=== PATIENT | female | born 1995 | race Caucasian/White ===

== ENCOUNTER 2023-08-11 00:33 | Emergency (ER) | payer BC, SELFPAY ==
[2023-08-11 00:58] VITALS: BP 119/74; PULSE 62; RESP 18; TEMP 36.7; O2SAT 98; BMI 23.0
--- NOTE | 2023-08-11 01:12 | XR_ITS ---
The [address] [address] Patient Name: IVORY NARVAEZ MRN: [id number] date: 1995 Sex: F Assigned Patient Location: ER Current Patient Location: ER Accession/Order Number: [id number] Exam Date: 08/11/2023 01:15 Report Date: 08/11/2023 01:38 At the request of: YOSI WHITNEY Procedure: XR hand RT min 3V COMPARISON: None. CLINICAL HISTORY: Injury. TECHNIQUE: 3 views of right hand obtained. FINDINGS: There is no evidence of fracture or soft tissue swelling. Joint spaces are maintained. No pathologic calcifications. No evidence of radiopaque foreign body. XR/XR hand RT min 3V IMPRESSION: Unremarkable right hand. Electronically authenticated by: MARY LOU VILA Date: 08/11/2023 01:38
--- NOTE | 2023-08-11 01:13 | ED_ITS ---
HPI - Extremity Injury (Upper) General Chief Complaint: Extremity Injury, Upper Stated Complaint: RT HAND INJURY Time Seen by Provider: 08/11/23 01:07 Source: patient Mode of arrival: ambulance Limitations: no limitations History of Present Illness HPI narrative: closed hand in car door 3 days ago. injured right thumb, index and adjoining hand. states swelling has decreased some but still has pain. No weakness or numbness Related Data Home Medications Medication Instructions Recorded Confirmed No Known Home Medications 08/11/23 08/11/23 Allergies Allergy/AdvReac Type Severity Reaction Status Date / Time No Known Drug Allergies Allergy Verified 08/11/23 01:02 Review of Systems ROS Status of ROS 10 or more systems reviewed and unremarkable except as noted in history and below [facility] Social History Smoking status: Former smoker Exam Constitutional Vital Signs, click to edit/add: Last Vital Signs Temp 98.0 F 08/11/23 00:58 Pulse 62 08/11/23 00:58 Resp 18 08/11/23 00:58 BP 119/74 08/11/23 00:58 Pulse Ox 98 08/11/23 00:58 O2 Del Method Room Air 08/11/23 00:58 Common normals: no apparent distress, average body habitus, oriented x3, no limitations, healthy appearing, alert and well nourished Eye Common normals: EOMs intact bilaterally and conjunctivae normal Respiratory Common normals: normal respiratory effort, no retractions and no use of accessory muscles Cardio Common normals: regular rate, S1 normal heart sound and S2 normal heart sound Extremity Other: mild swelling right thumb, web space between thumb and index and proximal index finger Neuro Common normals: oriented x3, CN's II-XII intact bilaterally, moves all extr emities, no focal motor deficits and no sensory deficits noted Psych Appearance: grossly normal Course Vital Signs Vital signs: Vital Signs Temperature 98.0 F 08/11/23 00:58 Pulse Rate 62 08/11/23 00:58 Respiratory Rate 18 08/11/23 00:58 Blood Pressure 119/74 08/11/23 00:58 Pulse Oximetry 98 08/11/23 00:58 Oxygen Delivery Method Room Air 08/11/23 00:58 Temperature 98.0 F 08/11/23 00:58 Pulse Rate 62 08/11/23 00:58 Respiratory Rate 18 08/11/23 00:58 Blood Pressure 119/74 08/11/23 00:58 Pulse Oximetry 98 08/11/23 00:58 Oxygen Delivery Method Room Air 08/11/23 00:58 MDM - Extremity Injury (Upper) MDM Narrative Medical decision making narrative: presents after mistakenly closing her right hand in the car door. has mild swelling of the thumb and index. xray neg for fracture. Patient informed of the xray results and discharged home Imaging Data Chest x-ray: Radiologist's impression: Remberto wang [id number] Patient Name: IVORY NARVAEZ MRN: [id number] date: 1995 Sex: F Assigned Patient Location: ER Current Patient Location: ER Accession/Order Number: [id number] Exam Date: 08/11/2023 01:15 Report Date: 08/11/2023 01:38 At the request of: YOSI WHITNEY Procedure: XR hand RT min 3V COMPARISON: None. CLINICAL HISTORY: Injury. TECHNIQUE: 3 views of right hand obtained. FINDINGS: There is no evidence of fracture or soft tissue swelling. Joint spaces are maintained. No pathologic calcifications. No evidence of radiopaque foreign body. XR/XR hand RT min 3V IMPRESSION: Unremarkable right hand. Electronically authenticated by: MARY LOU VILA Date: 08/11/2023 01:38 Discharge Plan Discharge Chief Complaint: Extremity Injury, Upper Clinical Impression: Contusion of hand, right Patient Disposition: Home, Self-Care Prescriptions / Home Meds: No Action No Known Home Medications Instructions: Contusion in Adults (ED) Stand Alone Forms: Portal Instructions Referrals: Physician,Non-Staff, MD [Primary Care Provider] - 1 week
== END 2023-08-11 02:14 | disposition home or self-care (01) ==
PROVIDERS: Emergency Provider Internal Medicine
DX: S60.221A Contusion of right hand, initial encounter (principal); W23.0XXA Caught, crushed, jammed, or pinched between moving objects, initial encounter; Z87.891 Personal history of nicotine dependence
CPT/HCPCS: 73130; 99283

== ENCOUNTER 2023-12-13 08:25 | Emergency (ER) | payer BC, SELFPAY ==
[2023-12-13 08:31] VITALS: BP 121/78; PULSE 64; RESP 18; TEMP 36.4; O2SAT 99; BMI 22.9
--- OUTSIDE RECORDS SUMMARY | 2023-12-13 08:41 | XMS_ITS | CCD ---
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 Name Role Phone HELENA-MARIA, KAMINI Unavailable Unavailable UNKNOWN, PCP Unavailable Unavailable Dbouk, Tarek Ali Unavailable Unavailable HELENA-MARIA, KAMINI Unavailable Unavailable SERENA, JIM A Unavailable Unavailable Dbouk, Tarek Ali Unavailable Unavailable HELENA-MARIA, KAMINI Unavailable Unavailable *SELF, REFERRED Unavailable Unavailable Dbouk, Tarek Ali Unavailable Unavailable Joel Mcneal Unavailable Unavaila ble Joel Mcneal Unavailable Unavaila ble Dbouk, Tarek Ali Unavailable Unavailable HELENA-MARIA, KAMINI Unavailable Unavailable *SELF, REFERRED Unavailable Unavailable Dbouk, Tarek Ali Unavailable Unavailable HELENA-MARIA, KAMINI Unavailable Unavailable *SELF, REFERRED Unavailable Unavailable Dbouk, Tarek Ali Unavailable Unavailable MAL HARMON Unavailable Unavailable MADISYN HUFF Unavailable Unavailabl e NO FAMILY, PHYSICIAN Primary Care Provider DO Abe Rich Emergency Provider Vivivai RONAK Lackey Admitting Unavailable RONAK CAPUTO Attending Unavailable BRIAN, DR HAWKINS Admitting Unavailable BRIAN, DR HAWKINS Attending Unavailable BRIAN, DR HAWKINS Consulting Unavailable BRIAN, DR HAWKINS Admitting Unavailable BRIAN, DR HAWKINS Attending Unavailable BRIAN, DR HAWKINS Consulting Unavailable SIMONE, DR CASAS Admitting Unavailable SIMONE, DR CASAS Attending Unavailable REQUEST, DR POON LISTED Primary Care Unavailaustyn NICHOLS, DR CASAS Consulting Unavailable Medications Current Medications Medication Drug Class(es) Dates Sig (Normalized) Sig (Original) cyclobenzaprine hydrochloride 10 mg oral tablet (1 source) Muscle Relaxant Start: 01-05-2021 take 10 mg by mouth at bedtime Cyclobenzaprine Active 10 MG PO Bedtime 7 January 05, 2021 9:48am ondansetron 4 mg oral tablet (1 source) Serotonin-3 Receptor Antagonist Start: 03-31-2022 take 4 mg by mouth every eight hours Ondansetron Hcl Active 4 MG PO Q8H 12 4 March 31, 2022 12:26am Completed/Discontinued Medications Medication Drug Class(es) Dates Sig (Normalized) Sig (Original) ibuprofen 600 mg oral tablet (1 source) Nonsteroidal Anti-inflammatory Drug Start: 11-27-2018 End: 03-29-2020 Ibuprofen Discontinued 600 MG PO every 6 to 8 hours November 27, 2018 10:41pm March 29, 2020 7:46pm Problems Active Problems Problem Classification Problem Date Documented Da te Episodic/Chronic Abdominal pain (1 source) Abdominal pain; Translations: [Unspecified abdominal pain] 03-31-2022 Episodic Fever of unknown origin (2 sources) Feeling feverish; Translations: [Fever, unspecified] Onset: 09-20-2022 03-31-2022 Episodic Influenza (1 source) Influenza due to other identified influenza virus with other respiratory manifestations; Translations: [FLU D/T OTH ID FLU VIR OTH RSP MANF] Onset: 09-20-2022 Episodic Nausea and vomiting (1 source) Nausea and vomiting; Translations: [Nausea with vomiting, unspecified] 03-31-2022 Episodic Other injuries and conditions due to external causes (1 source) Contusion; Translations: [Other injury of unspecified body region, initial encounter] 01-05-2021 Episodic Other lower respiratory disease (1 source) Cough; Translations: [Cough] 03-31-2022 Episodic Other nutritional; endocrine; and metabolic disorders (1 source) Loss of appetite; Translations: [Anorexia] 03-31-2022 Episodic Sprains and strains (1 source) Strain of neck muscle; Translations: [Strain of muscle, fascia and tendon at neck level, initial encounter] 01-05-2021 Episodic Superficial injury; contusion (1 source) Contusion of rib; Translations: [Contusion of left front wall of thorax, initial encounter] 03-29-2020 Episodic Unclassified (1 source) Congenital malformation, unspecified / Q89.9(ICD-10) Onset: 05-04-2017 Unclassified (1 source) Herpesviral infection of urogenital system, 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(ICD-10) Onset: 05-04-2017 Unclassified (1 source) 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) Onset: 05-04-2017 Unclassified (2 sources) COUGH, UNSPECIFIED; Translations: [COUGH, UNSPECIFIED] Onset: 09-20-2022 Viral infection (1 source) Disease caused by 2019-nCoV; Translations: [COVID-19] 03-31-2022 Episodic Past or Other Problems Problem Classification Problem Date Documented Date Episodic/Chronic Immunizations and screening for infectious disease (4 sources) Encounter for screening for infections with a predominantly sexual mode of transmission; Translations: [ENC SCREEN INFECTIONS SEXL TRANSMS] Onset: 05-12-2022 Episodic Other screening for suspected conditions (not mental disorders or infectious disease) (4 sources) Encounter for screening for malignant neoplasm of cervix; Translations: [ENC SCREENING MALIG NEOPLASM CERV] Onset: 03-25-2022 Episodic Other upper respiratory infections (1 source) Acute pharyngitis, unspecified; Translations: [Acute pharyngitis, unspecified] Onset: 05-30-2017 Episodic Residual codes; unclassified (4 sources) Procedure and treatment not carried out due to patient leaving prior to being seen by health care provider; Translations: [PROC AND TX NOT CARRIED OUT PT LEAVE] Onset: 10-20-2021 Episodic Unclassified (1 source) COUGH, UNSPECIFIED; Translations: [COUGH, UNSPECIFIED] Onset: 09-18-2022 Results Test Name Value Interpretation Reference Range Facility INFLUENZA A AND B AGon 09-18 INFLUBNEGH SEE BELOW Normal [facility] Comment on above: Result Comment: Nega tive for Flu B protein antigen. Infection due to Flu B cannot be ruled out. Flu B antigen in the sample may be below the detection limit of the test. Performed By: #### I NFLUAB #### [facility] [address] [place] [address] Dr. Darshan Porter INFLUENZA A AG Positive Abnormal NEGATIVE SEE COMMENT [facility] Comment on above: Performed By: #### I NFLUAB #### [facility] [address] [address] [address] Darshan Porter INFLUENZA B AG Negative Normal NEGATIVE SEE COMMENT [facility] Comment on above: Performed By: #### I NFLUAB #### [facility] [address] [place] [address] Dr. Darshan Porter INFLUPOSH SEE BELOW Normal [facility] Comment on above: Result Comment: NOTE : Live attenuated influenzae vaccine viruses can cause a positive result for a rapid influenza diagnostic test if administered up to 7 days prior to rapid testing. Performed By: #### I NFLUAB #### [facility] [address] [place] [address] Dr. Darshan Porter INTERNAL CONTROLS Within Normal Limits Normal Wi thin Normal Limits [facility] Comment on above: Performed By: #### I NFLUAB #### [facility] [address] [place] [address] Dr. Darshan Porter CHLAMYDIA/GONOCOCCUS NESSA (SW AB/URINE/PAPon 05-14-2022 Chlamydia trachomatis, NESSA Negative Normal Negative [facility] Comment on above: Performed By: #### C T/NGNA #### [facility] [address] [place] [address] Dr. Darshan Porter Neisseria gonorrhoeae, NESSA Negative Normal Negative [facility] Comment on above: Performed By: #### C T/NGNA #### [facility] [address] [place] [address] Dr. Darshan Porter VAGINITIS/VAGINOSIS DNA PROB Donell 05-14-2022 Latha species Negative Normal Negative [facility] Comment on above: Performed By: #### V AGINT #### [facility] [address] [place] [address] Dr. Darshan Porter Gardnerella vaginalis Positive Abnormal Negative [facility] Comment on above: Performed By: #### V AGINT #### [facility] [address] [place] [address] Dr. Darshan Porter Trichomonas vaginalis Negative Normal Negative [facility] Comment on above: Performed By: #### V AGINT #### [facility] [address] [place] [address] Dr. Darshan Porter Basic Metabolic Panelon - Calcium [Mass/Vol] 9.4 mg/dL Normal 8.2-10.2 [facility] Comment on above: Performed By: #### C BC, BMP #### [facility] [address] Chloride [Moles/Vol] 102 mmol/L Normal 95-114 [facility] Comment on above: Performed By: #### C BC, BMP #### [facility] [address] CO2 [Moles/Vol] 22.1 mmol/L Normal 22.0-30.0 [facility] Comment on above: Performed By: #### C BC, BMP #### [address] Creatinine [Mass/Vol] 0.80 mg/dL Normal 0.44-1.03 [facility] Comment on above: Performed By: #### C BC, BMP #### [address] Creatinine Clr Calc Pharmacy 85.83 [facility] Comment on above: Result Comment: PERF ORMED BY: [place] [id number] PATHOLOGIST BEEF SPLITTER LAKEISHA GRAY M.D. Performed By: #### C BC, BMP #### [address] Estimated GFR ( Sis > 60 [facility] Comment on above: Result Comment: GFR estimated reference range: According to KDOQI guidelines, <60 ml/min/1.73m2 is sufficient to diagnose a patient with chronic kidney disease. Performed By: #### C BC, BMP #### [facility] [address] [place] [address] Estimated GFR (Non- Am > 60 [facility] Comment on above: Performed By: #### C BC, BMP #### [address] Glucose [Mass/Vol] 88 mg/dL Normal 70-100 [facility] Comment on above: Result Comment: [place] Glucose Reference Range is dependent on time and content of last meal. Glucose of more than 200 mg/dL in a nonstressed, ambulatory subject supports the diagnosis of Diabetes Mellitus. ADA recommended reference range Performed By: #### C BC, BMP #### [facility] [address] Potassium [Moles/Vol] 3.7 mmol/L Normal 3.5-5.1 [facility] Comment on above: Performed By: #### C BC, BMP #### [facility] [address] Sodium [Moles/Vol] 136 mmol/L Normal 136-146 [facility] Comment on above: Performed By: #### C BC, BMP #### [facility] [address] Urea nitrogen [Mass/Vol] 8 mg/dL Low 9-23 [facility] Comment on above: Performed By: #### C PETR, BMP #### [facility] [address] COVID-19 / Flu A/B / RSV PCR on 03-31-2022 SARS-CoV-2 (COVID-19) RNA NESSA+probe Ql (Unsp spec) Critical value result called at 0032 on 03/31/22 Healthcare Worker?: N COVID-19 Cepheid Result Positive for SARS-CoV-2 RNA by RT-PCR Flu A Cepheid Result Negative for Flu A RNA by RT-PCR Flu B Cepheid Result Negative for Flu B RNA by RT-PCR RSV Cepheid Result Negative for RSV RNA by RT-PCR COVID19 Blank Space Reference: Negative COVID19 Blank Space Cepheid Disclaimer The Cepheid Xpert Xpress CoV-2/Flu/RSV Plus has Cepheid Disclaimer not been FDA cleared or approved; this test has Cepheid Disclaimer been authorized by FDA under an EUA for use by Cepheid Disclaimer authorized laboratories; this test has been Cepheid Disclaimer authorized only for the simultaneous qualitative Cepheid Disclaimer detection and differentiation of nucleic acids from Cepheid Disclaimer SARS-CoV-2, influenza A, influenza B, and Cepheid Disclaimer respiratory syncytial virus (RSV), and not for any Cepheid Disclaimer other viruses or pathogens; and this test is only Cepheid Disclaimer authorized for the duration of the declaration that Cepheid Disclaimer circumstances exist justifying the authorization of Cepheid Disclaimer emergency use of in vitro diagnostic tests for Cepheid Disclaimer detection and/or diagnosis of COVID-19 under Cepheid Disclaimer Section 564(b)(1) of the Act, 21 U.S.C. 360bbb- Cepheid Disclaimer 3(b)(1), unless the authorization is terminated or Cepheid Disclaimer revoked sooner. PERFORMED BY: [place] [id number] PATHOLOGIST BEEF SPLITTER LAKEISHA GRAY M.D. Normal [facility] Comment on above: Performed By: #### C OVID19 FLU RSV, CEPHEID POS #### [address] Cepheid COVID PCR Positiveon 03-31-2022 SARS-CoV-2 (COVID-19) RNA NESSA+probe Ql (Unsp spec) Positive Critically abnormal Negative [facility] Comment on above: Result Comment: This is a duplicate Cepheid Xpert Xpress CoV-2/Flu/RSV Plus RNA by RT-PCR result to be used for statistical tracking purpose only. PERFORMED BY: [place] [id number] PATHOLOGIST BEEF SPLITTER LAKEISHA GRAY M.D. Performed By: #### C OVID19 FLU RSV, CEPHEID POS #### [address] Complete Blood Count Auto Di ffon 03-31-2022 Basophils (Bld) [#/Vol] 0.0 10*3/uL Normal 0.0-0.2 [facility] Comment on above: Result Comment: PERF ORMED BY: [place] [id number] PATHOLOGIST BEEF SPLITTER LAKEISHA GRAY M.D. Performed By: #### C BC, BMP #### [address] Basophils/100 WBC (Bld) 0.8 % Normal . [facility] Comment on above: Performed By: #### C BC, BMP #### [address] Eosinophils (Bld) [#/Vol] 0.0 10*3/uL Normal 0.0-0.45 [facility] Comment on above: Performed By: #### C BC, BMP #### [address] Eosinophils/100 WBC (Bld) 0.5 % Normal . [facility] Comment on above: Performed By: #### C BC, BMP #### [address] Erythrocyte distribution width (RBC) [Ratio] 13.9 % Normal 11.9-15.3 [facility] Comment on above: Performed By: #### C BC, BMP #### [address] Hematocrit (Bld) [Volume fraction] 40.8 % Normal 34.0-46.4 [facility] Comment on above: Performed By: #### C BC, BMP #### [address] Hemoglobin (Bld) [Mass/Vol] 13.9 g/dL Normal 11.8-15.4 [facility] Comment on above: Performed By: #### C BC, BMP #### [place] [address] [place] Lymphocytes (Bld) [#/Vol] 0.7 10*3/uL Low 1.00-4.8 [facility] Comment on above: Performed By: #### C BC, BMP #### [facility] [address] Lymphocytes/100 WBC (Bld) 13.9 % Normal . [facility] Comment on above: Performed By: #### C BC, BMP #### [facility] [address] MCH (RBC) [Entitic mass] 31.2 pg Normal 24.7-34.3 [facility] Comment on above: Performed By: #### C BC, BMP #### [facility] [address] MCV (RBC) [Entitic vol] 91.3 fL Normal 80-100 [facility] Comment on above: Performed By: #### C BC, BMP #### [facility] [address] Mean Corpuscular HGB Conc 34.1 g/dL Normal 32.0-35.0 [facility] Comment on above: Performed By: #### C BC, BMP #### [facility] [address] [place] [address] [place] Monocytes (Bld) [#/Vol] 1.0 10*3/uL High 0.0-0.8 [facility] Comment on above: Performed By: #### C BC, BMP #### [facility] [address] [place] [address] [place] Monocytes/100 WBC (Bld) 19.6 % Normal . [facility] Comment on above: Performed By: #### C BC, BMP #### [facility] [address] [place] [address] [place] Neutrophils (Bld) [#/Vol] 3.5 10*3/uL Normal 1.8-7.7 [facility] Comment on above: Performed By: #### C BC, BMP #### [facility] [address] Neutrophils/100 WBC (Bld) 65.2 % Normal . [facility] Comment on above: Performed By: #### C PETR, BMP #### [facility] [address] [place] [address] [place] Nucleated RBC/100 WBC (Bld) [Ratio] 0.2 % Normal 0-0.5 [facility] Comment on above: Performed By: #### C PETR, BMP #### [facility] [address] Platelet mean volume (Bld) [Entitic vol] 8.4 fL Normal 6.3-10.7 [facility] Comment on above: Performed By: #### C PETR, BMP #### [facility] [address] Platelets (Bld) [#/Vol] 229 10*3/uL Normal 150-450 [facility] Comment on above: Performed By: #### C PETR, BMP #### [facility] [address] RBC (Bld) [#/Vol] 4.47 10*6/uL Normal 3.60-5.00 [facility] Comment on above: Performed By: #### C PETR, BMP #### [facility] [address] [place] [address] [place] WBC (Bld) [#/Vol] 5.3 10*3/uL Normal 4.5-11.0 [facility] Comment on above: Performed By: #### C PETR, BMP #### [facility] [address] [place] [address] [place] Basophils Auto (Bld) [#/Vol] Ordered By: Abe Obrien on 03-30-2022 Basophils (Bld) [#/Vol] 0.0 10*3/uL 0.0-0.2 [facility] Basophils/100 WBC Auto (Bld) Ordered By: Abe Obrien on 03-30-2022 Basophils/100 WBC (Bld) 0.8 % [facility] Blood hemoglobin measurement (mass/volume)Ordered By: Abe Obrien on 03-30-2022 Hemoglobin (Bld) [Mass/Vol] 13.9 g/dL 11.8-15.4 [facility] Blood leukocytes automated c ount (number/volume)Ordered By: Abe Obrien on 03-30-2022 WBC (Bld) [#/Vol] 5.3 10*3/uL 4.5-11.0 [facility] COVID CepheidOrdered By: Avinash rivera Camille on 03-30-2022 SARS-CoV-2 (COVID-19) Ab IA Ql Positive Negative [facility] Comment on above: This is a duplicate CepWyoosid Xpert Xpress CoV-2/Flu/RSV Plus RNA by RT-PCR result to be used for statistical tracking purpose only. SARS-CoV-2 (COVID-19) RNA NESSA+probe Ql (Unsp spec) [facility] Creatinine and Glomerular fi ltration rate.predicted panel (S/P/Bld)Ordered By: Abe Obrien on 03-30-2022 Creatinine [Mass/Vol] 0.80 mg/dL 0.44-1.03 [facility] Eosinophils Auto (Bld) [#/Vo l]Ordered By: Abe Obrien on 03-30-2022 Eosinophils (Bld) [#/Vol] 0.0 10*3/uL 0.0-0.45 [facility] Eosinophils/100 WBC Auto (Bl d)Ordered By: Abe Obrien on 03-30-2022 Eosinophils/100 WBC (Bld) 0.5 % [facility] Erythrocyte distribution wid th Auto (RBC) [Ratio]Ordered By: Abe Obrien on 03-30-2022 Erythrocyte distribution width (RBC) [Ratio] 13.9 % 11.9-15.3 [facility] Estimated glomerular filtrat ion rate (GFR) non- AmericanOrdered By: Abe Obrien on 03-30-2022 GFR/1.73 sq M.predicted among non-blacks MDRD (S/P/Bld) [Vol rate/Area] > 60 mL/Min [facility] Hematocrit Auto (Bld) [Volum e fraction]Ordered By: Abe Obrien on 03-30-2022 Hematocrit (Bld) [Volume fraction] 40.8 % 34.0-46.4 [facility] - Hematology and Cell countsOrdered By: Abe Obrien on 03-30-2022 Nucleated RBC/100 WBC (Bld) [Ratio] 0.2 % 0-0.5 [facility] Lymphocytes Auto (Bld) [#/Vo l]Ordered By: Abe Obrien on 03-30-2022 Lymphocytes (Bld) [#/Vol] 0.7 10*3/uL 1.00-4.8 [facility] Lymphocytes/100 WBC Auto (Bl d)Ordered By: Abe Obrien on 03-30-2022 Lymphocytes/100 WBC (Bld) 13.9 % [facility] MCH Auto (RBC) [Entitic mass ]Ordered By: Abe Obrien on 03-30-2022 MCH (RBC) [Entitic mass] 31.2 pg 24.7-34.3 [facility] MCHC Auto (RBC) [Mass/Vol]Or dered By: Abe Obrien on 03-30-2022 MCHC (RBC) [Mass/Vol] 34.1 g/dL 32.0-35.0 [facility] MCV Auto (RBC) [Entitic vol] Ordered By: Abe Obrien on 03-30-2022 MCV (RBC) [Entitic vol] 91.3 fL 80-100 [facility] Monocytes Auto (Bld) [#/Vol] Ordered By: Abe Obrien on 03-30-2022 Monocytes (Bld) [#/Vol] 1.0 10*3/uL 0.0-0.8 [facility] Monocytes/100 WBC Auto (Bld) Ordered By: Abe Obrien on 03-30-2022 Monocytes/100 WBC (Bld) 19.6 % [facility] Neutrophils Auto (Bld) [#/Vo l]Ordered By: Abe Obrien on 03-30-2022 Neutrophils (Bld) [#/Vol] 3.5 10*3/uL 1.8-7.7 [facility] Neutrophils/100 WBC Auto (Bl d)Ordered By: Abe Obrien on 03-30-2022 Neutrophils/100 WBC (Bld) 65.2 % [facility] No Panel InformationOrdered By: Abe Obrien on 03-30-2022 Estimated GFR () > 60 mL/Min [facility] Comment on above: GFR estimated refere nce range: According to KDOQI guidelines, <60 ml/min/1.73m2 is sufficient to diagnose a patient with chronic kidney disease. Pharmacy Creatinine Clearance (Chem 85.83 [facility] PAP ACOG PANEL 2: 21 to 27on 03-30-2022 . . Normal [facility] Comment on above: Performed By: #### [id number] #### [facility] [address] [place] [address] Dr. Darshan Porter Age Gdln ACOG Testing 19- [facility] Comment on above: Performed By: #### [id number] #### [facility] [address] [place] [address] Dr. Darshan Porter DIAGNOSIS: Comment [facility] Comment on above: Result Comment: NEGA TIVE FOR INTRAEPITHELIAL LESION OR MALIGNANCY. Performed By: #### [id number] #### [facility] [address] [place] [address] Dr. Darshan Porter Methodology: Comment [facility] Comment on above: Result Comment: This liquid based ThinPrep(R) pap test was screened with the use of an image guided system. Performed By: #### [id number] #### [facility] [address] [place] [address] Dr. Darshan Porter Note: Comment [facility] Comment on above: Result Comment: The Pap smear is a screening test designed to aid in the detection of premalignant and malignant conditions of the uterine cervix. It is not a diagnostic procedure and should not be used as the sole means of detecting cervical cancer. Both false-positive and false-negative reports do occur. . Performed By: #### [id number] #### [facility] [address] [place] [address] Dr. 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 Darshan Porter Reflex Criteria: Comment Normal [facility] Comment on above: Result Comment: The HPV DNA reflex criteria were not met with this specimen result therefore, no HPV testing was performed. . Performed By: #### [id number] #### [facility] [address] [place], [place] [address] Dr. Darshan Porter Specimen adequacy: Comment Normal [facility] Comment on above: Result Comment: Sati sfactory for evaluation. Endocervical and/or squamous metaplastic cells (endocervical component) are present. Performed By: #### [id number] #### [facility] [address] [address] [address] Darshan Porter Platelet mean volume Auto (B ld) [Entitic vol]Ordered By: Abe Obrien on 03-30-2022 Platelet mean volume (Bld) [Entitic vol] 8.4 fL 6.3-10.7 [facility] Platelets Auto (Bld) [#/Vol] Ordered By: Abe Obrien on 03-30-2022 Platelets (Bld) [#/Vol] 229 10*3/uL 150-450 [facility] RBC Auto (Bld) [#/Vol]Ordere d By: Abe Obrien on 03-30-2022 RBC (Bld) [#/Vol] 4.47 10*6/uL 3.60-5.00 [facility] Serum or plasma calcium spencer urement (mass/volume)Ordered By: Abe Obrien on 03-30-2022 Calcium [Mass/Vol] 9.4 mg/dL 8.2-10.2 [facility] Serum or plasma chloride aurora surement (moles/volume)Ordered By: Abe Obrien on 03-30-2022 Chloride [Moles/Vol] 102 mmol/L 95-114 [facility] Serum or plasma glucose spencer urement (mass/volume)Ordered By: Abe Obrien on 03-30-2022 Glucose [Mass/Vol] 88 mg/dL 70-100 [facility] Comment on above: ADA recommended refe rence range Random Glucose Reference Range is dependent on time and content of last meal. Glucose of more than 200 mg/dL in a nonstressed, ambulatory subject supports the diagnosis of Diabetes Mellitus. Serum or plasma potassium me asurement (moles/volume)Ordered By: Abe Obrien on 03-30-2022 Potassium [Moles/Vol] 3.7 mmol/L 3.5-5.1 [facility] Serum or plasma sodium measu rement (moles/volume)Ordered By: Abe Obrien on 03-30-2022 Sodium [Moles/Vol] 136 mmol/L 136-146 [facility] Serum or plasma total carbon dioxide measurement (moles/volume)Ordered By: Abe Obrien on 03-30-2022 CO2 [Moles/Vol] 22.1 mmol/L 22.0-30.0 [facility] Serum or plasma urea nitroge n measurement (mass/volume)Ordered By: Abe Obrien on 03-30-2022 Urea nitrogen [Mass/Vol] 8 mg/dL 9- [facility] COVID-19 Lab Corpon 10-20-19 22 SARS-CoV-2 (COVID-19) RNA NESSA+probe Ql (Unsp spec) Detected Critically abnormal Not Detected [facility] Comment on above: Order Comment: Healt hcare Worker?: N Result Comment: Sara ents who have a positive COVID-19 test result may now have treatment options. Treatment options are available for patients with mild to moderate symptoms and for hospitalized patients. Visit our website at [email or web address] for resources and information. This nucleic acid amplification test was developed and its performance characteristics determined by [employer]. Nucleic acid amplification tests include RT- PCR and TMA. This test has not been FDA cleared or approved. This test has been authorized by FDA under an Emergency Use Authorization (EUA). This test is only authorized for the duration of time the declaration that circumstances exist justifying the authorization of the emergency use of in vitro diagnostic tests for detection of SARS-CoV-2 virus and/or diagnosis of COVID-19 infection under section 564(b)(1) of the Act, 21 U.S.C. 360bbb-3(b) (1), unless the authorization is terminated or revoked sooner. When diagnostic testing is negative, the possibility of a false negative result should be considered in the context of a patient's recent exposures and the presence of clinical signs and symptoms consistent with COVID-19. An individual without symptoms of COVID-19 and who is not shedding SARS-CoV-2 virus would expect to have a negative (not detected) result in this assay. PERFORMED BY: [facility] [address] [place] [address] PATHOLOGIST BEEF SPLITTER LAKEISHA GRAY M.D. Performed By: #### C ORONAVIRUS #### [facility] , HIV-1,-2 w/Reflex to HIV-1 W estern [place] 02-07-2018 HIV-1 and HIV-2 Abs Negative Normal Negative [facility] Comment on above: Result Comment: Base d on the non-reactive anti-HIV (DEIRDRE) screen, the HIV Western blotis notindicated and therefore not performed.INTERPRETIVE INFORMATION: HIV-1,-2 w/Reflex to HIV-1 Western BlotThis assay should not be used for blood donor screening, associatedre-entryprotocols, or for screening Human Cells, Tissues and Cellular andTissue-Based Products (HCT/P).Performed by [employer],[address] [place] [id number] xyo.Armetheon, Krishan Sánchez MD - Lab. Director RPRon 02-06-2018 Reagin antibody presence Non-reactive Normal Non-reacti [facility] Hepatitis B Surface Agon Hepatitis B Surface Ag Interp Non-reactive Normal [facility] Hepatitis C Antibodyon 02-04 Hepatitis C Antibody Interp Non-reactive Normal [facility] Culture, Strep A Screenon Culture, Strep A Screen ORDERED BY: TAMMY HUFF: Throat COLLECTED: 05/30/17 11:38ANTIBIOTICS AT JESSICA.: RECEIVED : 05/30/17 15:25Culture, Strep A Screen FINAL 06/02/17 08:54 Usual fátima isolated including Beta Strep, not group A. [facility] Rapid A Strep Antigenon 05-18 Rapid strep test Negative Normal Negative [facility] Comment on above: Result Comment: A cu lture confirmation plate has been set up and a separatereport will follow. See micro report. Vital Signs Date Time Vital Sign Value Performing Clinician Jhon malin 03-30-2022 21:11-0400 Body height 160.02 cm PHYSICIAN NO [facility] 03-30-2022 21:11-0400 Body mass index (BMI) [Ratio] 22.8 kg/m2 PHYSICIAN NO [facility] 03-30-2022 21:11-0400 Body temperature 99.8 [degF] PHYSICIAN NO [facility] 03-30-2022 21:11-0400 Body weight 58.5 kg PHYSICIAN NO [facility] 03-30-2022 21:11-0400 Diastolic blood pressure 56 mm[Hg] PHYSICIAN NO [facility] 03-30-2022 21:11-0400 Heart rate 69 /min PHYSICIAN NO [facility] 03-30-2022 21:11-0400 SaO2% (BldA) [Mass fraction] 97 % PHYSICIAN NO [facility] 03-30-2022 21:11-0400 Systolic blood pressure 112 mm[Hg] PHYSICIAN NO [facility] Encounters Encounter Date Encounter Type Care Provider Facility Start: 09-18-2022 End: 09-18-[address] AUGUSTO NICHOLS Facility:[facility] Start: 05-12-2022 End: 05-12-[address] ROSS TORRES Facility:[facility] Start: 03-30-2022 End: 03-31-2022 Emergency department patient visit PHYSICIAN NO [facility] Start: 03-25-2022 End: 03-25-[address] ROSS TORRES Facility:[facility] Start: 10-20-2021 End: 10-20-2021 ambulatory RONAK CAPUTO Facility:[facility] Start: 08-31-2017 Ambulatory KAMINI Rivas ty:[facility] Start: 08-03-2017 Ambulatory KAMINI Rivas ty:[facility] Start: 06-29-2017 Ambulatory KAMINI Rivas ty:[facility] Start: 05-30-2017 End: 05-30-2017 Emergency department patient visit MAL HARMON [facility] Start: 05-25-2017 Ambulatory KAMINI Rivas ty:[facility] Start: 05-04-2017 Ambulatory Joel Mcneal Facility:[facility] Shimon Colon Start: 04-27-2017 Ambulatory KAMINI Rivas ty:[facility] Procedures Date Procedure Procedure Detail Performing Clinician Start: 03-30-2022 SARS-CoV-2, Influenz a & RSV (PCR) PHYSICIAN NO FAMILY Start: 05-30-2017 CULTURE BETA STREP C ONFIRM PLATE MAL EDEN Start: 05-30-2017 RAPID STREP SCREEN MAL HARMON Plan of Treatment Date Care Activity Detail Author Patient Education Nausea and Vom iting, Adult (DC) Abdominal Pain, Adult ED [facility]/OP COVID-19 Discharge Instructions [facility] Work Phone: Patient referral [facility] Work Phone: Payers Date Payer Category Payer Medicaid [id number] 1995 Unknown [id number] [id number] [id number] 1995 Unknown [id number] [id number] [id number] 1993 Unknown [id number] [id number] [id number] 1993 Unknown [id number] [id number] [id number] 1961 Self-pay [id number] 1961 Unknown [id number] Medicaid [employer] [id number] 801 [id number] Unknown [facility] [id number] Unknown [facility] [id number] Unknown [facility] [id number] Social History Date Type Detail Facility Start: 03-30-2022 Tobacco smoking stat us NHIS Current some day smoker [facility] Start: 1995 Sex Assigned At Female F [facility] Evaluation note Note Date & Type Note Facility Evaluation note No assessment information availa ble [facility] Work Phone: Hospital Discharge instructions Note Date & Type Note Facility Hospital Discharge instructions Additional Instructions Take Zofran as prescribed for nausea and vomiting. Increase your intake of fluids and take Motrin Tylenol as needed for pain. Return to the emergency department if develop worsening right lower quadrant abdominal pain intractable nausea vomiting. Follow-up with your primary care physician for reevaluation in 3 to 5 days. [facility] Work Phone: Summary Purpose Family History No Family History Records Found Relationship Condition Age at Onset Recorded Date/T emeli Not Specified No pertinent family history Unknown Advance Directives No Advanced Directives Records Found Advance Directive Response Recorded Date/ Time Advance Directives No April 16 1:05pm Chief Complaint and Reason for Visit Chief Complaint Fever Additional Source Comments INFORMATION SOURCE (unrecogn ized section and content) DATE CREATED AUTHOR 04/07/2018 [facility] DATE CREATED AUTHOR AUTHOR'S ORGANIZ ATION 04/12/2018 [facility] DATE CREATED AUTHOR AUTHOR'S ORGANIZ ATION 04/13/2018 [facility] DATE CREATED AUTHOR AUTHOR'S ORGANIZ ATION 04/14/2022 [facility] DATE CREATED AUTHOR AUTHOR'S ORGANIZ ATION [facility]20[facility] Teams (unrecognized sec tion and content) Team Status: Inactive Member Role Status Dates PHYSICIAN NO FAMILY Primary Care Provider Active Abe Obrien DO Emergency Provider Active Team Status: Active Member Role Status Dates PHYSICIAN NO FAMILY Primary Care Provider Active Goals (unrecognized section and content) Goals may be documented in a n alternate section FOR RECORDS PERTAINING TO PATIENTS WHO ARE OR HAVE BEEN ENROLLED IN A CHEMICAL DEPENDENCY/SUBSTANCEABUSE PROGRAM, SOME INFORMATION MAY BE OMITTED. This clinical summary was aggregated from multiple sources. Caution should be exercised in using it in the provision of clinical care. This summary normalizes information from multiple sources, and as a consequence, information in this document may materially change the coding, format and clinical context of patient data. In addition, data may be omitted in some cases. CLINICAL DECISIONS SHOULD BE BASED ON THE PRIMARY CLINICAL RECORDS. [facility] [employer] [facility]. provides no warranty or guarantee of the accuracy or completeness of information in this document.
[2023-12-13 09:16] LABS: Influenza Virus A Antigen Negative; Influenza Virus B Antigen Negative; Internal Control Within Normal Limits; SARS-CoV-2 Ag NEGATIVE (NEGATIVE); Strep A Antigen Screen Negative
--- NOTE | 2023-12-13 09:30 | ED_ITS ---
HPI - URI/Sore Throat General Chief Complaint: Upper Respiratory Infection Stated Complaint: Sore Throat Time Seen by Provider: 12/13/23 08:51 Source: patient Limitations: no limitations History of Present Illness HPI Narrative: The patient have a sore throat in addition to generalized body ache for the last 24 hours. She had multiple people at work have the similar symptoms and she denies any other complaints Related Data Home Medications Medication Instructions Recorded Confirmed No Known Home Medications 08/11/23 08/11/23 Allergies Allergy/AdvReac Type Severity Reaction Status Date / Time No Known Drug Allergies Allergy Verified 08/11/23 01:02 Review of Systems ROS Status of ROS 10 or more systems reviewed and unremark able except as noted in history and below PFSH PFS Social History Smoking status: Former smoker Exam Narrative Exam Narrative: Nurses notes and vital signs reviewed and patient is not hypoxic. General: Well-appearing and in no apparent distress. Skin: Warm, dry, no pallor noted. No rash. Head: Normocephalic, atraumatic. Neck: Supple, non-tender. Eye: Pupils are equal, round and EOMI. No scleral icterus. Ears, Nose, Mouth, and Throat: TM are clear, no nasal mucosal hypertrophy. Oral mucosa is moist, no posterior oropharynx erythema, uvula is mid-line Cardiovascular: Regular Rate and Rhythm without murmur, gallop or rub. Respiratory: No accessory muscle use or respiratory distress. Lungs are clear to auscultation, no wheezing, rales or rhonchi Chest Wall: no tenderness Back: No midline thoracic or lumbar vertebral tenderness. No CVA tenderness Musculoskeletal: normal ROM, no calf or popliteal tenderness, no lower extremity edema/swelling GI: Abdomen is soft, non-distended. Normal bowel sounds. No masses appreciated. No tenderness to palpation. No rebound, guarding, or rigidity noted. Neurological: A&O x4. No cranial nerve dysfunction observed. No truncal ataxia. Moves all extremities. Sensation intact. Psychiatric: Cooperative and interactive. Normal mood and affect. Constitutional Vital Signs, click to edit/add: Last Vital Signs Temp 97.5 F L 12/13/23 08:31 Pulse 64 12/13/23 08:31 Resp 18 12/13/23 08:31 BP 121/78 12/13/23 08:31 Pulse Ox 99 02/26/24 08:31 O2 Del Method Room Air 12/13/23 08:31 Course Vital Signs Vital signs: Vital Signs Temperature 97.5 F L 12/13/23 08:31 Pulse Rate 64 12/13/23 08:31 Respiratory Rate 18 12/13/23 08:31 Blood Pressure 121/78 12/13/23 08:31 Pulse Oximetry 99 12/13/23 08:31 Oxygen Delivery Method Room Air 12/13/23 08:31 Temperature 97.5 F L 12/13/23 08:31 Pulse Rate 64 12/13/23 08:31 Respiratory Rate 18 12/13/23 08:31 Blood Pressure 121/78 12/13/23 08:31 Pulse Oximetry 99 12/13/23 08:31 Oxygen Delivery Method Room Air 12/13/23 08:31 MDM - URI/Sore Throat MDM Narrative Medical decision making narrative: Strep test is negative the patient right now mostly presented with viral symptoms Supportive cares instructed The patient is to follow up with primary care physician in next 2-3 days or to return to the emergency department should any of the signs or symptoms worsen or new symptoms develop. The patient agrees with the following Diagnosis and Treatment plan and the patient will be discharged home. Lab Data Labs: Lab Results 12/13/23 Range/Units 08:35 Influenza Type A Ag Negative Influenza Type B Ag Negative SARS-CoV-2 Ag (CV2AG) Negative (NEGATIVE) Streptococcus Screen Negative Discharge Plan Discharge Chief Complaint: Upper Respiratory Infection Clinical Impression: Viral infection Patient Disposition: Home, Self-Care Time of Disposition Decision: 09:29 Prescriptions / Home Meds: No Action No Known Home Medications Instructions: Viral Syndrome (ED) Stand Alone Forms: Portal Instructions Referrals: Physician,Non-Staff, MD [Primary Care Provider] - 1 week Discharge Date/Time: 12/13/23 09:36
== END 2023-12-13 09:36 | disposition home or self-care (01) ==
PROVIDERS: Emergency Provider Emergency Medicine
DX: B34.9 Viral infection, unspecified (principal); Z87.891 Personal history of nicotine dependence
CPT/HCPCS: 87070; 87804; 87811; 87880; 99283

== ENCOUNTER 2024-02-07 17:34 | Emergency (ER) | payer BC, SELFPAY ==
[2024-02-07 17:39] VITALS: BP 133/66; PULSE 75; TEMP 37.2; O2SAT 98; BMI 23.8
--- OUTSIDE RECORDS SUMMARY | 2024-02-07 17:40 | XMS_ITS | CCD ---
Author Organization [facility] Care Team Providers Care Development Technologist Name Role Phone HELENA-MARIA, KAMINI Unavailable Unavailable UNKNOWN, PCP Unavailable Unavailable Dbouk, Tarek Ali Unavailable Unavailable HELENA-MARIA, KAMINI Unavailable Unavailable SERENA JIM A Unavailable Unavailable Dbouk, Tarek Ali [...] e NO FAMILY, PHYSICIAN Primary Care Provider Unava ilDO Abe Hussein Emergency Provider Unavai RONAK Lackey Admitting Unavailable RONAK CAPUTO Attending Unavailable BRIAN, DR HAWKINS Admitting Unavailable MICHAELASISarah, DR HAWKINS Attending Unavailable KARKATE, DR HAWKINS Consulting Unavailable KARASISarah, DR HAWKINS Admitting Unavailable KARASISarah, DR HAWKINS Attending Unavailable BRIAN, DR HAWKINS [...] bedtime Cyclobenzaprine Active 10 MG PO Bedtime January 05, 2021 9:48am ondansetron 4 mg oral tablet (1 source) Serotonin-3 Receptor Antagonist Start: 03-31-2022 take 4 mg by mouth every eight hours Ondansetron Hcl Active 4 MG PO Q8H 12 March 31, 2022 12:26am Completed/Discontinued Medications Medication [...] Facility INFLUENZA A AND B AGon 09-18 INFLUBNEG SEE BELOW Normal [facility] Comment on above: Result Comment: Nega tive for Flu B protein antigen. Infection due to Flu B cannot be ruled out. Flu B antigen in the sample may be below the detection limit of the test. Performed By: #### I NFLUAB #### [facility] [address] [address] [address] Darshan Porter INFLUENZA A AG Positive Abnormal NEGATIVE SEE COMMENT [facility] Comment on above: Performed By: #### I NFLUAB #### [facility] [address] [address] [address] Darshan Porter INFLUENZA B AG Negative Normal NEGATIVE SEE COMMENT [facility] Comment on above: Performed By: #### I NFLUAB #### [facility] [address] [address] [address] Darshan Porter INFLUPOSH SEE BELOW Normal [facility] Comment on above: Result Comment: NOTE : Live attenuated influenzae vaccine viruses can cause a positive result for a rapid influenza diagnostic test if administered up to 7 days prior to rapid testing. Performed By: #### I NFLUAB #### [facility] [address] [address] [address] Darshan Porter INTERNAL CONTROLS Within Normal Limits Normal Wi thin Normal Limits [facility] Comment on above: Performed By: #### I NFLUAB #### [facility] [address] [place] [address] Dr. Darshan Porter CHLAMYDIA/GONOCOCCUS NESSA (SW AB/URINE/PAPon 05-14-2022 Chlamydia trachomatis, NESSA Negative Normal Negative [facility] Comment on above: Performed By: #### C T/NGNA #### [facility] [address] [place] [address] Dr. Darshan Porter Neisseria gonorrhoeae, NESSA Negative Normal Negative [facility] Comment on above: Performed By: #### C T/NGNA #### [facility] [address] [place] [address] Dr. Darshan Porter VAGINITIS/VAGINOSIS DNA PROB Donell 05-14-2022 Latha species Negative Normal Negative [facility] Comment on above: Performed By: #### V AGINT #### [facility] [address] [place] [address] Dr. Darshan Porter Gardnerella vaginalis Positive Abnormal Negative [facility] Comment on above: Performed By: #### V AGINT #### [facility] [address] [place] [address] Dr. Darshan Porter Trichomonas vaginalis Negative Normal Negative [facility] Comment on above: Performed By: #### V AGINT #### [facility] [address] [place] [address] Dr. Darshan Porter Basic Metabolic Panelon 03-18 Calcium [Mass/Vol] 9.4 mg/dL Normal 8.2-10.2 [facility] Comment on above: Performed By: #### C BC, BMP #### [facility] [address] Chloride [Moles/Vol] 102 mmol/L Normal 95-114 [facility] Comment on above: Performed By: #### C BC, BMP #### [facility] [address] CO2 [Moles/Vol] 22.1 mmol/L Normal 22.0-30.0 [facility] Comment on above: Performed By: #### C BC, BMP #### [facility] [address] Creatinine [Mass/Vol] 0.80 mg/dL Normal 0.44-1.03 [facility] Comment on above: Performed By: #### C BC, BMP #### [address] Creatinine Clr Calc Pharmacy 85.83 [facility] Comment on above: Result Comment: PERF ORMED BY: [place] [address] PATHOLOGIST MAINTENANCE [employer]WR[employer] LAKEISHA GRAY M.D. Performed By: #### C BC, BMP #### [address] Estimated GFR ( Sis > 60 [facility] Comment on above: Result Comment: GFR estimated reference range: According to KDOQI guidelines, <60 ml/min/1.73m2 is sufficient to diagnose a patient with chronic kidney disease. Performed By: #### C BC, BMP #### [address] Estimated GFR (Non- Am > 60 [facility] Comment on above: Performed By: #### C BC, BMP #### [address] Glucose [Mass/Vol] 88 mg/dL Normal 70-100 [facility] Comment on above: Result Comment: [place] Glucose Reference Range is dependent on time and content of last meal. Glucose of more than 200 mg/dL in a nonstressed, ambulatory subject supports the diagnosis of Diabetes Mellitus. ADA recommended reference range Performed By: #### C BC, BMP #### [facility] [address] Potassium [Moles/Vol] 3.7 mmol/L Normal 3.5-5.1 [facility] Comment on above: Performed By: #### C BC, BMP #### [facility] [address] Sodium [Moles/Vol] 136 mmol/L Normal 136-146 [facility] Comment on above: Performed By: #### C BC, BMP #### [facility] [address] Urea nitrogen [Mass/Vol] 8 mg/dL Low 9-23 [facility] Comment on above: Performed By: #### C BC, BMP #### [facility] [address] COVID-19 / Flu A/B / RSV [...] or Cepheid Disclaimer revoked sooner. PERFORMED BY: [place] [address] PATHOLOGIST MAINTENANCE [employer] LAKEISHA GRAY M.D. Normal [facility] Comment on above: Performed By: #### C OVID19 FLU RSV, CEPHEID POS #### [facility] [address] [place] [address] Cepheid COVID PCR Positiveon 03-31-2022 SARS-CoV-2 (COVID-19) RNA NESSA+probe Ql (Unsp spec) Positive Critically abnormal Negative [facility] Comment on above: Result Comment: This is a duplicate Cepheid Xpert Xpress CoV-2/Flu/RSV Plus RNA by RT-PCR result to be used for statistical tracking purpose only. PERFORMED BY: [place] [address] PATHOLOGIST MAINTENANCE [employer] LAKEISHA GRAY M.D. Performed By: #### C OVID19 FLU RSV, CEPHEID POS #### [facility] [address] [place] [address] Complete Blood Count Auto Di ffon 03-31-2022 Basophils (Bld) [#/Vol] 0.0 10*3/uL Normal 0.0-0.2 [facility] Comment on above: Result Comment: PERF ORMED BY: [place] [address] PATHOLOGIST MAINTENANCE [employer] LAKEISHA GRAY M.D. Performed By: #### C BC, BMP #### [address] Basophils/100 WBC (Bld) 0.8 % Normal . [facility] Comment on above: Performed By: #### C BC, BMP #### [place] [address] [place] Eosinophils (Bld) [#/Vol] 0.0 10*3/uL Normal 0.0-0.45 [facility] Comment on above: Performed By: #### C BC, BMP #### [address] Eosinophils/100 WBC (Bld) 0.5 % Normal . [facility] Comment on above: Performed By: #### C BC, BMP #### [address] Erythrocyte distribution width (RBC) [Ratio] 13.9 % Normal 11.9-15.3 [facility] Comment on above: Performed By: #### C BC, BMP #### [address] Hematocrit (Bld) [Volume fraction] 40.8 % Normal 34.0-46.4 [facility] Comment on above: Performed By: #### C BC, BMP #### [place] [address] [place] Hemoglobin (Bld) [Mass/Vol] 13.9 g/dL Normal 11.8-15.4 [facility] Comment on above: Performed By: #### C BC, BMP #### [place] [address] [place] Lymphocytes (Bld) [#/Vol] 0.7 10*3/uL Low 1.00-4.8 [facility] Comment on above: Performed By: #### C BC, BMP #### [address] Lymphocytes/100 WBC (Bld) 13.9 % Normal . [facility] Comment on above: Performed By: #### C BC, BMP #### [facility] [address] MCH (RBC) [Entitic mass] 31.2 pg Normal 24.7-34.3 [facility] Comment on above: Performed By: #### C BC, BMP #### [address] MCV (RBC) [Entitic vol] 91.3 fL Normal 80-100 [facility] Comment on above: Performed By: #### C BC, BMP #### [address] Mean Corpuscular HGB Conc 34.1 g/dL Normal 32.0-35.0 [facility] Comment on above: Performed By: #### C BC, BMP #### [address] Monocytes (Bld) [#/Vol] 1.0 10*3/uL High 0.0-0.8 [facility] Comment on above: Performed By: #### C BC, BMP #### [address] Monocytes/100 WBC (Bld) 19.6 % Normal . [facility] Comment on above: Performed By: #### C BC, BMP #### [address] Neutrophils (Bld) [#/Vol] 3.5 10*3/uL Normal 1.8-7.7 [facility] Comment on above: Performed By: #### C BC, BMP #### [address] Neutrophils/100 WBC (Bld) 65.2 % Normal . [facility] Comment on above: Performed By: #### C BC, BMP #### [address] [place] [address] [place] Nucleated RBC/100 WBC (Bld) [Ratio] 0.2 % Normal 0-0.5 [facility] Comment on above: Performed By: #### C PETR, BMP #### [facility] [address] Platelet mean volume (Bld) [Entitic vol] 8.4 fL Normal 6.3-10.7 [facility] Comment on above: Performed By: #### C PETR, BMP #### [facility] [address] Platelets (Bld) [#/Vol] 229 10*3/uL Normal 150-450 [facility] Comment on above: Performed By: #### C PETR, BMP #### [address] RBC (Bld) [#/Vol] 4.47 10*6/uL Normal 3.60-5.00 [facility] Comment on above: Performed By: #### C PETR, BMP #### [place] [address] [place] WBC (Bld) [#/Vol] 5.3 10*3/uL Normal 4.5-11.0 [facility] Comment on above: Performed By: #### C PETR, BMP #### [address] Basophils Auto (Bld) [#/Vol] Ordered By: Abe Obrien on 03-30-2022 Basophils (Bld) [#/Vol] 0.0 10*3/uL 0.0-0.2 [facility] Basophils/100 WBC Auto (Bld) Ordered By: Abe Obrien on 03-30-2022 Basophils/100 WBC (Bld) 0.8 % [facility] Blood hemoglobin measurement (mass/volume)Ordered By: Abe Obrien on 03-30-2022 Hemoglobin (Bld) [Mass/Vol] 13.9 g/dL 11.8-15.4 [facility] Blood leukocytes automated c ount (number/volume)Ordered By: Abe Obrien on 03-30-2022 WBC (Bld) [#/Vol] 5.3 10*3/uL 4.5-11.0 [facility] COVID CepheidOrdered By: Avinash rivera Camille on 03-30-2022 SARS-CoV-2 (COVID-19) Ab IA Ql Positive Negative [facility] Comment on above: This is a duplicate Cepheid Xpert Xpress CoV-2/Flu/RSV Plus RNA by RT-PCR result to be used for statistical tracking purpose only. SARS-CoV-2 (COVID-19) RNA NESSA+probe Ql (Unsp spec) [facility] Creatinine and Glomerular fi ltration rate.predicted panel (S/P/Bld)Ordered By: Abe Obrien on 03-30-2022 Creatinine [Mass/Vol] 0.80 mg/dL 0.44-1.03 [facility] Eosinophils Auto (Bld) [#/Vo l]Ordered By: Abe Obrien on 03-30-2022 Eosinophils (Bld) [#/Vol] 0.0 10*3/uL 0.0-0.45 [facility] Eosinophils/100 WBC Auto (Bl d)Ordered By: Abe Obrein on 03-30-2022 Eosinophils/100 WBC (Bld) 0.5 % [facility] Erythrocyte distribution wid th Auto (RBC) [Ratio]Ordered By: Abe Obrien on 03-30-2022 Erythrocyte distribution width (RBC) [Ratio] 13.9 % 11.9-15.3 [facility] Estimated glomerular filtrat ion rate (GFR) non- AmericanOrdered By: Abe Obrien on 03-30-2022 GFR/1.73 sq M.predicted among non-blacks MDRD (S/P/Bld) [Vol rate/Area] > 60 mL/Min [facility] Hematocrit Auto (Bld) [Volum e fraction]Ordered By: Abe Obrien on 03-30-2022 Hematocrit (Bld) [Volume fraction] 40.8 % 34.0-46.4 [facility] - Hematology and Cell countsOrdered By: Abe Obrien on 03-30-2022 Nucleated RBC/100 WBC (Bld) [Ratio] 0.2 % 0-0.5 [facility] Lymphocytes Auto (Bld) [#/Vo l]Ordered By: Abe Obrien on 03-30-2022 Lymphocytes (Bld) [#/Vol] 0.7 10*3/uL 1.00-4.8 [facility] Lymphocytes/100 WBC Auto (Bl d)Ordered By: Abe Obrien on 03-30-2022 Lymphocytes/100 WBC (Bld) 13.9 % [facility] MCH Auto (RBC) [Entitic mass ]Ordered By: Abe Obrien on 03-30-2022 MCH (RBC) [Entitic mass] 31.2 pg 24.7-34.3 [facility] MCHC Auto (RBC) [Mass/Vol]Or dered By: Abe Obrien on 03-30-2022 MCHC (RBC) [Mass/Vol] 34.1 g/dL 32.0-35.0 [facility] MCV Auto (RBC) [Entitic vol] Ordered By: Abe Obrien on 03-30-2022 MCV (RBC) [Entitic vol] 91.3 fL 80-100 [facility] Monocytes Auto (Bld) [#/Vol] Ordered By: Abe Obrien on 03-30-2022 Monocytes (Bld) [#/Vol] 1.0 10*3/uL 0.0-0.8 [facility] Monocytes/100 WBC Auto (Bld) Ordered By: Abe Obrien on 03-30-2022 Monocytes/100 WBC (Bld) 19.6 % [facility] Neutrophils Auto (Bld) [#/Vo l]Ordered By: Abe Obrien on 03-30-2022 Neutrophils (Bld) [#/Vol] 3.5 10*3/uL 1.8-7.7 [facility] Neutrophils/100 WBC Auto (Bl d)Ordered By: Abe Obrien on 03-30-2022 Neutrophils/100 WBC (Bld) 65.2 % [facility] No Panel InformationOrdered By: Abe Obrien on 03-30-2022 Estimated GFR () > 60 mL/Min [facility] Comment on above: GFR estimated refere nce range: According to KDOQI guidelines, <60 ml/min/1.73m2 is sufficient to diagnose a patient with chronic kidney disease. Pharmacy Creatinine Clearance (Chem 85.83 [facility] PAP ACOG PANEL 2: 21 to 29on 03-30-2022 . . Normal [facility] Comment on above: Performed By: #### [id number] #### [facility] [address] [place] [address] Dr. Darshan Porter Age Gdln ACOG Testing - [facility] Comment on above: Performed By: #### [id number] #### [facility] [address] [place] [address] Dr. Darshan Porter DIAGNOSIS: Comment [facility] Comment on above: Result Comment: NEGA TIVE FOR INTRAEPITHELIAL LESION OR MALIGNANCY. Performed By: #### [id number] #### [facility] [address] [place] [address] Dr. Darshan Porter Methodology: Comment [facility] Comment on above: Result Comment: This liquid based ThinPrep(R) pap test was screened with the use of an image guided system. Performed By: #### 4 [id number] #### [facility] [address] [place] [address] Dr. Darshan Porter Note: Comment [facility] Comment on above: Result Comment: The Pap smear is a screening test designed to aid in the detection of premalignant and malignant conditions of the uterine cervix. It is not a diagnostic procedure and should not be used as the sole means of detecting cervical cancer. Both false-positive and false-negative reports do occur. . Performed By: #### [id number] #### [facility] [address] [place] [address] Dr. Darshan Porter Performed by: Comment Normal [facility] Comment on above: Result Comment: Dewayne Middleton, Tax Staff Accountant (ASCP) Performed By: #### [id number] #### [facility] [address] [place] [address] Dr. Darshan Porter Reflex Criteria: Comment [facility] Comment on above: Result Comment: The HPV DNA reflex criteria were not met with this specimen result therefore, no HPV testing was performed. . Performed By: #### [id number] #### [facility] [address] [place], [place] [address] Dr. Darshan Porter Specimen adequacy: Comment Normal [facility] Comment on above: Result Comment: Sati sfactory for evaluation. Endocervical and/or squamous metaplastic cells (endocervical component) are present. Performed By: #### 4 [id number] #### [facility] [address] [place], [place] [address] Dr. Darshan Porter Platelet mean volume Auto (B ld) [Entitic vol]Ordered By: Abe Obrien on 03-30-2022 Platelet mean volume (Bld) [Entitic vol] 8.4 fL 6.3-10.7 [facility] Platelets Auto (Bld) [#/Vol] Ordered By: Abe Obrien on 03-30-2022 Platelets (Bld) [#/Vol] 229 10*3/uL 150-450 [facility] RBC Auto (Bld) [#/Vol]Ordere d By: Abe Obrien on 03-30-2022 RBC (Bld) [#/Vol] 4.47 10*6/uL 3.60-5.00 [facility] Serum or plasma calcium spencer urement (mass/volume)Ordered By: Abe Obrien on 03-30-2022 Calcium [Mass/Vol] 9.4 mg/dL 8.2-10.2 [facility] Serum or plasma chloride aurora surement (moles/volume)Ordered By: Abe Obrien on 03-30-2022 Chloride [Moles/Vol] 102 mmol/L 95-114 [facility] Serum or plasma glucose spencer urement (mass/volume)Ordered By: Abe Obrien on 03-30-2022 Glucose [Mass/Vol] 88 mg/dL 70-100 [facility] Comment on above: ADA recommended refe rence range Random Glucose Reference Range is dependent on time and content of last meal. Glucose of more than 200 mg/dL in a nonstressed, ambulatory subject supports the diagnosis of Diabetes Mellitus. Serum or plasma potassium me asurement (moles/volume)Ordered By: Abe Camille on 03-30-2022 Potassium [Moles/Vol] 3.7 mmol/L 3.5-5.1 [facility] Serum or plasma sodium measu rement (moles/volume)Ordered By: Abe Obrien on 03-30-2022 Sodium [Moles/Vol] 136 mmol/L 136-146 [facility] Serum or plasma total carbon dioxide measurement (moles/volume)Ordered By: Abe Obrien on 03-30-2022 CO2 [Moles/Vol] 22.1 mmol/L 22.0-30.0 [facility] Serum or plasma urea nitroge n measurement (mass/volume)Ordered By: Abe Obrien on 03-30-2022 Urea nitrogen [Mass/Vol] 8 mg/dL 9- [facility] COVID-19 Lab Corpon 10-20-19 22 SARS-CoV-2 (COVID-19) RNA NESSA+probe Ql (Unsp spec) Detected Critically abnormal Not Detected [facility] Comment on above: Order Comment: Healt hcare Worker?: N Result Comment: Sara ents who have a positive COVID-19 test result may now have treatment options. Treatment options are available for patients with mild to moderate symptoms and for hospitalized patients. Visit our website at [email or web address] for resources and information. This nucleic acid amplification test was developed and its performance characteristics determined by [employer]. Nucleic acid amplification tests include RT- PCR [...] detected) result in this assay. PERFORMED BY: [facility] [place] [address] PATHOLOGIST MAINTENANCE [employer] LAKEISHA GRAY M.D. Performed By: #### C ORONAVIRUS #### [facility] , HIV-1,-2 w/Reflex to HIV-1 W estern [place] 02-07-2018 HIV-1 and HIV-2 Abs Negative Normal Negative [facility] Comment on above: Result Comment: Base d on the non-reactive anti-HIV (DEIRDRE) screen, the HIV Western blotis notindicated and therefore not performed.INTERPRETIVE INFORMATION: HIV-1,-2 w/Reflex to HIV-1 Western BlotThis assay should not be used for blood donor screening, associatedre-entryprotocols, or for screening Human Cells, Tissues and Cellular andTissue-Based Products (HCT/P).Performed by [employer],[address] [place] [id number] oyn[employer]Spot formerly [employer], Krishan Sánchez MD - Lab. Director RPRon 02-06-2018 Reagin antibody presence Non-reactive Normal Non-reacti [facility] Hepatitis B Surface Agon Hepatitis B Surface Ag Interp Non-reactive Normal [facility] Hepatitis C Antibodyon 02-04 Hepatitis C Antibody Interp Non-reactive Normal [facility] Culture, Strep A Screenon Culture, Strep A Screen ORDERED BY: TAMMY HUFF: Throat COLLECTED: 05/30/17 11:38ANTIBIOTICS AT JESSICA.: RECEIVED : 05/30/17 15:25Culture, Strep A Screen FINAL 06/02/17 08:54 Usual fátima isolated including Beta Strep, not group A. Normal [facility] Rapid A Strep Antigenon 05-18 Rapid strep test Negative Normal Negative [facility] Comment on above: Result Comment: A cu lture confirmation plate has been set up and a separatereport will follow. See micro report. Vital Signs Date Time Vital Sign Value Performing Clinician Jhon malin 03-30-2022 21:11-0400 Body height 160.02 cm PHYSICIAN NO [facility] 03-30-2022 21:11-0400 Body mass index (BMI) [Ratio] 22.8 kg/m2 PHYSICIAN NO [facility] 03-30-2022 21:11-0400 Body temperature 99.8 [degF] PHYSICIAN NO [facility] 03-30-2022 21:11-0400 Body weight 58.5 kg PHYSICIAN NO [facility] 03-30-2022 21:11-0400 Diastolic blood pressure 56 mm[Hg] PHYSICIAN NO [facility] 03-30-2022 21:11-0400 Heart rate 69 /min PHYSICIAN NO [facility] 03-30-2022 21:11-0400 SaO2% (BldA) [Mass fraction] 97 % PHYSICIAN NO [facility] 03-30-2022 21:11-0400 Systolic blood pressure 112 mm[Hg] PHYSICIAN NO [facility] Encounters Encounter Date Encounter Type Care Provider Facility Start: 09-18-2022 End: 09-18-[address] AUGUSTO NICHOLS Facility:[facility] Start: 05-12-2022 End: 05-12-[address] ROSS TORRES Facility:[facility] Start: 03-30-2022 End: 03-31-2022 Emergency department patient visit PHYSICIAN NO [facility] Start: 03-25-2022 End: 03-25-[address] ROSS TORRES Facility:[facility] Start: 10-20-2021 End: 10-20-2021 ambulatory RONAK CAPUTO Facility:[facility] Start: 08-31-2017 Ambulatory KAMINI PAULINA Rivas ty:[facility] Start: 08-03-2017 Ambulatory KAMINI SPARKSFRITZ Rivas ty:[facility] Start: 06-29-2017 Ambulatory KAMINI GALLARDO Evelyn ty:RBC Start: 05-30-2017 End: 05-30-2017 Emergency department patient visit MAL HARMON [facility] Start: 05-25-2017 Ambulatory KAMINI Rivas ty:RBC Start: 05-04-2017 Ambulatory Joel Mcneal Facility:[facility] Shimon Colon Start: 04-27-2017 Ambulatory KAMINI Abreui ty:RBC Procedures Date Procedure Procedure Detail Performing Clinician Start: 03-30-2022 SARS-CoV-2, Influenz a & RSV (PCR) PHYSICIAN NO FAMILY Start: 05-30-2017 CULTURE BETA STREP C ONFIRM PLATE MAL HARMON Start: 05-30-2017 RAPID STREP SCREEN MAL HARMON Plan of Treatment Date Care Activity Detail Author Patient Education Nausea and Vom iting, Adult (DC) Abdominal Pain, Adult ED [facility] [place] COVID-19 Discharge Instructions [facility] Work Phone: Patient referral [facility] Work Phone: Payers Date Payer Category Payer Medicaid [id number] 1995 Unknown [id number] 2.16.84 [id number] 1995 Unknown [id number] 2.16.84 [id number] 1993 Unknown [id number] 2.16.84 [id number] 1993 Unknown [id number] 2.16.84 [id number] 1961 Self-pay [id number] 1961 Unknown [id number] Medicaid [place] [employer] [id number] 801 [id number] Unknown MMO [id number] Unknown [facility] [id number] Unknown [employer] [id number] Social History Date Type Detail Facility Start: 03-30-2022 Tobacco smoking stat us NHIS Current some day smoker [facility] Start: 1995 Sex Assigned At Female F [facility] Evaluation note Note Date & Type Note Facility Evaluation note No assessment information availa ble [facility] Work Phone: Hospital Discharge instructions Note [...] for reevaluation in 3 to 5 days. [facility] Work Phone: Summary Purpose Family History [...] section and content) DATE CREATED AUTHOR 04/07/2018 [facility] DATE CREATED AUTHOR AUTHOR'S ORGANIZ ATION 04/12/2018 [facility] DATE CREATED AUTHOR AUTHOR'S ORGANIZ ATION 04/13/2018 [facility] DATE CREATED AUTHOR AUTHOR'S ORGANIZ ATION 04/14/2022 [facility] DATE CREATED AUTHOR AUTHOR'S ORGANIZ ATION 09/20/2022 [facility] Care Teams (unrecognized sec tion and content) [...] BE BASED ON THE PRIMARY CLINICAL RECORDS. [facility] [employer] [facility]. provides no warranty or guarantee of the accuracy or completeness of information in this document.
--- NOTE | 2024-02-07 17:50 | ED.GENADUL1 ---
HPI HPI - General Adult General Chief complaint: Extremity Problem, Nontraumatic Stated complaint: Rib Pain Time Seen by Provider: 02/07/24 17:38 Source: patient Mode of arrival: walk-in Limitations: no limitations History of Present Illness HPI narrative: Patient is a 28-year-old female who presents to the emergency department for a month-long history of pain in the left chest wall. She states pain does not hurt to touch but she does have increased pain with breathing and movement of the chest wall. She has not had any recent upper respiratory illness. She denies any cough, congestion or hemoptysis. She has no extremity swelling. She is not concerned for . She vapes daily. She has not had any abdominal pain, flank pain or vomiting. No urinary symptoms.She denies any injury or trauma to the chest wall. Related Data Previous Rx's ?Medication ?Instructions ?Recorded ketorolac 10 mg tablet 10 mg PO TID PRN pain #10 tabs 02/07/24 methocarbamol 750 mg tablet 750 mg PO TID PRN pain #20 tabs 02/07/24 methylprednisolone 4 mg tablets in See Rx Instructions .Route 02/07/24 a dose pack (Medrol (Gee)) .COMPLEX #21 ea Allergies Allergy/AdvReac Type Severity Reaction Status Date / Time No Known Drug Allergies Allergy Verified 08/11/23 01:02 Opioid HPI Opioid Management Most Recent Opioid Data: No Data to Display Review of Systems ROS Constitutional Denies: fever or chills Ears, nose, mouth, and throat Denies: throat pain or nasal congestion Respiratory Denies: shortness of breath or cough Gastrointestinal Denies: nausea or vomiting Musculoskeletal Denies: back pain or neck pain Integumentary/Breast Denies: rash Neurological Denies: headache Hematologic/Lymphatic Denies: easy bruising or easy bleeding PFSH PFS Social History Smoking status: Former smoker Exam Narrative Exam Narrative: Gen.: Awake, alert, in no distress Head: Normocephalic, atraumatic ENT: Moist mucous membranes Respiratory: No respiratory distress, lungs clear bilaterally; No rashes, ecchymosis or color change of the chest wall Cardio: Regular rate and rhythm Extremities: Moves extremities equally Psych: Normal mood and affect Neuro: No focal neuro deficit Skin: Warm, dry, intact Constitutional Vital Signs, click to edit/add: Last Vital Signs Temp 99.0 F 02/07/24 17:39 Pulse 75 02/07/24 17:39 Resp 18 02/07/24 17:39 BP 133/66 02/07/24 17:39 Pulse Ox 98 02/07/24 17:39 O2 Del Method Room Air 02/07/24 17:39 Course Vital Signs Vital signs: Vital Signs Temperature 99.0 F 02/07/24 17:39 Pulse Rate 75 02/07/24 17:39 Respiratory Rate 18 02/07/24 17:39 Blood Pressure 133/66 02/07/24 17:39 Pulse Oximetry 98 02/07/24 17:39 Oxygen Delivery Method Room Air 02/07/24 17:39 Temperature 99.0 F 02/07/24 17:39 Pulse Rate 75 02/07/24 17:39 Respiratory Rate 18 02/07/24 17:39 Blood Pressure 133/66 02/07/24 17:39 Pulse Oximetry 98 02/07/24 17:39 Oxygen Delivery Method Room Air 02/07/24 17:39 Medical Decision Making MDM Narrative Medical decision making narrative: Days with no evidence of acute abnormality. Patient's history and physical are consistent with chest wall pain, probable pleurisy given her history of vaping. She is started on Medrol Dosepak, NSAIDs and muscle relaxants for home. Follow-up with PCP and return to the ER if symptoms change or worsen Medical Records Medical records reviewed: Yes I reviewed the patient's medical records Imaging Data Chest x-ray: Attestation: I have reviewed the pertinent imaging results. Radiologist's impression: ITS Impressions Ribs X-Ray 02/07/24 17:51 IMPRESSION: 1. No acute cardiopulmonary abnormality. 2. No displaced rib fracture on the left or other osseous etiology for left rib pain demonstrated. Electronically authenticated by: LAUREANO MARTINEZ Date: 02/07/2024 18:58 Discharge Plan Discharge Stand Alone Forms: Portal Instructions Chief Complaint: Extremity Problem, Nontraumatic Clinical Impression: Acute chest wall pain, Pleurisy Patient Disposition: Home, Self-Care Time of Disposition Decision: 19:03 Condition: Good Prescriptions / Home Meds: New ketorolac 10 mg tablet 10 mg PO TID PRN (Reason: pain) Qty: 10 0RF methocarbamol 750 mg tablet 750 mg PO TID PRN (Reason: pain) Qty: 20 0RF methylprednisolone [Medrol (Gee)] 4 mg tablets,dose pack See Rx Instructions .ROUTE .COMPLEX Qty: 21 0RF Rx Instructions: Taper as directed Print Language: Micronesian Instructions: Pleurisy (ED), Chest Wall Pain (ED) Referrals: Physician,Non-Staff, MD [Primary Care Provider] - 1 week
--- NOTE | 2024-02-07 17:51 | XR_ITS ---
The [address] [address] Patient Name: IVORY NARVAEZ MRN: [id number] date: 1995 Sex: F Assigned Patient Location: ED.MAIN Current Patient Location: ER Accession/Order Number: [id number] Exam Date: 02/07/2024 18:00 Report Date: 02/07/2024 18:58 At the request of: KEERTHI SOTO Procedure: XR ribs LT min 3V w CXR1V EXAMINATION: XR ribs LT min 3V w CXR1V 02/07/2024 3:55 PM PDT HISTORY: left chest wall pain COMPARISONS: None. FINDINGS: Lines and tubes: None. Heart and mediastinum: The heart and the mediastinum are normal for technique. Lungs and pleura: The lungs are clear. There is no evidence of pneumonia or pulmonary edema. There is no pleural effusion or pneumothorax. Bones: No acute osseous abnormality. LEFT RIBS: No displaced rib fracture. XR/XR ribs LT min 3V w CXR1V IMPRESSION: 1. No acute cardiopulmonary abnormality. 2. No displaced rib fracture on the left or other osseous etiology for left rib pain demonstrated. Electronically authenticated by: LAUREANO MARTINEZ Date: 02/07/2024 18:58
--- NOTE | 2024-02-07 17:57 | PC.NURSE ---
L rib pain x1 month. no injury
[2024-02-07] MEDS: PREDNISONE 20 MG TABLET 60 MG PO (18:07)
[2024-02-07] MEDS: KETOROLAC TROMETHAMINE 10 MG TABLET PO (18:07)
[2024-02-07 19:24] VITALS: BP 109/64; PULSE 54; O2SAT 100
== END 2024-02-07 19:27 | disposition home or self-care (01) ==
PROVIDERS: Emergency Provider Student in an Organized Health Care Education/Training Program
DX: R07.89 Other chest pain (principal); R09.1 Pleurisy; F17.290 Nicotine dependence, other tobacco product, uncomplicated
CPT/HCPCS: 71101; 99283

== ENCOUNTER 2024-06-20 10:32 | Outpatient (RCR) | payer BC, SELFPAY | END 2024-07-19 11:08 | disposition home or self-care (01) | LOC: PT 10:32 | PROVIDERS: Visit Provider Personal Emergency Response Attendant | DX: M25.561 Pain in right knee (principal) | CPT/HCPCS: 97110; 97112; 97161 ==

== ENCOUNTER 2024-06-29 15:58 | Outpatient (OUT) | payer BC, SELFPAY ==
--- OUTSIDE RECORDS SUMMARY | 2024-06-29 16:03 | XMS_ITS | CCD ---
Author Organization [facility] [place] [facility] Care Team Providers Care Employment Program Representative Name Role Phone HELENA-MARIA, KAMINI Unavailable Unavailable [...] FAMILY, PHYSICIAN Primary Care Provider Unava ilDO Romi Hussein Emergency Provider Unavai RONAK Lackey Admitting Unavailable RONAK CAPUTO Attending Unavailable BRIAN, DR HAWKINS Admitting Unavailable KARASIK, DR HAWKINS Attending Unavailable KARASIK, DR HAWKINS Consulting Unavailable KARASIK, DR HAWKINS Admitting Unavailable KARASIK, DR HAWKINS Attending Unavailable KARKATE, DR HAWKINS Consulting Unavailable SIMONE, DR CASAS Admitting Unavailable SIMONE, DR CASAS Attending Unavailable REQUEST, DR POON LISTED Primary Care Unavailaustyn NICHOLS, DR CASAS Consulting Unavailable LAKIA WEATHERS Attending Unavailable LAKIA WEATHERS Referring Unavailable LAKIA WEATHERS Referring Unavailable ROMI DUDLEY Attending Unavailable Medications Current Medications Medication Drug Class(es) [...] Test Name Value Interpretation Reference Range Facility [facility] US LOWER EXTREMITY VENO US DUPLEX RIGHTon 05-24-2024 [facility] US LOWER EXTREMITY VENOUS DUPLEX RIGHT Exam: US - US RT LOWER EXTREMITY VENOUS LIMITED Clinical History: Right thigh pain Reference Exam: No comparison FINDINGS: Imaging findings: Real-time ultrasonographic evaluation with color-flow Doppler sequencing and Doppler waveform analysis is provided for the deep venous system. The visualized right common femoral vein, superficial femoral vein, popliteal vein and veins of the trifurcation demonstrate appropriate compressibility and augmentation of flow. The greater saphenous vein is patent. No abnormality of the popliteal fossa is identified. Impression: 1. No ultrasonographic evidence of deep venous thrombosis in the right lower extremity. Dictated on: 05/24/2024 11:03 AM This report has been electronically signed and approved by the interpreting Radiologist. Electronically Signed Anish Garza M.D. 2024-05-24 11:03:50 Normal Not Available XR KNEE 3 VIEWS RIGHTon XR KNEE 3 VIEWS RIGHT Exam: XR - RT KNEE COMPLETE MIN 3 VIEWS Clinical History: Acute right knee pain Reference Exam: No comparison FINDINGS: The right knee joint spaces are preserved. Normal location of the knee. Negative for fracture or acute articular pathology. No knee joint effusion. No acute soft tissue pathology; a foreign body is not identified. IMPRESSION: No acute abnormality of the right knee is identified. Dictated on: 05/24/2024 10:33 AM This report has been electronically signed and approved by the interpreting Radiologist. Electronically Signed Anish Garza M.D. 2024-05-24 10:33:25 Normal Not Available INFLUENZA A AND B AGon 09-18 INFLUBNEGH SEE BELOW Normal [facility] Comment on above: Result Comment: Nega tive for Flu B protein antigen. Infection due to Flu B cannot be ruled out. Flu B antigen in the sample may be below the detection limit of the test. Performed By: #### I NFLUAB #### [facility] [address] [place] [address] Dr. Darshan Porter INFLUENZA A AG Positive Abnormal NEGATIVE SEE COMMENT [facility] Comment on above: Performed By: #### I NFLUAB #### [facility] [address] [address] [address] Darshan Porter INFLUENZA B AG Negative Normal NEGATIVE SEE COMMENT [facility] Comment on above: Performed By: #### I NFLUAB #### [facility] [address] [address] [address] Darshan Porter INFLUPOSH SEE BELOW Normal [facility] Comment on above: Result Comment: NOTE : Live attenuated influenzae vaccine viruses can cause a positive result for a rapid influenza diagnostic test if administered up to 7 days prior to rapid testing. Performed By: #### I NFLUAB #### [facility] [address] [place] [address] Dr. Darshan Porter INTERNAL CONTROLS Within Normal Limits Normal Wi thin Normal Limits [facility] Comment on above: Performed By: #### I NFLUAB #### [facility] [address] [address] [address] Darshan Porter CHLAMYDIA/GONOCOCCUS NESSA (SW AB/URINE/PAPon 05-14-2022 Chlamydia trachomatis, NESSA Negative Normal Negative [facility] Comment on above: Performed By: #### C T/NGNA #### [facility] [address] [address] [address] Darshan Porter Neisseria gonorrhoeae, NESSA Negative Normal Negative [facility] Comment on above: Performed By: #### C T/NGNA #### [facility] [address] [address] [address] Darshan Porter VAGINITIS/VAGINOSIS DNA PROB Donell 05-14-2022 Latha species Negative Normal Negative [facility] Comment on above: Performed By: #### V AGINT #### [facility] [address] [address] [address] Darshan Porter Gardnerella vaginalis Positive Abnormal Negative [facility] Comment on above: Performed By: #### V AGINT #### [facility] [address] [address] [address] Darshan Porter Trichomonas vaginalis Negative Normal Negative [facility] Comment on above: Performed By: #### V AGINT #### [facility] [address] [address] [address] Darshan Porter Basic Metabolic Panelon 03-18 Calcium [Mass/Vol] 9.4 mg/dL Normal 8.2-10.2 [facility] Comment on above: Performed By: #### C BC, BMP #### [facility] [address] [place] [address] [place] Chloride [Moles/Vol] 102 mmol/L Normal 95-114 [facility] Comment on above: Performed By: #### C BC, BMP #### [facility] [address] [place] [address] [place] CO2 [Moles/Vol] 22.1 mmol/L Normal 22.0-30.0 [facility] Comment on above: Performed By: #### C BC, BMP #### [facility] [address] Creatinine [Mass/Vol] 0.80 mg/dL Normal 0.44-1.03 [facility] Comment on above: Performed By: #### C BC, BMP #### [facility] [address] [place] [address] [place] Creatinine Clr Calc Pharmacy 85.83 [facility] Comment on above: Result Comment: PERF ORMED BY: [place] [address] PATHOLOGIST LICENSED INSURANCE SALES AGENT LAKEISHA GRAY M.D. Performed By: #### C BC, BMP #### [address] Estimated GFR ( Sis > 60 [facility] Comment on above: Result Comment: GFR estimated reference range: According to KDOQI guidelines, <60 ml/min/1.73m2 is sufficient to diagnose a patient with chronic kidney disease. Performed By: #### C BC, BMP #### [address] Estimated GFR (Non- Am > 60 [facility] Comment on above: Performed By: #### C BC, BMP #### [address] Glucose [Mass/Vol] 88 mg/dL Normal 70-100 [facility] Comment on above: Result Comment: Rule Glucose Reference Range is dependent on time and content of last meal. Glucose of more than 200 mg/dL in a nonstressed, ambulatory subject supports the diagnosis of Diabetes Mellitus. ADA recommended reference range Performed By: #### C BC, BMP #### [address] Potassium [Moles/Vol] 3.7 mmol/L Normal 3.5-5.1 [facility] Comment on above: Performed By: #### C BC, BMP #### [place] [address] [place] Sodium [Moles/Vol] 136 mmol/L Normal 136-146 [facility] Comment on above: Performed By: #### C BC, BMP #### [facility] [address] Urea nitrogen [Mass/Vol] 8 mg/dL Low 9-23 [facility] Comment on above: Performed By: #### C BC, BMP #### [facility] [address] [id number] [facility] COVID-19 / Flu A/B / RSV PCR [...] or Cepheid Disclaimer revoked sooner. PERFORMED BY: [place] [address] PATHOLOGIST LICENSED INSURANCE SALES AGENT LAKEISHA GRAY M.D. Normal [facility] Comment on above: Performed By: #### C OVID19 FLU RSV, CEPHEID POS #### [address] Cepheid COVID PCR Positiveon 03-31-2022 SARS-CoV-2 (COVID-19) RNA NESSA+probe Ql (Unsp spec) Positive Critically abnormal Negative [facility] Comment on above: Result Comment: This is a duplicate Cepheid Xpert Xpress CoV-2/Flu/RSV Plus RNA by RT-PCR result to be used for statistical tracking purpose only. PERFORMED BY: [place] [phone] PATHOLOGIST LICENSED INSURANCE SALES AGENT LAKEISHA GRAY M.D. Performed By: #### C OVID19 FLU RSV, CEPHEID POS #### [address] Complete Blood Count Auto Di ffon 03-31-2022 Basophils (Bld) [#/Vol] 0.0 10*3/uL Normal 0.0-0.2 [facility] Comment on above: Result Comment: PERF ORMED BY: [place] [address] PATHOLOGIST LICENSED INSURANCE SALES AGENT LAKEISHA GRAY M.D. Performed By: #### C BC, BMP #### [address] Basophils/100 WBC (Bld) 0.8 % Normal . [facility] Comment on above: Performed By: #### C BC, BMP #### [facility] [address] [place] [address] [place] Eosinophils (Bld) [#/Vol] 0.0 10*3/uL Normal 0.0-0.45 [facility] Comment on above: Performed By: #### C BC, BMP #### [facility] [address] Eosinophils/100 WBC (Bld) 0.5 % Normal . [facility] Comment on above: Performed By: #### C BC, BMP #### [address] Erythrocyte distribution width (RBC) [Ratio] 13.9 % Normal 11.9-15.3 [facility] Comment on above: Performed By: #### C BC, BMP #### [address] Hematocrit (Bld) [Volume fraction] 40.8 % Normal 34.0-46.4 [facility] Comment on above: Performed By: #### C BC, BMP #### [address] Hemoglobin (Bld) [Mass/Vol] 13.9 g/dL Normal 11.8-15.4 [facility] Comment on above: Performed By: #### C BC, BMP #### [place] [address] [place] Lymphocytes (Bld) [#/Vol] 0.7 10*3/uL Low 1.00-4.8 [facility] Comment on above: Performed By: #### C BC, BMP #### [place] [address] [place] Lymphocytes/100 WBC (Bld) 13.9 % Normal . [facility] Comment on above: Performed By: #### C BC, BMP #### [address] MCH (RBC) [Entitic mass] 31.2 pg Normal 24.7-34.3 [facility] Comment on above: Performed By: #### C BC, BMP #### [facility] [address] MCV (RBC) [Entitic vol] 91.3 fL Normal 80-100 [facility] Comment on above: Performed By: #### C BC, BMP #### [facility] [address] Mean Corpuscular HGB Conc 34.1 g/dL Normal 32.0-35.0 [facility] Comment on above: Performed By: #### C BC, BMP #### [facility] [address] Monocytes (Bld) [#/Vol] 1.0 10*3/uL High 0.0-0.8 [facility] Comment on above: Performed By: #### C PETR, BMP #### [address] Monocytes/100 WBC (Bld) 19.6 % Normal . [facility] Comment on above: Performed By: #### C BC, BMP #### [place] [address] [place] Neutrophils (Bld) [#/Vol] 3.5 10*3/uL Normal 1.8-7.7 [facility] Comment on above: Performed By: #### C BC, BMP #### [address] Neutrophils/100 WBC (Bld) 65.2 % Normal . [facility] Comment on above: Performed By: #### C BC, BMP #### [facility] [address] [place] [address] [place] Nucleated RBC/100 WBC (Bld) [Ratio] 0.2 % Normal 0-0.5 [facility] Comment on above: Performed By: #### C BC, BMP #### [address] Platelet mean volume (Bld) [Entitic vol] 8.4 fL Normal 6.3-10.7 [facility] Comment on above: Performed By: #### C BC, BMP #### [address] Platelets (Bld) [#/Vol] 229 10*3/uL Normal 150-450 [facility] Comment on above: Performed By: #### C PETR, BMP #### [address] RBC (Bld) [#/Vol] 4.47 10*6/uL Normal 3.60-5.00 [facility] Comment on above: Performed By: #### C PETR, BMP #### [address] WBC (Bld) [#/Vol] 5.3 10*3/uL Normal 4.5-11.0 [facility] Comment on above: Performed By: #### C PETR, BMP #### [address] Basophils Auto (Bld) [#/Vol] Ordered By: Romi Obrien on 03-30-2022 Basophils (Bld) [#/Vol] 0.0 10*3/uL 0.0-0.2 [facility] Basophils/100 WBC Auto (Bld) Ordered By: Romi Obrien on 03-30-2022 Basophils/100 WBC (Bld) 0.8 % [facility] Blood hemoglobin measurement (mass/volume)Ordered By: Romi Obrien on 03-30-2022 Hemoglobin (Bld) [Mass/Vol] 13.9 g/dL 11.8-15.4 [facility] Blood leukocytes automated c ount (number/volume)Ordered By: Romi Obrien on 03-30-2022 WBC (Bld) [#/Vol] 5.3 10*3/uL 4.5-11.0 [facility] COVID CepheidOrdered By: Avinash Obrien on 03-30-2022 SARS-CoV-2 (COVID-19) Ab IA Ql Positive Negative [facility] Comment on above: This is a duplicate CepheNeed Xpert Xpress CoV-2/Flu/RSV Plus RNA by RT-PCR result to be used for statistical tracking purpose only. SARS-CoV-2 (COVID-19) RNA NESSA+probe Ql (Unsp spec) [facility] Creatinine and Glomerular fi ltration rate.predicted panel (S/P/Bld)Ordered By: Romi Obrien on 03-30-2022 Creatinine [Mass/Vol] 0.80 mg/dL 0.44-1.03 [facility] Eosinophils Auto (Bld) [#/Vo l]Ordered By: Romi Obrien on 03-30-2022 Eosinophils (Bld) [#/Vol] 0.0 10*3/uL 0.0-0.45 [facility] Eosinophils/100 WBC Auto (Bl d)Ordered By: Romi Obrien on 03-30-2022 Eosinophils/100 WBC (Bld) 0.5 % [facility] Erythrocyte distribution wid th Auto (RBC) [Ratio]Ordered By: Romi Obrien on 03-30-2022 Erythrocyte distribution width (RBC) [Ratio] 13.9 % 11.9-15.3 [facility] Estimated glomerular filtrat ion rate (GFR) non- AmericanOrdered By: Romi Obrien on 03-30-2022 GFR/1.73 sq M.predicted among non-blacks MDRD (S/P/Bld) [Vol rate/Area] > 60 mL/Min [facility] Hematocrit Auto (Bld) [Volum e fraction]Ordered By: Romi Obrien on 03-30-2022 Hematocrit (Bld) [Volume fraction] 40.8 % 34.0-46.4 [facility] Laboratory - Hematology and Cell countsOrdered By: Romi Obrien on 03-30-2022 Nucleated RBC/100 WBC (Bld) [Ratio] 0.2 % 0-0.5 [facility] Lymphocytes Auto (Bld) [#/Vo l]Ordered By: Romi Obrien on 03-30-2022 Lymphocytes (Bld) [#/Vol] 0.7 10*3/uL 1.00-4.8 [facility] Lymphocytes/100 WBC Auto (Bl d)Ordered By: Romi Obrien on 03-30-2022 Lymphocytes/100 WBC (Bld) 13.9 % [facility] MCH Auto (RBC) [Entitic mass ]Ordered By: Romi Obrien on 03-30-2022 MCH (RBC) [Entitic mass] 31.2 pg 24.7-34.3 [facility] MCHC Auto (RBC) [Mass/Vol]Or dered By: Romi Obrien on 03-30-2022 MCHC (RBC) [Mass/Vol] 34.1 g/dL 32.0-35.0 [facility] MCV Auto (RBC) [Entitic vol] Ordered By: Romi Obrien on 03-30-2022 MCV (RBC) [Entitic vol] 91.3 fL 80-100 [facility] Monocytes Auto (Bld) [#/Vol] Ordered By: Romi Obrien on 03-30-2022 Monocytes (Bld) [#/Vol] 1.0 10*3/uL 0.0-0.8 [facility] Monocytes/100 WBC Auto (Bld) Ordered By: Romi Obrien on 03-30-2022 Monocytes/100 WBC (Bld) 19.6 % [facility] Neutrophils Auto (Bld) [#/Vo l]Ordered By: Romi Obrien on 03-30-2022 Neutrophils (Bld) [#/Vol] 3.5 10*3/uL 1.8-7.7 [facility] Neutrophils/100 WBC Auto (Bl d)Ordered By: Romi Obrien on 03-30-2022 Neutrophils/100 WBC (Bld) 65.2 % [facility] No Panel InformationOrdered By: Romi Obrien on 03-30-2022 Estimated GFR () > 60 mL/Min [facility] Comment on above: GFR estimated refere nce range: According to KDOQI guidelines, <60 ml/min/1.73m2 is sufficient to diagnose a patient with chronic kidney disease. Pharmacy Creatinine Clearance (Chem 85.83 [facility] PAP ACOG PANEL 2: 21 to 29on 03-30-2022 . . Normal [facility] Comment on above: Performed By: #### [id number] #### [facility] [address] [address] [address] Darshan Porter Age Gdln ACOG Testing 21-29 Normal [facility] Comment on above: Performed By: #### 4 [id number] #### [facility] [address] [place] [address] Dr. Darshan Porter DIAGNOSIS: Comment [facility] Comment on above: Result Comment: NEGA TIVE FOR INTRAEPITHELIAL LESION OR MALIGNANCY. Performed By: #### 4 [id number] #### [facility] [address] [place] [address] Dr. Darshan Porter Methodology: Comment Normal [facility] Comment on above: Result Comment: This liquid based ThinPrep(R) pap test was screened with the use of an image guided system. Performed By: #### 4 [id number] #### [facility] [address] [place] [address] Dr. Darshan Porter Note: Comment Normal [facility] Comment on above: Result Comment: The Pap smear is a screening test designed to aid in the detection of premalignant and malignant conditions of the uterine cervix. It is not a diagnostic procedure and should not be used as the sole means of detecting cervical cancer. Both false-positive and false-negative reports do occur. . Performed By: #### 4 [id number] #### [facility] [address] [place] [address] Dr. Darshan Porter Performed by: Comment Normal [facility] Comment on above: Result Comment: Dewayne Middleton, Optical Assistant (ASCP) Performed By: #### [id number] #### [facility] [address] [place] [address] Dr. Darshan Porter Reflex Criteria: Comment Normal [facility] Comment on above: Result Comment: The HPV DNA reflex criteria were not met with this specimen result therefore, no HPV testing was performed. . Performed By: #### 4 [id number] #### [facility] [address] [place] [address] Dr. Darshan Porter Specimen adequacy: Comment Normal [facility] Comment on above: Result Comment: Sati sfactory for evaluation. Endocervical and/or squamous metaplastic cells (endocervical component) are present. Performed By: #### 4 [id number] #### [facility] [address] [place], [place] [address] Dr. Darshan Porter Platelet mean volume Auto (B ld) [Entitic vol]Ordered By: Romi Obrien on 03-30-2022 Platelet mean volume (Bld) [Entitic vol] 8.4 fL 6.3-10.7 [facility] Platelets Auto (Bld) [#/Vol] Ordered By: Romi Obrien on 03-30-2022 Platelets (Bld) [#/Vol] 229 10*3/uL 150-450 [facility] RBC Auto (Bld) [#/Vol]Ordere d By: Romi Obrien on 03-30-2022 RBC (Bld) [#/Vol] 4.47 10*6/uL 3.60-5.00 [facility] Serum or plasma calcium spencer urement (mass/volume)Ordered By: Romi Obrien on 03-30-2022 Calcium [Mass/Vol] 9.4 mg/dL 8.2-10.2 [facility] Serum or plasma chloride aurora surement (moles/volume)Ordered By: Romi Obrien on 03-30-2022 Chloride [Moles/Vol] 102 mmol/L 95-114 [facility] Serum or plasma glucose spencer urement (mass/volume)Ordered By: Romi Obrien on 03-30-2022 Glucose [Mass/Vol] 88 mg/dL 70-100 [facility] Comment on above: ADA recommended refe rence range Random Glucose Reference Range is dependent on time and content of last meal. Glucose of more than 200 mg/dL in a nonstressed, ambulatory subject supports the diagnosis of Diabetes Mellitus. Serum or plasma potassium me asurement (moles/volume)Ordered By: Romi Obrien on 03-30-2022 Potassium [Moles/Vol] 3.7 mmol/L 3.5-5.1 [facility] Serum or plasma sodium measu rement (moles/volume)Ordered By: Romi Obrien on 03-30-2022 Sodium [Moles/Vol] 136 mmol/L 136-146 [facility] Serum or plasma total carbon dioxide measurement (moles/volume)Ordered By: Romi Obrein on 03-30-2022 CO2 [Moles/Vol] 22.1 mmol/L 22.0-30.0 [facility] Serum or plasma urea nitroge n measurement (mass/volume)Ordered By: Romi Obrien on 03-30-2022 Urea nitrogen [Mass/Vol] 8 mg/dL 07-10 [facility] COVID-19 Lab Corpon 10-20-19 22 SARS-CoV-2 (COVID-19) RNA NESSA+probe Ql (Unsp spec) Detected Critically abnormal Not Detected [facility] Comment on above: Order Comment: Healt hcare Worker?: N Result Comment: Sara ents who have a positive COVID-19 test result may now have treatment options. Treatment options are available for patients with mild to moderate symptoms and for hospitalized patients. Visit our website at [email or web address] for resources and information. This nucleic acid amplification test was developed and its performance characteristics determined by [employer]. Nucleic acid amplification tests include RT- PCR [...] detected) result in this assay. PERFORMED BY: [facility] [address] [place] [address] PATHOLOGIST LICENSED INSURANCE SALES AGENT LAKEISHA GRAY M.D. Performed By: #### C ORONAVIRUS #### [facility] , HIV-1,-2 w/Reflex to HIV-1 W estern [place] 02-07-2018 HIV-1 and HIV-2 Abs Negative Normal Negative [facility] Comment on above: Result Comment: Base d on the non-reactive anti-HIV (DEIRDRE) screen, the HIV Western blotis notindicated and therefore not performed.INTERPRETIVE INFORMATION: HIV-1,-2 w/Reflex to HIV-1 Western BlotThis assay should not be used for blood donor screening, associatedre-entryprotocols, or for screening Human Cells, Tissues and Cellular andTissue-Based Products (HCT/P).Performed by [employer],[address] [place] [address],[place] [address] qvs.[employer], Krishan Sánchez MD - Lab. Director RPRon 02-06-2018 Reagin antibody presence Non-reactive Normal Non-reacti [facility] Hepatitis B Surface Agon Hepatitis B Surface Ag Interp Non-reactive Normal [facility] Hepatitis C Antibodyon 02-04 Hepatitis C Antibody Interp Non-reactive Normal [facility] Culture, Strep A Screenon Culture, Strep A Screen ORDERED BY: TAMMY HUFF: Throat COLLECTED: 05/30/17 11:38ANTIBIOTICS AT JESSICA.: RECEIVED : 05/30/17 15:25Culture, Strep A Screen FINAL 06/02/17 08:54 Usual fátima isolated including Beta Strep, not group A. Normal [facility] Rapid A Strep Antigenon 05-18 Rapid strep test Negative Normal Negative [facility] Comment on above: Result Comment: A cu lture confirmation plate has been set up and a separatereport will follow. See micro report. Vital Signs Date Time Vital Sign Value Performing Clinician Friedai dea 03-30-2022 21:11-0400 Body height 160.02 cm PHYSICIAN NO [facility] 03-30-2022 21:11-0400 Body mass index (BMI) [Ratio] 22.8 kg/m2 PHYSICIAN NO [facility] 03-30-2022 21:11-0400 Body temperature 99.8 [degF] PHYSICIAN NO [facility] 03-30-2022 21:110400 Body weight 58.5 kg PHYSICIAN NO [facility] 03-30-2022 21:11-0400 Diastolic blood pressure 56 mm[Hg] PHYSICIAN NO [facility] 03-30-2022 21:11-0400 Heart rate 69 /min PHYSICIAN NO [facility] 03-30-2022 21:11-0400 SaO2% (BldA) [Mass fraction] 97 % PHYSICIAN NO [facility] 03-30-2022 21:11-0400 Systolic blood pressure 112 mm[Hg] PHYSICIAN NO [facility] Encounters Encounter Date Encounter Type Care Provider Facility Start: 05-30-2024 End: 05-30-2024 ambulatory ROMI DUDLEY Not Available Start: 05-24-2024 End: 05-24-2024 ambulatory LAKIA WEATHERS Not Available Start: 09-18-2022 End: 09-18-[address] AUGUSTO NICHOLS Facility:[facility] Start: 05-12-2022 End: 05-12-[address] ROSS TORRES Facility:[facility] Start: 03-30-2022 End: 03-31-2022 Emergency department patient visit PHYSICIAN NO [facility] Start: 03-25-2022 End: 03-25-[address] ROSS TORRES Facility:[facility] Start: 10-20-2021 End: 10-20-2021 ambulatory RONAK CAPUTO Facility:[facility] Start: 08-31-2017 Ambulatory KAMINI SPARKSDELROYMARIA Evelyn ty:RBC Start: 08-03-2017 Ambulatory KAMINI MALIKCELESTINA Rivas ty:RBC Start: 06-29-2017 Ambulatory KAMINI GALLARDO Loisi ty:RBC Start: 05-30-2017 End: 05-30-2017 Emergency department patient visit MAL HARMON [facility] Start: 05-25-2017 Ambulatory KAMINI MALIKCELESTINA Rivas ty:RBC Start: 05-04-2017 Ambulatory Joel Mcneal Facility:[facility] Shimon Simmonser Start: 04-27-2017 Ambulatory KAMINI GALLARDO Loisi ty:RBC Procedures Date Procedure Procedure Detail Performing Clinician Start: 03-30-2022 SARS-CoV-2, Influenz a & RSV (PCR) PHYSICIAN NO FAMILY Start: 05-30-2017 CULTURE BETA STREP C ONFIRM PLATE MAL EDEN Start: 05-30-2017 RAPID STREP SCREEN MAL HARMON Plan of Treatment Date Care Activity Detail Author Patient Education Nausea and Vom iting, Adult (DC) Abdominal Pain, Adult ED [facility] COVID-19 Discharge Instructions [facility] Work Phone: Patient referral [facility] Work Phone: Payers Date Payer Category Payer Unknown [id number] 2015 Medicaid [id number] 1993 Unknown [id number] 2.16.84 [id number] 1993 Unknown [id number] 2.16.84 [id number] 1993 Unknown [id number] 2.16.84 [id number] 1993 Unknown [id number] 2.16.84 [id number] 1993 Unknown [id number] 2.16.84 [id number] 1993 Unknown [id number] 2.16.84 [id number] 1993 Unknown [id number] 2.16.84 [id number] 1993 Unknown [id number] 2.16.84 [id number] 1959 Self-pay [id number] 1959 Unknown [id number] Medicaid [place] Advantage [id number] 801 [id number] Unknown O [id number] Unknown [facility] [id number] Unknown [facility] [id number] Social History Date Type Detail Facility Start: 03-30-2022 Tobacco smoking stat us NHIS Current some day smoker [facility] Start: 1995 Sex Assigned At Female F [facility] Evaluation note Note Date & Type Note Facility Evaluation note No assessment information availa ble [facility] Work Phone: Hospital Discharge instructions [...] for reevaluation in 3 to [address] [facility] Work Phone: Summary Purpose Family [...] section and content) DATE CREATED AUTHOR 04/07/2018 [facility] DATE CREATED AUTHOR AUTHOR'S ORGANIZ ATION 04/12/2018 [facility] DATE CREATED AUTHOR AUTHOR'S ORGANIZ ATION 04/13/2018 [facility] DATE CREATED AUTHOR AUTHOR'S ORGANIZ ATION 04/14/2022 [facility] DATE CREATED AUTHOR AUTHOR'S ORGANIZ ATION 09/20/2022 [facility] DATE CREATED AUTHOR AUTHOR'S ORGANIZ ATION 05/31/2024 [facility] EPIC Care Teams (unrecognized sec tion and content) Team Status: Inactive Member Role Status Dates PHYSICIAN NO FAMILY Primary Care Provider Active Romi Obrien DO Emergency Provider Active Team Status: [...] BE BASED ON THE PRIMARY CLINICAL RECORDS. [facility] Designer Material [facility]. provides no warranty or guarantee of the accuracy or completeness of information in this document.
[2024-07-01 05:09] LABS: HIV Ab/p24 Ag Screen Non Reactive (Non Reactive)
[2024-07-01 06:13] LABS: HBsAg Screen Negative (Negative)
[2024-07-01 12:13] LABS: Rapid Plasma Reagin, Quant Non Reactive titer (NonRea<1:1)
== END 2024-06-29 15:59 | disposition home or self-care (01) ==
LOC: LAB 15:59
DX: Z11.3 Encounter for screening for infections with a predominantly sexual mode of transmission (principal)
CPT/HCPCS: 36415; 86592; 87340; 87389

== ENCOUNTER 2024-08-23 17:41 | Emergency (ER) | payer BC, SELFPAY ==
[2024-08-23 17:45] VITALS: BP 110/70; PULSE 51; TEMP 37.1; O2SAT 97; BMI 23.2
--- NOTE | 2024-08-23 17:49 | ECG_ITS ---
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
--- NOTE | 2024-08-23 17:55 | ED.DIZZY1 ---
HPI - Dizziness General Chief Complaint: Dizziness Stated Complaint: Covid+ 08/22/24 Time Seen by Provider: 08/23/24 17:41 Source: patient Mode of arrival: walk-in Limitations: no limitations History of Present Illness HPI Narrative: CC: I know I need fluids Patient is a 29-year-old female who presents to the emergency department for not feeling well. She states she was told she had COVID yesterday at her primary care office where she was tested after reporting sinus congestion for 4 days. She has not had any fevers, cough, vomiting. She states today she comes to this emergency department because she feels dizzy and has not urinated since yesterday, she is weak and nauseous. She is drinking a blue bottle of Gatorade during initial interview. She is not concerned for . Related Data Previous Rx's ?Medication ?Instructions ?Recorded ketorolac 10 mg tablet 10 mg PO TID PRN pain #10 tabs 02/07/24 methocarbamol 750 mg tablet 750 mg PO TID PRN pain #20 tabs 02/07/24 methylprednisolone 4 mg tablets in See Rx Instructions .Route 02/07/24 a dose pack (Medrol (Gee)) .COMPLEX #21 ea ondansetron 4 mg disintegrating 4 mg PO Q6H PRN nausea and 08/23/24 tablet vomiting #12 tabs Allergies Allergy/AdvReac Type Severity Reaction Status Date / Time No Known Drug Allergies Allergy Verified 08/11/23 01:02 Review of Systems ROS Constitutional Denies: fever or chills Ears, nose, mouth, and throat Reports: nasal congestion; Denies: throat pain Cardiovascular Denies: chest pain Respiratory Denies: shortness of breath or cough Gastrointestinal Reports: nausea; Denies: abdominal pain, vomiting or diarrhea Integumentary/Breast Denies: rash Neurological Denies: numbness in extremities or weakness in extremities Hematologic/Lymphatic Denies: easy bruising or easy bleeding PFSH PFSH Social History Smoking status: Former smoker Little interest or pleasure in doing things: not at all Feeling down, depressed, or hopeless: not at all Exam Narrative Exam Narrative: Gen.: Awake, alert, in no distress Head: Normocephalic, atraumatic ENT: Moist mucous membranes Respiratory: No respiratory distress, lungs clear bilaterally Cardio: Regular rate and rhythm Extremities: Moves extremities equally Psych: Normal mood and affect Neuro: No focal neuro deficit Skin: Warm, dry, intact Constitutional Vital Signs, click to edit/add: Last Vital Signs Temp 98.7 F 08/23/24 17:45 Pulse 51 L 08/23/24 17:45 Resp 18 08/23/24 17:45 BP 110/70 08/23/24 17:45 Pulse Ox 97 08/23/24 17:45 O2 Del Method Room Air 08/23/24 17:45 Course Vital Signs Vital signs: Vital Signs Temperature 98.7 F 08/23/24 17:45 Pulse Rate 51 L 08/23/24 17:45 Respiratory Rate 18 08/23/24 17:45 Blood Pressure 110/70 08/23/24 17:45 Pulse Oximetry 97 08/23/24 17:45 Oxygen Delivery Method Room Air 08/23/24 17:45 Temperature 98.7 F 08/23/24 17:45 Pulse Rate 51 L 08/23/24 17:45 Respiratory Rate 18 08/23/24 17:45 Blood Pressure 110/70 08/23/24 17:45 Pulse Oximetry 97 08/23/24 17:45 Oxygen Delivery Method Room Air 08/23/24 17:45 MDM - Dizziness MDM Narrative Medical decision making narrative: Patient given IV fluids, Zofran. Lab studies are unremarkable, her vital signs are unremarkable and she has a normal EKG. Patient was given education and reassurance. Zofran given for home. Follow-up with PCP. Push fluids and return to the ER if symptoms change or worsen. SUPERVISED APC VISIT, PHYSICIAN ATTESTATION: Based on the medical record the care appears appropriate. ? Medical Records Attestation: I reviewed the patient's medical records. Lab Data Attestation: I reviewed the patient's lab results. Labs: Lab Results 08/23/24 Range/Units 17:56 WBC 6.8 (4.0-11.0) 10^3/uL RBC 4.31 (4.20-5.40) 10^6/uL Hgb 13.3 (12.0-16.0) g/dL Hct 39.4 (36.0-48.0) % MCV 91.4 (81.0-99.0) fL MCH 30.9 (26.7-34.0) pg MCHC 33.8 (29.9-35.2) g/dL RDW 13.1 (11.0-15.0) % Plt Count 245 (150-450) 10^3/uL MPV 9.8 (9.5-13.5) fL Sodium 141 (136-145) mmol/L Potassium 3.9 (3.5-5.1) mmol/L Chloride 104 (98-107) mmol/L Carbon Dioxide 28.1 (21.0-32.0) mmol/L Anion Gap 12.8 BUN 10.0 (7.0-18.0) mg/dL Creatinine 0.76 (0.55-1.02) mg/dL Est GFR ( Amer) >60 (>=60 mL/min/1.73m^2) Est GFR (Non-Af Amer) >60 (>=60 mL/min/1.73m^2) BUN/Creatinine Ratio 13.2 Glucose 99 (74-106) mg/dL Calcium 9.0 (8.5-10.1) mg/dL ECG Data Attestation: I personally reviewed and interpreted this ECG as follows: (Normal sinus rhythm at a rate of 54, no acute ST elevation or ectopy. EKG reviewed by attending physician) Discharge Plan Discharge Chief Complaint: Dizziness Clinical Impression: COVID-19, Nausea Patient Disposition: Home, Self-Care Time of Disposition Decision: 18:25 Condition: Good Prescriptions / Home Meds: New ondansetron 4 mg tablet,disintegrating 4 mg PO Q6H PRN (Reason: nausea and vomiting) Qty: 12 0RF No Action ketorolac 10 mg tablet 10 mg PO TID PRN (Reason: pain) Qty: 10 0RF methocarbamol 750 mg tablet 750 mg PO TID PRN (Reason: pain) Qty: 20 0RF methylprednisolone [Medrol (Gee)] 4 mg tablets,dose pack See Rx Instructions .ROUTE .COMPLEX Qty: 21 0RF Rx Instructions: Taper as directed Print Language: Cypriot Instructions: How to Recover from COVID-19 at Home (ED) Referrals: Physician,Non-Staff, MD [Primary Care Provider] - 1 week
--- OUTSIDE RECORDS SUMMARY | 2024-08-23 17:56 | XMS_ITS | CCD ---
Author Organization [facility] Care Team Providers Care Garnisher Name Role Phone HELENA-MARIA, KAMINI Unavailable Unavailable [...] Attending Unavailable KARASIK, DR HAWKINS Consulting Unavailable SIMONE, DR CASAS Admitting Unavailable SIMONE, DR CASAS Attending Unavailable REQUEST, DR POON LISTED Primary Care Unavailaustyn NICHOLS, DR CASAS Consulting Unavailable Rodrigue BRANNON, Karl Peter Primary Care Provider Naty Benavidez MD Unavailable LAKIA WEATHERS Attending Unavailable LAKAI WEATHERS Referring Unavailable LAKIA WEATHERS Referring Unavailable ROMI HOPPER Attending Unavailable ROMI HOPPER Attending Unavailable GINA DUPREE Attending Unavailable ROMI HOPPER Attending Unavailable ROMI HOPPER Attending Unavailable ROMI HOPPER Attending Unavailable ROMI HOPPER Referring Unavailable JR. SMITH GEORGE C Attending Unavaila ble Medications Current Medications Medication Drug Class(es) Dates Sig (Normalized) Sig (Original) ALPRAZolam 0.25 mg oral tablet (4 sources) Benzodiazepine Start: 02-11-2024 take 1 tablet by mouth once daily as needed ALPRAZolam (Xanax) 0.25 MG tablet 1 tablet Orally daily prn for 7 days 02/11/2024 Active cyclobenzaprine hydrochloride 10 mg oral tablet (1 source) Muscle Relaxant Start: 01-05-2021 take 10 mg by mouth at bedtime Cyclobenzaprine Active 10 MG PO Bedtime January 05, 2021 9:48am hydrOXYzine pamoate 25 mg oral capsule (4 sources) Antihistamine Start: 05-16-2024 Vistaril 25 MG capsule 1 capsule 05/16/2024 Active levonorgestrel 0.055241 mg/hr intrauterine system (4 sources) Progestin, Progestin-containin g Intrauterine Device Levonorgestrel (Liletta, 52 MG,) 20.1 MCG/DAY intrauterine device as directed Intrauterine Active ondansetron 4 mg oral tablet (1 source) Serotonin-3 Receptor Antagonist Start: 03-31-2022 take 4 mg by mouth every eight hours Ondansetron Hcl Active 4 MG PO Q8H 12 4 March 31, 2022 12:26am sertraline 50 mg oral tablet (4 sources) Serotonin Reuptake Inhibitor Start: 05-16-2024 Zoloft 50 MG tablet 1 (one) time each day at the same time 05/16/2024 Active Completed/Discontinued Medications Medication Drug Class(es) Dates Sig [...] VIR OTH RSP MANF] Onset: 09-20-2022 Episodic Joint disorders and dislocations; trauma-related (4 sources) Derangement of right knee; Translations: [Unspecified internal derangement of right knee] 07-26-2024 Chronic Nausea and vomiting (1 source) Nausea and vomiting; Translations: [Nausea with vomiting, unspecified] 03-31-2022 Episodic Other injuries and conditions due to external causes (1 source) Contusion; Translations: [Other injury of unspecified body region, initial encounter] 01-05-2021 Episodic Other lower respiratory disease (1 source) Cough; Translations: [Cough] 03-31-2022 Episodic Other non-traumatic joint disorders (2 sources) Pain in right knee; Translations: [Pain in joint, lower leg] 07-25-2024 Episodic Other nutritional; endocrine; and metabolic disorders [...] Test Name Value Interpretation Reference Range Facility MR KNEE RIGHT WO IV CONTRAST on 08-07-2024 MR KNEE RIGHT WO IV CONTRAST Exam: MR KNEE RIGHT WO IV CONTRAST History: Medial knee pain Technique: Multiplanar multisequence MRI of the knee was performed without contrast. Comparison: Radiographs May 24, 2024 Findings: Quadriceps and patellar tendons are intact. No joint effusion. Patella alto. The trochlear groove is not shallow. Tibial tuberosity to trochlear groove distance of approximately 15 mm. Edema within superolateral Hoffa's fat pad Anterior and posterior cruciate ligaments are intact. The medial collateral ligament, lateral collateral ligament, and popliteus are intact. The medial and lateral meniscus are intact. No well-defined or measurable cartilage defect. Popliteal fossa structures are intact. No Calabrese cyst. IMPRESSION: Ligaments and menisci are intact. 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 ELECTRONICALLY SIGNED BY: Júnior Santoro, DO Normal Not Available [facility] US LOWER EXTREMITY VENO US DUPLEX RIGHTon 05-24-2024 [facility] US LOWER EXTREMITY VENOUS DUPLEX RIGHT Exam: [...] Not Available XR KNEE 3 VIEWS RIGHTon 08-0 XR KNEE 3 VIEWS RIGHT Exam: XR [...] AGon 09-18 INFLUBNEGH SEE BELOW Normal [facility] Comment on above: Result Comment: Nega tive for Flu B protein antigen. Infection due to Flu B cannot be ruled out. Flu B antigen in the sample may be below the detection limit of the test. Performed By: #### I NFLUAB #### [facility] [address] [place] [address] Dr. Darshan Porter INFLUENZA A AG Positive Abnormal NEGATIVE SEE COMMENT [facility] Comment on above: Performed By: #### I NFLUAB #### [facility] [address] [address] [address] Darshan Porter INFLUENZA B AG Negative Normal NEGATIVE SEE COMMENT [facility] Comment on above: Performed By: #### I NFLUAB #### [facility] [address] [place] [address] Dr. Darshan Porter INFLUPOSH SEE BELOW Normal [facility] Comment on above: Result Comment: NOTE : Live attenuated influenzae vaccine viruses can cause a positive result for a rapid influenza diagnostic test if administered up to 7 days prior to rapid testing. Performed By: #### I NFLUAB #### [facility] [address] [address] [address] Darshan Porter INTERNAL CONTROLS Within Normal Limits Normal Wi thin Normal Limits [facility] Comment on above: Performed By: #### I NFLUAB #### [facility] [address] [address] [address] Darshan Porter CHLAMYDIA/GONOCOCCUS NESSA (SW AB/URINE/PAPon 05-14-2022 Chlamydia trachomatis, NESSA Negative Normal Negative [facility] Comment on above: Performed By: #### C T/NGNA #### [facility] [address] [place] [address] Dr. Darshan Porter Neisseria gonorrhoeae, NESSA Negative Normal Negative [facility] Comment on above: Performed By: #### C T/NGNA #### [facility] [address] [place] [address] Dr. Darshan Porter VAGINITIS/VAGINOSIS DNA PROB Donell 05-14-2022 Latha species Negative Normal Negative [facility] Comment on above: Performed By: #### V AGINT #### [facility] [address] [address] [address] Darshan Porter Gardnerella vaginalis Positive Abnormal Negative [facility] Comment on above: Performed By: #### V AGINT #### [facility] [address] [place] [address] Dr. Darshan Porter Trichomonas vaginalis Negative Normal Negative [facility] Comment on above: Performed By: #### V AGINT #### [facility] [address] [place] [address] Dr. Darshan Porter Basic Metabolic Panelon 03-18 Calcium [Mass/Vol] 9.4 mg/dL Normal 8.2-10.2 [facility] Comment on above: Performed By: #### C BC, BMP #### [facility] [address] Chloride [Moles/Vol] 102 mmol/L Normal 95-114 [facility] Comment on above: Performed By: #### C BC, BMP #### [facility] [address] CO2 [Moles/Vol] 22.1 mmol/L Normal 22.0-30.0 [facility] Comment on above: Performed By: #### C BC, BMP #### [facility] [address] Creatinine [Mass/Vol] 0.80 mg/dL Normal 0.44-1.03 [facility] Comment on above: Performed By: #### C BC, BMP #### [place] [address] [place] Creatinine Clr Calc Pharmacy 85.83 [facility] Comment on above: Result Comment: PERF ORMED BY: [place] [id number] PATHOLOGIST ENGINE CLEANER LAKEISHA GRAY M.D. Performed By: #### C BC, BMP #### [address] Estimated GFR ( Sis > 60 [facility] Comment on above: Result Comment: GFR estimated reference range: According to KDOQI guidelines, <60 ml/min/1.73m2 is sufficient to diagnose a patient with chronic kidney disease. Performed By: #### C BC, BMP #### [address] Estimated GFR (Non- Am > 60 [facility] Comment on above: Performed By: #### C BC, BMP #### [address] Glucose [Mass/Vol] 88 mg/dL Normal 70-100 [facility] Comment on above: Result Comment: [place] om Glucose Reference Range is dependent on time and content of last meal. Glucose of more than 200 mg/dL in a nonstressed, ambulatory subject supports the diagnosis of Diabetes Mellitus. ADA recommended reference range Performed By: #### C BC, BMP #### [address] Potassium [Moles/Vol] 3.7 mmol/L Normal 3.5-5.1 [facility] Comment on above: Performed By: #### C BC, BMP #### [facility] [address] Sodium [Moles/Vol] 136 mmol/L Normal 136-146 [facility] Comment on above: Performed By: #### C BC, BMP #### [facility] [address] [place] [id number] [facility] Urea nitrogen [Mass/Vol] 8 mg/dL Low 9-23 [facility] Comment on above: Performed By: #### C BC, BMP #### [facility] [address] COVID-19 / Flu A/B / RSV [...] or Cepheid Disclaimer revoked sooner. PERFORMED BY: [place] [phone] PATHOLOGIST ENGINE CLEANER LAKEISHA GRAY M.D. Normal [facility] Comment on above: Performed By: #### C OVID19 FLU RSV, CEPHEID POS #### [address] Cepheid COVID PCR Positiveon 03-31-2022 SARS-CoV-2 (COVID-19) RNA NESSA+probe Ql (Unsp spec) Positive Critically abnormal Negative [facility] Comment on above: Result Comment: This is a duplicate Cepheid Xpert Xpress CoV-2/Flu/RSV Plus RNA by RT-PCR result to be used for statistical tracking purpose only. PERFORMED BY: [place] [phone] PATHOLOGIST ENGINE CLEANER LAKEISHA GRAY M.D. Performed By: #### C OVID19 FLU RSV, CEPHEID POS #### [place] [id number] [facility] Complete Blood Count Auto Di ffon 03-31-2022 Basophils (Bld) [#/Vol] 0.0 10*3/uL Normal 0.0-0.2 [facility] Comment on above: Result Comment: PERF ORMED BY: [place] [phone] PATHOLOGIST ENGINE CLEANER LAKEISHA GRAY M.D. Performed By: #### C BC, BMP #### [facility] [address] [place] [address] [place] Basophils/100 WBC (Bld) 0.8 % Normal . [facility] Comment on above: Performed By: #### C BC, BMP #### [address] Eosinophils (Bld) [#/Vol] 0.0 10*3/uL Normal 0.0-0.45 [facility] Comment on above: Performed By: #### C BC, BMP #### [address] Eosinophils/100 WBC (Bld) 0.5 % Normal . [facility] Comment on above: Performed By: #### C PETR, BMP #### [address] Erythrocyte distribution width (RBC) [Ratio] 13.9 % Normal 11.9-15.3 [facility] Comment on above: Performed By: #### C PETR, BMP #### [address] Hematocrit (Bld) [Volume fraction] 40.8 % Normal 34.0-46.4 [facility] Comment on above: Performed By: #### C BC, BMP #### [address] Hemoglobin (Bld) [Mass/Vol] 13.9 g/dL Normal 11.8-15.4 [facility] Comment on above: Performed By: #### C BC, BMP #### [address] Lymphocytes (Bld) [#/Vol] 0.7 10*3/uL Low 1.00-4.8 [facility] Comment on above: Performed By: #### C BC, BMP #### [address] Lymphocytes/100 WBC (Bld) 13.9 % Normal . [facility] Comment on above: Performed By: #### C BC, BMP #### [address] MCH (RBC) [Entitic mass] 31.2 pg Normal 24.7-34.3 [facility] Comment on above: Performed By: #### C BC, BMP #### [address] MCV (RBC) [Entitic vol] 91.3 fL Normal 80-100 [facility] Comment on above: Performed By: #### C BC, BMP #### [address] Mean Corpuscular HGB Conc 34.1 g/dL Normal 32.0-35.0 [facility] Comment on above: Performed By: #### C PETR, BMP #### [address] Monocytes (Bld) [#/Vol] 1.0 10*3/uL High 0.0-0.8 [facility] Comment on above: Performed By: #### C BC, BMP #### [address] Monocytes/100 WBC (Bld) 19.6 % Normal . [facility] Comment on above: Performed By: #### C PETR, BMP #### [address] Neutrophils (Bld) [#/Vol] 3.5 10*3/uL Normal 1.8-7.7 [facility] Comment on above: Performed By: #### C BC, BMP #### [address] Neutrophils/100 WBC (Bld) 65.2 % Normal . [facility] Comment on above: Performed By: #### C BC, BMP #### [address] Nucleated RBC/100 WBC (Bld) [Ratio] 0.2 % Normal 0-0.5 [facility] Comment on above: Performed By: #### C BC, BMP #### [address] Platelet mean volume (Bld) [Entitic vol] 8.4 fL Normal 6.3-10.7 [facility] Comment on above: Performed By: #### C PETR, BMP #### [address] Platelets (Bld) [#/Vol] 229 10*3/uL Normal 150-450 [facility] Comment on above: Performed By: #### C PETR, BMP #### [facility] [address] [place] [address] RBC (Bld) [#/Vol] 4.47 10*6/uL Normal 3.60-5.00 [facility] Comment on above: Performed By: #### C PETR, BMP #### [address] WBC (Bld) [#/Vol] 5.3 10*3/uL Normal 4.5-11.0 [facility] Comment on above: Performed By: #### C PETR, BMP #### [address] Basophils Auto (Bld) [#/Vol] Ordered By: Romi Obrien on 03-30-2022 Basophils (Bld) [#/Vol] 0.0 10*3/uL 0.0-0.2 [facility] Basophils/100 WBC Auto (Bld) Ordered By: Romi Obrien on 03-30-2022 Basophils/100 WBC (Bld) 0.8 % [facility] Blood hemoglobin measurement (mass/volume)Ordered By: Romi Obrien on 03-30-2022 Hemoglobin (Bld) [Mass/Vol] 13.9 g/dL 11.8-15.4 [facility] Blood leukocytes automated c ount (number/volume)Ordered By: Romi Obrien on 03-30-2022 WBC (Bld) [#/Vol] 5.3 10*3/uL 4.5-11.0 [facility] COVID CepheidOrdered By: Avinash Obrien on 03-30-2022 SARS-CoV-2 (COVID-19) Ab IA Ql Positive Negative [facility] Comment on above: This is a duplicate CepThryve Xpert Xpress CoV-2/Flu/RSV Plus RNA by RT-PCR result to be used for statistical tracking purpose only. SARS-CoV-2 (COVID-19) RNA NESSA+probe Ql (Unsp spec) [facility] Creatinine and Glomerular fi ltration rate.predicted panel (S/P/Bld)Ordered By: Romi Obrien on 03-30-2022 Creatinine [Mass/Vol] 0.80 mg/dL 0.44-1.03 [facility] Eosinophils Auto (Bld) [#/Vo l]Ordered By: Romi Obrien on 03-30-2022 Eosinophils (Bld) [#/Vol] 0.0 10*3/uL 0.0-0.45 [facility] Eosinophils/100 WBC Auto (Bl d)Ordered By: Romi Obrien on 03-30-2022 Eosinophils/100 WBC (Bld) 0.5 % [facility] Erythrocyte distribution wid th Auto (RBC) [Ratio]Ordered By: Romi Obrien on 03-30-2022 Erythrocyte distribution width (RBC) [Ratio] 13.9 % 11.9-15.3 [facility] Estimated glomerular filtrat ion rate (GFR) non- AmericanOrdered By: Romi Obrien on 03-30-2022 GFR/1.73 sq M.predicted among non-blacks MDRD (S/P/Bld) [Vol rate/Area] > 60 mL/Min [facility] Hematocrit Auto (Bld) [Volum e fraction]Ordered By: Romi Obrien on 03-30-2022 Hematocrit (Bld) [Volume fraction] 40.8 % 34.0-46.4 [facility] Laboratory - Hematology and Cell countsOrdered By: Romi Obrien on 03-30-2022 Nucleated RBC/100 WBC (Bld) [Ratio] 0.2 % 0-0.5 [facility] Lymphocytes Auto (Bld) [#/Vo l]Ordered By: Romi Obrien on 03-30-2022 Lymphocytes (Bld) [#/Vol] 0.7 10*3/uL 1.00-4.8 [facility] Lymphocytes/100 WBC Auto (Bl d)Ordered By: Romi Obrien on 03-30-2022 Lymphocytes/100 WBC (Bld) 13.9 % [facility] MCH Auto (RBC) [Entitic mass ]Ordered By: Romi Obrien on 03-30-2022 MCH (RBC) [Entitic mass] 31.2 pg 24.7-34.3 [facility] MCHC Auto (RBC) [Mass/Vol]Or dered By: Romi Obrien on 03-30-2022 MCHC (RBC) [Mass/Vol] 34.1 g/dL 32.0-35.0 [facility] MCV Auto (RBC) [Entitic vol] Ordered By: Romi Obrien on 03-30-2022 MCV (RBC) [Entitic vol] 91.3 fL 80-100 [facility] Monocytes Auto (Bld) [#/Vol] Ordered By: Romi Obrien on 03-30-2022 Monocytes (Bld) [#/Vol] 1.0 10*3/uL 0.0-0.8 [facility] Monocytes/100 WBC Auto (Bld) Ordered By: Romi Obrien on 03-30-2022 Monocytes/100 WBC (Bld) 19.6 % [facility] Neutrophils Auto (Bld) [#/Vo l]Ordered By: Romi Obrien on 03-30-2022 Neutrophils (Bld) [#/Vol] 3.5 10*3/uL 1.8-7.7 [facility] Neutrophils/100 WBC Auto (Bl d)Ordered By: Romi Obrien on 03-30-2022 Neutrophils/100 WBC (Bld) 65.2 % [facility] No Panel InformationOrdered By: Romi Obrien on 03-30-2022 Estimated GFR () > 60 mL/Min [facility] Comment on above: GFR estimated refere nce range: According to KDOQI guidelines, <60 ml/min/1.73m2 is sufficient to diagnose a patient with chronic kidney disease. Pharmacy Creatinine Clearance (Chem 85.83 [facility] PAP ACOG PANEL 2: 21 to 29on 03-30-2022 . . Normal [facility] Comment on above: Performed By: #### [id number] #### [facility] [address] [place] [address] Dr. Darshan Porter Age Gdln ACOG Testing 21-29 [facility] Comment on above: Performed By: #### [id number] #### [facility] [address] [place] [address] Dr. Darshan Porter DIAGNOSIS: Comment [facility] Comment on above: Result Comment: NEGA TIVE FOR INTRAEPITHELIAL LESION OR MALIGNANCY. Performed By: #### [id number] #### [facility] [address] [place] [address] Dr. Darshan Porter Methodology: Comment [facility] Comment on above: Result Comment: This liquid based ThinPrep(R) pap test was screened with the use of an image guided system. Performed By: #### 4 [id number] #### [facility] [address] [place] [address] Dr. Darshan Porter Note: Comment [facility] Comment on above: Result Comment: The Pap smear is a screening test designed to aid in the detection of premalignant and malignant conditions of the uterine cervix. It is not a diagnostic procedure and should not be used as the sole means of detecting cervical cancer. Both false-positive and false-negative reports do occur. . Performed By: #### [id number] #### [facility] [address] [place] [address] Dr. Darshan Porter Performed by: Comment Normal [facility] Comment on above: Result Comment: Dewayne Middleton, Computer Software Engineer (ASCP) Performed By: #### [id number] #### [facility] [address] [place] [address] Dr. Darshan Porter Reflex Criteria: Comment [facility] Comment on above: Result Comment: The HPV DNA reflex criteria were not met with this specimen result therefore, no HPV testing was performed. . Performed By: #### [id number] #### [facility] [address] [place] [address] Dr. Darshan Porter Specimen adequacy: Comment [facility] Comment on above: Result Comment: Sati sfactory for evaluation. Endocervical and/or squamous metaplastic cells (endocervical component) are present. Performed By: #### 4 [id number] #### [facility] [address] [address] [address] Darshan Porter Platelet mean volume Auto (B ld) [Entitic vol]Ordered By: Romi Obrien on 03-30-2022 Platelet mean volume (Bld) [Entitic vol] 8.4 fL 6.3-10.7 [facility] Platelets Auto (Bld) [#/Vol] Ordered By: Romi Obrien on 03-30-2022 Platelets (Bld) [#/Vol] 229 10*3/uL 150-450 [facility] RBC Auto (Bld) [#/Vol]Ordere d By: Romi Obrien on 03-30-2022 RBC (Bld) [#/Vol] 4.47 10*6/uL 3.60-5.00 [facility] Serum or plasma calcium spencer urement (mass/volume)Ordered By: Romi Obrien on 03-30-2022 Calcium [Mass/Vol] 9.4 mg/dL 8.2-10.2 [facility] Serum or plasma chloride aurora surement (moles/volume)Ordered By: Romi Obrien on 03-30-2022 Chloride [Moles/Vol] 102 mmol/L 95-114 [facility] Serum or plasma glucose spencer urement (mass/volume)Ordered By: Rmoi Obrien on 03-30-2022 Glucose [Mass/Vol] 88 mg/dL 70-100 [facility] Comment on above: ADA recommended refe rence range Random Glucose Reference Range is dependent on time and content of last meal. Glucose of more than 200 mg/dL in a nonstressed, ambulatory subject supports the diagnosis of Diabetes Mellitus. Serum or plasma potassium me asurement (moles/volume)Ordered By: Romi Obrien on 03-30-2022 Potassium [Moles/Vol] 3.7 mmol/L 3.5-5.1 [facility] Serum or plasma sodium measu rement (moles/volume)Ordered By: Romi Obrien on 03-30-2022 Sodium [Moles/Vol] 136 mmol/L 136-146 [facility] Serum or plasma total carbon dioxide measurement (moles/volume)Ordered By: Romi Obrien on 03-30-2022 CO2 [Moles/Vol] 22.1 mmol/L 22.0-30.0 [facility] Serum or plasma urea nitroge n measurement (mass/volume)Ordered By: Romi Obrien on 03-30-2022 Urea nitrogen [Mass/Vol] 8 mg/dL 07-10 [facility] COVID-19 Lab Corpon 10-20-19 SARS-CoV-2 (COVID-19) RNA NESSA+probe Ql (Unsp spec) Detected Critically abnormal Not Detected [facility] Comment on above: Order Comment: Healt hcare Worker?: N Result Comment: Sara ents who have a positive COVID-19 test result may now have treatment options. Treatment options are available for patients with mild to moderate symptoms and for hospitalized patients. Visit our website at [email or web address] for resources and information. This nucleic acid amplification test was developed and its performance characteristics determined by [employer]. Nucleic acid amplification tests include RT- PCR [...] detected) result in this assay. PERFORMED BY: [facility] [place] [address] PATHOLOGIST ENGINE CLEANER LAKEISHA GRAY M.D. Performed By: #### C ORONAVIRUS #### [facility] , HIV-1,-2 w/Reflex to HIV-1 W estern [place] 02-07-2018 HIV-1 and HIV-2 Abs Negative Normal Negative [facility] Comment on above: Result Comment: Base d on the non-reactive anti-HIV (DEIRDRE) screen, the HIV Western blotis notindicated and therefore not performed.INTERPRETIVE INFORMATION: HIV-1,-2 w/Reflex to HIV-1 Western BlotThis assay should not be used for blood donor screening, associatedre-entryprotocols, or for screening Human Cells, Tissues and Cellular andTissue-Based Products (HCT/P).Performed by [email or web address],[address] [place] [id number] [email or web address], Krishan Sánchez MD - Lab. Director RPRon 02-06-2018 Reagin antibody presence Non-reactive Normal Non-reacti [facility] Hepatitis B Surface Agon Hepatitis B Surface Ag Interp Non-reactive Normal [facility] Hepatitis C Antibodyon 02-04 Hepatitis C Antibody Interp Non-reactive Normal [facility] Culture, Strep A Screenon Culture, Strep A Screen ORDERED BY: TAMMY HUFF: Throat COLLECTED: 05/30/17 11:38ANTIBIOTICS AT JESSICA.: RECEIVED : 05/30/17 15:25Culture, Strep A Screen FINAL 06/02/17 08:54 Usual fátima isolated including Beta Strep, not group A. Normal [facility] Rapid A Strep Antigenon 05-18 Rapid strep test Negative Normal Negative [facility] Comment on above: Result Comment: A cu lture confirmation plate has been set up and a separatereport will follow. See micro report. Vital Signs Date Time Vital Sign Value Performing Clinician Jhon litrebeca 03-30-2022 21:11-0400 Body height 160.02 cm PHYSICIAN HOA [facility] 03-30-2022 21:11-0400 Body mass index (BMI) [Ratio] 22.8 kg/m2 PHYSICIAN NO [facility] 03-30-2022 21:11-0400 Body temperature 99.8 [degF] PHYSICIAN NO [facility] 03-30-2022 21:11-0400 Body weight 58.5 kg PHYSICIAN NO [facility] 03-30-2022 21:11-0400 Diastolic blood pressure 56 mm[Hg] PHYSICIAN NO [facility] 03-30-2022 21:11-0400 Heart rate 69 /min PHYSICIAN NO [facility] 03-30-2022 21:11-0400 SaO2% (BldA) [Mass fraction] 97 % PHYSICIAN NO [facility] 03-30-2022 21:11-0400 Systolic blood pressure 112 mm[Hg] PHYSICIAN NO [facility] Encounters Encounter Date Encounter Type Care Provider Facility Start: 08-14-2024 End: 08-14-2024 Office outpatient visit 25 minutes Jr. Martínez Smith DO Work Phone: [facility] Comment on above: Internal derangement of right knee (Primary Dx) Start: 08-14-2024 End: 08-14-2024 ambulatory MARTÍNEZ CERVANTES Not Available Start: 08-07-2024 End: 08-07-2024 ambulatory ROMI HOPPER Not Available Start: 07-26-2024 End: 07-26-2024 Office outpatient visit 15 minutes Rmoi Hopper PA Work Phone: [facility] Comment on above: Acute pain of right knee (Primary Dx); Internal derangement of right knee Start: 07-26-2024 End: 07-26-2024 ambulatory ROMI HOPPER Not Available Start: 07-12-2024 End: 07-12-2024 ambulatory ROMI HOPPER Not Available Start: 07-05-2024 End: 07-05-2024 ambulatory ROMI HOPPER Not Available Start: 06-29-2024 End: 06-29-2024 ambulatory GINA DUPREE Not Available Start: 06-14-2024 End: 06-14-2024 ambulatory ROMI HOPPER Not Available Start: 05-30-2024 End: 05-30-2024 ambulatory ROMI HOPPER Not Available Start: 05-24-2024 End: 05-24-2024 ambulatory LAKIA WEATHERS Not Available Start: 09-18-2022 End: 09-18-[address] AUGUSTO NICHOLS Facility:[facility] Start: 05-12-2022 End: 05-12-[address] ROSS TORRES Facility:[facility] Start: 03-30-2022 End: 03-31-2022 Emergency department patient visit PHYSICIAN NO FAMILY [facility] Start: 03-25-2022 End: 03-25-[address] ROSS TORRES Facility:[facility] Start: 10-20-2021 End: 10-20-2021 ambulatory RONAK CAPUTO Facility:[facility] Start: 08-31-2017 Ambulatory KAMINI Rivas ty:[facility]BC Start: 08-03-2017 Ambulatory KAMINI Rivas ty:RBC Start: 06-29-2017 Ambulatory KAMINI Rivas ty:RBC Start: 05-30-2017 End: 05-30-2017 Emergency department patient visit MAL HARMON [facility] Start: 05-25-2017 Ambulatory KAMINI Abreui ty:RBC Start: 05-04-2017 Ambulatory Joel Mcneal Facility:[facility] Start: 04-27-2017 Ambulatory KAMINI Abreui ty:RBC Procedures Date Procedure Procedure Detail Performing Clinician Start: 03-30-2022 SARS-CoV-2, Influenz a & RSV (PCR) PHYSICIAN NO FAMILY Start: 05-30-2017 CULTURE BETA STREP C ONFIRM PLATE MAL HARMON Start: 05-30-2017 RAPID STREP SCREEN MAL HARMON Plan of Treatment Date Care Activity Detail Author Start: 07-03-2025 End: 07-03-2025 Patient encounter procedure 07/03/2025 10:20 AM EDT Office Visit [facility] [address] [phone] Gina Dupree NP [address] [place] [address] [facility] Start: 08-14-2024 End: 08-14-2024 Patient encounter procedure 08/14/2024 2:45 PM EDT Office Visit [facility] [address] [facility] [place] [address] Jr. Martínez Smith, DO [address] [facility] [address] [place] [address] [facility] Start: 07-26-2024 End: 07-26-2025 MR Knee - right WO contrast MR knee right wo IV contrast Imaging Routine Internal derangement of right knee Expected: 07/26/2024 (Approximate), Expires: 07/26/2025 [facility] Work Phone: Comment on above: Expected: 07/26/2024 (Approximate), Expires: 07/26/2025 Patient Education Nausea and Vom iting, Adult (DC) Abdominal Pain, Adult ED [facility] COVID-19 Discharge Instructions [facility] Work Phone: Patient referral [facility] Work Phone: Payers Date Payer Category Payer [facility] [id number] 2023 Unknown [id number] 2023 Unknown [id number] 2015 Medicaid [id number] 1993 Unknown [id number] 2.16.840.1.829425.3.579. 2.593 1993 Unknown [id number] 2.16.840.1.625311.3.579. 2.59 1993 Unknown [id number] 2.16.840.1.852325.3.579. 2.59 1993 Unknown [id number] 2.16.840.1.702955.3.579. 2.59 1993 Unknown [id number] 2.16.840.1.442838.3.579. 2.1258 1993 Unknown [id number] 2.16.840.1.583682.3.579. 2.1258 1993 Unknown [id number] 2.16.840.1.310285.3.579. 2.1258 1993 Unknown [id number] 2.16.840.1.980358.3.579. 2.1258 1993 Unknown [id number] 2.16.840.1.587341.3.579. 2.1258 1993 Unknown [id number] 2.16.840.1.195237.3.579. 2.1258 1993 Unknown [id number] 2.16.840.1.974613.3.579. 2.1258 1993 Unknown [id number] 2.16.840.1.239007.3.579. 2.1258 1993 Unknown [id number] 2.16.840.1.219807.3.579. 2.1258 1993 Unknown [id number] 2.16.840.1.863739.3.579. 2.1258 1993 Unknown [id number] 2.16.840.1.727156.3.579. 2.1259 1959 Self-pay [id number] 1959 Unknown [id number] Medicaid [place] [employer] [id number] 801 [id number] Unknown O [id number] Unknown [facility] [id number] Social History Date Type Detail Facility Start: 03-30-2022 Tobacco smoking status WIIS Current some day smoker [facility] Start: 1995 Sex Assigned At Female [facility] Start: 06-29-2024 Tobacco smoking status [facility] Ex-smoker [facility] History of tobacco use Current smoker [facility] History of tobacco use Cigarette Smoker [facility] Start: 06-29-2024 End: 08-14-2024 Cigarettes smoked current (pack per day) - Reported 1.5 [facility] Start: 06-29-2024 Tobacco use and exposure Smokeless tobacco non-user [facility] Start: 07-26-2024 End: 08-14-2024 Alcoholic beverage intake Current drinker of alcohol (finding) [facility] Start: 06-29-2024 End: 08-14-2024 Alcohol Use Disorder Identification Test - Consumption [AUDIT-C] [facility] How often to you hav e a drink containing alcohol? 4 or more times a week [facility] How many standard dr inks containing alcohol do you have on a typical day? 1 or 2 [facility] How often do you hav e 6 or more drinks on 1 occasion? Never [facility] Start: 06-29-2024 Tobacco Comment Quit cigarettes about 2 years ago, currently vape [facility] Start: 1995 Sex assigned at Not on file [facility] History of Present illness Narrative 08-14-2024 Jr. Martínez Smith, - 08/14/2024 2:45 PM EDT Note Date & Type Note Facility 08-14-2024 History of Presen t illness Narrative Images from the original note were not included. HISTORY OF PRESENT ILLNESS: EST PT Kristinaluis angel Alvarado is an 29 y.o. @ female. 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 Inspection Leg length disparity: no discrepancy Right Erythema: none Effusion: mild Edema: none Ecchymosis: none Deformity: none Alignment: normal Palpation Right Increased warmth: none Masses: none Tenderness: present Medial joint line: moderate Medial retinaculum: mild Range of Motion Right Right knee range of motion is normal and full. Range of motion additional comments: + PAIN ON TERMINAL FLEXION AND EXTENSION. Strength Right Right knee strength is normal. Extension: 5/5. Extension is affected by pain. Flexion: 5/5. Flexion is affected by pain. Instability Right Instability signs: none - stable Varus stress grade: normal Valgus stress grade: normal Anterior drawer: normal Medial Danuta test: positive Neurovascular Right Right knee neurovascular exam is normal. Pulses - PT: normal Posterior tibial: 2+ Capillary refill: warm and well-perfused Special Signs Right Right knee special signs are normal. Patellar apprehension: none Vitals: There is no height or weight on file to calculate BMI. Tobacco Use: Medium Risk (08/14/2024) Patient History Smoking Tobacco Use: Former Smokeless Tobacco Use: Never Passive Exposure: Not on file Alcohol Use: Not At Risk (06/29/2024) AUDIT-C Frequency of Alcohol Consumption: 4 or more times a week Average Number of Drinks: 1 or 2 Frequency of Binge Drinking: Never IMAGING: Procedures No orders of the defined types were placed in this encounter. ASSESSMENT: ICD-10-CM 1. Internal derangement of right knee M23.91 PLAN: We have answered all the patients questions and explained the patients condition, decision making and plan including the risks and benefits associated with said plan in layman''s terms in a language the patient could understand easily. If patient''s symptoms significantly worsen and they cannot get a hold of us or their family physician, we have recommended that the patient proceed to the nearest emergency department (room). Dr. Smith obtained history and examined the patient, I am acting as scribe for Dr. Smith/sidney, PLAN: We have reviewed prior (R) knee xrays and discussed (R) knee MRI results with patient at bedside : Maltracking patella with medial meniscus tear. After examination of her right knee today we have discussed both surgical and nonsurgical intervention, with the risks / benefits of both. Patient is requesting a (R) knee scope as the pain is affecting her ADL's - increased pain with ambulation. We will continue her off of work until further notice ; will extend for 4 weeks at this time and will adjust once sx is scheduled. We have discussed her HEP and restrictions and will see her back on the day of sx. Surgery - Diagnostic and operative (R) knee scope w/medial meniscetomy We have discussed both surgical and nonsurgical treatment options with the patient at length and the risks and benefits associated with both. The patient is requesting surgical intervention because they have not responded to outpatient treatment options including but not limited to rest ice, and home exercise program. Pain and decreased range of motion are affecting the patient''s ability to sleep and activities of daily living and we have recommended surgical intervention. Martínez Smith D.O. documented in this encounter [facility] History of Present illness Narrative 07-26-2024 INSHI Cobb - 07/26/2024 10:30 AM EDT Note Date & Type Note Facility 07-26-2024 History of Presen t illness Narrative Images from the original note were not included. HISTORY OF PRESENT ILLNESS: EST PT Kristina Alvarado is an 29 y.o. @ female. 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 AND RAN OUTSIDE TO [place] A DOG AND FELL IN YARD XRAY RT KNEE 05/24/24 EPIC NO MRI VENOUS DOPPLER 05/24/24 EPIC CORTISONE INJ 07/05/24 PREDNISONE 05/30/24 PT IN [place] PT HAS BEEN TRYING TO GO ON A MILE WALK EVERY OTHER DAY- STATES SHE HAS TO TAKE A REST EVERY 1/4MILE- NOTES SOME TIGHTNESS-SOME INSTABILITY AFTER PROLONG AMBULATING- WEARS KNEE SLEEVE WITH INCREASE ACTIVITY- DISCOMFORT ANTERIOR/MEDIAL KNEE- PT STATES SHE FEELS EVERY MOTION SHE TAKES WITH HER KNEE- PT ICES/ELEVATES FREQUENTLY- HX TYLENOL/IBUPROFEN ALLERGIES: No Known Allergies HOME MEDICATIONS: Current Outpatient Medications Medication Instructions ALPRAZolam (Xanax) 0.25 MG tablet 1 tablet Orally daily prn for 7 days Levonorgestrel (Liletta, 52 MG,) 20.1 MCG/DAY intrauterine device as directed Intrauterine Vistaril 25 MG capsule 1 capsule Zoloft 50 MG tablet Every 24 hours PHYSICAL EXAM: Knee Musculoskeletal Exam Gait Gait is normal. Inspection Leg length disparity: no discrepancy Right Erythema: none Effusion: mild Edema: none Ecchymosis: none Deformity: none Alignment: normal Palpation Right Increased warmth: none Masses: none Tenderness: present Medial joint line: moderate Medial retinaculum: mild Range of Motion Right Right knee range of motion is normal and full. Range of motion additional comments: + PAIN ON TERMINAL FLEXION AND EXTENSION. Strength Right Right knee strength is normal. Extension: 5/5. Extension is affected by pain. Flexion: 5/5. Flexion is affected by pain. Instability Right Instability signs: none - stable Varus stress grade: normal Valgus stress grade: normal Anterior drawer: normal Medial Danuta test: positive Neurovascular Right Right knee neurovascular exam is normal. Pulses - PT: normal Posterior tibial: 2+ Capillary refill: warm and well-perfused Special Signs Right Right knee special signs are normal. Patellar apprehension: none General Constitutional: appears stated age Labored breathing: no Psychiatric: normal mood and affect Neurological: alert Skin: intact Lymphadenopathy: none Vitals: There is no height or weight on file to calculate BMI. Tobacco Use: Medium Risk (07/26/2024) Patient History Smoking Tobacco Use: Former Smokeless Tobacco Use: Never Passive Exposure: Not on file Alcohol Use: Not At Risk (06/29/2024) AUDIT-C Frequency of Alcohol Consumption: 4 or more times a week Average Number of Drinks: 1 or 2 Frequency of Binge Drinking: Never IMAGING: Procedures No orders of the defined types were placed in this encounter. ASSESSMENT: ICD-10-CM 1. Acute pain of right knee M25.561 2. Internal derangement of right knee M23.91 PLAN: F/U Dr. Smith s/p MRI to discuss need for possible: R/o Medial meniscus tear. Pt initially presented with prepatellar pain and then patella femoral. Despite therapy/ injection she has had 2 falls with increasing pain and recommend MRI to r/o medial meniscus tear as she is still unable to work.. Pt should cont therapy as tolerated and remain off work if they will not let her work with restrictions pending mri.. r/o medial meniscus tear, chondral contusion possible with falls. Surgical and non surgical tx options discussed with conservative measures reviewed. Recommend ICE/ ELEVATION, continued activity modification in interim. Pt would consider surgical intervention to possibly improve symptoms. Questions answered in laymen terms at the bedside. The diagnosis, home exercise plan and any ongoing restrictions/ recommendations reviewed. If unable to be reached in office, I recommend evaluation at nearest Emergency Room if any symptoms worsened or new symptoms develop for requiring urgent evaluation. documented in this encounter [facility] Evaluation note Note Date & Type Note Facility Evaluation note No assessment information [facility] Work Phone: Evaluation note Note Date & Type Note Facility Evaluation note Diagnosis Acute pain of right knee- Primary Internal derangement of right knee documented in this encounter [facility] Evaluation note Note Date & Type Note Facility Evaluation note Diagnosis Internal derangement of right knee- Primary documented in this encounter [facility] Discharge instructions Note Date & Type [...] for reevaluation in 3 to 5 days. [facility] Work Phone: Summary Purpose Family History Relationship Condition Age at Onset Recorded Date/T emeli Not Specified No pertinent family history Unknown Advance Directives Advance Directive Response Recorded Date/ Time Advance Directives No April 16 1:05pm Chief Complaint and Reason for Visit Chief Complaint Fever Reason for Referral Specialty Diagnoses / Procedures Referred By Contac t Referred To Contact Radiology Diagnoses Internal derangement of right knee Procedures MR knee right wo IV contrast Romi Hopper, NISHI [address] [place] [address] [facility] [address] [place] [address] Referral ID Status Reason Start Date Expiration Date V isits Requested Visits Authorized [id number] Pending Review 07/26/2024 01/22/2025 1 1 Additional Source Comments INFORMATION SOURCE (unrecogn ized section and content) DATE CREATED AUTHOR 04/07/2018 [facility] DATE CREATED AUTHOR AUTHOR'S ORGANIZ ATION 04/12/2018 [facility] DATE CREATED AUTHOR AUTHOR'S ORGANIZ ATION 04/13/2018 [facility] DATE CREATED AUTHOR AUTHOR'S ORGANIZ ATION 04/14/2022 [facility] DATE CREATED AUTHOR AUTHOR'S ORGANIZ ATION 09/20/2022 [facility] DATE CREATED AUTHOR AUTHOR'S ORGANIZ ATION 08/15/2024 [facility] EPIC Care Teams (unrecognized sec tion and content) Team Status: Inactive Member Role Status Dates PHYSICIAN NO FAMILY Primary Care Provider Active Romi Obrien DO Emergency Provider Active Team Status: Active Member Role Status Dates PHYSICIAN NO FAMILY Primary Care Provider Active Garnisher Relationship Specialty Start Date End Date Karl Husain MD [address] [facility] [place] [address] PCP - General Family Medicine 05/30/24 Naty Benavidez MD [address] [place] [address] [phone] Referring Physician Family Medicine 05/30/24 Garnisher Relationship Specialty Start Date End Date Karl Husain MD [address] [place] [address] PCP - General Family Medicine 05/30/24 Naty Benavidez MD [address] [place] [address] [phone] Referring Physician Family Medicine 05/30/24 Goals (unrecognized section and content) Goals may be documented in a n alternate section Reason for Visit (unrecogniz ed section and content) Reason Comments Pain Reason Comments Pain FOR RECORDS PERTAINING TO PATIENTS WHO ARE [...] BE BASED ON THE PRIMARY CLINICAL RECORDS. [facility]. provides no warranty or guarantee of the accuracy or completeness of information in this document.
[2024-08-23] MEDS: ONDANSETRON PF 4 MG/2 ML VIAL IV (18:03)
[2024-08-23] MEDS: 0.9 % SODIUM CHLORIDE 1,000 ML 1000 ML IV (18:03)
[2024-08-23 18:06] LABS: Hematocrit 39.4 % (36.0-48.0); Hemoglobin 13.3 g/dL (12.0-16.0); Mean Corpuscular HGB Conc 33.8 g/dL (29.9-35.2); Mean Corpuscular Hemoglobin 30.9 pg (26.7-34.0); Mean Corpuscular Volume 91.4 fL (81.0-99.0); Mean Platelet Volume 9.8 fL (9.5-13.5); Platelet Count 245 10^3/uL (150-450); Red Blood Count 4.31 10^6/uL (4.20-5.40); Red Cell Distribution Width 13.1 % (11.0-15.0); White Blood Count 6.8 10^3/uL (4.0-11.0)
[2024-08-23 18:20] LABS: Anion Gap 12.8; BUN Creatinine Ratio 13.2; Carbon Dioxide 28.1 mmol/L (21.0-32.0); Chloride 104 mmol/L (98-107); Estimated GFR (African America >60 (>=60 mL/min/1.73m^2); Estimated GFR (Non-African Ame >60 (>=60 mL/min/1.73m^2); Glucose 99 mg/dL (74-106); Potassium 3.9 mmol/L (3.5-5.1); Sodium 141 mmol/L (136-145)
[2024-08-23 18:37] LABS: Segmented Neut Absolute Manual 2.51 10^3/uL (1.4-6.5)
[2024-08-23 18:38] LABS: Eosinophils Absolute Manual 0.13 10^3/uL (0.00-0.70); Monocytes Absolute Manual 0.54 10^3/uL (0.30-0.80)
== END 2024-08-23 18:49 | disposition home or self-care (01) ==
PROVIDERS: Physician Assistant; Emergency Provider Emergency Medicine
DX: U07.1 COVID-19 (principal); R11.0 Nausea
CPT/HCPCS: 36415; 80048; 85007; 85027; 93005; 96361; 96374; 99285; J2405

== ENCOUNTER 2024-09-03 05:55 | Emergency (ER) | payer BC, SELFPAY ==
--- OUTSIDE RECORDS SUMMARY | 2024-09-03 06:01 | XMS_ITS | CCD ---
Author Organization [facility] Care Team Providers Care [employer] Practitioner Name Role Phone HELENA-MARIA, KAMINI Unavailable Unavailable [...] NO FAMILY, PHYSICIAN Primary Care Provider Unava ilable DO Romi Obrien Emergency Provider Unavai RONAK Lackey Admitting Unavailable RONAK CAPUTO Attending Unavailable BRIAN, DR HAWKINS Admitting Unavailable KARASIK, DR HAWKINS Attending Unavailable KARASIK, DR HAWKINS Consulting Unavailable KARASIK, DR HAWKINS Admitting Unavailable KARASIK, DR HAWKINS Attending Unavailable KARASISarah, DR HAWKINS Consulting Unavailable SIMONE, DR CASAS Admitting Unavailable SIMONE, DR CASAS Attending Unavailable REQUEST, DR POON LISTED Primary Care Unavailaustyn NICHOLS, DR CASAS Consulting Unavailable Rodrigue BRANNON, Karl Peter Primary Care Provider [phone] Reema BRANNON, Naty Unavailable LAKIA WEATHERS Attending Unavailable LAKIA WEATHERS Referring Unavailable LAKIA WEATHERS Referring Unavailable ROMI HOPPER Attending Unavailable ROMI HOPPER Attending Unavailable GINA DUPREE Attending Unavailable ROMI HOPPER Attending Unavailable ROMI HOPPER Attending Unavailable ROMI HOPPER Attending Unavailable ROMI HOPPER Referring Unavailable JR. SMITH GEORGE C Attending MACIEL Sosa Attending Unavailable NATY MCCARTY Primary Care Physician [phone] Medications Current Medications Medication Drug Class(es) Dates [...] PO Bedtime 7 January 05, 2021 9:48am hydrocortisone acetate 25 mg rectal suppository (1 source) Corticosteroid Start: 09-02-2024 End: 09-09-2024 take 25 mg rectal route twice daily Anusol-HC 25 mg rectal suppository 25 mg = 1 supp, Rectal, BID, X 7 day(s), # 14 supp, Refills(s) 0, Pharmacy: [facility]/pharmacy #[id number], 157.5, cm, 09/02/24 12:33:00 EST, Height/Length Dosing, 58, kg, 09/02/24 12:33:00 EST, Weight Dosing Start Date: 09/02/24 Stop Date: 09/09/24 Status: Ordered hydrOXYzine pamoate 25 mg oral capsule (4 sources) Antihistamine Start: 05-16-2024 Vistaril 25 MG capsule 1 capsule 05/16/2024 Active levonorgestrel 0.503620 mg/hr intrauterine system (4 sources) Progestin, Progestin-containin g Intrauterine Device Levonorgestrel (Liletta, 52 MG,) 20.1 MCG/DAY intrauterine device as directed Intrauterine Active lidocaine 50 mg/ml rectal cream (1 source) Antiarrhythmic, Amide Local Anesthetic Start: 09-02-2024 lidocaine 5% rectal cream See Instructions, 20 gm, Refill(s) 0, Apply to affected area up to 6 times daily, [facility]/pharmacy #[id number], 157.5, cm, 09/02/24 12:33:00 EST, Height/Length Dosing, 58, kg, 09/02/24 12:33:00 EST, Weight Dosing Start Date: 09/02/24 Status: Ordered ondansetron 4 mg oral tablet (1 source) Serotonin-3 Receptor Antagonist Start: 03-31-2022 take 4 mg by mouth every eight hours Ondansetron Hcl Active 4 MG PO Q8H 12 March 31, 2022 12:26am sertraline 50 mg [...] Active Problems Problem Classification Problem Date Documented Date Episodic/Chronic Abdominal pain (1 source) Abdominal pain; Translations: [Unspecified abdominal pain] 03-31-2022 Episodic Fever of unknown origin (2 sources) Feeling feverish; Translations: [Fever, unspecified] Onset: 09-20-2022 03-31-2022 Episodic Hemorrhoids (1 source) Hemorrhoids; Translations: [Unspecified hemorrhoids] Onset: 09-02-2024 Episodic Influenza (1 source) Influenza due to [...] at neck level, initial encounter] 01-05-2021 Episodic Substance-related disorders (1 source) Smoker 09-02-2024 Chronic Comment on above: Added secondary to d ocumentation in Social History. Superficial injury; contusion (1 source) Contusion of [...] BY: Júnior Santoro, DO Normal Not Available [facility] US LOWER EXTREMITY VENO US DUPLEX RIGHTon 05-24-2024 [facility] US LOWER EXTREMITY VENOUS DUPLEX RIGHT Exam: [...] Not Available XR KNEE 3 VIEWS RIGHTon 08 XR KNEE 3 VIEWS RIGHT Exam: XR [...] Available INFLUENZA A AND B AGon 09-18 INFLUBNEG SEE BELOW Normal [facility] Comment on above: Result Comment: Nega tive for Flu B protein antigen. Infection due to Flu B cannot be ruled out. Flu B antigen in the sample may be below the detection limit of the test. Performed By: #### I NFLUAB #### [facility] [address] [place] [address] Dr. Darshan Porter INFLUENZA A AG Positive Abnormal NEGATIVE SEE COMMENT [facility] Comment on above: Performed By: #### I NFLUAB #### [facility] [address] [place] [address] Dr. Darshan Porter INFLUENZA B AG Negative Normal NEGATIVE SEE COMMENT [facility] Comment on above: Performed By: #### I NFLUAB #### [facility] [address] [place] [address] Dr. Darshan Porter [facility] Normal [facility] Comment on above: Result Comment: NOTE : Live attenuated influenzae vaccine viruses can cause a positive result for a rapid influenza diagnostic test if administered up to 7 days prior to rapid testing. Performed By: #### I NFLUAB #### [facility] [address] [place] [address] Dr. Darshan Porter INTERNAL CONTROLS Within Normal Limits Normal Wi thin Normal Limits [facility] Comment on above: Performed By: #### I NFLUAB #### [facility] [address] [place] [address] Dr. Darshan Porter CHLAMYDIA/GONOCOCCUS NESSA (SW AB/URINE/PAPon 05-14-2022 Chlamydia trachomatis, NESSA Negative Normal Negative [facility] Comment on above: Performed By: #### C T/NGNA #### [facility] [address] [place], [place] [id number] Dr. Darshan Porter Neisseria gonorrhoeae, NESSA Negative Normal Negative [facility] Comment on above: Performed By: #### C T/NGNA #### [facility] [address] [address] [address] Darshan Porter VAGINITIS/VAGINOSIS DNA PROB Donell 05-14-2022 Latha species Negative Normal Negative [facility] Comment on above: Performed By: #### V AGINT #### [facility] [address] [address] [address] Darshan Porter Gardnerella vaginalis Positive Abnormal Negative [facility] Comment on above: Performed By: #### V AGINT #### [facility] [address] [address] [address] Darshan Porter Trichomonas vaginalis Negative Normal Negative [facility] Comment on above: Performed By: #### V AGINT #### [facility] [address] [address] [address] Darshan Porter Basic Metabolic Panelon 03-18 Calcium [Mass/Vol] 9.4 mg/dL Normal 8.2-10.2 [facility] Comment on above: Performed By: #### C BC, BMP #### [facility] [address] Chloride [Moles/Vol] 102 mmol/L Normal 95-114 [facility] Comment on above: Performed By: #### C BC, BMP #### [facility] [address] [place] [address] [place] CO2 [Moles/Vol] 22.1 mmol/L Normal 22.0-30.0 [facility] Comment on above: Performed By: #### C BC, BMP #### [facility] [address] [place] [address] [place] Creatinine [Mass/Vol] 0.80 mg/dL Normal 0.44-1.03 [facility] Comment on above: Performed By: #### C BC, BMP #### [facility] [address] [place] [address] [place] Creatinine Clr Calc Pharmacy 85.83 [facility] Comment on above: Result Comment: PERF ORMED BY: [place] [address] PATHOLOGIST ASSIGNMENT EDITOR LAKEISHA GRAY M.D. Performed By: #### C BC, BMP #### [address] Estimated GFR ( Sis > 60 [facility] Comment on above: Result Comment: GFR estimated reference range: According to KDOQI guidelines, <60 ml/min/1.73m2 is sufficient to diagnose a patient with chronic kidney disease. Performed By: #### C BC, BMP #### [address] Estimated GFR (Non- Am > 60 [facility] Comment on above: Performed By: #### C BC, BMP #### [address] Glucose [Mass/Vol] 88 mg/dL Normal 70-100 [facility] Comment on above: Result Comment: [place] Glucose Reference Range is dependent on time and content of last meal. Glucose of more than 200 mg/dL in a nonstressed, ambulatory subject supports the diagnosis of Diabetes Mellitus. ADA recommended reference range Performed By: #### C BC, BMP #### [address] Potassium [Moles/Vol] 3.7 mmol/L Normal 3.5-5.1 [facility] Comment on above: Performed By: #### C BC, BMP #### [place] [address] [place] Sodium [Moles/Vol] 136 mmol/L Normal 136-146 [facility] Comment on above: Performed By: #### C BC, BMP #### [address] Urea nitrogen [Mass/Vol] 8 mg/dL Low 9-23 [facility] Comment on above: Performed By: #### C BC, BMP #### [place] [address] [place] COVID-19 / Flu A/B / RSV PCR [...] or Cepheid Disclaimer revoked sooner. PERFORMED BY: [place] [address] PATHOLOGIST ASSIGNMENT EDITOR LAKEISHA GRAY M.D. Normal [facility] Comment on above: Performed By: #### C OVID19 FLU RSV, CEPHEID POS #### [address] Cepheid COVID PCR Positiveon 03-31-2022 SARS-CoV-2 (COVID-19) RNA NESSA+probe Ql (Unsp spec) Positive Critically abnormal Negative [facility] Comment on above: Result Comment: This is a duplicate Cepheid Xpert Xpress CoV-2/Flu/RSV Plus RNA by RT-PCR result to be used for statistical tracking purpose only. PERFORMED BY: [place] [address] PATHOLOGIST ASSIGNMENT EDITOR LAKEISHA GRAY M.D. Performed By: #### C OVID19 FLU RSV, CEPHEID POS #### [address] Complete Blood Count Auto Di ffon 03-31-2022 Basophils (Bld) [#/Vol] 0.0 10*3/uL Normal 0.0-0.2 [facility] Comment on above: Result Comment: PERF ORMED BY: [place] [address] PATHOLOGIST ASSIGNMENT EDITOR LAKEISHA GRAY M.D. Performed By: #### C BC, BMP #### [place] [address] [place] Basophils/100 WBC (Bld) 0.8 % Normal . [facility] Comment on above: Performed By: #### C BC, BMP #### [place] [address] [place] Eosinophils (Bld) [#/Vol] 0.0 10*3/uL Normal 0.0-0.45 [facility] Comment on above: Performed By: #### C BC, BMP #### [place] [address] [place] Eosinophils/100 WBC (Bld) 0.5 % Normal . [facility] Comment on above: Performed By: #### C BC, BMP #### [facility] [address] Erythrocyte distribution width (RBC) [Ratio] 13.9 % Normal 11.9-15.3 [facility] Comment on above: Performed By: #### C BC, BMP #### [facility] [address] Hematocrit (Bld) [Volume fraction] 40.8 % Normal 34.0-46.4 [facility] Comment on above: Performed By: #### C BC, BMP #### [facility] [address] Hemoglobin (Bld) [Mass/Vol] 13.9 g/dL Normal 11.8-15.4 [facility] Comment on above: Performed By: #### C BC, BMP #### [address] Lymphocytes (Bld) [#/Vol] 0.7 10*3/uL Low 1.00-4.8 [facility] Comment on above: Performed By: #### C BC, BMP #### [address] Lymphocytes/100 WBC (Bld) 13.9 % Normal . [facility] Comment on above: Performed By: #### C BC, BMP #### [facility] [address] MCH (RBC) [Entitic mass] 31.2 pg Normal 24.7-34.3 [facility] Comment on above: Performed By: #### C BC, BMP #### [facility] [address] MCV (RBC) [Entitic vol] 91.3 fL Normal 80-100 [facility] Comment on above: Performed By: #### C BC, BMP #### [address] Mean Corpuscular HGB Conc 34.1 g/dL Normal 32.0-35.0 [facility] Comment on above: Performed By: #### C BC, BMP #### [facility] [address] [place] [address] [place] Monocytes (Bld) [#/Vol] 1.0 10*3/uL High 0.0-0.8 [facility] Comment on above: Performed By: #### C BC, BMP #### [facility] [address] [id number] [place] Monocytes/100 WBC (Bld) 19.6 % Normal . [facility] Comment on above: Performed By: #### C BC, BMP #### [facility] [address] [place] [address] [place] Neutrophils (Bld) [#/Vol] 3.5 10*3/uL Normal 1.8-7.7 [facility] Comment on above: Performed By: #### C BC, BMP #### [facility] [address] [id number] [place] Neutrophils/100 WBC (Bld) 65.2 % Normal . [facility] Comment on above: Performed By: #### C PETR, BMP #### [facility] [address] [id number] [place] Nucleated RBC/100 WBC (Bld) [Ratio] 0.2 % Normal 0-0.5 [facility] Comment on above: Performed By: #### C BC, BMP #### [facility] [address] [place] [address] [place] Platelet mean volume (Bld) [Entitic vol] 8.4 fL Normal 6.3-10.7 [facility] Comment on above: Performed By: #### C BC, BMP #### [facility] [address] [id number] [place] Platelets (Bld) [#/Vol] 229 10*3/uL Normal 150-450 [facility] Comment on above: Performed By: #### C BC, BMP #### [facility] [address] [id number] [place] RBC (Bld) [#/Vol] 4.47 10*6/uL Normal 3.60-5.00 [facility] Comment on above: Performed By: #### C BC, BMP #### [facility] [address] WBC (Bld) [#/Vol] 5.3 10*3/uL Normal 4.5-11.0 [facility] Comment on above: Performed By: #### C BC, BMP #### [facility] [address] Basophils Auto (Bld) [#/Vol] Ordered By: Romi Obrien on 03-30-2022 Basophils (Bld) [#/Vol] 0.0 10*3/uL 0.0-0.2 [facility] Basophils/100 WBC Auto (Bld) Ordered By: Romi Obrien on 03-30-2022 Basophils/100 WBC (Bld) 0.8 % [facility] Blood hemoglobin measurement (mass/volume)Ordered By: Romi Obrien on 03-30-2022 Hemoglobin (Bld) [Mass/Vol] 13.9 g/dL 11.8-15.4 [facility] Blood leukocytes automated c ount (number/volume)Ordered By: Romi Obrien on 03-30-2022 WBC (Bld) [#/Vol] 5.3 10*3/uL 4.5-11.0 [facility] COVID CepheidOrdered By: Avinash Obrien on 03-30-2022 SARS-CoV-2 (COVID-19) Ab IA Ql Positive Negative [facility] Comment on above: This is a duplicate Cepheid Xpert Xpress CoV-2/Flu/RSV Plus RNA by RT-PCR result to be used for statistical tracking purpose only. SARS-CoV-2 (COVID-19) RNA NESSA+probe Ql (Unsp spec) [facility] Creatinine and Glomerular fi ltration rate.predicted panel (S/P/Bld)Ordered By: Romi Obrien on 03-30-2022 Creatinine [Mass/Vol] 0.80 mg/dL 0.44-1.03 [facility] Eosinophils Auto (Bld) [#/Vo l]Ordered By: Romi Obrien on 03-30-2022 Eosinophils (Bld) [#/Vol] 0.0 10*3/uL 0.0-0.45 [facility] Eosinophils/100 WBC Auto (Bl d)Ordered By: Romi Obrien on 03-30-2022 Eosinophils/100 WBC (Bld) 0.5 % [facility] Erythrocyte distribution wid th Auto (RBC) [Ratio]Ordered By: Romi Obrien on 03-30-2022 Erythrocyte distribution width (RBC) [Ratio] 13.9 % 11.9-15.3 [facility] Estimated glomerular filtrat ion rate (GFR) non- AmericanOrdered By: Romi Obrien on 03-30-2022 GFR/1.73 sq M.predicted among non-blacks MDRD (S/P/Bld) [Vol rate/Area] > 60 mL/Min [facility] Hematocrit Auto (Bld) [Volum e fraction]Ordered By: Romi Obrien on 03-30-2022 Hematocrit (Bld) [Volume fraction] 40.8 % 34.0-46.4 [facility] Laboratory - Hematology and Cell countsOrdered By: Romi Obrien on 03-30-2022 Nucleated RBC/100 WBC (Bld) [Ratio] 0.2 % 0-0.5 [facility] Lymphocytes Auto (Bld) [#/Vo l]Ordered By: Romi Obrien on 03-30-2022 Lymphocytes (Bld) [#/Vol] 0.7 10*3/uL 1.00-4.8 [facility] Lymphocytes/100 WBC Auto (Bl d)Ordered By: Romi Obrien on 03-30-2022 Lymphocytes/100 WBC (Bld) 13.9 % [facility] MCH Auto (RBC) [Entitic mass ]Ordered By: Romi Obrien on 03-30-2022 MCH (RBC) [Entitic mass] 31.2 pg 24.7-34.3 [facility] MCHC Auto (RBC) [Mass/Vol]Or dered By: Romi Obrien on 03-30-2022 MCHC (RBC) [Mass/Vol] 34.1 g/dL 32.0-35.0 [facility] MCV Auto (RBC) [Entitic vol] Ordered By: Romi Obrien on 03-30-2022 MCV (RBC) [Entitic vol] 91.3 fL 80-100 [facility] Monocytes Auto (Bld) [#/Vol] Ordered By: Romi Obrien on 03-30-2022 Monocytes (Bld) [#/Vol] 1.0 10*3/uL 0.0-0.8 [facility] Monocytes/100 WBC Auto (Bld) Ordered By: Romi Obrien on 03-30-2022 Monocytes/100 WBC (Bld) 19.6 % [facility] Neutrophils Auto (Bld) [#/Vo l]Ordered By: Romi Obrien on 03-30-2022 Neutrophils (Bld) [#/Vol] 3.5 10*3/uL 1.8-7.7 [facility] Neutrophils/100 WBC Auto (Bl d)Ordered By: Romi Obrien on 03-30-2022 Neutrophils/100 WBC (Bld) 65.2 % [facility] No Panel InformationOrdered By: Romi Obrien on 03-30-2022 Estimated GFR () > 60 mL/Min [facility] Comment on above: GFR estimated refere nce range: According to KDOQI guidelines, <60 ml/min/1.73m2 is sufficient to diagnose a patient with chronic kidney disease. Pharmacy Creatinine Clearance (Chem 85.83 [facility] PAP ACOG PANEL 2: 21 to 29on 03-30-2022 . . Normal [facility] Comment on above: Performed By: #### [id number] #### [facility] [address] [address] [address] Darshan Porter Age Gdln ACOG Testing 19- Normal [facility] Comment on above: Performed By: #### 4 [id number] #### [facility] [address] [address] [address] Darshan Porter DIAGNOSIS: Comment [facility] Comment on above: Result Comment: NEGA TIVE FOR INTRAEPITHELIAL LESION OR MALIGNANCY. Performed By: #### [id number] #### [facility] [address] [place] [address] Dr. Darshan Porter Methodology: Comment Normal [facility] Comment on above: Result Comment: This liquid based ThinPrep(R) pap test was screened with the use of an image guided system. Performed By: #### 4 [id number] #### [facility] [address] [place] [address] Dr. Darshan Porter Note: Comment Normal [facility] Comment on above: Result Comment: The Pap smear is a screening test designed to aid in the detection of premalignant and malignant conditions of the uterine cervix. It is not a diagnostic procedure and should not be used as the sole means of detecting cervical cancer. Both false-positive and false-negative reports do occur. . Performed By: #### 4 [id number] #### [facility] [address] [place] [address] Dr. Darshan Porter Performed by: Comment Normal [facility] Comment on above: Result Comment: Dewayne Middleton, Motorboat Mechanic Helper (ASCP) Performed By: #### [id number] #### [facility] [address] [place] [address] Dr. Darshan Porter Reflex Criteria: Comment Normal [facility] Comment on above: Result Comment: The HPV DNA reflex criteria were not met with this specimen result therefore, no HPV testing was performed. . Performed By: #### 4 [id number] #### [facility] [address] [place] [address] Dr. Darshan Porter Specimen adequacy: Comment Normal [facility] Comment on above: Result Comment: Sati sfactory for evaluation. Endocervical and/or squamous metaplastic cells (endocervical component) are present. Performed By: #### 4 [id number] #### [facility] [address] [place] [address] Dr. Darshan Porter Platelet mean volume Auto (B ld) [Entitic vol]Ordered By: Romi Obrien on 03-30-2022 Platelet mean volume (Bld) [Entitic vol] 8.4 fL 6.3-10.7 [facility] Platelets Auto (Bld) [#/Vol] Ordered By: Romi Obrien on 03-30-2022 Platelets (Bld) [#/Vol] 229 10*3/uL 150-450 [facility] RBC Auto (Bld) [#/Vol]Ordere d By: Romi Obrien on 03-30-2022 RBC (Bld) [#/Vol] 4.47 10*6/uL 3.60-5.00 [facility] Serum or plasma calcium spencer urement (mass/volume)Ordered By: Romi Obrien on 03-30-2022 Calcium [Mass/Vol] 9.4 mg/dL 8.2-10.2 [facility] Serum or plasma chloride aurora surement (moles/volume)Ordered By: Romi Obrien on 03-30-2022 Chloride [Moles/Vol] 102 mmol/L 95-114 [facility] Serum or plasma glucose spencer urement (mass/volume)Ordered By: Romi Obrien on 03-30-2022 Glucose [Mass/Vol] 88 mg/dL 70-100 [facility] Comment on above: ADA recommended refe rence range Random Glucose Reference Range is dependent on time and content of last meal. Glucose of more than 200 mg/dL in a nonstressed, ambulatory subject supports the diagnosis of Diabetes Mellitus. Serum or plasma potassium me asurement (moles/volume)Ordered By: Romi Obrien on 03-30-2022 Potassium [Moles/Vol] 3.7 mmol/L 3.5-5.1 [facility] Serum or plasma sodium measu rement (moles/volume)Ordered By: Romi Obrien on 03-30-2022 Sodium [Moles/Vol] 136 mmol/L 136-146 [facility] Serum or plasma total carbon dioxide measurement (moles/volume)Ordered By: Romi Obrien on 03-30-2022 CO2 [Moles/Vol] 22.1 mmol/L 22.0-30.0 [facility] Serum or plasma urea nitroge n measurement (mass/volume)Ordered By: Romi Obrien on 03-30-2022 Urea nitrogen [Mass/Vol] 8 mg/dL 9-23 [facility] COVID-19 Lab Corpon 10-20-19 SARS-CoV-2 (COVID-19) RNA NESSA+probe Ql (Unsp spec) Detected Critically abnormal Not Detected [facility] Comment on above: Order Comment: Healt hcare Worker?: N Result Comment: Sara ents who have a positive COVID-19 test result may now have treatment options. Treatment options are available for patients with mild to moderate symptoms and for hospitalized patients. Visit our website at [email or web address] for resources and information. This nucleic acid amplification test was developed and its performance characteristics determined by [employer]. Nucleic acid amplification tests include RT- PCR [...] detected) result in this assay. PERFORMED BY: [facility] [address] [address] PATHOLOGIST ASSIGNMENT EDITOR LAKEISHA GRAY M.D. Performed By: #### C ORONAVIRUS #### [facility] , HIV-1,-2 w/Reflex to HIV-1 W rameshn Polaon 02-07-2018 HIV-1 and HIV-2 Abs Negative Normal Negative [facility] Comment on above: Result Comment: Base d on the non-reactive anti-HIV (DEIRDRE) screen, the HIV Western blotis notindicated and therefore not performed.INTERPRETIVE INFORMATION: HIV-1,-2 w/Reflex to HIV-1 Western BlotThis assay should not be used for blood donor screening, associatedre-entryprotocols, or for screening Human Cells, Tissues and Cellular andTissue-Based Products (HCT/P).Performed by [employer],[facility] [place] [address] [employer], Krishan Sánchez MD - Lab. Director RPRon 02-06-2018 Reagin antibody presence Non-reactive Normal Non-reacti [facility] Hepatitis B Surface Agon Hepatitis B Surface Ag Interp Non-reactive Normal [facility] Hepatitis C Antibodyon 02-04 Hepatitis C Antibody Interp Non-reactive Normal [facility] Culture, Strep A Screenon Culture, Strep A Screen ORDERED BY: TAMMY HUFF: Throat COLLECTED: 05/30/17 11:38ANTIBIOTICS AT JESSICA.: RECEIVED : 05/30/17 15:25Culture, Strep A Screen FINAL 06/02/17 08:54 Usual fátima isolated including Beta Strep, not group A. Normal [facility] Rapid A Strep Antigenon 05-18 Rapid strep test Negative Normal Negative [facility] Comment on above: Result Comment: A cu lture confirmation plate has been set up and a separatereport will follow. See micro report. Vital Signs Date Time Vital Sign Value Performing Clinician Facility 09-02-2024 12:28-0500 Body temperature 97.88 [degF] Reji Burnhame [facility] 09-02-2024 12:28-0500 Diastolic blood pressure 79 mm[Hg] Reji Burnhame [facility] 09-02-2024 12:28-0500 Heart rate 86 /min Yoopies [facility] 09-02-2024 12:28-0500 Respiratory rate 16 /min Reji Burnhame [facility] 09-02-2024 12:28-0500 SaO2% (BldA) [Mass fraction] 98 % Reji [employer] [facility] 09-02-2024 12:28-0500 Systolic blood pressure 123 mm[Hg] Reji Thrasher [facility] 03-30-2022 21:11-0400 Body height 160.02 cm PHYSICIAN NO [facility] 03-30-2022 21:11-0400 Body mass index (BMI) [Ratio] 22.8 kg/m2 PHYSICIAN NO [facility] 03-30-2022 21:11-0400 Body temperature 99.8 [degF] PHYSICIAN NO [facility] 03-30-2022 21:11-0400 Body weight 58.5 kg PHYSICIAN NO [facility] 03-30-2022 21:11-0400 Diastolic blood pressure 56 mm[Hg] PHYSICIAN NO [facility] 03-30-2022 21:11-0400 Heart rate 69 /min PHYSICIAN NO [facility] 03-30-2022 21:11-0400 SaO2% (BldA) [Mass fraction] 97 % PHYSICIAN NO [facility] 03-30-2022 21:11-0400 Systolic blood pressure 112 mm[Hg] PHYSICIAN NO [facility] Encounters Encounter Date Encounter Type Care Provider Facility Start: 09-02-2024 End: 09-02-2024 Emergency department patient visit Reji Thrasher [facility] Start: 08-28-2024 End: 08-28-2024 ambulatory MACIEL MANZANO Not Available Start: 08-14-2024 End: 08-14-2024 Office outpatient visit 25 minutes Jr. Martínez Smith DO Work Phone: [facility] Comment on above: Internal derangement of right knee (Primary Dx) Start: 08-14-2024 End: 08-14-2024 ambulatory MARTÍNEZ CERVANTES Not Available Start: 08-07-2024 End: 08-07-2024 ambulatory ROIM HOPPER Not Available Start: 07-26-2024 End: 07-26-2024 Office outpatient visit 15 minutes Romi Hopper PA Work Phone: [facility] Comment on above: Acute pain of [...] End: 03-31-2022 Emergency department patient visit PHYSICIAN HOA [facility] Start: 03-25-2022 End: 03-25-[address] ROSS TORRES Facility:[facility]1 Start: 10-20-2021 End: 10-20-2021 ambulatory RONAK CAPUTO Facility:[facility] Start: 08-31-2017 Ambulatory KAMINI SPARKSDELROYMARIA Evelyn ty:RBC Start: 08-03-2017 Ambulatory KAMINI SPARKSFRITZ Rivas ty:RBC Start: 06-29-2017 Ambulatory KAMINI MALIKKurtisCANDACE Evelyn ty:RBC Start: 05-30-2017 End: 05-30-2017 Emergency department patient visit MAL HARMON [facility] Start: 05-25-2017 Ambulatory KAMINI MALIKCELESTINA Rivas ty:RBC Start: 05-04-2017 Ambulatory Joel Mcneal Facility:[facility] Shimon Simmonser Start: 04-27-2017 Ambulatory KAMINI Abreui ty:RBC Procedures Date Procedure Procedure Detail Performing Clinician Start: 03-30-2022 SARS-CoV-2, Influenz a & RSV (PCR) PHYSICIAN NO FAMILY Start: 05-30-2017 CULTURE BETA STREP C ONFIRM PLATE MAL HARMON Start: 05-30-2017 RAPID STREP SCREEN MAL MARTINEZER Plan of Treatment Date Care Activity Detail Author Start: 07-03-2025 End: 07-03-2025 Patient encounter procedure 07/03/2025 10:20 AM EDT Office Visit [facility] [address] [phone] Gina Dupree, SPOT [employer]OVER [address] [place] [address] [facility] Start: 08-14-2024 End: 08-14-2024 Patient encounter procedure 08/14/2024 2:45 PM EDT Office Visit [facility] [address] [place] [address] Jr. Martínez Smith C, DO [address] [address] [facility] Start: 07-26-2024 End: 07-26-2025 MR Knee - right WO contrast MR knee right wo IV contrast Imaging Routine Internal derangement of right knee Expected: 07/26/2024 (Approximate), Expires: 07/26/2025 [facility] Work Phone: Comment on above: Expected: 07/26/2024 (Approximate), Expires: 07/26/2025 Patient Education Nausea and Vom iting, Adult (DC) Abdominal Pain, Adult ED [facility] ED/OP COVID-19 Discharge Instructions [facility] Work Phone: Patient referral [facility] Work Phone: Payers Date Payer Category Payer [facility] [id number] 2023 Unknown [id number] 2023 Unknown [id number] 2015 Medicaid [id number] 1993 Unknown [id number]. 2.59 1993 Unknown [id number] 2.840.1.056559.3.579. 2.593 1993 Unknown [id number] 840.1.672216.3.579. 2.59 1993 Unknown [id number] 2840.1.737064.3.579. 2.593 1993 Unknown [id number] 2.840.1.118864.3.579. 2.1258 1993 Unknown [id number] 2840.1.505883.3.579. 2.1258 1993 Unknown [id number] 840.1.614678.3.579. 2.1258 1993 Unknown [id number] 2.16840.1.168183.3.579. 2.1258 1993 Unknown [id number] 2.16840.1.219492.3.579. 2.1258 1993 Unknown [id number] 216840.1.408765.3.579. 2.1258 1993 Unknown [id number] 216840.1.572425.3.579. 2.1258 1993 Unknown [id number] 2.16840.1.571137.3.579. 2.1259 1993 Unknown [id number] 2.16.840.1.839612.3.579. 2.9 1993 Unknown [id number] 2.16.840.1.447346.3.579. 2.9 1993 Unknown [id number] 2.16.840.1.048414.3.579. 2.9 1993 Unknown [id number] 2.16.840.1.362924.3.579. 2.1259 1959 Self-pay [id number] 1959 Unknown [id number] Medicaid [place] [employer] [id number] 801 [id number] Unknown O [id number] Unknown [facility] [id number] Social History Date Type Detail Facility Start: 03-30-2022 Tobacco smoking status [facility] Current some day smoker [facility] Start: 1995 Sex Assigned At Female [facility] Start: 06-29-2024 Tobacco smoking status [facility] Ex-smoker [facility] History of tobacco use Current smoker [facility] History of tobacco use Cigarette Smoker [facility] Start: 06-29-2024 End: 08-14-2024 Cigarettes smoked current (pack per day) - Reported 1.5 [facility] Start: 06-29-2024 Tobacco use and exposure Smokeless tobacco non-user [facility] Start: 07-26-2024 End: 08-14-2024 Alcoholic beverage intake Current drinker of alcohol (finding) [facility] Start: 06-29-2024 End: 08-14-2024 Alcohol Use [...] cigarettes about 2 years ago, currently vape [facility] Start: 1995 Sex assigned at Not on file [facility] Tobacco smoking status No Smokin g Status Entered [facility] Functional Status Date Assessment Result Facility 09-02-2024 Functional Status N/A [facility] Hospital Discharge instructions 09-02-2024 Note Date & Type Note Facility 09-02-2024 Hospital Discharg e instructions Patient Education 09/02/2024 13:13:37 Hemorrhoids Hemorrhoids Hemorrhoids are swollen veins in and around the rectum or the opening of the butt (anus). There are two types of hemorrhoids: Internal. These occur in the veins just inside the rectum. They may poke through to the outside and become irritated and painful. External. These occur in the veins outside the anus. They can be felt as a painful swelling or hard lump near the anus. Most hemorrhoids do not cause severe problems. Often, they can be treated at home with diet and lifestyle changes. If home treatments do not help, you may need a procedure to shrink or remove the hemorrhoids. What are the causes? Hemorrhoids are caused by pressure near the anus. This pressure may be caused by: Constipation or diarrhea. Straining to poop. . Obesity. Sitting or riding a bike for a long time. Heavy lifting or other things that cause you to strain. Anal sex. What are the signs or symptoms? Symptoms of this condition include: Pain. Anal itching or irritation. Bleeding from the rectum. Leakage of poop (stool). Swelling of the anus. One or more lumps around the anus. How is this diagnosed? Hemorrhoids can often be diagnosed through a visual exam. Other exams or tests may also be done, such as: A digital rectal exam. This is when your health care provider feels inside your rectum with a gloved finger. Anoscope. This is an exam of the anus using a small tube. A blood test, if you have lost a lot of blood. A sigmoidoscopy or colonoscopy. These are tests to look inside the colon using a tube with a camera on the end. How is this treated? In most cases, hemorrhoids can be treated at home with diet and lifestyle changes. If these changes do not help, you may need to have a procedure done. These procedures can make the hemorrhoids smaller or fully remove them. Common procedures include: Rubber band ligation. Rubber bands are placed at the base of the hemorrhoids to cut off their blood supply. Sclerotherapy. Medicine is put into the hemorrhoids to shrink them. Infrared coagulation. A type of light energy is used to get rid of the hemorrhoids. Hemorrhoidectomy surgery. The hemorrhoids are removed during surgery. Then, the veins that supply them are tied off. Stapled hemorrhoidopexy surgery. The base of the hemorrhoid is stapled to the wall of the rectum. Follow these instructions at home: Medicines Take nxpx-fcw-ndeqoxv and prescription medicines only as told by your provider. Use medicated creams or medicines that are put in the rectum (suppositories) as told by your provider. Eating and drinking Eat foods that are high in fiber, such as beans, whole grains, and fresh fruits and vegetables. Ask your provider about taking products that have fiber added to them (fiber supplements). Reduce the amount of fat in your diet. You can do this by eating low-fat dairy products, eating less red meat, and avoiding processed foods. Drink enough fluid to keep your pee (urine) pale yellow. Managing pain and swelling Take warm sitz baths for 20 minutes, 3 4 times a day. This can help ease pain and discomfort. You may do this in a bathtub or you can use a portable sitz bath that fits over the toilet. If told, put ice on the affected area. It may help to use ice packs between sitz baths. ?Put ice in a plastic bag. ?Place a towel between your skin and the bag. ?Leave the ice on for 20 minutes, 2 3 times a day. If your skin turns bright red, remove the ice right away to prevent skin damage. The risk of damage is higher if you cannot feel pain, heat, or cold. General instructions Exercise. Ask your provider how much and what kind of exercise is best for you. In general, you should do moderate exercise for at least 30 minutes on most days of the week (150 minutes each week). You may want to try walking, biking, or yoga. Go to the bathroom when you have the urge to poop. Do not wait. Avoid straining to poop. Keep the anus dry and clean. Use wet toilet paper or moist towelettes after you poop. Do not sit on the toilet for a long time. This can increase blood pooling and pain. Where to find more information National [place] of Diabetes and Digestive and Kidney Diseases: niddk.nih.gov Contact a health care provider if: You have more pain and swelling that do not get better with treatment. You have trouble pooping or you are not able to poop. You have pain or inflammation outside the area of the hemorrhoids. Get help right away if: You are bleeding from your rectum and you cannot get it to stop. This information is not intended to replace advice given to you by your health care provider. Make sure you discuss any questions you have with your health care provider. Document Revised: 06/16/2023 Document Reviewed: 06/16/2023 [employer] Patient Education 2023 [employer]. Follow Up Care 09/02/2024 12:26:08 With:Reji Dillon Address: [address] [place] [address] [phone] Business (1) When:09/05/2024 13:01:17 [facility] Evaluation + Plan note 09-02-2024 Note Date & Type Note Facility 09-02-2024 Evaluation + Plan note Extrac ana from: Title:ED Note Author:Peña Stevens PA-C te:09/02/24 Hemorrhoid (K64.9: Unspecifi ed hemorrhoids) Orders: hydrocortisone topical, 25 mg = 1 supp, Rectal, BID, X 7 day(s), # 14 supp, Refills(s) 0, Pharmacy: [facility]/pharmacy #[id number], 157.5, cm, 09/02/24 12:33:00 EST, Height/Length Dosing, 58, kg, 09/02/24 12:33:00 EST, Weight Dosing lidocaine topical, See Instructions, 20 gm, Refill(s) 0, Apply to affected area up to 6 times daily, [id number], 157.5, cm, 09/02/24 12:33:00 EST, Height/Length Dosing, 58, kg, 09/02/24 12:33:00 EST, Weight Dosing [facility] History of Present illness Narrative 08-14-2024 Jr. Martínez Smith, DO - 08/14/2024 2:45 PM EDT Note Date & Type Note Facility 08-14-2024 History of Presen t illness Narrative Images from the original note were not included. HISTORY OF PRESENT ILLNESS: EST PT Kristina Narvaez is an 29 y.o. @ female. EST [...] I am acting as scribe for Dr. Smith/[facility], PLAN: We have reviewed prior (R) knee [...] Healthcare History of Present illness Narrative 07-26-2024 NISHI Cobb - 07/26/2024 10:30 AM EDT Note Date & Type Note Facility 07-26-2024 History of Presen t illness Narrative Images from the original note were not included. HISTORY OF PRESENT ILLNESS: EST PT Kristina Narvaez is an 29 y.o. @ female. EST [...] CORTISONE INJ 07/05/24 PREDNISONE 05/30/24 PT IN [place] PT HAS BEEN TRYING TO GO ON [...] requiring urgent evaluation. documented in this encounter [facility] Evaluation note Note Date & Type Note Facility Evaluation note No assessment information availa ble [facility] Work Phone: Evaluation note Note Date & Type Note Facility Evaluation note Diagnosis Acute pain of right knee- Primary Internal derangement of right knee documented in this encounter [facility] Evaluation note Note Date & Type Note Facility Evaluation note Diagnosis Internal derangement of right knee- Primary documented in this encounter [facility] Hospital course Narrative Note Date & Type Note Facility Hospital course Narrative No data available for this section [facility] Hospital Discharge instructions Note Date & Type [...] for reevaluation in 3 to 5 days. [facility] Work Phone: Progress note Note Date & Type Note Facility Progress note No data available for this section [facility] Summary Purpose Family History Relationship Condition Age [...] MR knee right wo IV contrast Romi Hopper PA [address] [place] [address] [facility] [address] [place] [address] Referral ID Status Reason Start Date Expiration Date V isits Requested Visits Authorized [id number] Pending Review 07/26/2024 01/22/2025 1 1 Additional Source Comments INFORMATION SOURCE (unrecogn ized section and content) DATE CREATED AUTHOR 04/07/2018 [facility] DATE CREATED AUTHOR AUTHOR'S ORGANIZ ATION 04/12/2018 [facility] DATE CREATED AUTHOR AUTHOR'S ORGANIZ ATION [facility]/13[facility] DATE CREATED AUTHOR AUTHOR'S ORGANIZ ATION 04/14/2022 [facility] DATE CREATED AUTHOR AUTHOR'S ORGANIZ ATION 09/20/2022 [facility] DATE CREATED AUTHOR AUTHOR'S ORGANIZ ATION 08/30/2024 [facility] EPIC Care Teams (unrecognized sec tion and content) Personnel Name: NATY MCCARTY CNP Address: Address: [address] [place] [address] Team Status: Inactive Member Role Status Dates PHYSICIAN NO FAMILY Primary Care Provider Active Romi Obrien DO Emergency Provider Active Team Status: Active Member Role Status Dates PHYSICIAN NO FAMILY Primary Care Provider Active [employer] Practitioner Relationship Specialty Start Date End Date Karl Husain MD [address] [place] [phone] PCP - General Family Medicine 05/30/24 Naty Mccarty MD [address] [place], [place] [phone] Referring Physician Family Medicine 05/30/24 [employer] Practitioner Relationship Specialty Start Date End Date Karl Husain MD [address] [place] [phone] PCP - General Family Medicine 05/30/24 Naty Mccarty MD [address] [place], [place] [phone] Referring Physician Family Medicine 05/30/24 Goals (unrecognized section and content) Goals may be documented in a n alternate section No data available for this section Reason for Visit (unrecogniz ed section [...] BE BASED ON THE PRIMARY CLINICAL RECORDS. [facility]. provides no warranty or guarantee of the accuracy or completeness of information in this document.
[2024-09-03 06:06] VITALS: BP 118/77; PULSE 93; TEMP 37.3; O2SAT 98; BMI 22.9
--- NOTE | 2024-09-03 06:28 | ED.GENADUL1 ---
HPI HPI - General Adult General Chief complaint: Skin/Abscess/Foreign Body Stated complaint: RECTAL PAIN Time Seen by Provider: 09/03/24 06:00 Source: patient Mode of arrival: walk-in Limitations: no limitations History of Present Illness HPI narrative: 29-year-old female presents for what she believes is a hemorrhoid. She has had it for about 2 weeks and intermittently will have a minimal amount of bleeding. She feels something bulging there. No abdominal pain or vomiting. Related Data Home Medications ?Medication ?Instructions ?Recorded ?Confirmed alprazolam 0.25 mg tablet mg 09/03/24 escitalopram oxalate 10 mg tablet mg 09/03/24 sertraline 50 mg tablet mg 09/03/24 valacyclovir 1 gram tablet mg 09/03/24 Previous Rx's ?Medication ?Instructions ?Recorded hydrocortisone-pramoxine 1 %-1 % 1 applic MN BID #30 grams 09/03/24 rectal cream Allergies Allergy/AdvReac Type Severity Reaction Status Date / Time No Known Drug Allergies Allergy Verified 09/03/24 06:11 Opioid HPI Opioid Management Most Recent Opioid Data: No Data to Display Review of Systems ROS Narrative A ten point review of systems is negative except as noted above. PFSH PFSH Social History Smoking status: Former smoker Little interest or pleasure in doing things: not at all Feeling down, depressed, or hopeless: not at all Exam Narrative Exam Narrative: Nurses note and vital signs reviewed and patient is not hypoxic. General: The patient appears well and in no apparent distress. Patient is resting comfortably on cart. Skin: Warm, dry, no pallor noted. There is no rash noted. Head: Normocephalic, atraumatic Eye: Normal conjunctiva, no drainage Ears, Nose, Mouth, and Throat: oral mucosa is moist. Nares patent. Cardiovascular: Regular Rate and Rhythm Respiratory: Patient is in no distress, no accessory muscle use Back: non-tender GI: Abdomen is soft and nontender. Perianal examination shows skin tag plus what appears to be an external hemorrhoid. There is no purulent drainage or fluctuance. Musculoskeletal: The patient has no evidence of calf tenderness, no pitting edema, symmetrical pulses noted bilaterally Neurological: A&O, normal speech Psychiatric: Cooperative Constitutional Vital Signs, click to edit/add: Last Vital Signs Temp 99.1 F 09/03/24 06:06 Pulse 93 H 09/03/24 06:06 Resp 18 09/03/24 06:06 BP 118/77 09/03/24 06:06 Pulse Ox 98 09/03/24 06:06 O2 Del Method Room Air 09/03/24 06:06 Course Vital Signs Vital signs: Vital Signs Temperature 99.1 F 09/03/24 06:06 Pulse Rate 93 H 09/03/24 06:06 Respiratory Rate 18 09/03/24 06:06 Blood Pressure 118/77 09/03/24 06:06 Pulse Oximetry 98 09/03/24 06:06 Oxygen Delivery Method Room Air 09/03/24 06:06 Temperature 99.1 F 09/03/24 06:06 Pulse Rate 93 H 09/03/24 06:06 Respiratory Rate 18 09/03/24 06:06 Blood Pressure 118/77 09/03/24 06:06 Pulse Oximetry 98 09/03/24 06:06 Oxygen Delivery Method Room Air 09/03/24 06:06 Medical Decision Making MDM Narrative Medical decision making narrative: My clinical impression is that she has an external hemorrhoid. She is prescribed ProctoCream and referred to general surgery for follow-up if there is no resolution. Treatment diagnosis and follow-up were discussed with the patient. I have no clinical suspicion of abscess. Differential Diagnosis Differential Diagnosis: External hemorrhoid Discharge Plan Discharge Chief Complaint: Skin/Abscess/Foreign Body Clinical Impression: External hemorrhoid Patient Disposition: Home, Self-Care Time of Disposition Decision: 06:27 Condition: Good Mode of Transportation: Private Vehicle Prescriptions / Home Meds: New hydrocortisone-pramoxine 1-1 % cream 1 applic MN BID Qty: 30 0RF No Action valacyclovir 1 gram tablet alprazolam 0.25 mg tablet sertraline 50 mg tablet escitalopram oxalate 10 mg tablet Print Language: Montserratian Instructions: Hemorrhoids (ED) Referrals: Carrillo Irwin MD [Physician] - 1 week Physician,Non-Staff, [Primary Care Provider] - 1 week
== END 2024-09-03 06:37 | disposition home or self-care (01) ==
PROVIDERS: Emergency Provider Emergency Medicine
DX: K64.4 Residual hemorrhoidal skin tags (principal); Z87.891 Personal history of nicotine dependence
CPT/HCPCS: 99283

== ENCOUNTER 2024-11-07 13:50 | Outpatient (OUT) | payer BC, SELFPAY ==
[2024-11-07 14:28] LABS: Basophils Absolute Auto 0.1 10^3/uL (0.0-0.1); Basophils Percent Auto 0.8 % (0.2-2.0); Eosinophils Absolute Auto 0.2 10^3/uL (0.0-0.7); Eosinophils Percent Auto 2.4 % (0.9-7.0); Hematocrit 38.7 % (36.0-48.0); Hemoglobin 12.9 g/dL (12.0-16.0); Immature Granulocytes Abs Auto 0.02 10^3/uL (0.00-0.03); Immature Granulocytes Pct Auto 0.3 % (0.0-0.5); Lymphocytes Absolute Auto 2.4 10^3/uL (1.2-3.8); Lymphocytes Percent Auto 36.6 % (20.5-60.0); Mean Corpuscular HGB Conc 33.3 g/dL (29.9-35.2); Mean Corpuscular Hemoglobin 30.8 pg (26.7-34.0); Mean Corpuscular Volume 92.4 fL (81.0-99.0); Mean Platelet Volume 9.5 fL (9.5-13.5); Monocytes Absolute Auto 0.6 10^3/uL (0.3-0.8); Monocytes Percent Auto 8.7 % (1.7-12.0); Neutrophils Absolute Auto 3.4 10^3/uL (1.4-6.5); Neutrophils Percent Auto 51.2 % (43.0-75.0); Platelet Count 262 10^3/uL (150-450); Red Blood Count 4.19 10^6/uL (4.20-5.40); Red Cell Distribution Width 13.7 % (11.0-15.0); White Blood Count 6.7 10^3/uL (4.0-11.0)
== END 2024-11-07 13:51 | disposition home or self-care (01) ==
LOC: LAB 13:52
PROVIDERS: PCP Nurse Practitioner Family
DX: K60.2 Anal fissure, unspecified (principal)
CPT/HCPCS: 36415; 85025

== ENCOUNTER 2024-11-09 12:55 | Outpatient (RCR) | payer BC, SELFPAY | END 2024-12-21 06:51 | disposition home or self-care (01) | LOC: PT 12:55 | PROVIDERS: PCP Nurse Practitioner Family; Visit Provider Personal Emergency Response Attendant | DX: Z98.890 Other specified postprocedural states (principal); M25.661 Stiffness of right knee, not elsewhere classified | CPT/HCPCS: 97014; 97110; 97112; 97162; 97530 ==

== ENCOUNTER 2025-05-02 08:32 | Emergency (ER) | payer BC, SELFPAY ==
--- OUTSIDE RECORDS SUMMARY | 2011-03-02 05:30 | XMS_ITS | Continuity of Care Document ---
Author Organization [facility] Address [address] [place] [address] Phone Care Team Providers Care Sole Leveler Machine Name Role Phone Car Katz Unavailable Unavailable Procedures Procedure Date OFFICE/OUTPATIENT VISIT, EST URINE TEST Advance Directives Directive Yes / No Effective Date File Name No Information Encounters Encounter Description Practice Location Reason(s) For Visit Diagnoses Date Provider Providers Copied on Encounter OFFICE/OUTPATI ENT VISIT, EST [facility], [address], [place], [id number], [place] tel:[phone] [facility] No Information Alfie MCLEAN Car. [address], [place], [id number], [place]. tel:[phone] Family History Family Member Type Diagnosis Age At Onset No Information Payers Payer name Insurance type Covered republican ID Authoriza tion(s) [employer] [place] [id number] Social History Type Description Quantity Date Captured Comments Sex Female Smoking Status No Information Chief Complaint And Reason For Visit No Information Reason For Referral Reason For Referral No Information History Of Present Illness Encounter Date Complaint History Of Prese nt Illness No Information Functional Status Date Functional Assessmen t No Information Instructions Date Instruction Additional Infor mation No Information Assessments Type Assessment Date No Information Patient Care Teams Name Effective Dates (start - stop) Status Members No Information
--- OUTSIDE RECORDS SUMMARY | 2024-09-01 05:53 | XMS_ITS ---
Author Organization [facility] [place] Address [address] [place] [address] Care Team Providers Care Executive Coach Name Role Phone Naty Benavidez Primary Care Provider REASON FOR VISIT hemorrhoid Medications Medication SIG (Take, Route, Frequency, Duration) Notes Start Date End Date Status Hydrocortisone Acetate 30 MG 1 supposito ry Rectal Once a day for 7 days 09/01/2024 Active Encounters Encounter Location Date Provider Diagnosis [facility] [address] [place] [address] 09/01/2024 Naty Benavidez Plan Of Treatment Medication Medication Name Sig Start Date Stop Date Notes Hydrocortisone Acetate 30 MG 1 supposito ry Rectal Once a day for 7 days 09/01/2024 Next Appt Details Provider Name:Naty olivas, 06/14/2025 10:00:00 AM, [address] [place], [address], Progress Notes * SOLANGE KristinaDOB:1995 ( 29 yo F)Acc No.[id number]:09/01/2024 Patient: Kristina DURBIN :1995 A ge:29 Y S ex:Female Address:[address] [place] [address], [address] * Refills Start Hydrocortisone Acetate Suppository, 30 MG, Rectal, 7, 1 suppository, Once a day, 7 days, Refills=0 Subjective: * Chief Complaints: * H emorrhoid * Medical History: * Surgical History: * Hospitalization/Major Diagno stic Procedure: * Medications: Objective: * Vitals: * Physical Examination: Assessment: Plan: * Treatment: * Procedure Codes: * true * Date: Generated for Jag perez/Elpidio/Zeferino on: 0 05/02/2025 08:37 AM EDT
--- OUTSIDE RECORDS SUMMARY | 2024-09-06 07:00 | XMS_ITS ---
Author Organization [facility] in [place] Address [address] [place] [address] Care Team Providers Care Shuttler Name Role Phone Naty Benavidez Primary Care Provider REASON FOR VISIT 6MON CHECK Encounters Encounter Location Date Provider Diagnosis [address] [address] 09/06/2024 Naty Benavidez Plan Of Treatment Next Appt Details Provider Name:Naty olivas, 06/14/2025 10:00:00 AM, [address] [place], [address], Progress Notes * Kristina ALVARADODOB:1995 ( 30 yo F)Acc No.[id number]:09/06/2024 UNLOCKED PROGRESS NOTE Progress Note Patient: Kristina DURBIN Provider: Caridad Benavidez CNP (TTC) :1995 A ge:29 Y S ex:Female Date:09/06/2024 Address:[address] [place], [place] [phone] Subjective: * Chief Complaints: * 1 . 6MON CHECK. * Medical History: Objective: * Vitals: Assessment: Plan: * Treatment: * * Electronic signature of Akanksha Hoyt NP, LIFT TEAM TECHNICIAN.URBAN PLANNING [id number] on 05/02/2025 at 08:38 AM EDT Sign off status: Pending Visit Status: C ANC (Cancelled) * Provider: Caridad GIBBS), URBAN PLANNING PROFESSOR Date: 11/06/2023 Generated for Jag perez/Elpidio/eTransmitting on: 0 05/02/2025 08:38 AM EDT
--- OUTSIDE RECORDS SUMMARY | 2024-12-15 07:00 | XMS_ITS ---
Author Organization [facility] in [place] Address [address] [place] [address] Care Team Providers Care Engine Monitor Name Role Phone Naty Benavidez Primary Care Provider Allergies No Known Allergies REASON FOR VISIT 6 month follow up, stopped taking medication due to not being able to afford the medications Medications Medication SIG (Take, Route, Frequency, Duration) Notes Start Date End Date Status hydrOXYzine Pamoate 25 MG TAKE 1 CAPSULE BY MOUTH TWICE A DAY NEEDED for 90 days Not-Taking Zoloft 50 MG 1 tablet Orally Once a day for 90 days take 1/2 tablet po daily for first week than increase dose to 1 tablet po daily 05/16/2024 Active Social History Tobacco Use: Social History Observation Description Date Details (start date - stop date) Current Smoker 01/16/2006 - NA Tobacco Control (Standard) Question Answer Notes Tobacco use: Current smoker When did you start smoking? 01/16/2006 How often do you smoke cigarettes? Every day How many cigarettes a day do you smoke? 21-30 AUDIT-C (Standard) Question Answer Notes Did you have a drink containing alcohol in the p ast year? No Points 0 Interpretation Negative Vital Signs Weight 126 lbs 12/15/2024 Height 62 in 12/15/2024 Blood pressure systolic 100 mm Hg 12/15/19 25 Blood pressure diastolic 68 mm Hg 025 BMI 23.04 kg/m2 12/15/2024 Encounters Encounter Location Date Provider Diagnosis [facility] [address] [facility] [place] [address] 12/15/2024 Naty Benavidez Anxiety and depression F41.9 Assessments Encounter Date Diagnosis (ICD Code) Assessment Notes Treatment Notes Treatment Clinical Notes Section Notes 12/15/2024 Anxiety and depression (ICD-10 - F41.9) Meijers Mounika consider counseling zoloft helped in past Plan Of Treatment Medication Medication Name Sig Start Date Stop Date Notes Zoloft 50 MG 1 tablet Orally Once a day for 90 days 05/16/2024 take 1/2 tablet po d aily for first week than increase dose to 1 tablet po daily Treatment Notes Assessment Notes Anxiety and depression Alley Ribera consider counseling zoloft helped in past Next Appt Details Follow Up: 4 Weeks,prn, Reas on: Provider Name:Naty olivas, 06/14/2025 10:00:00 AM, [address] [facility], [facility], [place], [address], Progress Notes * Kristina ALVARADODOB:1995 ( 29 yo F)Acc No.[id number]:12/15/2024 Progress Note Patient: Kristina DURBIN Provider: Caridad Benavidez ([facility]), GRADUATE ENGINEER :1995 A ge:29 Y S ex:Female Date:12/15/2024 Address:[address] [place] [address] [address], [facility] Check In:11:03 AM ESTCheck O ut:11:25 AM EST Subjective: * Chief Complaints: * 1 . 6 month follow up, stopped taking medication due to not being able to afford the medications. * HPI: D epression Screening: PHQ-9 L ittle interest or pleasure in doing things?More than half the days F eeling down, depressed, or hopeless S everal days T rouble falling or staying asleep, or sleeping too much S everal days F eeling tired or having little energy S everal days P oor appetite or overeating M ore than half the days F eeling bad about yourself or that you are a failure, or have let yourself or your family down M ore than half the days T rouble concentrating on things, such as reading the newspaper or watching television M ore than half the days M oving or speaking so slowly that other people could have noticed; or the opposite, being so fidgety or restless that you have been moving around a lot more than usual S everal days T houghts that you would be better off or of hurting yourself in some way N ot at all T otal Score 1 2 I nterpretation M oderate Depression G eneral: a lot going on last 6 months off work long time due to torn miniscus knee surgery September, ortho just wrote for 8 hr restrictions has 13 yo daughter since September 4.5 years old she went to live with aunt and uncle sx in Oct for anal fissure child 2022 [employer]. * ROS: G eneral/Constitutional: Anxiety a dmits. D epression a dmits. F ever d enies. H eadache d enies. W eight loss d enies. O phthalmologic: Discharge d enies. E ye Pain d enies. I tching and redness d enies. E NT: Nasal discharge d enies. N sol congestion d enies.?Sore throat d enies. C ardiovascular: Chest tightness/ heavy pressure d enies. R apid heart rate d enies. S welling of extremities d enies. C hest pain d enies. ? R espiratory: Productive cough d enies. C hest pain d enies. C ough d enies. S hortness of breath d enies. W heezing d enies. ? G astrointestinal: Abdominal pain d enies. C onstipation d enies. D ecreased appetite d enies. D iarrhea d enies. N ausea d enies. V omiting?denies. G enitourinary: Urinary incontinence d enies. P ainful urination d enies. M usculoskeletal: Back pain d enies. N marcio pain d enies. M uscle aches d enies. S kin: Rash d enies. S kin lesion(s) d enies. ? 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 * Surgical History: t onsillectomy , right knee scope oct 05 2024, anal fissure repair oct 2024. * Family History: F ather: unknown. M other: unknown. B rother(s): unknown. S ister(s): unknown.?Daughter(s): . 2 daughter(s) . . * Social History: T obacco Use: T obacco Control (Standard) T obacco use: C urrent smoker W hen did you start smoking? 0 01/16/2006 H ow often do you smoke cigarettes? E very day H ow many cigarettes a day do you smoke? 2 1-30 D rug/Alcohol: A ADRIAN-C (Standard) D id you have a drink containing alcohol in the past year? N o P oints 0 I nterpretation N egative * Medications: N ot-Taking/PRN hydrOXYzine Pamoate 25 MG Capsule TAKE 1 CAPSULE BY MOUTH TWICE A DAY NEEDED , Not-Taking/PRN Zoloft(Sertraline HCl) 50 MG Tablet 1 tablet Orally Once a day , Notes to Pharmacist: take 1/2 tablet po daily for first week than increase dose to 1 tablet po daily, Medication List reviewed and reconciled with the patient * Allergies: N .K.D.A. Objective: * Vitals: W t:126lbs, Ht: 62 in, BP:100/68mm Hg, BMI:23.04Index, Ht-cm: 157.48 cm, Wt-k.15 kg. * Examination: G eneral Examinations: GENERAL APPEARANCE: a lert and oriented, i n no acute distress. EYES: c onjunctiva normal, sclera non-icteric. NOSE: n ormal external appearance. LUNGS: c lear to auscultation bilaterally. CARDIO: r egular rate and rhythm, S1, S2 normal. MUSCULOSKELETAL: G ait and station normal. SKIN: w arm and dry. Assessment: * Assessment: 1. A nxiety and depression - F41.9 (Primary) Plan: * Treatment: * Preventive Medicine: Screenings/Counseling: T OBACCO ACTION PLAN Patient counselled on the dangers of tobacco use and urged to quit. . * Follow Up: 4 Weeks,prn * * Electronically signed by Ginna Benavidez NP, CONCRETE SMOOTHER.[email or web address] [id number] on 12/18/2024 at 04:59 PM EST Sign off status: Completed Visit Status: C HK (Check Out) true * Provider: Caridad Benavidez ([facility]), GRADUATE ENGINEER Date: 0 12/15/2024 Generated for Jag perez/Elpidio/eTransmitting on: 0 05/02/2025 08:38 AM EDT History and Physical Notes * HPI (History of Present Illness) Category Sub-Category Detail Notes Category Not es Depression Screening PHQ-9 Little inte rest or pleasure in doing things: More than half the days Feeling down, depressed, or hopeless: Se veral days Trouble falling or staying asleep, or sl eeping too much: Several days Feeling tired or having little energy: S everal days Poor appetite or overeating: More than h ramon the days Feeling bad about yourself o r that you are a failure, or have let yourself or your family down: More than half the days Trouble concentrating on thi ngs, such as reading the newspaper or watching television: More than half the days Moving or speaking so slowly that other people could have noticed; or the opposite, being so fidgety or restless that you have been moving around a lot more than usual: Several days Thoughts that you would be b ratna off or of hurting yourself in some way: Not at all Total Score: 12 Interpretation: Moderate Depression General a lot going on last 6 months off work long time due to torn miniscus knee surgery September, ortho just wrote for 8 hr restrictions has 13 yo daughter since September 4.5 years old she went to live with aunt and uncle sx in Oct for anal fissure child 2022 [employer] Examination Category Sub-Category Detail Notes Category Not es General Examinations GENERAL APPEARANCE: alert a nd oriented, in no acute distress EYES: conjunctiva normal, sclera non-icteric EARS: NOSE: normal external appe arance THROAT: CARDIO: regular rate and rhy thm, S1, S2 normal LUNGS: clear to auscultatio n bilaterally ABDOMEN: SKIN: warm and dry BACK: MUSCULOSKELETAL: Gait and station nor mal LYMPH NODES:
--- OUTSIDE RECORDS SUMMARY | 2025-05-02 08:37 | XMS_ITS | Clinical Summary ---
Author Organization [facility] Address [id number] [address] [place] [address] Care Team Providers Care Data Engineer Name Role Phone Naty Benavidez ALBERENE STONE SETTER-LONGWALL MACHINE OPERATOR HELPER Primary Care Provider Allergies No known active allergies Medications ALPRAZolam (XANAX) 0.25 mg tablet Take by mouth nightly as needed. 4 Active hydrOXYzine (VISTARIL) 25 mg capsule Take 1 capsule (25 mg total) by mouth 2 (two) times a day as needed. Active levonorgestreL (LILETTA) 20.4 mcg/24 hr (8 yrs) 52 mg intrauterine device IUD 1 each by intrauterine route once. Active sertraline (ZOLOFT) 50 mg tablet Take 1 tablet (50 mg total) by mouth in the morning. 4 Active valACYclovir (VALTREX) 1000 mg tablet Take 1 tablet (1,000 mg total) by mouth in the morning. 4 Active docusate (COLACE) 50 mg/5 mL liquid Take 5 mL (50 mg total) by mouth in the morning. Active Active Problems No known active problems Family History Relation Name Status Comments Father Alive Mother Alive Social History Tobacco Use Types Packs/Day Years Used Date Smoking Tobacco: Former Cigarettes Smokeless Tobacco: Never Tobacco Cessation:Counseling Given: Not Answered Alcohol Use Standard Drinks/Week Comments Not Asked 0 (1 standard drink = 0.6 oz pur e alcohol) socially Comments Unknown Sex and Gender Information Value Date Recorded Sex Assigned at Not on file Legal Sex Female 8:43 AM EST Gender Identity Not on file Sexual Orientation Not on file Last Filed Vital Signs Vital Sign Reading Time Taken Comments Blood Pressure - - Pulse - - Temperature - - Respiratory Rate - - Oxygen Saturation - - Inhaled Oxygen Concentration - - Weight 57.3 kg (126 lb 6.4 oz) 09/11/2024 9:58 A M EST Height 157.5 cm (5' 2 ) 09/11/2024 9:58 AM EST Body Mass Index 23.12 09/11/2024 9:58 AM EST Plan of Treatment Health Maintenance Due Date Last Done Comments Depression Screening 2005 DTaP,Tdap and Td Vaccines (1 - Tdap) 2012 Pap Smear 2014 Influenza Vaccine 06/18/2025 10/09/2016 Adult BMI Screening 09/11/2025 09/11/2024 Tobacco Screening 09/11/2025 09/11/2024 Medical Devices Not on file Insurance [facility] Care Teams Data Engineer Relationship Specialty Start Date End Date Naty Benavidez, ALBERENE STONE SETTER-LONGWALL MACHINE OPERATOR HELPER [address] [facility], [place] [address] PCP - General Family Medicine 09/04/24
--- OUTSIDE RECORDS SUMMARY | 2025-05-02 08:37 | XMS_ITS | Encounter Summary ---
Author Organization [facility] Address [address] [place] [address] Care Team Providers Care Lockstitch Sleeve Setter Name Role Phone Karl Husain MD Primary Care Provider Naty Benavidez MD Unavailable [phone] Encounter Details Date Type Department Care Team (Late Contact Info) Description 07/31/2024 Orders Only [facility] [address] [address] Gina Hale, PERFORMANCE TEST ENGINEER [address] [place] [address] Social History Tobacco Use Types Packs/Day Years Used Date Smoking Tobacco: Former Cigarettes 1.5 10 Smokeless Tobacco: Never Comments:Quit cigarettes abo ut 2 years ago, currently vape Alcohol Use Standard Drinks/Week Comments Yes 3 (1 standard drink = 0.6 oz pur e alcohol) AUDIT-C Answer Date Recorded Q1: How often do you have a drink containing alcohol? 4 or more times a week 06/29/2024 Q2: How many drinks containi ng alcohol do you have on a typical day when you are drinking? 1 or 2 Q3: How often do you have si x or more drinks on one occasion? Never 06/29/2024 PHQ-2 Answer Date Recorded Patient Health Questionnaire-2 Score 0 06/29/2024 Comments No Sex and Gender Information Value Date Recorded Sex Assigned at Not on file Legal Sex Female 6:54 PM EDT Gender Identity Not on file Sexual Orientation Not on file documented as of this encounter Plan of Treatment Upcoming Encounters Date Type Department Care Team (Late Contact Info) Description 07/03/2025 10:20 AM EDT Office Visit [facility] [address] [phone] Gina Hale NP [address] [place] [address] documented as of this encounter Procedures Procedure Name Priority Date/Time Associated Diagnosis Comments SCANNED LABS Routine 06/29/2024 8:28 AM EDT documented in this encounter Results * SCANNED LABS (06/29/2024 8:28 AM EDT) us Gina Hale PERFORMANCE TEST ENGINEER LAB CHG PERFORMABLES Jelly l Result documented in this encounter Visit Diagnoses Not on filedocumented in this encounter Care Teams Lockstitch Sleeve Setter Relationship Specialty Start Date End Date Karl Husain MD PCP - General Family Medicine 05/30/24 Naty Bneavidez MD [address] [place] [address] Referring Physician Family Medicine 05/30/24 documented as of this encounter
[2025-05-02 08:38] VITALS: BP 120/81; PULSE 84; TEMP 37; O2SAT 97; BMI 22.9
--- OUTSIDE RECORDS SUMMARY | 2025-05-02 08:38 | XMS_ITS | Patient Health Record ---
Author Organization [facility] Address [address] [place] [address] Care Team Providers Care Nocturnist Physician Name Role Phone Karma Stafford Primary Care Provider Reason For Referral No Information Medications Medication SIG (Take, Route, Frequency, Duration) Notes Start Date End Date Status Cyclobenzaprine HCl 10 MG 1 tablet at be dtime as needed Orally Once a day; Duration: 30 days Active Plan Of Treatment No Information Insurance Providers Payer Name Payer Address Payer Phone Subscriber Number Group Number Insured Name Patient Relationship to Insured Coverage Start Date Coverage End Date [employer]-t ermed [address] [place] [address] [phone] [id number] IVORY NARVAEZ Self - patient is the insured 1 zMEDICAID [facility] after [employer]-t ermed 22 [address] [place] [address] [id number] IVORY NARVAEZ Self - patient is the insured 1 Medical (General) History Medical History History ICD Code UTI Surgical History Surgery Date(Month/Year) TONSILLECTOMY- AGE 7 CHILDBIRTH 09[birth year]2011 CHILDBIRTH 03/2019 Hospitalization History Reason Date(Month/Year) SEE ABOVE
--- OUTSIDE RECORDS SUMMARY | 2025-05-02 08:38 | XMS_ITS | Patient Health Record ---
Author Organization [facility] [place] Address [address] [place] [address] Care Team Providers Care Pile Header Name Role Phone Ginna Benavidezela Primary Care Provider Allergies No Known Allergies Results Component Value Reference Range Notes CBC AUTO DIFF Reviewed date:11/08/2024 12:10:28 PM Interpretation: Performing Lab: Notes/Report: [facility] , White Blood Count 6.7 4.0-11.0 10 3/uL Red Blood Count 4.19 4.20-5.40 10 6/uL Hemoglobin 12.9 12.0-16.0 g/dL Hematocrit 38.7 36.0-48.0 % Mean Corpuscular Volume 92.4 81.0-99.0 fL Mean Corpuscular Hemoglobin 30.8 26.7-34.0 pg Mean Corpuscular HGB Conc 33.3 29.9-35.2 g/dL Red Cell Distribution Width 13.7 11.0-15.0 % Platelet Count 262 150-450 10 3/uL Mean Platelet Volume 9.5 9.5-13.5 fL Neutrophils Percent Auto 51.2 43.0-75.0 % Lymphocytes Percent Auto 36.6 20.5-60.0 % Monocytes Percent Auto 8.7 1.7-12.0 % Eosinophils Percent Auto 2.4 0.9-7.0 % Basophils Percent Auto 0.8 0.2-2.0 % Immature Granulocytes Pct Auto 0.3 0.0-0.5 % Neutrophils Absolute Auto 3.4 1.4-6.5 10 3/uL Lymphocytes Absolute Auto 2.4 1.2-3.8 10 3/uL Monocytes Absolute Auto 0.6 0.3-0.8 10 3/uL Eosinophils Absolute Auto 0.2 0.0-0.7 10 3/uL Basophils Absolute Auto 0.1 0.0-0.1 10 3/uL Immature Granulocytes Abs Auto 0.02 0.00-0.03 10 3/uL Performing Lab: see note ML - [facility] COVID-19, Flu A+B IH (Not ye t reviewed by provider) Interpretation: Performing Lab: Notes/Report: COVID + FLU A - FLU B - Control + Reason For Referral No Information Medications Medication [...] ast year? 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) Active confirmed Problem Hemorrhoid (27895930) Hemorrhoid (K64.9) Active confirmed Problem Mixed anxiety and depressive disorder (371628336) Anxiety and depression (F41.9) Active confirmed Problem Otitis externa of left ear (6201733085595845 ) Left otitis externa (H60.92) Active confirmed Problem Tobacco user (104964042) Vaping nicotine dependence, tobacco product (F17.290) Active confirmed Vital Signs Temperature 96.2 degrees Fahrenheit 08/22/2024 Blood pressure diastolic 68 mm Hg 12/15/2024 Height 62 in 12/15/2024 Blood pressure systolic 100 mm Hg 12/15/2024 Weight 126 lbs 12/15/2024 BMI 23.04 kg/m2 12/15/2024 Encounters Encounter Location Date Provider Diagnosis [facility] [address] [place] [address] 05/16/2024 Naty Benavidez Anxiety and depression F41.9 [facility] [address] [place] [address] 06/14/2024 Naty Benavidez Anxiety and depression F41.9 [facility] [address] [place] [address] 12/15/2024 Naty Benavidez Anxiety and depression F41.9 [facility] [address] [place] [address] 08/22/2024 Naty Benavidez Cough R05.9 ; COVID-19 U07.1 and Left otitis externa H60.92 [facility] [address] [place] [address] 09/01/2024 Naty Benavidez Assessments Encounter Date Diagnosis (ICD Code) Assessment Notes Treatment Notes Treatment Clinical Notes Section Notes 05/16/2024 Anxiety and depression (ICD-10 - F41.9) encouraged counseling, referral sheet given walk 45 min daily fu one month 06/14/2024 Anxiety and depression (ICD-10 - F41.9) improved continue medication consider counseling fu 3-6 months consider job change 12/15/2024 Anxiety and depression (ICD-10 - F41.9) Alley Ribera consider counseling zoloft helped in past 08/22/2024 Cough (ICD-10 - R05.9) 08/22/2024 COVID-19 (ICD-10 - U07.1) rest push fluids defers anti viral 08/22/2024 Left otitis externa (ICD-10 - H60.92) 06/14/2024 Other Plan Of Treatment Pending Test Test Name Order Date COVID-19, Flu A+B IH 08/22/2024 Next Appt Details Provider Name:Naty olivas, 06/14/2025 10:00:00 AM, [address] [place], [address], Insurance Providers Payer Name Payer Address Payer Phone Subscriber Number Group Number Insured Name Patient Relationship to Insured Coverage Start Date Coverage End Date [employer] [address] [place] [address] [id number] Kristina Alvarado Self - patient is the insured Medical (General) History Medical History History ICD Code herpes Vaping nicotine dependence, tobacco prod uct F17.290 Surgical History Surgery Date(Month/Year) anal fissure repair oct 2024 right knee scope oct 05 2024 tonsillectomy
--- OUTSIDE RECORDS SUMMARY | 2025-05-02 08:39 | XMS_ITS | Clinical Summary ---
Author Organization [facility] Address [address] [place] [address] Care Team Providers Care Vinyl Installer Name Role Phone Karl Husain MD Primary Care Provider [phone] Naty Benavidez MD Unavailable [phone] Allergies No known active allergies Medications Vistaril 25 MG capsule 1 capsule 4 Active Zoloft 50 MG tablet 1 (one) time each day at the same time 4 Active Levonorgestrel (Liletta, 52 MG,) 20.1 MCG/DAY intrauterine device as directed Intrauterine Active docusate sodium (Stool Softener) 100 MG tablet Take 100 mg by mouth in the morning and 100 mg before bedtime. Active methylPREDNISolo ne (Medrol Dospak) 4 MG tabletsIndicatio ns:Acute pain of right knee,Knee strain, right, subsequent encounter Follow schedule on package instructions 21 tablet 5 Active celecoxib (CeleBREX) 200 MG capsuleIndicatio ns:Acute pain of right knee TAKE 1 CAPSULE BY MOUTH DAILY WITH FOOD 30 capsule 5 Active Active Problems No known active problems Encounters Date Type Department Care Team Description 02/13/2025 Refill [facility] [address] [address] [place] [address] Jr. Ishaan Smith DO Acute pain of right knee from Last 3 Months Family History Relation Name Status Comments Daughter 1 Alive Daughter 2 Alive Father Alive Mother Alive Social History Tobacco Use Types Packs/Day Years Used Date Smoking Tobacco: Former Cigarettes 1.5 10 Smokeless Tobacco: Never Tobacco Cessation:Counseling Given: Not Answered Comments:Quit cigarettes about 2 years ago, currently vape Alcohol Use [...] Sign Reading Time Taken Comments Blood Pressure 118/66 01/11/2025 12:35 PM EDT Pulse 89 01/11/2025 12:35 PM EDT Temperature 37.1 C (98.7 F) 01/11/2025 12:35 PM EDT Respiratory Rate - - Oxygen Saturation 98% 01/11/2025 12:35 PM EDT Inhaled Oxygen Concentration - - Weight 56.7 kg (125 lb) 01/11/2025 12:35 PM EDT Height 157.5 cm (5' 2 ) 09/19/2024 1:04 PM EST Body Mass Index 22.86 09/19/2024 1:04 PM EST Plan of Treatment Upcoming Encounters Date Type Department Care Team (Late st Contact Info) Description 07/03/2025 10:20 AM EDT Office Visit [facility] [address] [address] Gina Hale NP [address] [place] [address] Insurance BCBS Care Teams Vinyl Installer Relationship Specialty Start Date End Date Karl Husain MD PCP - General Family Medicine 05/30/24 Naty Benavidez MD [address] [place] [address] Referring Physician Family Medicine 05/30/24
--- NOTE | 2025-05-02 08:52 | ED_ITS ---
HPI HPI - General Adult General Chief complaint: Nausea/Vomiting/Diarrhea Stated complaint: VOMITING DEHYDRATION Time Seen by Provider: 05/02/25 08:46 Source: patient Mode of arrival: walk-in Limitations: no limitations History of Present Illness HPI narrative: 30 female presented to the emergency department for nausea and vomiting which started at 5:00 this morning. She has not been around anybody has been ill. No fever or hematemesis. She had minimal diarrhea. Related Data Home Medications ?Medication ?Instructions ?Recorded ?Confirmed alprazolam 0.25 mg tablet mg 09/03/24 escitalopram oxalate 10 mg tablet mg 09/03/24 sertraline 50 mg tablet mg 09/03/24 valacyclovir 1 gram tablet mg 09/03/24 Previous Rx's ?Medication ?Instructions ?Recorded hydrocortisone-pramoxine 1 %-1 % 1 applic [facility] BID #30 g darlyn 09/03/24 rectal cream ondansetron 4 mg disintegrating 4 mg PO Q6H PRN nausea and 05/02/25 tablet vomiting #20 tabs Allergies Allergy/AdvReac Type Severity Reaction Status Date / Time No Known Drug Allergies Allergy Verified 05/02/25 08:38 Opioid HPI Opioid Management Most Recent Opioid Data: Last Pain Scale 5 Today, 08:38 Review of Systems ROS Narrative A ten point review of systems is negative except as noted above. PFSH PFSH Social History Smoking status: Former smoker Little interest or pleasure in doing things: not at all Feeling down, depressed, or hopeless: not at all Exam Narrative Exam Narrative: Nurses note and vital signs reviewed and patient is not hypoxic. General: The patient is retching into the garbage can when I walk into the room. Skin: Warm, dry, no pallor noted. There is no rash noted. Head: Normocephalic, atraumatic Eye: Normal conjunctiva, no drainage Ears, Nose, Mouth, and Throat: oral mucosa is moist. Nares patent. Cardiovascular: Regular Rate and Rhythm Respiratory: Patient is in no distress, no accessory muscle use, lungs are clear to auscultation, no wheezing, rales or rhonchi Back: non-tender GI: Nontender and nondistended Musculoskeletal: The patient has no evidence of calf tenderness, no pitting edema, symmetrical pulses noted bilaterally Neurological: A&O, normal speech Psychiatric: Cooperative Constitutional Vital Signs, click to edit/add: Last Vital Signs Temp 98.6 F 05/02/25 08:38 Pulse 84 05/02/25 08:38 Resp 16 05/02/25 08:38 BP 120/81 05/02/25 08:38 Pulse Ox 97 05/02/25 08:38 O2 Del Method Room Air 05/02/25 08:38 Course Vital Signs Vital signs: Vital Signs Temperature 98.6 F 05/02/25 08:38 Pulse Rate 84 05/02/25 08:38 Respiratory Rate 16 05/02/25 08:38 Blood Pressure 120/81 05/02/25 08:38 Pulse Oximetry 97 05/02/25 08:38 Oxygen Delivery Method Room Air 05/02/25 08:38 Temperature 98.6 F 05/02/25 08:38 Pulse Rate 84 05/02/25 08:38 Respiratory Rate 16 05/02/25 08:38 Blood Pressure 120/81 05/02/25 08:38 Pulse Oximetry 97 05/02/25 08:38 Oxygen Delivery Method Room Air 05/02/25 08:38 Medical Decision Making MDM Narrative Medical decision making narrative: Blood work is essentially normal. She was given IV fluids and Zofran and feels improved and is discharged home on Zofran. Treatment diagnosis and follow-up were discussed with the patient. Differential Diagnosis Differential Diagnosis: Gastroenteritis, viral illness, dehydration Lab Data Lab results reviewed: Yes I reviewed the patient's lab results Labs: Lab Results 05/02/25 Range/Units 08:55 WBC 7.4 (4.0-11.0) 10^3/uL RBC 4.06 L (4.20-5.40) 10^6/uL Hgb 12.8 (12.0-16.0) g/dL Hct 37.0 (36.0-48.0) % MCV 91.1 (81.0-99.0) fL MCH 31.5 (26.7-34.0) pg MCHC 34.6 (29.9-35.2) g/dL RDW 14.1 (11.0-15.0) % Plt Count 251 (150-450) 10^3/uL MPV 9.6 (9.5-13.5) fL Neut % (Auto) 68.0 (43.0-75.0) % Lymph % (Auto) 17.4 L (20.5-60.0) % [place] % (Auto) 10.0 (1.7-12.0) % Eos % (Auto) 3.0 (0.9-7.0) % Baso % (Auto) 0.9 (0.2-2.0) % Neut # (Auto) 5.0 (1.4-6.5) 10^3/uL Lymph # (Auto) 1.3 (1.2-3.8) 10^3/uL [place] # (Auto) 0.7 (0.3-0.8) 10^3/uL Eos # (Auto) 0.2 (0.0-0.7) 10^3/uL Baso # (Auto) 0.1 (0.0-0.1) 10^3/uL Abs Immat Gran (auto) 0.05 H (0.00-0.03) 10^3/uL Imm/Tot Granulo (auto) 0.7 H (0.0-0.5) % Sodium 146 H (136-145) mmol/L Potassium 3.8 (3.5-5.1) mmol/L Chloride 108 H (98-107) mmol/L Carbon Dioxide 29.7 (21.0-32.0) mmol/L Anion Gap 12.1 BUN 11.0 (7.0-18.0) mg/dL Creatinine 0.78 (0.55-1.02) mg/dL Est GFR ( Amer) >60 (>=60 mL/min/1.73m^2) Est GFR (Non-Af Amer) >60 (>=60 mL/min/1.73m^2) BUN/Creatinine Ratio 14.1 Glucose 114 H (74-106) mg/dL Calcium 8.5 (8.5-10.1) mg/dL Serum HCG, Qual Negative (NEGATIVE) Discharge Plan Discharge Chief Complaint: Nausea/Vomiting/Diarrhea Clinical Impression: Nausea & vomiting Patient Disposition: Home, Self-Care Time of Disposition Decision: 10:04 Condition: Good Mode of Transportation: Private Vehicle Prescriptions / Home Meds: New ondansetron 4 mg tablet,disintegrating 4 mg PO Q6H PRN (Reason: nausea and vomiting) Qty: 20 0RF No Action valacyclovir 1 gram tablet alprazolam 0.25 mg tablet sertraline 50 mg tablet escitalopram oxalate 10 mg tablet hydrocortisone-pramoxine 1-1 % cream 1 applic VA BID Qty: 30 0RF Print Language: [place] Instructions: Acute Nausea and Vomiting (ED) Referrals: EDITH MCCARTY [Primary Care Provider, Family Practice] - 1 week
--- OUTSIDE RECORDS SUMMARY | 2025-05-02 08:54 | XMS_ITS | CCD ---
Author Organization [facility] Care Team Providers Care Supervisor Byproducts Name Role Phone HELENA-MARIA, KAMINI Unavailable Unavailable [...] Unavailable REQUEST, DR POON LISTED Primary Care Unavaila timur NICHOLS, DR CASAS Consulting Unavailable Rodrigue BRANNON, Karl Peter Primary Care Provider Naty Mccarty MD Unavailable NATY MCCARTY Primary Care Physician [phone] LALITHA CALDERON Attending Unavailable NATY MCCARTY Referring Unavailable NATY MCCARTY Primary Care Unavailable Reji Thrasher Attending Unavailable Reji Dillon Attending Unavailable Reji Dillon Attending Unavailable Reji Dillon Attending Unavailable Reji Dillon Admitting Unavailable Reji Dillon Attending Unavailable Reji Dillon Referring Unavailable Reema OVALLESOFINaty Primary Care Provider Reji Dillon Attending Unavailable Reji Dillon Admitting Unavailable Reji Dillon Attending Unavailable Reji Dillon Referring Unavailable BOUCHRA OLIVIER Attending Unavailable BOUCHRA OLIVIER Referring Unavailable BOUCHRA OLIVIER Referring Unavailable ROMI HOPPER Attending Unavailable WARD, ROMI Ryan Attending Unavailable GINA DUPREE Attending Unavailable WARD, ROMI Ryan Attending Unavailable HOPPER, ROMI Ryan Attending Unavailable HOPPER, ROMI Ryan Attending Unavailable WARD, ROMI Ryan Referring Unavailable JR. CORA, MARTÍNEZ Jimenez Attending Unavaila MACIEL Ames Attending Unavailable TYRA TRUJILLO Attending Unavailable ROMI HOPPER Attending Unavailable WARD, ROMI Ryan Attending Unavailable HOPPER, ROMI Ryan Attending Unavailable HOPPER, ROMI Ryan Attending Unavailable HOPPER, ROMI Ryan Attending Unavailable BOUCHRA OLIVIER Attending Unavailable JR. CORA, MARTÍNEZ Jimenez Attending Unavaila timur SMITH JR., MARTÍNEZ Jimenez Referring Unavaila timur Medications Current Medications Medication Drug Class(es) Dates Sig (Normalized) Sig (Original) acetaminophen 325 mg / HYDROcodone bitartrate 5 mg oral tablet (2 sources) Opioid Agonist Start: 11-14-2024 End: 11-16-2024 [place] 325 mg-5 mg oral tablet 1 tab(s), Oral, q6hr as needed for pain, 10 tab(s), Refill(s) 0, [facility]/pharmacy #[id number], 162, cm, 11/14/24 9:20:00 EST, Height/Length Dosing, 58.2, kg, 11/14/24 9:20:00 EST, Weight Dosing Start Date: 11/14/24 Stop Date: 11/16/24 Status: Ordered Start: 10-04-2024 End: 10-07-2024 take 1 tablet by mouth every six hours for pain HYDROcodone-acetaminophen ([place]) 5-325 MG tablet Indications: Internal derangement of right knee Take 1 tablet by mouth every 6 (six) hours if needed for severe pain for up to 3 days 12 tablet 10/04/2024 10/07/2024 Active ALPRAZolam 0.25 mg oral tablet (20 sources) Benzodiazepine Start: 02-10-2024 End: 09-19-2024 ALPRAZolam (XANAX) 0.25 mg tablet Take by mouth nightly as needed. 02/11/2024 Active celecoxib 200 mg oral capsule (4 sources) Nonsteroidal Anti-inflammatory Drug Start: 02-13-2025 take 1 capsule by mouth once daily at mealtime celecoxib (CeleBREX) 200 MG capsule Indications: Acute pain of right knee TAKE 1 CAPSULE BY MOUTH DAILY WITH FOOD 30 capsule 02/13/2025 Active Start: 01-17-2025 End: 02-16-2025 take 1 capsule by mouth once daily at mealtime celecoxib (CeleBREX) 200 MG capsule Indications: Acute pain of right knee Take 1 capsule (200 mg) by mouth Daily Take with food 30 capsule 01/17/2025 02/13/2025 Discontinued cyclobenzaprine hydrochloride 10 mg oral tablet (1 source) Muscle Relaxant Start: 01-05-2021 take 10 mg by mouth at bedtime Cyclobenzaprine Active 10 MG PO Bedtime January 05, 2021 9:48am docusate sodium 100 mg oral tablet (19 sources) take 1 tablet by mouth in the morning docusate sodium (Stool Softener) 100 MG tablet Take 100 mg by mouth in the morning and 100 mg before bedtime. Active take 5 mL by mouth in the mornin g docusate (COLACE) 50 mg/5 mL liquid Take 5 mL (50 mg total) by mouth in the morning. Active hydrocortisone acetate 25 mg rectal suppository (10 sources) Corticosteroid Start: 09-02-2024 End: 09-09-2024 take 25 mg rectal route twice daily Anusol-HC 25 mg rectal suppository 25 mg = 1 supp, Rectal, BID, X 7 day(s), # 14 supp, Refills(s) 0, Pharmacy: [facility]/pharmacy #[id number], 157.5, cm, 09/02/24 12:33:00 EST, Height/Length Dosing, 58, kg, 09/02/24 12:33:00 EST, Weight Dosing Start Date: 09/02/24 Stop Date: 09/09/24 Status: Ordered Start: 08-31-2024 Start: 08-28-2024 End: 09-19-2024 hydrocortisone (Anusol-HC) 2 .5 % rectal cream Indications: Grade I hemorrhoids Insert into the rectum 2 (two) times a day Apply rectally 2 times daily 28 g 08/28/2024 09/19/2024 Discontinued hydrOXYzine pamoate 25 mg oral capsule (20 sources) Antihistamine Start: 05-16-2024 Vistaril 25 MG capsule 1 capsule 05/16/2024 Active lidocaine 50 mg/ml rectal cream (3 sources) Antiarrhythmic, Amide Local Anesthetic Start: 09-02-2024 lidocaine 5% rectal cream See Instructions, 20 gm, Refill(s) 0, Apply to affected area up to 6 times daily, [facility]/pharmacy #[id number], 157.5, cm, 09/02/24 12:33:00 EST, Height/Length Dosing, 58, kg, 09/02/24 12:33:00 EST, Weight Dosing Start Date: 09/02/24 Status: Ordered methylPREDNISolone (10 sources) Corticosteroid Start: 01-11-2025 methylPREDNISolone (Medrol Dospak) 4 MG tablets Indications: Acute pain of right knee , Knee strain, right, subsequent encounter Follow schedule on package instructions 21 tablet 01/11/2025 Active Start: 07-05-2024 End: 07-05-2024 methylPREDNISolone acetate ( DEPO-Medrol) injection 40 mg Start: 07-05-2024 End: 07-05-2024 40 mg, Intra-articular, Once PRN Procedure, Starting on Wed07/05/24 at 1429, For 1 dose ondansetron 4 mg oral tablet (1 source) Serotonin-3 Receptor Antagonist Start: 03-31-2022 take 4 mg by mouth every eight hours Ondansetron Hcl Active 4 MG PO Q8H 12 March 31, 2022 12:26am sertraline 50 mg oral tablet (20 sources) Serotonin Reuptake Inhibitor Start: 05-15-2024 Zoloft 50 MG tablet 1 (one) time each day at the same time 05/16/2024 Active valACYclovir 1000 mg oral tablet (9 sources) Herpesvirus Nucleoside Analog DNA Polymerase Inhibitor, Herpes Simplex Virus Nucleoside Analog DNA Polymerase Inhibitor, Herpes Zoster Virus Nucleoside Analog DNA Polymerase Inhibitor Start: 09-22-2024 take 0.5 tablet by mouth in the morning valacyclovir 1 g Tab 10 EA, 0 Refill(s), TAKE 1/2 TABLET BY MOUTH IN THE MORNING AND 1/2 TABLET BEFORE BEDTIME FOR 5 DAYS, Refills(s) 0 Start Date: 09/22/24 Status: Ordered Start: 06-29-2024 take 1 tablet by robinson th in the morning valACYclovir (VALTREX) 1000 mg tablet Take 1 tablet (1,000 mg total) by mouth in the morning. 06/29/2024 Active Start: 06-29-2024 End: 07-04-2024 take 0.5 tablet by mouth in the morning valACYclovir (Valtrex) 1 g tablet Indications: Herpes simplex Take 0.5 tablets (500 mg) by mouth in the morning and 0.5 tablets (500 mg) before bedtime. Do all this for 5 days. 10 tablet 5 06/29/2024 07/04/2024 Active End: 06-29-2024 valACYclovir (Valtrex) 1 g t ablet 1 (one) time each day at the same time 06/29/2024 Discontinued (Reorder) Completed/Discontinued Medications Medication Drug Class(es) Dates Sig (Normalized) Sig (Original) fluconazole 150 mg oral tablet (2 sources) Azole Antifungal Start: 09-06-2024 End: 09-06-2024 fluconazole (Diflucan) 150 MG tablet Indications: Vaginal discharge , Vaginal irritation , Acute vaginitis Take 1 tablet (150 mg) by mouth 1 (one) time for 1 dose Repeat in 3 days if symptoms persist. 2 tablet 09/06/2024 09/06/2024 ibuprofen 600 mg oral tablet (1 source) Nonsteroidal Anti-inflammatory Drug Start: 11-27-2018 End: 03-29-2020 Ibuprofen Discontinued 600 MG PO every 6 to 8 hours November 27, 2018 10:41pm March 29, 2020 7:46pm levonorgestrel 0.856849 mg/hr intrauterine system (20 sources) Progestin, Progestin-containi ng Intrauterine Device Start: 10-26-2024 Levonorgestrel ( Liletta, 52 MG,) 20.1 MCG/DAY intrauterine device as directed Intrauterine Active levonorgestreL ( LILETTA) 20.4 mcg/24 hr (8 yrs) 52 mg intrauterine device IUD 1 each by intrauterine route once. Active predniSONE 20 mg oral tablet (2 sources) Start: 05-30-2024 End: 06-14-2024 take 2 tablets by mouth once daily, then take 1 tablet by mouth once daily at mealtime predniSONE (Deltasone) 20 MG tablet Indications: Infrapatellar bursitis of right knee Take 2 tablets (40 mg) by mouth Daily for 5 days, THEN 1 tablet (20 mg) Daily for 5 days. Take with food. 15 tablet 05/30/2024 06/14/2024 Discontinued (Therapy completed) Problems Active Problems Problem Classification Problem Date Documented Date Episodic/Chronic Abdominal pain (3 sources) Abdominal pain; Translations: [Unspecified abdominal pain] 03-31-2022 Episodic Anal and rectal conditions (8 sources) Anal fissure; Translations: [Anal fissure, unspecified] Onset: 09-25-2024 Episodic Anxiety disorders (4 sources) Mixed anxiety and depressive disorder 09-22-2024 Chronic Contraceptive and procreative management (4 sources) Intrauterine contraceptive device in situ; Translations: [Encounter for routine checking of intrauterine contraceptive device] 09-06-2024 Episodic Fever of unknown origin (2 sources) Feeling feverish; Translations: [Fever, unspecified] Onset: 09-20-2022 03-31-2022 Episodic Genitourinary symptoms and ill-defined conditions (2 sources) Dysuria; Translations: [Dysuria] 09-06-2024 Episodic Hemorrhoids (4 sources) Hemorrhoids; Translations: [Unspecified hemorrhoids] Onset: 09-02-2024 Episodic Immunizations and screening for infectious disease (6 sources) Encounter for screening for infections with a predominantly sexual mode of transmission; Translations: [Patient encounter status] Onset: 05-12-2022 Episodic Inflammatory diseases of female pelvic organs (2 sources) Acute vaginitis; Translations: [Acute vaginitis] 09-06-2024 Episodic Influenza (1 source) Influenza due to other identified influenza virus with other respiratory manifestations; Translations: [FLU D/T OTH ID FLU VIR OTH RSP MANF] Onset: 09-20-2022 Episodic Joint disorders and dislocations; trauma-related (9 sources) Derangement of right knee; Translations: [Unspecified internal derangement of right knee] 07-26-2024 Chronic Nausea and vomiting (1 source) Nausea and vomiting; Translations: [Nausea with vomiting, unspecified] 03-31-2022 Episodic Other female genital disorders (2 sources) Vaginal discharge; Translations: [Other specified noninflammatory disorders of vagina] 09-06-2024 Episodic Other female genital disorders (2 sources) Vaginal irritation; Translations: [Other specified noninflammatory disorders of vagina] 09-06-2024 Episodic Other injuries and conditions due to external causes (1 source) Contusion; Translations: [Other injury of unspecified body region, initial encounter] 01-05-2021 Episodic Other lower respiratory disease (1 source) Cough; Translations: [Cough] 03-31-2022 Episodic Other nervous system disorders (2 sources) 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; Translations: [Unspecified mononeuropathy of left lower limb] 01-18-2025 Chronic Other non-traumatic joint disorders (13 sources) Pain in right knee; Translations: [Pain in joint, lower leg] 07-25-2024 Episodic Other non-traumatic joint disorders (4 sources) Stiffness of right knee; Translations: [Stiffness of right knee, not elsewhere classified] 11-07-2024 Episodic Other nutritional; endocrine; and metabolic disorders (1 source) Loss of appetite; Translations: [Anorexia] 03-31-2022 Episodic Residual codes; unclassified (8 sources) History of arthroscopy of knee joint; Translations: [Other specified postprocedural states] 10-22-2024 Episodic Sprains and strains (3 sources) Strain of neck muscle; Translations: [Strain of muscle, fascia and tendon at neck level, initial encounter] 01-05-2021 Episodic Substance-related disorders (7 sources) Smoker; Translations: [Nicotine dependence] Onset: 09-25-2024 09-02-2024 Chronic Comment on above: Added secondary [...] Translations: [COUGH, UNSPECIFIED] Onset: 09-20-2022 Viral infection (3 sources) Disease caused by 2019-nCoV; Translations: [COVID-19] 03-31-2022 Episodic Past or Other Problems Problem Classification Problem Date Documented Da te Episodic/Chronic Other screening for suspected conditions (not mental [...] Test Name Value Interpretation Reference Range Facility XR Knee - right 1 or 2 Views on 01-17-2025 Imaging Result: AP and lateral of right knee showed excellent preservation of joint space heights there was no flattening of the articular surfaces tricompartmentally. There was no evidence of marginal osteophytic formation. Overall alignment appeared to be normal. There was no evidence of fracture or dislocation. Bony structures in view showed excellent ossification. Impression: No acute bony process, right knee [facility] Radiology Study observation (narrative) [facility] General Surgery Office/Clini c Noteon 12-22-2024 General Surgery Office/Clinic Note General Surgery Office/Clinic Note HPI Staff Kristina is a 29 y.o. female here for 1 month follow up s/p Anal Fissure repair done 11/14/24 Today patient denies pain, fever, chills, vomiting or disharge History of Present Illness [id number] female status post left lateral internal sphincterotomy performed on November 14, 2024 here for postop visit. No issues at this time. Physical Exam Rectal: Sphincterotomy incision clean dry intact has healed well Assessment/Plan 1. Anal fissure (K60.2: Anal fissure, unspecified) Patient may return to regular activity with no restrictions. Instructed to have vigorous bowel regimen to avoid hard stools including high-fiber diet stool softeners and adequate hydration patientmay follow-up with us as needed Ordered: Postoperative follow-up visit, related to the original procedure [id number] Portions of this record may have been created with voice recognition artificial intelligence software, specifically [employer], [employer] and or Slice. Substitutions may have occurred due to the inherent limitations of voice recognition and artificial intelligence software. Follow-up No qualifying data available Problem List/Past Medical History Ongoing Mixed anxiety and depressive disorder Smoker Historical No qualifying data Procedure/Surgical History Anal sphincterectomy (11/14/2024), Arthroscopy of knee with meniscus repair (10/04/2024), History of tonsillectomy (2004), Tonsillectomy. Medications hydrOXYzine pamoate 25 mg Cap Liletta 52 mg intrauteral device valacyclovir 1 g Tab Zoloft 50 mg Tab Allergies No Known Allergies Social History Alcohol - Denies Alcohol Use, 09/02/2024 Never., 09/25/2024 Substance Abuse - Denies Substance Abuse, 09/02/2024 Never., 09/25/2024 Tobacco - High Risk, 09/02/2024 vape Tobacco Use:. Vaping, Yes, 12/22/2024 Immunizations Vaccine Date Status diphtheria/pertussis, acel/tetanus adult 03/09/2017 Recorded Normal [facility] Comment on above: Result Comment: Elec tronically Signed By: Wilma BRANNON, Reji Zamora.br\Date and Time Signed: 12/22/24 11:31 EST General Surgery Office/Clini c Noteon 11-24-2024 General Surgery Office/Clinic Note General Surgery Office/Clinic Note HPI Staff Kristina is a 29 y.o. female here for s/p fissure removal done 11/14/2024 History of Present Illness 29-year-old female status post left lateral internal sphincterotomy performed for chronic nonhealing anal fissure on November 14, 2023 here today for postop visit. Reports some itching to the area denies pain. Denies any other issues such as fecal incontinence nausea vomiting fevers chills or drainage. Physical Exam Rectal exam: Incision clean dry intact healing well with granulation tissue at base of wound Assessment/Plan 1. Anal fissure (K60.2: Anal fissure, unspecified) Follow-up 1 month continue sitz bath twice daily and after each bowel movement continue stool softeners Ordered: Postoperative follow-up visit, related to the original procedure [id number] Portions of this record may have been created with voice recognition artificial intelligence software, specifically [employer], [employer] and or Slice. Substitutions may have occurred due to the inherent limitations of voice recognition and artificial intelligence software. Follow-up No qualifying data available Problem List/Past Medical History Ongoing Anal fissure Mixed anxiety and depressive disorder Smoker Historical No qualifying data Procedure/Surgical History Anal sphincterectomy (11/14/2024), Arthroscopy of knee with meniscus repair (10/04/2024), History of tonsillectomy (2004), Tonsillectomy. Medications hydrOXYzine pamoate 25 mg Cap Liletta 52 mg intrauteral device valacyclovir 1 g Tab Zoloft 50 mg Tab Allergies No Known Allergies Social History Alcohol - Denies Alcohol Use, 09/02/2024 Never., 09/25/2024 Substance Abuse - Denies Substance Abuse, 09/02/2024 Never., 09/25/2024 Tobacco - High Risk, 09/02/2024 vape Tobacco Use:. Vaping, Yes, 11/24/2024 Immunizations Vaccine Date Status diphtheria/pertussis, acel/tetanus adult 03/09/2017 Recorded Normal [facility] Comment on above: Result Comment: Elec tronically Signed By: Reji Dillon MD\.br\Date and Time Signed: 11/24/24 11:31 EST Main OR Intraoperative Recor don 11-15-2024 Main OR Intraoperative Record Main OR Intraoperative Record IntraOp Document Type FT Summary Primary Physician: Reji Dillon MD Finalized Date/Time: 11/15/24 13:41:34 Pt. Name: KRISTINA NARVAEZ/Sex: 1995 Female Med Rec #: [id number] Physician: Reji Dillon MD Financial #: [id number] Pt. Type: A Room/Bed: [facility] Admit/Disch: 11/14/24 08:47:08 - 11/14/24 12:10:00 Institution: Case Times FT Entry 1 Patient Times In Room 11/14/24 10:07:00 Out Room 11/14/24 10:37:00 Procedure Times Start 11/14/24 10:25:00 Stop 11/14/24 10:35:00 Anesthesia Times Start 11/14/24 10:07:00 Stop 11/14/24 10:37:00 Last Modified By: Faiza Matos RN 11/14/24 10:37:35 General Comments: 11/15/24 Chart opened to review and send charges LRoth CSFA Case Attendance FT Entry 1 Entry 2 Entry 3 Case Attendee Ambrosio GREEN, úJnior Dillon MD, She Ponce Role Performed Anesthesiologist Surgeon - Primary ASSOCIATE PROFESSOR OF COMMUNICATION Fitness Studies Teacher Time In 11/14/24 10:07:00 11/14/24 10:22:00 11/14/24 10:07:00 Time Out 11/14/24 10:37:00 11/14/24 10:37:00 11/14/24 10:37:00 Procedure SPHINCTEROTOMY LATERAL SPHINCTEROTOMY LATERAL SPHINCTEROTOMY LATERAL INTERNAL(Left) INTERNAL(Left) INTERNAL(Left) Comments DR. SAGASTUME SUPERVISING Last Modified By: Shawna RN, Faiza Matos RN, Faiza aMtos RN, Faiza Peraza 11/14/24 10:48:07 11/14/24 10:48:07 11/14/24 10:48:07 Entry 4 Entry 5 Case Attendee Shawna STRICKLAND, Faiza Brian CST, Lor Peraza Role Performed Shelter Director - Primary Scrub - Primary Time In 11/14/24 10:07:00 11/14/24 10:07:00 Time Out 11/14/24 10:37:00 11/14/24 10:37:00 Procedure SPHINCTEROTOMY LATERAL SPHINCTEROTOMY LATERAL INTERNAL(Left) INTERNAL(Left) Comments Last Modified By: Faiza Matos RN, RN, Leann E 11/14/24 10:48:07 11/14/24 10:48:07 General Comments: SEBASTIÁN Smith ALSO SCRUBBED IN FOR THIS CASE. L.SHAWNA,interstate bus dispatcher Protocols FT Pre-Care Text: Implements protective measures prior to operative or invasive procedure, confirms identity before the operative or invasive procedure, verifies operative procedure, surgical site, and laterality Entry 1 Procedure(s) SPHINCTEROTOMY LATERAL Patient Identity Birthday, ID Band INTERNAL(Left) Verified (select at Check, Patient least 2): Participation Consents / H and P Anesthesia Consent, Operative Site N/A Verified H&P, Surgery/Procedure Marking Verified Consent, Transfusion Consent Surgical Site Yes Laterality Verified n/a Verified Procedure Verified Yes Correct Patient Yes Position Verified Availability Equipment, Medication Prep Dry n/a Verified (If Applicable) PreOp Antibiotic Yes Time Out Ambrosio GREEN, Júnior Given Participants Wilma Maldonado MD, Reji Pickett, She Juan, Faiza Matos RN, Roth CST, Liane E Time Out Complete 11/14/24 10:24:00 Outcomes Met? Yes Last Modified By: Faiza Matos RN 11/14/24 10:30:57 Post-Care Text: The patient is free from signs and symptoms of injury caused by extraneous objects Allergy Information FT Pre-Care Text: Verifies allergies Entry 1 Allergies Reviewed? Yes Allergies Reviewed Self/Patient With Outcomes Met? Yes Last Modified By: Faiza Matos RN 11/14/24 10:31:07 Post-Care Text: The patient received appropriate medication(s) safely administered during the perioperative period Surgical Procedures FT Entry 1 Procedure Description Procedure SPHINCTEROTOMY LATERAL Modifiers Left INTERNAL Surgeon Description LEFT LATERAL INTERNAL SPHINCTEROTOMY Primary Procedure Yes Primary Surgeon Wilma BRANNON, Reji Pickett Start 11/14/24 10:25:00 Stop 11/14/24 10:35:00 Anesthesia Type General Surgical Service General Wound Class 2 - Clean-Contaminated Last Modified By: Faiza Matos RN 11/14/24 10:42:57 General Case Data FT Pre-Care Text: Classifies surgical wound, implements aseptic technique, initiates traffic control Entry 1 Case Information OR OR 4 FT Case Level Level 2 Wound Class 2 - Clean-Contaminated Specialty General ASA Class 2 Preop Diagnosis ANAL FISSURE Postop Same As Preop Yes Postop Diagnosis ANAL FISSURE Outcomes Met? Yes Last Modified By: Faiza Matos RN 11/14/24 10:43:01 Post-Care Text: The patient is free from signs and symptoms of infection Skin Assessment (Pre Procedure) FT Pre-Care Text: Implements protective measures to prevent skin/ tissue injury due to thermal or mechanical sources Evaluates for signs and symptoms of physical injury to skin and tissue Entry 1 Skin Integrity Intact, Bedias, Warm, & Skin Abnormality No Dry Outcomes Met? Yes Last Modified By: Faiza Matos RN 11/14/24 10:43:09 Post-Care Text: The patient is free from signs and symptoms of injury caused by extraneous objects Patient Positioning FT Pre-Care Text: Identifies physical alterations that require additional precautions for procedure-specific positioning, verifies presence of prosthetics or corrective devices, positions the patient, evaluates the sara (more content not included)... Normal [facility] B hCG Qualon 11-14-2024 Beta HCG ( test) Ql Negative Normal [facility] Comment on above: Performed By: #### 2 [id number] ####[facility] [id number] [place] [address] Discharge Instructionson Discharge Instructions Discharge Instructions KRISTINA NARVAEZ :1995 Visit Date:11/14/2024 Inpatient Discharge Instructions Your Care Team Admitting Physician - Reji Dillon MD. Referring Physician - Reji Dillon MD Reason for Your Visit ANAL FISSURE Your Diagnosis Anal fissure This Is Your Medications List acetaminophen-hydroco done ([place] 325 mg-5 mg oral tablet) hydrOXYzine (hydrOXYzine pamoate 25 mg Cap) levonorgestrel (Liletta 52 mg intrauteral device) sertraline (Zoloft 50 mg Tab) valacyclovir (valacyclovir 1 g Tab) Procedure History Arthroscopy of knee with meniscus repair (10/04/2024), History of tonsillectomy (2004), Tonsillectomy. What to do next Instructions From Your Doctor Event Name Event Result Discharge Instructions Freetext Okay to remove packing and shower tomorrow. Please perform sitz bath's twice a day and after each bowel movement. If taking narcotic pain medication please take with stool softener or laxative. Discharge Activity Resume normal activities in 24 hours, Expect minimal amount of drainage and/or bleeding, Activity as tolerated Discharge Restrictions No driving for 24 hrs, Do not make important decisions for 24 hours, Do not drink alcoholic beverages for 24 hours Discharge Diet(s) Regular Call Your Doctor For Persistent or heavy bleeding, Temperature above 101.5 degrees, Redness, swelling, or pus at operative site, Severe pain at the operative site, Persistent vomiting Discharge Instructions Discharge Instructions Previously Scheduled Follow-Up Appointments Wednesday 11:20 AM EST With: Wilma BRANNON, Reji Pickett Where: [facility] [address], [address] [place] [address]- New Follow Up Appointments after Discharge Follow Up with Reji Dillon When: Comments: Appointment has already been scheduled Where: [address], [address] [place] [phone] Business (1) Medications What How Much When Why Instructions Next Dose New acetaminophen-hydroco done ([place] 325 mg-5 mg oral tablet) 1 Tablets By Mouth Every 6 hours as needed for as needed for pain Anal fissure Pickup at [facility]/pharmacy #[id number] Unchanged hydrOXYzine (hydrOXYzine pamoate 25 mg Cap) 180 EA, 0 Refill(s), TAKE 1 CAPSULE BY MOUTH TWICE A DAY NEEDED Unchanged levonorgestrel (Liletta 52 mg intrauteral device) 1 Unknown, intrauterine, 0 Refill(s), 1 each by intrauterine route once. Unchanged sertraline (Zoloft 50 mg Tab) 1 Unknown, 0 Refill(s) Unchanged valacyclovir (valacyclovir 1 g Tab) 10 EA, 0 Refill(s), TAKE 1/ 2 TABLET BY MOUTH IN THE MORNING AND 1/ 2 TABLET BEFORE BEDTIME FOR 5 DAYS Pharmacy Information [facility]/pharmacy #[id number]: [address], [place] [phone] Allergies No Known Allergies Problems Ongoing - Any problem that you are currently receiving treatment for. Anal fissure Mixed anxiety and depressive disorder Smoker Education Materials How to Take a Sitz Bath A sitz bath is a warm water bath that may be used to care for your rectum, genital area, or the area between your rectum and genitals (perineum). In a sitz bath, the water only comes up to your hips and covers your buttocks. A sitz bath may be done in a bathtub or with a portable sitz bath that fits over the toilet. Your health care provider may recommend a sitz bath to help: ??? Relieve pain and discomfort after delivering a baby. ??? Relieve pain and itching from hemorrhoids or anal fissures. ??? Relieve pain after certain surgeries. ??? Relax muscles that are sore or tight. How to take a sitz bath Take 2???4 sitz baths a day, or as many as told by your health care provider. Bathtub sitz bath To take a sitz bath in a bathtub: 1. Partially fill a bathtub with warm water. The water should be deep enough to cover your hips and buttocks when you are sitting in the bathtub. 2. Follow your health care provider's instructions if you are told to put medicine in the water. 3. Sit in the water. Open the bathtub drain a little, and leave it open during your bath. 4. Turn on the warm water again, enough to replace the water that is draining out. Keep the water running throughout your bath. This helps keep the water at the right level and temperature. 5. Soak in the water for 15???20 minutes, or as long as told by your health care provider. 6. When you are done, be careful when you stand up. You may feel dizzy. 7. After the sitz bath, pat yourself dry. Do not rub your skin to dry it. Phqn-lix-wrktxj sitz bath To take a sitz bath with an chsr-hoi-dqcetq basin: 1. Follow the woodworking shop hand's instructions. 2. Fill the basin with warm water. 3. Follow your health care provider's instructions if you were told to put medicine in the water. 4. Sit on the seat. Make sure the water covers your buttocks and karla (more content not included)... Normal [facility] Comment on above: Result Comment: Elec tronically Signed By: Rm STRICKLAND, Karma Peter\.blossom\Date and Time Signed: 11/14/24 11:02 EST Discharge Instructions Discharge Instructions KRISTINA NARVAEZ :1995 Visit Date:11/14/2024 Inpatient Discharge Instructions Your Care Team Admitting Physician - Reji Dillon MD Referring Physician - Reji Dillon MD Reason for Your Visit ANAL FISSURE Your Diagnosis Anal fissure This Is Your Medications List acetaminophen-hydroco done ([place]bbeville 325 mg-5 mg oral tablet) hydrOXYzine (hydrOXYzine pamoate 25 mg Cap) levonorgestrel (Liletta 52 mg intrauteral device) sertraline (Zoloft 50 mg Tab) valacyclovir (valacyclovir 1 g Tab) Procedure History Arthroscopy of knee with meniscus repair (10/04/2024), History of tonsillectomy (2004), Tonsillectomy. What to do next Instructions From Your Doctor Event Name Event Result Discharge Instructions Freetext Okay to remove packing and shower tomorrow. Please perform sitz bath's twice a day and after each bowel movement. If taking narcotic pain medication please take with stool softener or laxative. Discharge Activity Resume normal activities in 24 hours, Expect minimal amount of drainage and/or bleeding, Activity as tolerated Discharge Restrictions No driving for 24 hrs, Do not make important decisions for 24 hours, Do not drink alcoholic beverages for 24 hours Discharge Diet(s) Regular Call Your Doctor For Persistent or heavy bleeding, Temperature above 101.5 degrees, Redness, swelling, or pus at operative site, Severe pain at the operative site, Persistent vomiting Discharge Instructions Discharge Instructions Previously Scheduled Follow-Up Appointments Wednesday 11:20 AM EST With: Reji Dillon MD Where: [facility] [address], [address] [place] [address]- New Follow Up Appointments after Discharge Follow Up with Reji Dillon When: Comments: Appointment has already been scheduled Where: [address], [address] [facility] [address] [place] [phone] Business (1) Medications What How Much When Why Instructions Next Dose New acetaminophen-hydroco done (Abbeville 325 mg-5 mg oral tablet) 1 Tablets By Mouth Every 6 hours as needed for as needed for pain Anal fissure Pickup at [facility]/pharmacy #[id number] Unchanged hydrOXYzine (hydrOXYzine pamoate 25 mg Cap) 180 EA, 0 Refill(s), TAKE 1 CAPSULE BY MOUTH TWICE A DAY NEEDED Unchanged levonorgestrel (Liletta 52 mg intrauteral device) 1 Unknown, intrauterine, 0 Refill(s), 1 each by intrauterine route once. Unchanged sertraline (Zoloft 50 mg Tab) 1 Unknown, 0 Refill(s) Unchanged valacyclovir (valacyclovir 1 g Tab) 10 EA, 0 Refill(s), TAKE 1/ 2 TABLET BY MOUTH IN THE MORNING AND 1/ 2 TABLET BEFORE BEDTIME FOR 5 DAYS Pharmacy Information [facility]/pharmacy #[id number]: [address], [place] [phone] Allergies No Known Allergies Problems Ongoing - Any problem that you are currently receiving treatment for. Anal fissure Mixed anxiety and depressive disorder Smoker Education Materials Anal Fissure, Adult An anal fissure is a small tear or crack in the tissue near the opening of the butt (anus). In most cases, bleeding from the tear or crack stops on its own within a few minutes. You may have bleeding each time you poop until the tear or crack heals. What are the causes? Passing a large or hard poop (stool). ??? Having trouble pooping (constipation). ??? Having watery poops (diarrhea). ??? An inflammatory bowel disease, like Crohn's disease or ulcerative colitis. ??? Childbirth. ??? Infections. ??? Anal sex. What are the signs or symptoms? Bleeding from the butt. ??? Small amounts of blood on your poop. The blood coats the outside of the poop. It is not mixed with the poop. ??? Small amounts of blood on the toilet paper or in the toilet after you poop. ??? Pain when you poop. ??? Itching or irritation around your butt. How is this treated? Treatment may include: ??? Making changes to what you eat and drink. This can help if you have trouble pooping. ??? Taking fiber supplements. These can help make your poop soft. ??? Taking warm water baths (sitz baths). These can help heal the tear. ??? Using creams and ointments. If other treatments do not work, you may need: ??? A shot near the tear or crack (botulinum injection). ??? Surgery to fix the tear or crack. Follow these instructions at home: Medicines ??? Take jzmm-djw-auttayh and prescription medicines only as told by your doctor. This includes creams and ointments that have medicine in them. ??? Use medicines to make your poop soft as told by your doctor. Treating constipation You may need to take these actions to prevent or treat trouble pooping: ??? Drink enough fluid to keep your pee (urine) pale yellow. ??? Eat foods that are high in fiber. These include beans, whole grains, and fresh fruits and veget (more content not included)... Normal [facility] Comment on above: Result Comment: Elec tronically Signed By: Rm STRICKLAND, Karma Peter\.br\Date and Time Signed: 11/14/24 10:50 EST Inpatient Patient Summaryon 11-14-2024 Inpatient Patient Summary Inpatient Patient Summary [address] [address] [facility] Clinical Discharge Instructions PERSON INFORMATION Name: KRISTINA NARVAEZ PHYSICIANS Admitting Physician: Reji Dillon MD Attending Physician: Reji Dillon MD PCP: NATY MCCARTY CNP Discharge Diagnosis: Comment: PATIENT EDUCATION INFORMATION Instructions: Anal Fissure, Adult, Utug-cr-Vlwj Medication Leaflets: Follow up: With: Address: When: Reji Dillon [address] [place], [place] [phone] Business (1) Comments: Appointment has already been scheduled Type Location Start [facility] [address] [facility] 11/24/2024 11:20 AM 11/24/2024 11:40 AM Confirmed MEDICATION LIST New Medications [facility]/pharmacy #[id number], [address], [place] [phone], [phone] acetaminophen-hydroco done (Abbeville 325 mg-5 mg oral tablet) 1 Tablets By Mouth every 6 hours as needed as needed for pain. Refills: 0. Medications to Continue with No Changes Other Medications hydrOXYzine (hydrOXYzine pamoate 25 mg Cap) 180 EA, 0 Refill(s), TAKE 1 CAPSULE BY MOUTH TWICE A DAY NEEDED., Responsible Provider: NATY MCCARTY levonorgestrel (Liletta 52 mg intrauteral device) 1 Unknown, intrauterine, 0 Refill(s), 1 each by intrauterine route once.. sertraline (Zoloft 50 mg Tab) 1 Unknown, 0 Refill(s). valacyclovir (valacyclovir 1 g Tab) 10 EA, 0 Refill(s), TAKE 1/2 TABLET BY MOUTH IN THE MORNING AND 1/2 TABLET BEFORE BEDTIME FOR 5 DAYS., Responsible Provider: GINA DUPREE Comment: [facility] Main OR PACU I Recordon 10-19 Main OR PACU I Record Main OR PACU I Rec ord PACU Phase I Document Type FT Summary Primary Physician: Reji Dillon MD Finalized Date/Time: 11/14/24 11:17:09 Pt. Name: KRISTINA NARVAEZ/Sex: 1995 Female Med Rec #: [id number] Physician: Reji Dillon MD Financial #: [id number] Pt. Type: A Room/Bed: [facility]10/18 Admit/Disch: 11/14/24 08:47:08 - Institution: Case Times PACU I FT Pre-Care Text: Identifies barriers to communication and implements measures to provide psychological support Develops individualized plan of care, and ensures continuity of care Maintains patient's dignity and privacy, and maintains patient confidentiality Identifies and reports philosophical, cultural, and spiritual beliefs and values Identifies individual values and wishes concerning care Implements aseptic technique, and administers prescribed antibiotic therapy and immunizing agents as ordered Evaluates postoperative tissue perfusion Implements thermoregulation measures, and monitors body temperature Evaluates postoperative respiratory status Evaluates postoperative cardiac status Evaluates postoperative neurological status Assesses pain control, collaborated in initiating patient-controlled analgesia and implements alternative methods of pain control Verifies allergies, administers prescribed medications and solutions, evaluates response to medications Entry 1 In PACU I 11/14/24 10:38:00 Discharge from PACU 11/14/24 11:08:00 I Outcomes Met? Yes Last Modified By: Jennifer Burgess I 11/14/24 11:16:51 Post-Care Text: The patient demonstrates knowledge of the expected response to the operative or invasive procedure The patient's care is consistent with the individualized perioperative plan of care The patient's right to privacy is maintained The patient's value system, lifestyle, ethnicity, and culture are considered, respected, and incorporated into the perioperative plan of care The patient participates in decisions affecting his or her perioperative plan of care The patient is free from signs and symptoms of infection The patient has wound/tissue perfusion consistent with or improved from baseline levels established preoperatively The patient is at or returning to normothermia at the conclusion of the immediate postoperative period The patient's respiratory function is consistent with or improved from baseline levels established preoperatively The patient's cardiovascular status is consistent with or improved from baseline levels established preoperatively The patient's cardiovascular status is consistent with or improved from baseline levels established preoperatively The patient demonstrates and/or reports adequate pain control throughout the perioperative period The patient received appropriate medication(s), safely administered during the perioperative period Acuity Level PACU I FT Entry 1 Start Time 11/14/24 10:38:00 Stop Time 11/14/24 11:08:00 Acuity Level Acuity Level I Last Modified By: Jennifer Burgess I 11/14/24 11:17:05 Finalized By: Jennifer Burgess I Document Signatures Signed By: Jennifer Burgess I 11/14/24 11:17 Normal [facility] Main OR Preoperative Recordo n 11-14-2024 Main OR Preoperative Record Main OR Preoperative Record PreOp Document Type FT Summary Primary Physician: Reji Dillon MD Finalized Date/Time: 11/14/24 10:48:24 Pt. Name: KRISTINA NARVAEZ/Sex: 1995 Female Med Rec #: [id number] Physician: Reji Dillon MD Financial #: [id number] Pt. Type: A Room/Bed: [facility]10/18 Admit/Disch: 11/14/24 08:47:08 - Institution: Case Times PreOp FT Pre-Care Text: Verifies consent for planned procedure, identifies individual values and wishes concerning care, includes family members in perioperative teaching Entry 1 Patient Times. In Pre Surgery 11/14/24 08:50:00 Out Pre Surgery 11/14/24 10:05:00 Outcomes Met? Yes Last Modified By: Faiza Matos RN 11/14/24 10:48:23 Post-Care Text: The patient participates in decisions affecting his or her perioperative plan of care Finalized By: Faiza Matos RN Document Signatures Signed By: Faiza Matos RN 11/14/24 10:48 Normal [facility] Operative Reporton 5 Operative Report Operative Report Indication for Surgery 29-year-old female with history of posterior midline anal fissure who has failed conservative therapy with nonhealing of the chronic anal fissure here today for left lateral internal sphincterotomy. Risk benefits alternatives monica with the patient consent obtained in office. Preoperative Diagnosis Chronic anal fissure posterior midline Postoperative Diagnosis As above Operation LEFT LATERAL INTERNAL SPHINCTEROTOMY Surgeon(s) Wilma BRANNON, Reji Pickett (Surgeon - Primary) Fitness Studies Teacher She Anesthesia Panfilo Bryson Jr., DO (Script Coordinator) Júnior Ramsey (Anesthesiologist Fitness Studies Teacher) Estimated Blood Loss 10 cc Urine Output Void prior to OR Findings Nonhealing posterior midline anal fissure Specimen(s) No Complications None Technique After obtaining informed consent the patient was taken to the operating room and general anesthesia was achieved on the patient cart. The patient was then transferred over to the operating room table and positioned in lithotomy position. The patient received perioperative antibiotic prophylaxis. A timeout was performed. The patient was prepped and draped in a sterile fashion. Using quarter percent Marcaine with epinephrine the skin and soft tissue surrounding the endoderm was anesthetized.. A speculum was inserted into the anal cavity and the intersphincteric groove was identified. This was then infiltrated with local anesthetic. A radial incision was made in the left anoderm overlying the intersphincteric groove a submucosal plane was created and then a plane between the internal and external anal sphincter was created. A few muscle fibers from the internal anal sphincter were hooked and then divided. Hemostasis was then achieved by holding pressure and then electrocautery. Quarter inch Nu Gauze packing strip was placed in the wound. The patient was transferred back to the patient cart supine and awoken. The patient was then extubated and returned to the recovery room. All of our counts are correct x2. The patient tolerated the procedure without difficulty. Normal [facility] Comment on above: Result Comment: Elec tronically Signed By: Wilma BRANNON, Reji Pickett\.br\Date and Time Signed: 11/14/24 10:43 EST Outpatient Surgery Discharge Instructionon 11-14-2024 Outpatient Surgery Discharge Instruction Outpatient Surgery Discharge Instruction [place] [id number] Patient Discharge Instructions PERSON INFORMATION Name: KRISTINA NARVAEZ Date of : 1995 Current Date: 11/14/2024 10:40:34 PHYSICIANS Admitting Physician: Reji Dillon MD Discharge Diagnosis: KRISTINA NARVAEZ has been given the following list of follow-up instructions, prescriptions, and patient education materials: PATIENT FOLLOW-UP INFORMATION Diet: Regular Discharge Activity: Resume normal activities in 24 hours, Expect minimal amount of drainage and/or bleeding, Activity as tolerated Discharge Restrictions: No driving for 24 hrs, Do not make important decisions for 24 hours, Do not drink alcoholic beverages for 24 hours Call Your Doctor For: Persistent or heavy bleeding, Temperature above 101.5 degrees, Redness, swelling, or pus at operative site, Severe pain at the operative site, Persistent vomiting Additional Instructions: Okay to remove packing and shower tomorrow. Please perform sitz bath's twice a day and after each bowel movement. If taking narcotic pain medication please take with stool softener or laxative. IF UNABLE TO CONTACT YOUR PHYSICIAN AND YOU FEEL IT IS AN EMERGENCY, GO TO THE NEAREST EMERGENCY ROOM OR CALL 911 I, SOLANGE KRISTINA, have received the attached patient education materials/instruction s and have verbalized understanding: May we do a follow up call? Yes No I was present when discharge instructions were given Patient Signature Date Clinican/Nurse Signature Date Follow up: With: Address: When: Reji Dillon [address], [facility] [address], [facility] [address] [place] [phone] Business (1) Comments: Appointment has already been scheduled Type Location Start Finish [facility] [address] [facility] [place] 11/24/2024 11:20 AM 11/24/2024 11:40 AM Confirmed Pharmacy Information: You may receive a survey from [employer] asking you to rate your care experience. Your feedback is important and will help us understand what we do well and how we can improve the quality of care we provide to you, your loved ones and our community. It???s an honor to serve you. Thank you for choosing [facility] HERE ARE THE MEDICATION CHANGES THAT OCCURRED DURING YOUR HOSPITAL STAY New Medications [id number], [address], [place] [phone], [phone] acetaminophen-hydroco done (A[place]eville 325 mg-5 mg oral tablet) 1 Tablets By Mouth every 6 hours as needed as needed for pain. Refills: 0. Medications to Continue with No Changes Other Medications hydrOXYzine (hydrOXYzine pamoate 25 mg Cap) 180 EA, 0 Refill(s), TAKE 1 CAPSULE BY MOUTH TWICE A DAY NEEDED., Responsible Provider: NATY MCCARTY levonorgestrel (Liletta 52 mg intrauteral device) 1 Unknown, intrauterine, 0 Refill(s), 1 each by intrauterine route once.. sertraline (Zoloft 50 mg Tab) 1 Unknown, 0 Refill(s). valacyclovir (valacyclovir 1 g Tab) 10 EA, 0 Refill(s), TAKE 1/2 TABLET BY MOUTH IN THE MORNING AND 1/2 TABLET BEFORE BEDTIME FOR 5 DAYS., Responsible Provider: GINA DUPREE PATIENT EDUCATION INFORMATION Instructions: Anal Fissure, Adult An anal fissure is a small tear or crack in the tissue near the opening of the butt (anus). In most cases, bleeding from the tear or crack stops on its own within a few minutes. You may have bleeding each time you poop until the tear or crack heals. What are the causes? Passing a large or hard poop (stool). ??? Having trouble pooping (constipation). ??? Having watery poops (diarrhea). ??? An inflammatory bowel disease, like Crohn's disease or ulcerative colitis. ??? Childbirth. ??? Infections. ??? Anal sex. What are the signs or symptoms? Bleeding from the butt. ??? Small amounts of blood on your poop. The blood coats the outside of the poop. It is not mixed with the poop. ??? Small amounts of blood on the toilet paper or in the toilet after you poop. ??? Pain when you poop. ??? Itching or irritation around your butt. How is this treated? Treatment may include: ??? Making changes to what you eat and drink. This can help if you have trouble pooping. ??? Taking fiber supplements. These can help make your poop soft. ??? Taking warm water baths (sitz baths). These can help heal the tear. ??? Using creams and ointments. If other treatments do not work, you may need: ??? A shot near the tear or crack (botulinum injection). ??? Surgery to fix the tear or crack. Follow these instructions at home: Medicines ??? Take over-the-c (more content not included)... Normal [facility] SEROLOGYOrdered By: Irena gold on 11-14-2024 Beta HCG ( test) Ql Negative (11/14/24 9:30 AM) Normal [facility] General Surgery Office/Clini c Noteon 10-30-2024 General Surgery Office/Clinic Note General Surgery Office/Clinic Note Chief Complaint Anal fissure 1 month follow-up HPI Staff Kristina is a 29 y.o. female here for 1 month follow up Hx of anal fissure- rx'd nifedipine/lidocaine gel History of Present Illness 29-year-old female with posterior midline anal fissure last seen by the general surgery service 1 month ago here for 1 month follow-up. We had encouraged smoking cessation for the patient as well as trialed her with a 0.2% nifedipine 5% lidocaine ointment. The patient reported some brief relief initially however about a week ago she began noticing blood per rectum as well as the associated pain with defecation which he describes as passing glass in the anal canal Physical Exam Vitals & Measurements HR: 72(Peripheral) BP: 106/66 HT: 62 in HT: 157 cm WT: 56 kg WT: 123.459 lb BMI: 22.72 Posterior midline anal fissure Assessment/Plan 1. Anal fissure (K60.2: Anal fissure, unspecified) Chronic anal fissure on healed we will plan for left lateral internal sphincterotomy Ordered: E&M of Est. Patient Moderate 30-39 Min 97292 Hospital-based Procedure 2. Smoker (F17.200: Nicotine dependence, unspecified, uncomplicated) Patient was counseled to quit smoking Ordered: E&M of Est. Patient Moderate 30-39 Min 37329 Hospital-based Procedure Portions of this record may have been created with voice recognition artificial intelligence software, specifically [employer], [employer] and or [employer]. Substitutions may have occurred due to the inherent limitations of voice recognition and artificial intelligence software. Follow-up No qualifying data available Problem List/Past Medical History Ongoing Anal fissure Mixed anxiety and depressive disorder Smoker Historical No qualifying data Procedure/Surgical History Arthroscopy of knee with meniscus repair (10/04/2024), History of tonsillectomy (2004), Tonsillectomy. Medications alprazolam 0.25 mg Tab hydrocortisone 30 mg rectal suppository hydrOXYzine pamoate 25 mg Cap lidocaine 5% rectal cream, See Instructions Liletta 52 mg intrauteral device valacyclovir 1 g Tab Zoloft 50 mg Tab Allergies No Known Allergies Social History Alcohol - Denies Alcohol Use, 09/02/2024 Never., 09/25/2024 Substance Abuse - Denies Substance Abuse, 09/02/2024 Never., 09/25/2024 Tobacco - High Risk, 09/02/2024 vape Tobacco Use:. 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 female here for ER follow up Patient presented to [facility] ER on 09/02/2024 with hemorrhoids Treated at different medical facilities with topical hydrocortisone and Tucks pads Today patient states she has had pain for over a month, especially with bowel movement She denies constipation History of Present Illness 29-year-old female who was first seen by the emergency department on September 02, 2024 for evaluation of hemorrhoids and referred to general surgery for subsequent evaluation. On review of the emergency department note the patient had been experiencing symptoms of progressively worsening burning and discomfort which was in fact worsened with the use of topical hydrocortisone. She has trialed sitz bath's she has also tried Tucks pads but this also cause discomfort for her. Rectal exam was deferred in the emergency department. Reports straining with bowel movements, hematochezia, and extreme pain with defecation which the patient characterizes as passing stool through the anal canal. Review of Systems PHQ Score Initial Depression Screen Score: 4 SCORE Detailed Depression Screen Score: 12 Total Depression Screen Score: 16 Physical Exam Vitals & Measurements HR: 71(Peripheral) BP: 103/64 HT: 62 in HT: 157 cm WT: 57 kg WT: 125.663 lb BMI: 23.12 posterior midline anal fissure Assessment/Plan 1. Anal fissure (K60.2: Anal fissure, unspecified) Will prescribe 0.2% nifedipine, 5% lidocaine gel applied twice daily as needed will follow-up in 1 month to monitor for healing of anal fissure Ordered: E&M of New Patient Low 30-44 Min [id number] 2. Smoker (F17.200: Nicotine dependence, unspecified, uncomplicated) Strongly recommend patient to quit tobacco use. Cigarette smoking harms nearly every organ of the body, causes many diseases, and reduces the health of smokers in general. Quitting smoking lowers risk for smoking-related diseases and increases life expectancy. Encouraged patient to visit helpful online resources and/or free telephone support such as 7-899-BTPDIOO. Prescription medication to help smoking cessation available on request from PCP. Ordered: E&M of New Patient Low 30-44 Min [id number] Follow-up No qualifying data available Patient Education Anal Fissure, Adult, Vatf-sr-Kloh Health Risks of Smoking Problem List/Past Medical History Ongoing Anal fissure Mixed anxiety and depressive disorder Smoker Historical No qualifying data Procedure/Surgical History History of tonsillectomy (2004), Tonsillectomy. Medications hydrocortisone 30 mg rectal suppository hydrOXYzine pamoate 25 mg Cap lidocaine 5% rectal cream, See Instructions valacyclovir 1 g Tab Zoloft 50 mg Tab Allergies No Known Allergies Social History Alcohol - Denies Alcohol Use, 09/02/2024 Never., 09/25/2024 Substance Abuse - Denies Substance Abuse, 09/02/2024 Never., 09/25/2024 Tobacco - High Risk, 09/02/2024 vape Tobacco Use:., 09/25/2024 Immunizations Vaccine Date Status diphtheria/pertussis, acel/tetanus adult 03/09/2017 Recorded Normal [facility] Comment on above: Result Comment: Elec tronically Signed By: Wilma BRANNON, Reji Juarez\Date and Time Signed: 09/25/24 14:50 EST No Panel Informationon 09-08 STAPHYLOCOCCUS EPIDERMIDIS, HAEMOLYTICUS, LUGDUNENSIS, SAPROPHYTICUS (URINA 0 [facility] STAPHYLOCOCCUS EPIDERMIDIS, HAEMOLYTICUS, LUGDUNENSIS, SAPROPHYTICUS (URINA Not detected [facility] URINARY TRACT INFECTION (HTR X)on 09-08-2024 ACINETOBACTER BAUMANII 0 [facility] ACINETOBACTER BAUMANII Not detected [facility] PATRICK ALBICANS, PARAPSILOSIS, TROPICALIS 0 [facility] PATRICK ALBICANS, PARAPSILOSIS, TROPICALIS Not detected [facility] PATRICK GLABRATA 0 [facility] PATRICK GLABRATA Not detected [facility] PATRICK KRUSEI 0 [facility] PATRICK KRUSEI Not detected [facility] CITROBACTER FREUNDII 0 [facility] CITROBACTER FREUNDII Not detected NO [facility] ENTEROBACTER AEROGENES, CLOACAE 0 [facility] ENTEROBACTER AEROGENES, CLOACAE Not detected [facility] ENTEROCOCCUS FAECALIS, FAECIUM 0 [facility] ENTEROCOCCUS FAECALIS, FAECIUM Not detected [facility] ESCHERICHIA COLI 0 [facility] ESCHERICHIA COLI Not detected [facility] KLEBSIELLA PNEUMONIAE, OXYTOCA 0 [facility] KLEBSIELLA PNEUMONIAE, OXYTOCA Not detected [facility] MORGANELLA MORGANII 0 [facility] MORGANELLA MORGANII Not detected [facility] PROTEUS MIRABILIS, VULGARIS 0 [facility] PROTEUS MIRABILIS, VULGARIS Not detected [facility] PSEUDOMONAS AERUGINOSA 0 [facility] PSEUDOMONAS AERUGINOSA Not detected [facility] SERRATIA MARCESCENS 0 [facility] SERRATIA MARCESCENS Not detected [facility] STAPHYLOCOCCUS AUREUS 0 [facility] STAPHYLOCOCCUS AUREUS Not detected [facility] STREPTOCOCCUS AGALACTIAE (GROUP B STREP) 0 [facility] STREPTOCOCCUS AGALACTIAE (GROUP B STREP) Not detected [facility] STREPTOCOCCUS PYOGENES (GROUP A STREP) 0 [facility] STREPTOCOCCUS PYOGENES (GROUP A STREP) Not detected [facility] ED Clinical Summaryon 2023 ED Clinical Summary ED Clinical Summary [place] [address] ED Clinical Summary Person Information Name: KRISTINA NARVAEZ/[facility] Age: 29 Years : 1995 Sex: Female Language: Eritrean PCP: NATY MCCARTY CNP Marital Status: Single Phone: Visit Id: Visit Reason: Medical problem - minor; Rectal pain; hemorrhoid for 2 weeks Speciality: Acuity: 4 Enc Type: Emergency Med Service: Emergency Arrival: 09/02/2024 12:23:58 Discharge: 09/02/2024 13:13:32 LOS: 000 00:50 Checkin: 09/02/2024 12:23:58 Checkout: 09/02/2024 13:13:32 Dispo Type: Home (Routine DC) EVENTS: Event Name Event Status Request Date/Time Start Date/Time Complete Date/Time Arrive Complete 09/02/2024 12:23:58 09/02/2024 12:23:58 09/02/2024 12:23:58 Document Home Meds Request 09/02/2024 12:23:58 Triage Complete 09/02/2024 12:23:58 09/02/2024 12:33:16 09/02/2024 12:33:16 Bed Assign Complete 09/02/2024 12:27:56 09/02/2024 12:27:56 09/02/2024 12:27:56 Dr Exam Complete 09/02/2024 12:27:56 09/02/2024 12:28:34 09/02/2024 12:28:34 RN Exam Complete 09/02/2024 12:27:56 09/02/2024 12:38:19 09/02/2024 12:38:19 Registration Complete 09/02/2024 12:28:34 09/02/2024 12:40:48 09/02/2024 12:40:48 Dr Exam Complete 09/02/2024 12:29:24 09/02/2024 12:29:24 09/02/2024 12:29:24 Reg Complete Request 09/02/2024 12:40:48 Reg Bed Request Complete 09/02/2024 12:40:49 09/02/2024 12:40:49 09/02/2024 12:40:49 Discharge Complete 09/02/2024 13:01:21 09/02/2024 13:13:37 09/02/2024 13:13:37 Transfer Complete 09/02/2024 13:13:37 09/02/2024 13:13:37 09/02/2024 13:13:37 ADDRESS: [address] [place] [phone] PHYS DOC NOTES: MEDICAL INFORMATION: Prescriptions Given: New Medications [id number], [address], [place] [id number], [phone] hydrocortisone topical (Anusol-HC 25 mg rectal suppository) 1 Suppositories By rectum 2 times a day for 7 Days. Refills: 0. lidocaine topical (lidocaine 5% rectal cream) Apply to affected area up to 6 times daily. Refills: 0. PATIENT EDUCATION INFORMATION: Instructions: Hemorrhoids Follow up: With: Address: When: Reji Dillon [address] [place], [place] [address]michael, [address], [facility] [address] [place] [phone] Business (1) In 3 days 09/05/2024 DIAGNOSIS: Hemorrhoid Normal [facility] ED Note-Physicianon 09-02-20 ED Note-Physician ED Note-Physician Basic Information Time Seen: Hilda DAVISPeña 09/02/2024 12:28 Chief Complaint pt states shes been dealing with a hemmorroid for 2 weeks. History of Present Illness 29-year-old female comes to the ED for evaluation of hemorrhoids. States she can deal with hemorrhoids over the last couple of weeks. She has been to urgent care was treated with topical hydrocortisone but this caused significant anal burning and discomfort. She also has tried Tucks pads but this caused discomfort as well. She tried sitz bath's. Denies any abdominal pain or constipation. No fevers nausea or vomiting. Review of Systems A 10 point review of systems is negative except as noted above. Medical and Surgical History: Reviewed and noted Social history: Lives at home Tobacco: Denies Physical Exam Vitals & Measurements T: 36.6 ???C(Oral) HR: 86(Peripheral) RR: 16 BP: 123/79 SpO2: 98% HT: 157.48 cm WT: 58 kg BMI: 23.39 Nurses notes and vital signs reviewed and patient is not hypoxic. General: The patient appears well, resting comfortably. Skin: Warm, dry. Head: Atraumatic. Neck: No JVD. Eye: Normal conjunctiva. Ears, Nose, Mouth, and Throat: Moist mucous membranes. Cardiovascular: Strong distal pulses. Chest wall: Respiratory: Respirations are nonlabored. Back: Normal range of motion. Musculoskeletal: Normal ROM with no gross deformity. Gastrointestinal: Rectal exam deferred Urological: Neurological: Awake and alert. No focal deficits. Follows commands. Psychiatric: Cooperative. Medical Decision Making Patient presents with hemorrhoids. She describes multiple prior treatments, however she has only tried these treatment sporadically. She tried topical hydrocortisone and Tucks pads but complains of pain with that. We were treated today with topical lidocaine to help get some symptomatic relief, and then Anusol suppositories to treat the underlying hemorrhoid. She is given referral to general surgery for definitive management. Patient was encouraged to return to the ED if symptoms worsen or change. Assessment/Plan Hemorrhoid (K64.9: Unspecified hemorrhoids) Orders: hydrocortisone topical, 25 mg = 1 supp, Rectal, BID, X 7 day(s), # 14 supp, Refills(s) 0, Pharmacy: [id number], 157.5, cm, 09/02/24 12:33:00 EST, Height/Length Dosing, 58, kg, 09/02/24 12:33:00 EST, Weight Dosing lidocaine topical, See Instructions, 20 gm, Refill(s) 0, Apply to affected area up to 6 times daily, [id number], 157.5, cm, 09/02/24 12:33:00 EST, Height/Length Dosing, 58, kg, 09/02/24 12:33:00 EST, Weight Dosing Disposition Plan Patient Discharge Condition Disposition: Discharged home Condition: Improved and stable Counseled: Patient and/or family were counseled to workup, results, treatment plan and follow-up recommendations Discharge Prescription List Prescriptions Anusol-HC 25 mg rectal suppository, 25 mg= 1 supp, Rectal, BID lidocaine 5% rectal cream, See Instructions Follow-up With When Contact Information Reji Dillon In 3 days 09/05/2024 EST [address], [facility] [address] [address] [phone] Business (1) Additional Instructions: Patient Education Hemorrhoids Attestation I performed a substantive part of the MDM during the patient???s E/M visit. I personally made or approved the documented management plan and acknowledge its risk of complications. (Independent Interpretation) My (EKG/X-Ray/US/CT) interpretation as above. (Discussion) Management/test interpretation discussed with APC. This report was transcribed using voice recognition software. Every effort was made to ensure accuracy, however, inadvertently computerized geospatial image analyst mistakes may be present. Appropriate healthcare PPE was used in evaluating this patient. Problem List/Past Medical History Ongoing Smoker Historical No qualifying data Medications Inpatient No active inpatient medications Home No active home medications Allergies No Known Allergies Social History Alcohol - Denies Alcohol Use, 09/02/2024 Substance Abuse - Denies Substance Abuse, 09/02/2024 Tobacco - High Risk, 09/02/2024 Lab Results No qualifying data available. Diagnostic Results No qualifying data available. [facility] Comment on above: Result Comment: Elec tronically Signed By: Peña Stevens PA-C\.br\Date and Time Signed: 09/02/24 15:06 EST\.br\Electronically Co-Signed By: Reji Thrasher DO\.br\Date and Time Co-Signed: 09/02/24 18:15 EST ED Patient Summaryon 024 ED Patient Summary ED Patient Summary [address] [address] Patient Discharge Instructions Person Information Name: KRISTINA NARVAEZ Age: 29 Years Arrival Date: 09/02/2024 12:23:58 Discharge Diagnosis: Hemorrhoid Primary Care Physician: NATY MCCARTY CNP Provider Information Primary Provider: Reji Thrasher DO [employer] Executive:Peña Stevens PA-C The exam and treatment you received in the Emergency Department were for an urgent problem and are not intended as complete care. It is important that you follow up with a doctor, nurse practitioner, or physician???s engineer second assistant for ongoing care. If your symptoms become worse or you do not improve as expected and you are unable to reach your usual health care provider, you should return to the Emergency Department. We are available 24 hours a day. KRISTINA NARVAEZ has been given the following list of patient education materials, prescriptions and follow-up instructions: Follow-up Instructions: With: Address: When: Reji Dillon [address] [place], [place] [id number] [phone] Business (1) In 3 days 09/05/2024 In the event that this physician does not participate in your insurance network, please consult with your insurance company to find a nearby participating provider. Patient Education Materials: Hemorrhoids A MESSAGE TO ALL PATIENTS REGARDING OPIOIDS PRESCRIPTION OPIOIDS: WHAT YOU NEED TO KNOW Prescription opioids can be used to help relieve pmoihxop-ou-zueqmi pain and are often prescribed following a surgery or injury, or for certain health conditions. These medications can be an important part of the treatment but also come with serious risks. It is important to work with your healthcare provider to make sure you are getting the safest, most effective care. WHAT ARE THE RISKS AND SIDE EFFECTS OF OPIOID USE? Prescription opioids carry serious risks of addiction and overdose, especially with prolonged use. An opioid overdose, often marked by slowed breathing, can cause sudden . The use of prescription opioids can have a number of side effects as well, even when taken as directed: ??? Tolerance???meaning you might need to take more of the medication for the same pain relief ??? Physical dependence???meaning you have symptoms of withdrawal when a medication is stopped ??? Increased sensitivity to pain ??? Constipation ??? Nausea, vomiting, and dry mouth ??? Sleepiness and dizziness ??? Confusion ??? Depression ??? Low levels of testosterone that can result in lower sex drive, energy, and strength ??? Itching and sweating RISKS ARE GREATER WITH: ??? History of drug misuse, substance use disorder, or overdose ??? Mental health conditions (such as depression or anxiety) ??? Sleep apnea ??? Older age (65 years and older) ??? Avoid alcohol while taking prescription opioids. Also, unless specifically advised by your health care provider, medications to avoid include: ??? Benzodiazepines (such as Xanax or Valium) ??? Muscle relaxants (such as Soma or Flexeril) ??? Hypnotics (such as Ambien or Lunesta) ??? Other prescription opioids KNOW YOUR OPTIONS Talk to your health care provider about ways to manage your pain that don???t involve prescription opioids. Some of these options may actually work better and have fewer risks and side effects. Options may include: ??? Pain relievers such as acetaminophen, ibuprofen, and naproxen ??? Some medication that are also used for depression or seizures ??? Physical therapy and exercise ??? Cognitive behavioral therapy, a psychological, goal-directed approach, in which patients learn how to modify physical, behavioral, and emotional triggers of pain and stress. IF YOU ARE PRESCRIBED OPIOIDS FOR PAIN: ??? Never take opioids in greater amounts or more often than prescribed. ??? Follow up with your primary health care provider. o Work together to create a plan on how to manage your pain. o Talk about ways to help manage your pain that don???t involve prescription opioids. o Talk about any and all concerns and side effects. ??? Help prevent misuse and abuse o Never sell or share prescription opioids. o Never use another person???s prescription opioids. ??? Store prescription opioids in a secure place and out of reach of others (this may include visitors, children, friends, and family). ??? Safely dispose of unused prescription opioids: Find your community drug take-back program or your pharmacy mail-back program, or flush them down the toilet, following guidance from the Food and Drug Administration (www.fda.gov/Drugs/Re sourcesForYou). ??? Visit www.cdc.gov/drugoverd ose to learn about the risks of opioids abuse and overdose. ??? If you believe you may be struggling with addiction, tell your health day care home provider and ask for guid (more content not included)... Normal [facility] MR KNEE RIGHT WO IV CONTRAST on [...] intact. Findings predisposing to and suggesting patellar instability/maltracki ng. ELECTRONICALLY SIGNED BY: Júnior Santoro, DO Normal Not Available No Panel Informationon 07-05 NISHI Cobb 07/05/2024 4:17 PM L Inj/Asp: R knee on 07/05/2024 2:29 PM Indications: pain Details: 22 G needle, anterolateral approach Medications: 40 mg methylPREDNISolone acetate 40 MG/ML Outcome: tolerated well, no immediate complications E UTILIZING ASEPTIC TECHNIQUE PT GIVEN INJECTION IN RIGHT KNEE, NEUROVASC INTACT S/P INJ, TOLERATED WELL Procedure, treatment alternatives, risks and benefits explained, specific risks discussed. Consent was given by the patient. Patient was prepped and draped in the usual sterile fashion. [facility] US LOWER EXTREMITY VENO US DUPLEX RIGHTon 05-24-2024 VASC US LOWER EXTREMITY VENOUS DUPLEX RIGHT Exam: [...] AGon 09-18 INFLUBNEG SEE BELOW Normal The [facility] Comment on above: Result Comment: Nega tive for Flu B protein antigen. Infection due to Flu B cannot be ruled out. Flu B antigen in the sample may be below the detection limit of the test. Performed By: #### I NFLUAB #### [facility] [address] [place] [address] [address] Darshan Porter INFLUENZA A AG Positive Abnormal NEGATIVE SEE COMMENT [facility] Comment on above: Performed By: #### I NFLUAB #### [facility] [address] [place] [address] [address] Darshan Porter INFLUENZA B AG Negative Normal NEGATIVE SEE COMMENT [facility] Comment on above: Performed By: #### I NFLUAB #### [facility] [address] [place] [address] Dr. Darshan Porter INFLUPOSH SEE BELOW Normal [facility] Comment on above: Result Comment: NOTE : Live attenuated influenzae vaccine viruses can cause a positive result for a rapid influenza diagnostic test if administered up to 7 days prior to rapid testing. Performed By: #### I NFLUAB #### [facility] [address] [place] [address] Dr. Darshan Porter INTERNAL CONTROLS Within Normal Limits Normal Wi thin Normal Limits [facility] Comment on above: Performed By: #### I NFLUAB #### [facility] [address] [place] [address] Dr. Darshan Porter CHLAMYDIA/GONOCOCCUS NESSA ( AB/URINE/PAPon 05-14-2022 Chlamydia trachomatis, NESSA Negative Normal Negative [facility] Comment on above: Performed By: #### C T/NGNA #### [facility] [address] [place] [address] Dr. Darshan Porter Neisseria gonorrhoeae, NESSA Negative Normal Negative [facility] Comment on above: Performed By: #### C T/NGNA #### [facility] [address] [place] [address] Dr. Darshan Porter VAGINITIS/VAGINOSIS DNA PROB Donell 05-14-2022 Patrick species Negative Normal Negative [facility] Comment on above: Performed By: #### V AGINT #### [facility] [address] [place] [address] Dr. Darshan Porter Gardnerella vaginalis Positive Abnormal Negative [facility] Comment on above: Performed By: #### V AGINT #### [facility] [address] [place] [address] Dr. Darshan Porter Trichomonas vaginalis Negative Normal Negative [facility] Comment on above: Performed By: #### V AGINT #### [facility] [address] [place] [address] Dr. Darshan Porter Basic Metabolic Panelon 06-1 Calcium [Mass/Vol] 9.4 mg/dL Normal 8.2-10.2 [facility] Comment on above: Performed By: #### C BC, BMP #### [facility] [address] Chloride [Moles/Vol] 102 mmol/L Normal 95-114 [facility] Comment on above: Performed By: #### C BC, BMP #### [facility] [address] CO2 [Moles/Vol] 22.1 mmol/L Normal 22.0-30.0 [facility] Comment on above: Performed By: #### C BC, BMP #### [facility] [address] Creatinine [Mass/Vol] 0.80 mg/dL Normal 0.44-1.03 [facility] Comment on above: Performed By: #### C BC, BMP #### [facility] [address] [place] [address] [place] Creatinine Clr Calc Pharmacy 85.[address] [facility] Comment on above: Result Comment: PERF ORMED BY: [place] [address] PATHOLOGIST DINING CAR SERVER LAKEISHA GRAY M.D. Performed By: #### C BC, BMP #### [facility] [address] Estimated GFR ( Sis > 60 [facility] Comment on above: Result Comment: GFR estimated reference range: According to KDOQI guidelines, <60 ml/min/1.73m2 is sufficient to diagnose a patient with chronic kidney disease. Performed By: #### C BC, BMP #### [facility] [address] [place] [address] [place] Estimated GFR (Non- Am > 60 [facility] Comment on above: Performed By: #### C BC, BMP #### [facility] [address] Glucose [Mass/Vol] 88 mg/dL Normal 70-100 [facility] Comment on above: Result Comment: [place] Glucose Reference Range is dependent on time and content of last meal. Glucose of more than 200 mg/dL in a nonstressed, ambulatory subject supports the diagnosis of Diabetes Mellitus. ADA recommended reference range Performed By: #### C BC, BMP #### [facility] [address] Potassium [Moles/Vol] 3.7 mmol/L Normal 3.5-5.1 [facility] Comment on above: Performed By: #### C BC, BMP #### [facility] [address] Sodium [Moles/Vol] 136 mmol/L Normal 136-146 [facility] Comment on above: Performed By: #### C PETR, BMP #### [facility] [address] Urea nitrogen [Mass/Vol] 8 mg/dL Low 9-23 [facility] Comment on above: Performed By: #### C PETR, BMP #### [facility] [address] COVID-19 / Flu A/B / RSV [...] or Cepheid Disclaimer revoked sooner. PERFORMED BY: [place] [address] PATHOLOGIST DINING CAR SERVER LAKEISHA GRAY M.D. Normal [facility] Comment on above: Performed By: #### C OVID19 FLU RSV, CEPHEID POS #### [facility] [address] [place] [address] Cepheid COVID PCR Positiveon 03-31-2022 SARS-CoV-2 (COVID-19) RNA NESSA+probe Ql (Unsp spec) Positive Critically abnormal Negative [facility] Comment on above: Result Comment: This is a duplicate Cepheid Xpert Xpress CoV-2/Flu/RSV Plus RNA by RT-PCR result to be used for statistical tracking purpose only. PERFORMED BY: [place] [address] PATHOLOGIST DINING CAR SERVER LAKEISHA GRAY M.D. Performed By: #### C OVID19 FLU RSV, CEPHEID POS #### [facility] [address] [place], [place] [id number] [facility] Complete Blood Count Auto Di ffon 06-14-2022 Basophils (Bld) [#/Vol] 0.0 10*3/uL Normal 0.0-0.2 [facility] Comment on above: Result Comment: PERF ORMED BY: [place] [address] PATHOLOGIST DINING CAR SERVER LAKEISHA GRAY M.D. Performed By: #### C BC, BMP #### [address] Basophils/100 WBC (Bld) 0.8 % Normal . [facility] Comment on above: Performed By: #### C BC, BMP #### [place] [address] [place] Eosinophils (Bld) [#/Vol] 0.0 10*3/uL Normal 0.0-0.45 [facility] Comment on above: Performed By: #### C BC, BMP #### [address] Eosinophils/100 WBC (Bld) 0.5 % Normal . [facility] Comment on above: Performed By: #### C BC, BMP #### [address] Erythrocyte distribution width (RBC) [Ratio] 13.9 % Normal 11.9-15.3 [facility] Comment on above: Performed By: #### C BC, BMP #### [address] Hematocrit (Bld) [Volume fraction] 40.8 % Normal 34.0-46.4 [facility] Comment on above: Performed By: #### C BC, BMP #### [place] [address] [place] Hemoglobin (Bld) [Mass/Vol] 13.9 g/dL Normal 11.8-15.4 [facility] Comment on above: Performed By: #### C BC, BMP #### [address] Lymphocytes (Bld) [#/Vol] 0.7 10*3/uL Low 1.00-4.8 [facility] Comment on above: Performed By: #### C BC, BMP #### [facility] [address] [place] [address] [place] Lymphocytes/100 WBC (Bld) 13.9 % Normal . [facility] Comment on above: Performed By: #### C BC, BMP #### [facility] [address] MCH (RBC) [Entitic mass] 31.2 pg Normal 24.7-34.3 [facility] Comment on above: Performed By: #### C BC, BMP #### [facility] [address] MCV (RBC) [Entitic vol] 91.3 fL Normal 80-100 [facility] Comment on above: Performed By: #### C BC, BMP #### [address] Mean Corpuscular HGB Conc 34.1 g/dL Normal 32.0-35.0 [facility] Comment on above: Performed By: #### C BC, BMP #### [place] [address] [place] Monocytes (Bld) [#/Vol] 1.0 10*3/uL High 0.0-0.8 [facility] Comment on above: Performed By: #### C BC, BMP #### [place] [address] [place] Monocytes/100 WBC (Bld) 19.6 % Normal . [facility] Comment on above: Performed By: #### C BC, BMP #### [facility] [address] [place] [address] [place] Neutrophils (Bld) [#/Vol] 3.5 10*3/uL Normal 1.8-7.7 [facility] Comment on above: Performed By: #### C BC, BMP #### [facility] [address] Neutrophils/100 WBC (Bld) 65.2 % Normal . [facility] Comment on above: Performed By: #### C BC, BMP #### [facility] [address] Nucleated RBC/100 WBC (Bld) [Ratio] 0.2 % Normal 0-0.5 [facility] Comment on above: Performed By: #### C PETR, BMP #### [facility] [address] Platelet mean volume (Bld) [Entitic vol] 8.4 fL Normal 6.3-10.7 [facility] Comment on above: Performed By: #### C PETR, BMP #### [facility] [address] Platelets (Bld) [#/Vol] 229 10*3/uL Normal 150-450 [facility] Comment on above: Performed By: #### C PETR, BMP #### [facility] [address] RBC (Bld) [#/Vol] 4.47 10*6/uL Normal 3.60-5.00 [facility] Comment on above: Performed By: #### C PETR, BMP #### [facility] [address] [place] [address] [place] WBC (Bld) [#/Vol] 5.3 10*3/uL Normal 4.5-11.0 [facility] Comment on above: Performed By: #### C PETR, BMP #### [facility] [address] [place] [address] [place] Basophils Auto (Bld) [#/Vol] Ordered By: Romi Obrien on 03-30-2022 Basophils (Bld) [#/Vol] 0.0 10*3/uL 0.0-0.2 [facility] Basophils/100 WBC Auto (Bld) Ordered By: Romi Obrien on 03-30-2022 Basophils/100 WBC (Bld) 0.8 % [facility] Blood hemoglobin measurement (mass/volume)Ordered By: Romi Obrien on 03-30-2022 Hemoglobin (Bld) [Mass/Vol] 13.9 g/dL 11.8-15.4 [facility] Blood leukocytes automated c ount (number/volume)Ordered By: Romi Obrien on 03-30-2022 WBC (Bld) [#/Vol] 5.3 10*3/uL 4.5-11.0 [facility] COVID CepheidOrdered By: Avinash nicole Camille on 03-30-2022 SARS-CoV-2 (COVID-19) Ab IA Ql Positive Negative [facility] Comment on above: This is a duplicate [employer] Xpert Xpress CoV-2/Flu/RSV Plus RNA by RT-PCR result to be used for statistical tracking purpose only. SARS-CoV-2 (COVID-19) RNA NESSA+probe Ql (Unsp spec) [facility] Creatinine and Glomerular fi ltration rate.predicted panel (S/P/Bld)Ordered By: Romi Obrien on 03-30-2022 Creatinine [Mass/Vol] 0.80 mg/dL 0.44-1.03 [facility] Eosinophils Auto (Bld) [#/Vo l]Ordered By: Romi Obrien on 03-30-2022 Eosinophils (Bld) [#/Vol] 0.0 10*3/uL 0.0-0.45 [facility] Eosinophils/100 WBC Auto (Bl d)Ordered By: Romi Obrien on 03-30-2022 Eosinophils/100 WBC (Bld) 0.5 % [facility] Erythrocyte distribution wid th Auto (RBC) [Ratio]Ordered By: Romi Obrien on 03-30-2022 Erythrocyte distribution width (RBC) [Ratio] 13.9 % 11.9-15.3 [facility] Estimated glomerular filtrat ion rate (GFR) non- AmericanOrdered By: Romi Obrien on 03-30-2022 GFR/1.73 sq M.predicted among non-blacks MDRD (S/P/Bld) [Vol rate/Area] > 60 mL/Min [facility] Hematocrit Auto (Bld) [Volum e fraction]Ordered By: Romi Obrien on 03-30-2022 Hematocrit (Bld) [Volume fraction] 40.8 % 34.0-46.4 [facility] Laboratory - Hematology and Cell countsOrdered By: Romi Obrien on 03-30-2022 Nucleated RBC/100 WBC (Bld) [Ratio] 0.2 % 0-0.5 [facility] Lymphocytes Auto (Bld) [#/Vo l]Ordered By: Romi Obrien on 03-30-2022 Lymphocytes (Bld) [#/Vol] 0.7 10*3/uL 1.00-4.8 [facility] Lymphocytes/100 WBC Auto (Bl d)Ordered By: Romi Obrien on 03-30-2022 Lymphocytes/100 WBC (Bld) 13.9 % [facility] MCH Auto (RBC) [Entitic mass ]Ordered By: Romi Obrien on 03-30-2022 MCH (RBC) [Entitic mass] 31.2 pg 24.7-34.3 [facility] MCHC Auto (RBC) [Mass/Vol]Or dered By: Romi Obrien on 03-30-2022 MCHC (RBC) [Mass/Vol] 34.1 g/dL 32.0-35.0 [facility] MCV Auto (RBC) [Entitic vol] Ordered By: Romi Obrien on 03-30-2022 MCV (RBC) [Entitic vol] 91.3 fL 80-100 [facility] Monocytes Auto (Bld) [#/Vol] Ordered By: Romi Obrien on 03-30-2022 Monocytes (Bld) [#/Vol] 1.0 10*3/uL 0.0-0.8 [facility] Monocytes/100 WBC Auto (Bld) Ordered By: Romi Obrien on 03-30-2022 Monocytes/100 WBC (Bld) 19.6 % [facility] Neutrophils Auto (Bld) [#/Vo l]Ordered By: Romi Obrien on 03-30-2022 Neutrophils (Bld) [#/Vol] 3.5 10*3/uL 1.8-7.7 [facility] Neutrophils/100 WBC Auto (Bl d)Ordered By: Romi Obrien on 03-30-2022 Neutrophils/100 WBC (Bld) 65.2 % [facility] No Panel InformationOrdered By: Romi Obrien on 03-30-2022 Estimated GFR () > 60 mL/Min [facility] Comment on above: GFR estimated refere nce range: According to KDOQI guidelines, <60 ml/min/1.73m2 is sufficient to diagnose a patient with chronic kidney disease. Pharmacy Creatinine Clearance (Chem 85.83 [facility] PAP ACOG PANEL 2: 21 to 29on 03-30-2022 . . Normal [facility] Comment on above: Performed By: #### [id number] #### [facility] [address] [address] [address] Darshan Porter Age Gdln ACOG Testing 19- [facility] Comment on above: Performed By: #### [id number] #### [facility] [address] [place] [address] Dr. Darshan Porter DIAGNOSIS: Comment [facility] Comment on above: Result Comment: NEGA TIVE FOR INTRAEPITHELIAL LESION OR MALIGNANCY. Performed By: #### [id number] #### [facility] [address] [place] [address] Dr. Darshan Porter Methodology: Comment [facility] Comment on above: Result Comment: This liquid based ThinPrep(R) pap test was screened with the use of an image guided system. Performed By: #### [id number] #### [facility] [address] [place] [address] Dr. Darshan Porter Note: Comment [facility] Comment on above: Result Comment: The Pap smear is a screening test designed to aid in the detection of premalignant and malignant conditions of the uterine cervix. It is not a diagnostic procedure and should not be used as the sole means of detecting cervical cancer. Both false-positive and false-negative reports do occur. . Performed By: #### [id number] #### [facility] [address] [place] [address] Dr. Darshan Porter Performed by: Comment Normal [facility] Comment on above: Result Comment: Dewayne Middleton, Visiting Teacher (ASCP) Performed By: #### [id number] #### [facility] [address] [place] [address] Dr. Darshan Porter Reflex Criteria: Comment Normal [facility] Comment on above: Result Comment: The HPV DNA reflex criteria were not met with this specimen result therefore, no HPV testing was performed. . Performed By: #### [id number] #### [facility] [address] [address] [address] Darshan Porter Specimen adequacy: Comment Normal [facility] Comment on above: Result Comment: Sati sfactory for evaluation. Endocervical and/or squamous metaplastic cells (endocervical component) are present. Performed By: #### [id number] #### [facility] [address] [address] [address] Darshan Porter Platelet mean volume Auto (B ld) [Entitic vol]Ordered By: Romi Obrien on 03-30-2022 Platelet mean volume (Bld) [Entitic vol] 8.4 fL 6.3-10.7 [facility] Platelets Auto (Bld) [#/Vol] Ordered By: Romi Obrien on 03-30-2022 Platelets (Bld) [#/Vol] 229 10*3/uL 150-450 [facility] RBC Auto (Bld) [#/Vol]Ordere d By: Romi Obrien on 03-30-2022 RBC (Bld) [#/Vol] 4.47 10*6/uL 3.60-5.00 [facility] Serum or plasma calcium spencer urement (mass/volume)Ordered By: Romi Obrien on 03-30-2022 Calcium [Mass/Vol] 9.4 mg/dL 8.2-10.2 [facility] Serum or plasma chloride aurora surement (moles/volume)Ordered By: Romi Obrien on 03-30-2022 Chloride [Moles/Vol] 102 mmol/L 95-114 [facility] Serum or plasma glucose spencer urement (mass/volume)Ordered By: Romi Obrien on 03-30-2022 Glucose [Mass/Vol] 88 mg/dL 70-100 [facility] Comment on above: ADA recommended refe rence range Random Glucose Reference Range is dependent on time and content of last meal. Glucose of more than 200 mg/dL in a nonstressed, ambulatory subject supports the diagnosis of Diabetes Mellitus. Serum or plasma potassium me asurement (moles/volume)Ordered By: Romi Obrien on 03-30-2022 Potassium [Moles/Vol] 3.7 mmol/L 3.5-5.1 [facility] Serum or plasma sodium measu rement (moles/volume)Ordered By: Romi Obrien on 03-30-2022 Sodium [Moles/Vol] 136 mmol/L 136-146 [facility] Serum or plasma total carbon dioxide measurement (moles/volume)Ordered By: Romi Obrien on 03-30-2022 CO2 [Moles/Vol] 22.1 mmol/L 22.0-30.0 [facility] Serum or plasma urea nitroge n measurement (mass/volume)Ordered By: Romi Obrien on 03-30-2022 Urea nitrogen [Mass/Vol] 8 mg/dL 9- [facility] COVID-19 Lab Corpon 10-20-19 22 SARS-CoV-2 (COVID-19) RNA NESSA+probe Ql (Unsp spec) Detected Critically abnormal Not Detected [facility] Comment on above: Order Comment: Healt hcare Worker?: N Result Comment: Sara ents who have a positive COVID-19 test result may now have treatment options. Treatment options are available for patients with mild to moderate symptoms and for hospitalized patients. Visit our website at [email or web address] for resources and information. This nucleic acid amplification test was developed and its performance characteristics determined by [employer]. Nucleic acid amplification tests include RT- PCR [...] detected) result in this assay. PERFORMED BY: [facility] [address] [place] [address] PATHOLOGIST DINING CAR [employer]ER LAKEISHA GRAY M.D. Performed By: #### C ORONAVIRUS #### [facility] , HIV-1,-2 w/Reflex to HIV-1 W estern [place] 02-07-2018 HIV-1 and HIV-[address] Negative [facility] Comment on above: Result Comment: Base d on the non-reactive anti-HIV (DEIRDRE) screen, the HIV Western blotis notindicated and therefore not performed.INTERPRETIVE INFORMATION: HIV-1,-2 w/Reflex to HIV-1 Western BlotThis assay should not be used for blood donor screening, associatedre-entryprotocols, or for screening Human Cells, Tissues and Cellular andTissue-Based Products (HCT/P).Performed by [facility],[address] [place] [id number] [employer] Krishan Sánchez MD - Lab. Director RPRon 02-06-2018 Reagin antibody presence Non-reactive Normal Non-reacti [facility] Hepatitis B Surface Agon Hepatitis B Surface Ag Interp Non-reactive Normal [facility] Hepatitis C Antibodyon 02-04 Hepatitis C Antibody Interp Non-reactive Normal [facility] Culture, Strep A Screenon Culture, Strep A Screen ORDERED BY: TAMMY HUFF: Throat COLLECTED: 05/30/17 11:38ANTIBIOTICS AT JESSICA.: RECEIVED : 05/30/17 15:25Culture, Strep A Screen FINAL 06/02/17 08:54 Usual fátima isolated including Beta Strep, not group A. Normal [facility] Rapid A Strep Antigenon 05-18 Rapid strep test Negative Normal Negative [facility] Comment on above: Result Comment: A cu lture confirmation plate has been set up and a separatereport will follow. See micro report. Vital Signs Date Time Vital Sign Value Performing Clinician Jhon malin 01-11-2025 12:35-0400 Body mass index (BMI) [Ratio] 22.86 kg/m2 Bouchraluis angel Olivier AUTO APPRENTICE MECHANIC Work Phone: [facility] 01-11-2025 12:35-0400 Body temperature 98.71 [degF] Bouchra Olivier AUTO APPRENTICE MECHANIC Work Phone: [facility] 01-11-2025 12:35-0400 Body weight 56.7 kg Bouchra Charline AUTO APPRENTICE MECHANIC Work Phone: [facility] 01-11-2025 12:35-0400 Diastolic blood pressure 66 mm[Hg] Bouchraluis angel Olivier AUTO APPRENTICE MECHANIC Work Phone: [facility] 01-11-2025 12:35-0400 Heart rate 89 /min Bouchraluis angel Olivier AUTO APPRENTICE MECHANIC Work Phone: [facility] 01-11-2025 12:35-0400 SaO2% (BldA) [Mass fraction] 98 % Bouchra Charline AUTO APPRENTICE MECHANIC Work Phone: [facility] 01-11-2025 12:35-0400 Systolic blood pressure 118 mm[Hg] Bouchra Charline AUTO APPRENTICE MECHANIC Work Phone: [facility] 11-14-2024 11:11-0500 Heart rate 58 /min Reji Dillon [facility] 11-14-2024 11:11-0500 SaO2% (BldA) [Mass fraction] 100 % Reji Dillon [facility] 11-14-2024 11:09-0500 Respiratory rate 16 /min Reji Dillon [facility] 11-14-2024 11:09-0500 Diastolic blood pressure 69 mm[Hg] Reji Dillon [facility] 11-14-2024 11:09-0500 Mean blood pressure 84 mm[Hg] Reji Mourany [facility] 11-14-2024 11:09-0500 Systolic blood pressure 112 mm[Hg] Reji Mourany [facility] 11-14-2024 11:03-0500 Body temperature 97.16 [degF] Reji Mourany [facility] 11-14-2024 11:03-0500 Diastolic blood pressure 58 mm[Hg] Reji Mourany [facility] 11-14-2024 11:03-0500 Heart rate 61 /min Reji Mourany [facility] 11-14-2024 11:03-0500 Mean blood pressure 75 mm[Hg] Reji Mourany [facility] 11-14-2024 11:03-0500 Respiratory rate 10 /min Reji Mourany [facility] 11-14-2024 11:03-0500 SaO2% (BldA) [Mass fraction] 100 % Reji Mourany [facility] 11-14-2024 11:03-0500 Systolic blood pressure 110 mm[Hg] Reji Mourany [facility] 11-14-2024 10:50-0500 Diastolic blood pressure 69 mm[Hg] Reji Mourany [facility] 11-14-2024 10:50-0500 Heart rate 78 /min Reji Mourany [facility] 11-14-2024 10:50-0500 Mean blood pressure 87 mm[Hg] Reji Mourany [facility] 11-14-2024 10:50-0500 Respiratory rate 16 /min Reji Mourany [facility] 11-14-2024 10:50-0500 SaO2% (BldA) [Mass fraction] 100 % Reji Mourany [facility] 11-14-2024 10:50-0500 Systolic blood pressure 124 mm[Hg] Reji Mourany [facility] 11-14-2024 10:45-0500 Mean blood pressure 69 mm[Hg] Reji Mourany [facility] 11-14-2024 10:45-0500 Respiratory rate 15 /min Reji Mourany [facility] 11-14-2024 10:38-0500 Body temperature 97.34 [degF] Reji Mourany [facility] 11-14-2024 10:35-0500 Respiratory rate 14 /min Reji Mourany [facility] 11-14-2024 10:30-0500 Respiratory rate 18 /min Reji Mourany [facility] 11-14-2024 09:11-0500 Blood Pressure Location Reji Mourany [facility] 11-14-2024 09:11-0500 Mean blood pressure 82 mm[Hg] Reji Mourany [facility] 11-14-2024 09:10-0500 Body temperature 98.06 [degF] Reji Mourany [facility] 10-30-2024 14:51-0500 Diastolic blood pressure 66 mm[Hg] Reji Mourany [facility] 10-30-2024 14:51-0500 Heart rate 72 /min Reji Mourany [facility] 10-30-2024 14:51-0500 Systolic blood pressure 106 mm[Hg] Reji Garrettrandirebeca [facility] 09-25-2024 14:31-0500 Diastolic blood pressure 64 mm[Hg] Reji Garrettrandiy [facility] 09-25-2024 14:31-0500 Heart rate 71 /min Reji Dillon [facility] 09-25-2024 14:31-0500 Systolic blood pressure 103 mm[Hg] Reji Madisonrebeca [facility] 09-19-2024 13:04-0500 Body height 157.5 cm Romi ALMODOVAR Work Phone: [facility] 09-19-2024 13:04-0500 Body mass index (BMI) [Ratio] 22.68 kg/m2 Romi ALMODOVAR Work Phone: [facility] 09-19-2024 13:04-0500 Body weight 56.25 kg Romi ALMODOVAR Work Phone: [facility] 09-11-2024 09:58-0500 Body height 157.5 cm Lalitha Calderon HEEL TURNER[employer]BLURB WRITER Work Phone: [facility] 09-11-2024 09:58-0500 Body mass index (BMI) [Ratio] 23.12 kg/m2 Lalitha Calderon HEEL TURNER[employer]BLURB WRITER Work Phone: [facility] 09-11-2024 09:58-0500 Body weight 57.34 kg Lalitha Calderon HEEL TURNER[employer]BLURB WRITER Work Phone: [facility] 09-06-2024 11:42-0500 Body mass index (BMI) [Ratio] 22.68 kg/m2 Tyra Trujillo DO Work Phone: [facility] 09-06-2024 11:42-0500 Body weight 56.25 kg Tyra Nataprawira DO Work Phone: [facility] 09-06-2024 11:42-0500 Diastolic blood pressure 72 mm[Hg] Tyra Nataprawira DO Work Phone: [facility] 09-06-2024 11:42-0500 Systolic blood pressure 118 mm[Hg] Tyra Nataprawira DO Work Phone: [facility] 09-02-2024 12:28-0500 Body temperature 97.88 [degF] Reji Thrasher [facility] 09-02-2024 12:28-0500 Diastolic blood pressure 79 mm[Hg] Reji Thrasher [facility] 09-02-2024 12:28-0500 Heart rate 86 /min Reji Thrasher [facility] 09-02-2024 12:28-0500 Respiratory rate 16 /min Reji Thrasher [facility] 09-02-2024 12:28-0500 SaO2% (BldA) [Mass fraction] 98 % Reji Thrasher [facility] 09-02-2024 12:28-0500 Systolic blood pressure 123 mm[Hg] Reji Thrahser [facility] 08-28-2024 17:27-0500 Body mass index (BMI) [Ratio] 23.05 kg/m2 Macielamalia Manzano AUTO APPRENTICE MECHANIC Work Phone: [facility] 08-28-2024 17:27-0500 Body temperature 98.29 [degF] Maciel Manzano AUTO APPRENTICE MECHANIC Work Phone: [facility] 08-28-2024 17:27-0500 Body weight 57.15 kg Macielamalia Manzano AUTO APPRENTICE MECHANIC Work Phone: [facility] 08-28-2024 17:27-0500 SaO2% (BldA) [Mass fraction] 98 % Maciel Manzano AUTO APPRENTICE MECHANIC Work Phone: [facility] 06-29-2024 13:39-0400 Body height 157.5 cm Gina Sterlingman AUTO APPRENTICE MECHANIC Work Phone: [facility] 06-29-2024 13:39-0400 Body mass index (BMI) [Ratio] 23.05 kg/m2 Gina Geoffrey AUTO APPRENTICE MECHANIC Work Phone: [facility] 06-29-2024 13:39-0400 Body weight 57.15 kg Gina Sterlingman AUTO APPRENTICE MECHANIC Work Phone: [facility] 06-29-2024 13:39-0400 Diastolic blood pressure 72 mm[Hg] Gina Geoffrey AUTO APPRENTICE MECHANIC Work Phone: [facility] 06-29-2024 13:39-0400 Systolic blood pressure 116 mm[Hg] Gina Geoffrey AUTO APPRENTICE MECHANIC Work Phone: [facility] 03-30-2022 21:11-0400 Body height 160.02 cm PHYSICIAN NO [facility] 03-30-2022 21:11-0400 Body mass index (BMI) [Ratio] 22.8 kg/m2 PHYSICIAN NO [facility] 03-30-2022 21:11-0400 Body temperature 99.8 [degF] PHYSICIAN NO [facility] 03-30-2022 21:11-0400 Body weight 58.5 kg PHYSICIAN NO [facility] 03-30-2022 21:11-0400 Diastolic blood pressure 56 mm[Hg] PHYSICIAN NO [facility] 03-30-2022 21:11-0400 Heart rate 69 /min PHYSICIAN NO [facility] 03-30-2022 21:11-0400 SaO2% (BldA) [Mass fraction] 97 % PHYSICIAN NO [facility] 03-30-2022 21:11-0400 Systolic blood pressure 112 mm[Hg] PHYSICIAN NO [facility] Encounters Encounter Date Encounter Type Care Provider Facility Start: 02-13-2025 End: 02-13-2025 Lala Smith DO Work Phone: [facility] Comment on above: Acute pain of right knee Start: 01-17-2025 End: 01-17-2025 Bamboo flowsheet Jr. Martínez Jimenez Stepanic DO Work Phone: [facility] Start: 01-17-2025 End: 01-17-2025 Bamboo flowsheet Jr. Martínez Jimenez Stepanic DO Work Phone: [facility] Start: 01-17-2025 End: 01-17-2025 Office outpatient visit 15 minutes Jr. 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); Acute pain of right knee Start: 01-17-2025 End: 01-17-2025 ambulatory MARTÍNEZ CERVANTES STEPCARMEN Not Available Start: 01-11-2025 End: 01-11-2025 ambulatory BOUCHRA OLIVIER Not Available Start: 01-11-2025 End: 01-11-2025 Office outpatient visit 25 minutes Bouchra Olivier AUTO APPRENTICE MECHANIC Work Phone: [facility] Comment on above: Knee strain, right, subsequent encounter (Primary Dx); Acute pain of right knee Start: 12-26-2024 End: 12-26-2024 ambulatory ROMI HOPPER Not Available Start: 12-22-2024 End: 12-22-2024 ambulatory Reji Dillon Facility:[facility] Start: 11-28-2024 End: 11-28-2024 Bamboo flowsheet Romi Hopper PA Work Phone: [facility] Start: 11-28-2024 End: 11-28-2024 Bamboo flowsheet Romi Hopper PA Work Phone: [facility] Start: 11-28-2024 End: 11-28-2024 Postop follow up visit related to original px Romi Hopper PA Work Phone: [facility] Comment on above: S/P right knee arthr oscopy (Primary Dx) Start: 11-28-2024 End: 11-28-2024 ambulatory ROMI HOPPER Not Available Start: 11-24-2024 End: 11-24-2024 ambulatory Reji Dillon Facility:[facility] Start: 11-24-2024 End: 11-24-2024 Patient encounter procedure Reji Dillon [facility] Start: 11-14-2024 End: 11-14-2024 Admission to same day surgery center Reji Dillon [facility] Start: 11-14-2024 End: 11-14-2024 ambulatory Reji Dillon Facility:[facility] Start: 11-07-2024 End: 11-07-2024 Bamboo flowsheet Romi ALMODOVAR Work Phone: [facility] Start: 11-07-2024 End: 11-07-2024 Bamboo flowsheet Romi Hopper PA Work Phone: [facility] Start: 11-07-2024 End: 11-07-2024 ambulatory ROMI HOPPER Not Available Start: 11-07-2024 End: 11-07-2024 Postop follow up visit related to original px Romi ALMODOVAR Work Phone: [facility] Comment on above: S/P right knee arthr oscopy (Primary Dx); Knee stiffness, right Start: 10-30-2024 End: 10-30-2024 ambulatory Reji Dillon Facility:[facility] Start: 10-30-2024 End: 10-30-2024 Patient encounter procedure Reji Dillon [facility] Start: 10-23-2024 End: 10-23-2024 Bamboo flowsheet Romi Hopper PA Work Phone: [facility] Start: 10-23-2024 End: 10-23-2024 Bamboo flowsheet Romi Hopper PA Work Phone: [facility] Start: 10-23-2024 End: 10-23-2024 Postop follow up visit related to original px Romi ALMODOVAR Work Phone: [facility] Comment on above: S/P right knee arthr oscopy (Primary Dx) Start: 10-23-2024 End: 10-23-2024 ambulatory ROMI HOPPER Not Available Start: 10-04-2024 End: 10-04-2024 Refill Evens Adamson [employer]ENTICE MECHANIC Work Phone: [facility] Comment on above: Internal derangement of right knee (Primary Dx) Start: 09-25-2024 End: 09-25-2024 ambulatory Reji Dillon Facility:[facility] Start: 09-25-2024 End: 09-25-2024 Patient encounter procedure Reji Dillon [facility] Start: 09-19-2024 End: 09-19-2024 Bamboo flowsheet Romi Hopper PA Work Phone: [facility] Start: 09-19-2024 End: 09-19-2024 Bamboo flowsheet Romi Hopper PA Work Phone: [facility] Start: 09-19-2024 End: 09-19-2024 ambulatory ROMI HOPPER Not Available Start: 09-19-2024 End: 09-19-2024 Patient encounter procedure Romi ALMODOVAR Work Phone: [facility] Comment on above: Pre-op examination ( Primary Dx) Start: 09-19-2024 End: 09-19-2024 Preprocedural examination done Romi ALMODOVAR Work Phone: [facility] Work Phone: Start: 09-11-2024 End: 09-11-2024 Office outpatient new 30 minutes Lalitha Calderon HEEL [employer] WRITER Work Phone: [facility] Comment on above: Hemorrhoids, unspeci fied hemorrhoid type (Primary Dx); Rectal pain Start: 09-11-2024 End: 09-11-2024 ambulatory [facility] Junito CALDERON [facility] Start: 09-06-2024 End: 09-21-2024 External Result Encounter Tyra Ayersaprirmara DO Work Phone: [facility] Unsolicited Start: 09-06-2024 End: 09-21-2024 External Result Encounter Tyra Ryan Nataprawira DO Work Phone: [facility] Unsolicited Start: 09-06-2024 End: 09-06-2024 ambulatory TYRA TRUJILLO Not Available Start: 09-06-2024 End: 09-06-2024 Office outpatient visit 15 minutes Tyra Trujillo DO Work Phone: [facility] Comment on above: Vaginal discharge (P rimary Dx); Vaginal irritation; Acute vaginitis; Dysuria; Acute suprapubic pain; Surveillance for control, intrauterine device Start: 09-04-2024 ambulatory [facility] Facility:Amy Martinez Start: 09-02-2024 End: 09-02-2024 Emergency department patient visit Reji Burnhame [facility] Start: 08-28-2024 End: 08-28-2024 ambulatory MACIEL MANZANO Not Available Start: 08-28-2024 End: 08-28-2024 Office outpatient visit 15 minutes Maciel Manzano [employer] APPRENTICE MECHANIC Work Phone: [facility] Comment on above: Grade I hemorrhoids (Primary Dx) Start: 08-14-2024 End: 08-14-2024 Office outpatient visit 25 minutes Jr. Martínez Smith DO Work Phone: [facility] Comment on above: Internal derangement of right knee (Primary Dx) Start: 08-14-2024 End: 08-14-2024 ambulatory MARTÍNEZ CERVANTESCARMEN Not Available Start: 08-07-2024 End: 08-07-2024 ambulatory ROMI HOPPER Not Available Start: 07-26-2024 End: 07-26-2024 Office outpatient visit 15 minutes Romi Hopper PA Work Phone: [facility] Comment on above: Acute pain of right knee (Primary Dx); Internal derangement of right knee Start: 07-26-2024 End: 07-26-2024 ambulatory ROMI HOPPER Not Available Start: 07-12-2024 End: 07-12-2024 Bamboo flowsheet Romi Hopper PA Work Phone: [facility] Start: 07-12-2024 End: 07-12-2024 Bamboo flowsheet Romi Hopper PA Work Phone: [facility] Start: 07-12-2024 End: 07-12-2024 ambulatory ROMI HOPPER Not Available Start: 07-12-2024 End: 07-12-2024 Office outpatient visit 15 minutes Romi Hopper PA Work Phone: [facility] Comment on above: Acute pain of right knee (Primary Dx); Chondromalacia, patella, right Start: 07-05-2024 End: 07-05-2024 ambulatory ROMI HOPPER Not Available Start: 07-05-2024 End: 07-05-2024 Bamboo flowsheet Romi Hopper PA Work Phone: [facility] Start: 07-05-2024 End: 07-05-2024 Bamboo flowsheet Romi Shelby Ward PA Work Phone: [facility] Start: 07-05-2024 End: 07-05-2024 Office outpatient visit 25 minutes Romi Hopper PA Work Phone: [facility] Comment on above: Acute pain of right knee (Primary Dx); Chondromalacia, patella, right Start: 06-29-2024 End: 06-29-2024 Bamboo flowsheet Gina Dupree NP Work Phone: [facility] Start: 06-29-2024 End: 06-29-2024 Bamboo flowsheet Gina Arvind Geoffrey AUTO APPRENTICE MECHANIC Work Phone: [facility] Start: 06-29-2024 End: 06-29-2024 Initial preventive medicine new pt age 18-39yrs Gina Dupree AUTO APPRENTICE MECHANIC Work Phone: [facility] Comment on above: Encounter for gyneco logical examination without abnormal finding (Primary Dx); IUD check up; Herpes simplex; Screen for STD (sexually transmitted disease) Start: 06-29-2024 End: 06-29-2024 Patient encounter status Gina Dupree AUTO APPRENTICE MECHANIC Work Phone: [facility] Work Phone: Start: 06-29-2024 End: 06-29-2024 ambulatory GINA DUPREE Not Available Start: 06-14-2024 End: 06-14-2024 Office outpatient visit 15 minutes Romi Hopper PA Work Phone: [facility] Comment on above: Acute pain of right knee (Primary Dx) Start: 06-14-2024 End: 06-14-2024 ambulatory ROMI HOPPER Not Available Start: 06-14-2024 End: 06-14-2024 Bamboo flowsheet Romi Hopper PA Work Phone: [facility] Start: 06-14-2024 End: 06-14-2024 Bamboo flowsheet Romi Hopper PA Work Phone: [facility] Start: 05-30-2024 End: 05-30-2024 ambulatory ROMI HOPPER Not Available Start: 05-24-2024 End: 05-24-2024 ambulatory BOUCHRA OLIVIER Not Available Start: 09-18-2022 End: 09-18-[address] AUGUSTO NICHOLS Facility:[facility] Start: 05-12-2022 End: 05-12-[address] ROSS TORRES Facility:[facility] Start: 03-30-2022 End: 03-31-2022 Emergency department patient visit PHYSICIAN NO FAMILY [facility] Start: 03-25-2022 End: 03-25-[address] ROSS TORRES Facility:[facility] Start: 10-20-2021 End: 10-20-2021 ambulatory ROANK CAPUTO Facility:[facility] Start: 08-31-2017 Ambulatory KAMINI Rivas ty:[facility] Start: 08-03-2017 Ambulatory KAMINI Rivas ty:[facility] Start: 06-29-2017 Ambulatory KAMINI Rivas ty:[facility] Start: 05-30-2017 End: 05-30-2017 Emergency department patient visit MAL HARMON [facility] Start: 05-25-2017 Ambulatory KAMINI Rivas ty:[facility]BC Start: 05-04-2017 Ambulatory Joel Piper Elizabet Facility:[facility] Shimon Colon Start: 04-27-2017 Ambulatory KAMINI Rivas ty:[facility] Procedures Date Procedure Procedure Detail Performing Clinician Start: 01-17-2025 Radiologic examinati on knee 1/2 views Jr. Martínez Smith DO Work Phone: Start: 11-14-2024 Excision of sphincte r of anus Reji Dillon Start: 10-04-2024 Arthroscopy of knee with meniscus repair Reji Dillon Start: 09-06-2024 URINARY TRACT INFECT ION (HTRX) Tyra Trujillo DO Work Phone: Start: 07-05-2024 Arthrocentesis aspir &/inj major jt/bursa w/o us Romi ALMODOVAR Work Phone: Start: 03-30-2022 SARS-CoV-2, Influenz a & RSV (PCR) PHYSICIAN NO FAMILY Start: 05-30-2017 CULTURE BETA STREP C ONFIRM PLATE MAL HARMON Start: 05-30-2017 RAPID STREP SCREEN MAL HARMON Start: 10-18-2004 History of tonsillectomy Reji Dillon Tonsillectomy Reji Dillon Plan of Treatment Date Care Activity Detail Author Start: 09-11-2025 Adult BMI Screening Adult BMI Screen ing [facility] Start: 09-11-2025 Tobacco Screening Tobacco Screening [facility] Start: 07-03-2025 End: 07-03-2025 Patient encounter procedure 07/03/2025 10:20 AM EDT Office Visit [facility] [address] [phone] Gina Dupree NP [address] [place] [address] [facility] Start: 02-14-2025 End: 02-14-2025 Patient encounter procedure 02/14/2025 9:45 AM EDT Office Visit [facility] [address] [place] [phone] Jr. Martínez Smith DO [address] [place] [address] [facility] Start: 01-17-2025 End: 01-17-2025 Patient encounter procedure [facility] Comment on above: Acute pain of right knee Start: 12-26-2024 End: 12-26-2024 Patient encounter procedure 12/26/2024 11:15 AM EDT Office Visit [facility] [address] [place] [address] Romi Hopper PA [address] [place] [address] [facility] Start: 11-28-2024 End: 11-28-2024 Patient encounter procedure [facility] Comment on above: S/P right knee arthr oscopy (Primary Dx) Start: 11-07-2024 End: 11-07-2024 Patient encounter procedure 11/07/2024 1:00 PM EST Office Visit [facility] [address] [place] [address] Hopper, Romi J, PA [address] [place] [address] [facility] Start: 10-23-2024 End: 10-23-2024 Patient encounter procedure 10/23/2024 11:30 AM EST [facility] [address] [place] [address] Romi Hopper, PA [address] [place] [address] S/P right knee arthroscopy (Primary Dx) [facility] Comment on above: S/P right knee arthr oscopy (Primary Dx) Start: 10-20-2024 End: 10-20-2024 Patient encounter procedure 10/20/2024 11:00 AM EST Office Visit [facility] [address] [place] [phone] Romi Hopper, PA [address] [facility] [address] [place] [address] [facility] Start: 09-19-2024 End: 09-19-2024 Patient encounter procedure 09/19/2024 1:00 PM EST Office Visit [facility] [address] [place] [phone] Romi Hopper, PA [address] [facility] [address] [place] [address] [facility] Start: 08-14-2024 End: 08-14-2024 Patient encounter procedure 08/14/2024 2:45 PM EDT Office Visit [facility] [address] [place] [phone] Jr. Martínez Smith DO [address] [facility] [address] [place] [address] [facility] Start: 07-26-2024 End: 07-26-2025 MR Knee - right WO contrast MR knee right wo IV contrast Imaging Routine Internal derangement of right knee Expected: 07/26/2024 (Approximate), Expires: 07/26/2025 [facility] Work Phone: Comment on above: Expected: 07/26/2024 (Approximate), Expires: 07/26/2025 Start: 07-26-2024 End: 07-26-2024 Patient encounter procedure 07/26/2024 10:30 AM EDT Office Visit [facility] [address] [place] [address] Romi Hopper, PA [address] [facility] [address] [place] [address] [facility] Start: 07-12-2024 End: 07-12-2024 Patient encounter procedure 07/12/2024 1:15 PM EDT Office Visit [facility] [address] [place] [address] Romi Hopper PA [address] [facility] [address] [place] [address] [facility] Start: 07-05-2024 End: 07-05-2024 Patient encounter procedure 07/05/2024 2:00 PM EDT Office Visit [facility] [address] [place] [address] Romi Hopper, PA [address] [facility] [address] [place] [address] [facility] Start: 06-29-2024 End: 06-29-2025 Hepatitis B virus surface Ag [Presence] in Serum or Plasma by Immunoassay Hepatitis B surface Ag Lab Routine Screen for STD (sexually transmitted disease) Expected: 06/29/2024 (Approximate), Expires: 06/29/2025 [facility] Comment on above: Expected: 06/29/2024 (Approximate), Expires: 06/29/2025 Start: 06-29-2024 End: 06-29-2025 HIV-1/HIV-2 antigen/antibody combination immunoassay HIV-1 and HIV-2 antibodies Lab Routine Screen for STD (sexually transmitted disease) Expected: 06/29/2024 (Approximate), Expires: 06/29/2025 [facility] Comment on above: Expected: 06/29/2024 (Approximate), Expires: 06/29/2025 Start: 06-29-2024 End: 06-29-2025 Reagin Ab [Presence] in Serum by RPR RPR Lab Routine Screen for STD (sexually transmitted disease) Expected: 06/29/2024 (Approximate), Expires: 06/29/2025 [facility] Work Phone: Comment on above: Expected: 06/29/2024 (Approximate), Expires: 06/29/2025 Start: 06-29-2024 End: 06-29-2024 Patient encounter procedure 06/29/2024 1:40 PM EDT Office Visit [facility] [address] [phone] Gina Dupree AUTO APPRENTICE MECHANIC [address] [place] [address] Encounter for gynecological examination without abnormal finding (Primary Dx); IUD check up [facility] Comment on above: Encounter for gyneco logical examination without abnormal finding (Primary Dx); IUD check up Start: 06-18-2024 Influenza vaccination Influenza Vacc ine [facility] Start: 06-14-2024 End: 06-14-2024 Patient encounter procedure 06/14/2024 3:00 PM EDT Office Visit [facility] [address] [place] [address] Romi Hopper PA [address] [address] Acute pain of right knee (Primary Dx) [facility] Comment on above: Acute pain of right knee (Primary Dx) Start: 2014 Screening for malign ant neoplasm of cervix Pap Smear [facility] Start: 2012 DTaP,Tdap and Td Vaccines (1 - Tdap) DTaP,Tdap and Td Vaccines (1 - Tdap) [facility] Start: 2005 [facility] Neisseria gonorrhoea [facility] DNA [Presence] in Cervical mucus by NESSA with probe detection C. trachomatis / N. gonorrhoeae, DNA probe Lab Routine Screen for STD (sexually transmitted disease) Ordered: 06/29/2024 [facility] Comment on above: Ordered: 06/29/2024 Patient Education Nausea and Vom iting, Adult (DC) Abdominal Pain, Adult ED [facility] ED/OP COVID-19 Discharge Instructions [facility] Work Phone: Patient referral [facility] Work Phone: URINARY TRACT INFECT ION (HTRX) URINARY TRACT INFECTION (HTRX) Lab Routine Dysuria Acute suprapubic pain Ordered: 09/06/2024 [facility] Work Phone: Comment on above: Ordered: 09/06/2024 Immunizations Immunization Date Immunization Notes Care Provider Clive macedo 03-09-2017 tetanus toxoid, redu lor diphtheria toxoid, and acellular pertussis vaccine, adsorbed Reji Dillon [facility] 10-09-2016 influenza virus vaccine, unspecified formulation Lalitha Calderon 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 2023 [facility] [id number] [id number] 2023 Unknown [id number] 2023 Unknown [id number] 2015 Medicaid [id number] 1993 Unknown [id number] 2.16840.1.126588.3.579. 2.593 1993 Unknown [id number] 2.16840.1.428112.3.579. 2.593 1993 Unknown [id number] 2.16.840.1.600723.3.579. 2.593 1993 Unknown [id number] 2.16840.1.599011.3.579. 2.593 1993 Unknown [id number] 2.16840.1.358959.3.579. 2.1286 1993 Unknown [id number] 2.16.840.1.870916.3.579. 2.727 1993 Unknown [id number] 2.16.840.1.147873.3.579. 2.727 1993 Unknown [id number] 2.16.840.1.530382.3.579. 2.727 1993 Unknown [id number] 2.16.840.1.033919.3.579. 2.727 1993 Unknown [id number] 2.16.840.1.528650.3.579. 2.72 1993 Unknown [id number] 2.16.840.1.617973.3.579. 2. 1993 Unknown [id number] 2.16.840.1.565154.3.579. 2. 1993 Unknown [id number] 2.16840.1.212356.3.579. 2. 1993 Unknown [id number] 2.840.1.306723.3.579. 2.1258 1993 Unknown [id number] 2.840.1.866122.3.579. 2.1258 1993 Unknown [id number] 2.840.1.575519.3.579. 2.1258 1993 Unknown [id number] 20.1.717363.3.579. 2.1258 1993 Unknown [id number] 2.840.1.268719.3.579. 2.1258 1993 Unknown [id number] 2.840.1.751155.3.579. 2.1258 1993 Unknown [id number] 2.840.1.214819.3.579. 2.1258 1993 Unknown [id number] 2840.1.093876.3.579. 2.1258 1993 Unknown [id number] 2.840.1.438128.3.579. 2.1258 1993 Unknown [id number] 2.840.1.657560.3.579. 2.1258 1993 Unknown [id number] 2.840.1.858902.3.579. 2.1258 1993 Unknown [id number] 2.840.1.125272.3.579. 2.1258 1993 Unknown [id number] 2.16.840.1.769664.3.579. 2.9 1993 Unknown [id number] 2.16.840.1.100244.3.579. 2.1258 1993 Unknown [id number] 2.16.840.1.917819.3.579. 2.1258 1993 Unknown [id number] 2.16.840.1.826146.3.579. 2.1258 1993 Unknown [id number] 2.16.840.1.978863.3.579. 2.1258 1993 Unknown [id number] 2.16.840.1.357715.3.579. 2.1258 1993 Unknown [id number] 2.16.840.1.525447.3.579. 2.1258 1993 Unknown [id number] 2.16.840.1.344259.3.579. 2.1258 1993 Unknown [id number] 2.16.840.1.091420.3.579. 2.9 1959 Self-pay [id number] 1959 Unknown [id number] Medicaid [place] Advantage [id number] 801 [id number] Unknown [facility] [id number] Unknown [facility] [id number] Social History Date Type Detail Facility Start: 03-30-2022 Tobacco smoking status TXIS Current some day smoker [facility] Start: 1995 Sex Assigned At Female [facility] Start: 06-29-2024 End: 09-11-2024 Tobacco smoking status TXIS Ex-smoker [facility] History of tobacco use Current smoker [facility] History of tobacco use Cigarette Smoker [facility] Start: 06-29-2024 End: 01-17-2025 Cigarettes smoked current (pack per day) - Reported 1.5 [facility] Start: 06-29-2024 End: 09-11-2024 Tobacco use and exposure Smokeless tobacco non-user [facility] Start: 07-26-2024 End: 01-17-2025 Alcoholic beverage intake Current drinker of alcohol (finding) [facility] Start: 06-29-2024 End: 01-17-2025 Alcohol Use Disorder Identification Test - Consumption [AUDIT-C] [facility] How often to you hav e a drink containing alcohol? 4 or more times a week [facility] How many standard dr inks containing alcohol do you have on a typical day? 1 or 2 [facility] How often do you hav e 6 or more drinks on 1 occasion? Never [facility] Start: 06-29-2024 Tobacco Comment Quit cigarettes about 2 years ago, currently vape [facility] Start: 1995 Sex assigned at Not on file [facility] Tobacco smoking status No Smokin g Status Entered [facility] Start: 05-30-2024 Tobacco smoking status NHIS Smokes tobacco daily [facility] Start: 05-30-2024 End: 06-14-2024 Alcoholic beverage intake Ex-drinker (finding) [facility] re Tobacco vape Tobacco Use:. [facility] Start: 09-11-2024 Alcoholic beverage intake Not Asked [facility] Start: 09-11-2024 Alcohol Comment socially [facility] Start: 09-04-2024 Sex Female (finding) [facility] Functional Status Date Assessment Result Facility 11-07-2024 Functional Status No [facility] 09-02-2024 Functional Status N/A [facility] Clinical Notes 06-14-2024 to 01-17-2025 Jr. Martínez Smith, - 01/17/2025 2:00 PM Qasim Olivier NP - 01/11/2025 12:35 PM EDNISHI Mackay - 11/28/2024 1:45 PM EST Note Date & Type Note Facility 01-17-2025 History of Present illness Narrative Images from the original note were not included. HISTORY OF PRESENT ILLNESS: EST PT Kristina Narvaez is an 29 y.o. @ female. (EST PT) - RECHECK (R) KNEE ; NEW ONSET PAIN SINCE 01/07/25 (1 WK, 3 DAYS) NKI TX @[facility] WITH MDP 01/11/25 XRAY TODAY, 01/17/25 IN [facility] MDP 01/11/25 ([facility] ) - NO RELIEF S/P PT @[facility] STATES HER KNEE FEELS WORSE THAN BEFORE SX. NKI. WENT TO 01/11/25 - TX WITH MDP - NO RELIEF. PAIN ON ANTERIOR PATELLA - CAN BE MEDIAL OR LATERAL. DENIES SWELLING. SOME TINGLING IN KNEE & POSTERIOR ANKLE. DENIES NUMBNESS. DENIES POPPING. DENIES GRINDING. ADMITS OCCASIONAL BUCKLING. ADMITS INSTABILITY / WEAKNESS WITH PROLONGED STANDING USE @WORK. LIMITED ROM D/T PAIN. WAKING HS WITH PAIN. S/P PT @[facility]. NO PAIN MEDS. ADMITS ICING / ELEVATING. NOTES THAT HEAT IS PAINFUL (IN SHOWER). DENIES TOPICALS. WEARING COMPRESSION SLEEVE AT ALL TIMES. REMAINS OFF WORK. S/P RTW ON 12/04/24 ALLERGIES: No Known Allergies HOME MEDICATIONS: Current Outpatient Medications Medication Instructions celecoxib (CELEBREX) 200 mg, Oral, Daily, Take with food docusate sodium (STOOL SOFTENER) 100 mg, 2 times daily Levonorgestrel (Liletta, 52 MG,) 20.1 MCG/DAY intrauterine device as directed Intrauterine methylPREDNISolone (Medrol Dospak) 4 MG tablets Follow schedule on package instructions Vistaril 25 MG capsule 1 capsule Zoloft 50 MG tablet Every 24 hours PHYSICAL EXAM: Knee Musculoskeletal Exam Gait Gait is normal. Antalgic: right Inspection Leg length disparity: no discrepancy Right Erythema: none Effusion: none Edema: none Ecchymosis: none Deformity: none Alignment: normal Previous incision: arthroscopic portals Incision: well-healed Palpation Right Right knee palpation is unremarkable. Increased warmth: none Masses: none Tenderness: present Tenderness comment: medial portal scar. Medial joint line: moderate Medial joint line comment: Moderate tenderness with deep palpation over lateral portal incision Range of Motion Right Right knee range of motion is normal and full. Active extension: 0 Passive extension: 0 Active flexion: 125 Passive flexion: 125 Strength Right Right knee strength is normal. Extension: 5/5. Flexion: 5/5. Instability Right Instability signs: none - stable Varus stress grade: normal Valgus stress grade: normal Anterior drawer: normal Medial Danuta test: negative Lateral Danuta test: negative Neurovascular Right Right knee neurovascular exam is [...] to calculate BMI. Tobacco Use: Medium Risk (01/17/2025) Patient History Smoking Tobacco Use: Former Smokeless Tobacco Use: Never Passive Exposure: Not on file Alcohol Use: Not At Risk (06/29/2024) AUDIT-C Frequency of Alcohol Consumption: 4 or more times a week Average Number of Drinks: 1 or 2 Frequency of Binge Drinking: Never IMAGING: XR knee 1 or 2 views right Imaging Result: AP and lateral of right knee showed excellent preservation of joint space heights there was no flattening of the articular surfaces tricompartmentally. There was no evidence of marginal osteophytic formation. Overall alignment appeared to be normal. There was no evidence of fracture or dislocation. Bony structures in view showed excellent ossification. Impression: No acute bony process, right knee Procedures Orders Placed This Encounter Procedures XR knee 1 or 2 views right Order Specific Question: Is the patient ? Answer: No Order Specific Question: Reason for exam: Answer: PAIN ASSESSMENT: ICD-10-CM 1. 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 Acute pain of right knee M25.561 XR knee 1 or 2 views right celecoxib (CeleBREX) 200 MG capsule PLAN: We have discussed her case with her at length that think she has an entrapped nerve in her lateral portal scar. She will do deet sensitization exercises. We recommended Celebrex 200 mg 1 by mouth daily for 30 days. We will make recommended Lidoderm patches and we'll see her back in 1 month. If her symptoms persist or worsen we may recommend physical therapy. Questions answered in laymen terms at the bedside. The diagnosis, home exercise plan and any ongoing restrictions/ recommendations reviewed. If unable to be reached in office, I recommend evaluation at nearest Emergency Room if any symptoms worsened or new symptoms develop for requiring urgent evaluation. documented in this encounter [facility] 01-11-2025 History of Present illness Narrative HPI: Historian of HPI: patient Kristina Narvaez is a 29 y.o. female who presents today to the Urgent Care with the following complaints and denials due right knee pain which has been present for 4 day(s). Pt states this is an on going issue. Pt denies any known injuries to the right knee. Pt states she has right knee surgery in September in 2023. Pt contacted the surgeon and has an appointment on January 172024, but pt needs a work note and the pain has worsened. Pt rates her pain a /10. C/O Denies Symptom Comments [] [x] swelling [] [x] ecchymosis [] [x] erythema [x] [] tingling [] [x] numbness [x] [] Pain radiation Inner knee cap (where she has surgery) [x] [] Weakness [x] [] Decreased ROM [] [x] Trauma Additional Comments: pt has not taken any OTC medications Pt admits to cold application to the affected area ROS: A complete system ROS was performed and negative aside from the pertinent positives noted in the HPI and PE. Examination General Examination: General Examination: alert, oriented, normal affect, well appearing, in no acute distress, well developed, well nourished Head: normocephalic, atraumatic Eyes: sclera non-icteric Neck/Thyroid: neck supple, full range of motion Skin: healed surgical incisions along MCL and LCL. Musculoskeletal: right: FROM with tenderness at extremes. Drawer's, Clara's and Danuta's all neg. Collaterals stable. No joint effusion. mild crepitance. Tenderness: generalized anterior, greatest along medial joint line and MCL. Extremities: no edema, no cyanosis Peripheral Pulses: 2+ posterior tibial, 2+ dorsalis pedis right Neurologic: sensor exam intact RLE Psych: alert, oriented, cognitive function intact, cooperative with exam. 1. Knee strain, right, subsequent encounter (Primary) Sx have been ongoing and worsening with working 12 hour work days per pt. Note for work provided, discussed we do not fill out disability paperwork for pt and pt verb understanding. Start medrol-see rx, discussed SE, no NSAIDS with use. Continue with knee brace,ice or heat as directed. Immediate eval if new, worsening or warning s/s otherwise keep already scheduled appt with ortho. - methylPREDNISolone (Medrol Dospak) 4 MG tablets; Follow schedule on package instructions Dispense: 21 tablet; Refill: 0 2. Acute pain of right knee See 1. - methylPREDNISolone (Medrol Dospak) 4 MG tablets; Follow schedule on package instructions Dispense: 21 tablet; Refill: 0 documented in this encounter [facility] 11-28-2024 History of Present illness Narrative Images from the original note were not included. HISTORY OF PRESENT ILLNESS: POST OP PT Kristina Narvaez is an 29 y.o. @ female. (EST PT) P/O (R) KNEE SCOPE 10/05/24 (7 WKS 5 DAYS). S/P PT PHYSICAL THERAPY @ [facility] CONTINUES PT. DOING HEP. THEY ARE TELLING HER TO FOCUS ON WALKING CORRECTLY. DENIES MUCH PAIN, STATES MORE IRRITATING- JUST BELOW PATELLA. NO PAIN MEDS. +ICE. PAIN 0/10 TODAY, HASN'T DONE MUCH TODAY. KNEE FEELS HEAVY AND SWOLLEN AFTER PROLONGED WALKING AND WITH STAIRS. MINIMAL TINGLING AFTER ACTIVITY. DENIES POPPING/GRINDING. STATES SHE DID HAVE ANOTHER SURGERY AND THE DAY AFTER SHE PASSED OUT AND FELL. HAS A BRUISE ON GUEVARA. OFF WORK. REVIEW OF SYSTEMS: General: Denies fever, fatigue or weight loss Lungs: Denies SOB Cardio: Denies chest pain GI: Denies indigestion or abdominal pain Neuro: Denies numbness or tingling, denies new onset paralysis Musculoskeletal: ( see note) PHYSICAL EXAM: Right Knee Exam Right knee exam is normal. Tenderness Right knee tenderness location: Compartments soft, mild linear bruise anterior guevara with mild soreness. Range of Motion The patient has normal right knee ROM. Right knee flexion: tightness on terminal flexion. Tests Varus: negative Valgus: negative Other Erythema: absent Scars: present (well healing portals) Sensation: normal Pulse: present Swelling: mild Effusion: no effusion present Comments: Operative lower extremity was noted to be neurovascularly intact. Patient was able to motor feet, toes and ankles in all anatomic planes bilaterally with 5 out of 5 strength. Operative knee's patellar tracking was optimal and quad/ham strength was 5 out of 5 to operative lower extremity. There was no varus valgus, anterior-posterior, or rotatory instability noted to the operative knee. Swelling was well controlled, patella was not ballotable and compartments were soft to the operative lower extremity. Dorsalis pedis and posterior tibial pulses were present and equal bilaterally. There was no evidence of infection or ascending lymphangitis to operative lower extremity. Sensation to light touch was intact to all dermatomes to bilateral lower extremities. Negative Homans and negative Elliot were noted bilaterally to lower extremities. Incision was healing without evidence of infection Procedures No orders of the defined types were placed in this encounter. ASSESSMENT: ICD-10-CM 1. S/P right knee arthroscopy Z98.890 S/p TPHMM Assessment & Plan 1. Post-operative status following right knee arthroscopy. She has demonstrated significant improvement in strength and range of motion, with no reported pain. She is scheduled to resume work on 12/04/2024, without any restrictions. She will maintain her physical therapy appointments as she transitions back to work. 2. Syncope. She experienced an episode of syncope near her shower after her Hemorrhoid surgery, Pt reports pain from surgery, pain medication and warm water did not mix, resulting in a bruise on her anterior guevara. She reports no chest pain or shortness of breath. Time will tell if this will effect her usp healing as it is her second major fall sine surgery. PROCEDURE The patient underwent right knee arthroscopy. Questions answered in laymen terms at the bedside. The diagnosis, home exercise plan and any ongoing restrictions/ recommendations reviewed. If unable to be reached in office, I recommend evaluation at nearest Emergency Room if any symptoms worsened or new symptoms develop for requiring urgent evaluation. documented in this encounter [facility] 11-14-2024 Note Progress Note-Physic rayray Patient: KRISTINA NARVAEZ Age: 29 years Sex: Female : 1995 Associated Diagnoses: None Author: Panfilo Sagastume Jr., DO Postoperative Information Postoperative disposition: Postoperative disposition: Home. Optimetrix number: Optimetrix number [id number]. Anesthetic utilized: General. Physical Examination Vital Signs 11/14/2024 11:11 EST Heart Rate Monitored 58 bpm LOW SpO2 100 % 11/14/2024 11:09 EST Respiratory Rate 16 br/min 11/14/2024 11:09 EST Systolic Blood Pressure 112 mmHg Diastolic Blood Pressure 69 mmHg Mean Arterial Pressure, Monitered 84 mmHg 11/14/2024 11:03 EST Temperature Temporal Artery 36.2 DegC LOW Heart Rate Monitored 61 bpm Respiratory Rate Monitored 10 br/min Systolic Blood Pressure 110 mmHg Diastolic Blood Pressure 58 mmHg LOW Mean Arterial Pressure, Cuff 75 mmHg SpO2 100 % 11/14/2024 10:50 EST Heart Rate Monitored 78 bpm Respiratory Rate Monitored 16 br/min Systolic Blood Pressure 124 mmHg Diastolic Blood Pressure 69 mmHg Mean Arterial Pressure, Cuff 87 mmHg SpO2 100 % 11/14/2024 10:45 EST Heart Rate Monitored 57 bpm LOW Respiratory Rate Monitored 15 br/min Systolic Blood Pressure 110 mmHg Diastolic Blood Pressure 49 mmHg LOW Mean Arterial Pressure, Cuff 69 mmHg SpO2 100 % 11/14/2024 10:40 EST Heart Rate Monitored 52 bpm LOW Respiratory Rate Monitored 11 br/min Systolic Blood Pressure 109 mmHg Diastolic Blood Pressure 49 mmHg LOW Mean Arterial Pressure, Cuff 69 mmHg SpO2 100 % 11/14/2024 10:38 EST Temperature Temporal Artery 36.3 DegC Heart Rate Monitored 51 bpm LOW Respiratory Rate Monitored 14 br/min Systolic Blood Pressure 106 mmHg Diastolic Blood Pressure 50 mmHg LOW Mean Arterial Pressure, Cuff 69 mmHg SpO2 100 % Pain Assessment: Controlled, Pain Assessment 11/14/2024 11:09 EST Preliminary Pain Scale 0 11/14/2024 11:03 EST Numeric Pain Scale 0 = No pain 11/14/2024 10:50 EST Numeric Pain Scale 0 = No pain . General: Awake, Alert, Appropriate. Respiratory: Adequate air exchange, Non-labored. Cardiovascular: Stable, Normal peripheral perfusion. Neurological: Neurologic exam at baseline. No changes.. Assessment Anesthetic outcome No anesthetic complications noted. No nausea/vomiting. Review / Management Condition: Stable. Plan Transfer/Discharge: Transfer/Discharge Discharge when meets criteria ( From PACU to Ambulatory Surgery Unit, and To home ). [facility] Comment on above: Result Comment: Elec tronically Signed By: Panfilo Sagastume Jr., DO\.br\Date and Time Signed: 11/14/24 15:20 EST 11-14-2024 Evaluation + Plan note Extrac ana from: Title:ANES Post-operative Note - General Author: Panfilo Sagastume Jr., DO Date:11/14/24 Plan Transfer/Discharge: Transfer/Discharge Discharge when meets criteria ( From PACU to Ambulatory Surgery Unit, and To home ). Extracted from: Title:ANES Pre-operative Note - Adult Author:Panfilo Kumar Jr., DO Date:11/14/24 Plan [place] [employer]hes[employer] (ASA) physical status classification: Class II. Anesthetic Preoperative Plan: Anesthesia General. Future Appointments Appointment Date:11/24/2024 11:20:00 AM Scheduled Provider:Reji Dillon MD Location:[facility] Appointment Type:GS Post Op 15 [facility] 01-28-2025 Hospital Discharge instructions Patient Education 11/14/2024 10:55:14 How to Take a Sitz Bath How to Take a Sitz Bath A sitz bath is a warm water bath that may be used to care for your rectum, genital area, or the area between your rectum and genitals (perineum). In a sitz bath, the water only comes up to your hips and covers your buttocks. A sitz bath may be done in a bathtub or with a portable sitz bath that fits over the toilet. Your health care provider may recommend a sitz bath to help: Relieve pain and discomfort after delivering a baby. Relieve pain and itching from hemorrhoids or anal fissures. Relieve pain after certain surgeries. Relax muscles that are sore or tight. How to take a sitz bath Take 2 4 sitz baths a day, or as many as told by your health care provider. Bathtub sitz bath To take a sitz bath in a bathtub: 1.Partially fill a bathtub with warm water. The water should be deep enough to cover your hips and buttocks when you are sitting in the bathtub. 2.Follow your health care provider's instructions if you are told to put medicine in the water. 3.Sit in the water. Open the bathtub drain a little, and leave it open during your bath. 4.Turn on the warm water again, enough to replace the water that is draining out. Keep the water running throughout your bath. This helps keep the water at the right level and temperature. 5.Soak in the water for 15 20 minutes, or as long as told by your health care provider. 6.When you are done, be careful when you stand up. You may feel dizzy. 7.After the sitz bath, pat yourself dry. Do not rub your skin to dry it. Fdkl-suo-ldmuic sitz bath To take a sitz bath with an xszh-rel-ymsfap basin: 1.Follow the woodworking shop hand's instructions. 2.Fill the basin with warm water. 3.Follow your health care provider's instructions if you were told to put medicine in the water. 4.Sit on the seat. Make sure the water covers your buttocks and perineum. 5.Soak in the water for 15 20 minutes, or as long as told by your health care provider. 6.After the sitz bath, pat yourself dry. Do not rub your skin to dry it. 7.Clean and dry the basin between uses. 8.Discard the basin if it cracks, or according to the woodworking shop hand's instructions. Contact a health care provider if: Your pain or itching gets worse. Stop doing sitz baths if your symptoms get worse. You have new symptoms. Stop doing sitz baths until you talk with your health care provider. Summary A sitz bath is a warm water bath in which the water only comes up to your hips and covers your buttocks. Your health care provider may recommend a sitz bath to help relieve pain and discomfort after delivering a baby, relieve pain and itching from hemorrhoids or anal fissures, relieve pain after certainsurgeries, or help to relax muscles that are sore or tight. Take 2 4 sitz baths a day, or as many as told by your health care provider. Soak in the water for 15 20 minutes. Stop doing sitz baths if your symptoms get worse. This information is not intended to replace advice given to you by your health care provider. Make sure you discuss any questions you have with your health care provider. Document Revised: 01/05/2023 Document Reviewed: 01/05/2023 [employer] Patient Education 2023 [employer]. 11/14/2024 10:55:12 Post Op Patient Instructions - FT (Custom) (CUSTOM) 11/14/2024 10:40:34 Anal Fissure, Adult, Vntc-qt-Ebyw Anal Fissure, Adult An anal fissure is a small tear or crack in the tissue near the opening of the butt (anus). In mostcases, bleeding from the tear or crack stops on its own within a few minutes. You may have bleedingeach time you poop until the tear or crack heals. What are the causes? Passing a large or hard poop (stool). Having trouble pooping (constipation). Having watery poops (diarrhea). An inflammatory bowel disease, like Crohn's disease or ulcerative colitis. Childbirth. Infections. Anal sex. What are the signs or symptoms? Bleeding from the butt. Small amounts of blood on your poop. The blood coats the outside of the poop. It is not mixed with the poop. Small amounts of blood on the toilet paper or in the toilet after you poop. Pain when you poop. Itching or irritation around your butt. How is this treated? Treatment may include: Making changes to what you eat and drink. This can help if you have trouble pooping. Taking fiber supplements. These can help make your poop soft. Taking warm water baths (sitz baths). These can help heal the tear. Using creams and ointments. If other treatments do not work, you may need: A shot near the tear or crack (botulinum injection). Surgery to fix the tear or crack. Follow these instructions at home: Medicines Take yyve-jnc-xifqdmz and prescription medicines only as told by your doctor. This includes creams and ointments that have medicine in them. Use medicines to make your poop soft as told by your doctor. Treating constipation You may need to take these actions to prevent or treat trouble pooping: Drink enough fluid to keep your pee (urine) pale yellow. Eat foods that are high in fiber. These include beans, whole grains, and fresh fruits and vegetables. Stay away from unripe bananas. Ripe bananas are a good choice. Limit foods that are high in fat and sugar. These include fried or sweet foods. Avoid dairy products. This includes milk. General instructions Keep the butt area clean and dry. Take a warm water bath as told by your doctor. Do not use soap. Contact a doctor if: You have more bleeding. You have a fever. You have watery poop that is mixed with blood. Your pain does not go away. Your problems get worse. This information is not intended to replace advice given to you by your health care provider. Make sure you discuss any questions you have with your health care provider. Document Revised: 10/21/2023 Document Reviewed: 10/21/2023 [employer] Patient Education 2023 [employer]. Follow Up Care 10/30/2024 15:22:37 With:Reji Dillon Address: [address] [place] [phone] Business (1) When: Unknown Comments:Appointment has already been scheduled [facility] 01-28-2025 NotePatient Education - Text Gastroenterology Anal Fissure, Adult An anal fissure is a small tear or crack in the tissue near the opening of the butt (anus). In mostcases, bleeding from the tear or crack stops on its own within a few minutes. You may have bleedingeach time you poop until the tear or crack heals. What are the causes? Passing a large or hard poop (stool). ??? Having trouble pooping (constipation). ??? Having watery poops (diarrhea). ??? An inflammatory bowel disease, like Crohn's disease or ulcerative colitis. ??? Childbirth. ??? Infections. ??? Anal sex. What are the signs or symptoms? Bleeding from the butt. ??? Small amounts of blood on your poop. The blood coats the outside of the poop. It is not mixed with the poop. ??? Small amounts of blood on the toilet paper or in the toilet after you poop. ??? Pain when you poop. ??? Itching or irritation around your butt. How is this treated? Treatment may include: ??? Making changes to what you eat and drink. This can help if you have trouble pooping. ??? Taking fiber supplements. These can help make your poop soft. ??? Taking warm water baths (sitz baths). These can help heal the tear. ??? Using creams and ointments. If other treatments do not work, you may need: ??? A shot near the tear or crack (botulinum injection). ??? Surgery to fix the tear or crack. Follow these instructions at home: Medicines ??? Take opmn-wwc-fjfyhak and prescription medicines only as told by your doctor. This includes creams and ointments that have medicine in them. ??? Use medicines to make your poop soft as told by your doctor. Treating constipation You may need to take these actions to prevent or treat trouble pooping: ??? Drink enough fluid to keep your pee (urine) pale yellow. ??? Eat foods that are high in fiber. These include beans, whole grains, and fresh fruits and vegetables. ??? Stay away from unripe bananas. Ripe bananas are a good choice. ??? Limit foods that are high in fat and sugar. These include fried or sweet foods. ??? Avoid dairy products. This includes milk. General instructions ??? Keep the butt area clean and dry. ??? Take a warm water bath as told by your doctor. Do not use soap. Contact a doctor if: ??? You have more bleeding. ??? You have a fever. ??? You have watery poop that is mixed with blood. ??? Your pain does not go away. ??? Your problems get worse. This information is not intended to replace advice given to you by your health care provider. Make sure you discuss any questions you have with your health care provider. Document Revised: 10/21/2023 Document Reviewed: 10/21/2023 [employer] Patient Education ? 2023 [employer] Obstetrics and Gynecology How to Take a Sitz Bath A sitz bath is a warm water bath that may be used to care for your rectum, genital area, or the area between your rectum and genitals (perineum). In a sitz bath, the water only comes up to your hips and covers your buttocks. A sitz bath may be done in a bathtub or with a portable sitz bath that fits over the toilet. Your health care provider may recommend a sitz bath to help: ??? Relieve pain and discomfort after delivering a baby. ??? Relieve pain and itching from hemorrhoids or anal fissures. ??? Relieve pain after certain surgeries. ??? Relax muscles that are sore or tight. How to take a sitz bath Take 2?4 sitz baths a day, or as many as told by your health care provider. Bathtub sitz bath To take a sitz bath in a bathtub: 1. Partially fill a bathtub with warm water. The water should be deep enough to cover your hips andbuttocks when you are sitting in the bathtub. 2. Follow your health care provider's instructions if you are told to put medicine in the water. 3. Sit in the water. Open the bathtub drain a little, and leave it open during your bath. 4. Turn on the warm water again, enough to replace the water that is draining out. Keep the water running throughout your bath. This helps keep the water at the right level and temperature. 5. Soak in the water for 15?20 minutes, or as long as told by your health care provider. 6. When you are done, be careful when you stand up. You may feel dizzy. 7. After the sitz bath, pat yourself dry. Do not rub your skin to dry it. Erbu-ndz-bfujcg sitz bath To take a sitz bath with an ockk-maw-efhxka basin: 1. Follow the woodworking shop hand's instructions. 2. Fill the basin with warm water. 3. Follow your health care provider's instructions if you were told to put medicine in the water. 4. Sit on the seat. Make sure the water covers your buttocks and perineum. 5. Soak in the water for 15?20 minutes, or as long as told by your h (more content not included)...[facility]01-28-2025 NoteH&P Update History and Physical Update H&P Reviewed. Patient seen and examined, appropriate for planned surgery, left lateral internalanal sphincterotomy Problem List/Past Medical History Ongoing Anal fissure Mixed anxiety and depressive disorder Smoker Historical No qualifying data Procedure/Surgical History Arthroscopy of knee with meniscus repair (10/04/2024), History of tonsillectomy (2004), Tonsillectomy. Medications cefazolin additive + Sodium Chloride 0.9% intravenous solution 50 mL enoxaparin 40 mg/0.4 mL SC Rubia, 40 mg= 0.4 mL, SubCutaneous, PREOP HYDROmorphone 1 mg/mL injectable solution, 0.4 mg= 0.4 mL, IV Push, q4min, PRN hydrOXYzine pamoate 25 mg Cap, Not taking Liletta 52 mg intrauteral device promethazine additive 25 mg + Sodium Chloride 0.9% IV Rubia 50 mL (INT) 50 mL Sodium Chloride 0.9% IV Rubia 1000 mL 1,000 mL, 1000 mL, IV valacyclovir 1 g Tab Zoloft 50 mg Tab Allergies No Known Allergies Social History Alcohol - Denies Alcohol Use, 09/02/2024 Never., 09/25/2024 Substance Abuse - Denies Substance Abuse, 09/02/2024 Never., 09/25/2024 Tobacco - High Risk, 09/02/2024 vape Tobacco Use:. Vaping, Yes, 10/30/2024[facility]01-28-2025 NoteH&P Update History and Physical Update H&P Reviewed. Patient seen and examined, appropriate for planned surgery, pilonidal cystectomy Problem List/Past Medical History Ongoing Anal fissure Mixed anxiety and depressive disorder Smoker Historical No qualifying data Procedure/Surgical History Arthroscopy of knee with meniscus repair (10/04/2024), History of tonsillectomy (2004), Tonsillectomy. Medications cefazolin additive + Sodium Chloride 0.9% intravenous solution 50 mL enoxaparin 40 mg/0.4 mL SC Rubia, 40 mg= 0.4 mL, SubCutaneous, PREOP HYDROmorphone 1 mg/mL injectable solution, 0.4 mg= 0.4 mL, IV Push, q4min, PRN hydrOXYzine pamoate 25 mg Cap, Not taking Liletta 52 mg intrauteral device promethazine additive 25 mg + Sodium Chloride 0.9% IV Rubia 50 mL (INT) 50 mL Sodium Chloride 0.9% IV Rubia 1000 mL 1,000 mL, 1000 mL, IV valacyclovir 1 g Tab Zoloft 50 mg Tab Allergies No Known Allergies Social History Alcohol - Denies Alcohol Use, 09/02/2024 Never., 09/25/2024 Substance Abuse - Denies Substance Abuse, 09/02/2024 Never., 09/25/2024 Tobacco - High Risk, 09/02/2024 vape Tobacco Use:. Vaping, Yes, [facility] Comment: Clerical -[phone] NoteProgress Note-Physician Patient: KRISTINA NARVAEZ Age: 29 years Sex: Female : 1995 Associated Diagnoses: None Author: Panfilo Sagastume Jr., DO Preoperative Information Anesthesia Preop Info NPO since midnight Anesthesia history: Patient history: No prior anesthetic problems. Informed consent: Signed by patient. Re-evaluation prior to induction: Initial evaluation reviewed: No significant change. Health Status Allergies: Allergic Reactions (Selected) No Known Allergies, Allergies (1) Active Severity Reaction No Known Allergies None Documented Current medications: (Selected) Inpatient Medications Ordered HYDROmorphone 1 mg/mL injectable solution: 0.4 mg = 0.4 mL, Injection, IV Push, q4min PRN Pain for 5 dose(s), Stop date Limited # of times, Routine, Start date 11/14/24 9:21:00 EST, 11/14/24 9:21:00 EST Sodium Chloride 0.9% IV Rubia 1000 mL 1,000 mL: 1,000 mL, IV, 150 mL/hr, Routine, Start date 259:00:00 EST, 6.7 hour(s), Total volume (mL): 1,000, 56 kg, 1.56, m2 cefazolin additive + Sodium Chloride 0.9% intravenous solution 50 mL: 2 gm = 1 EA, Powder-Inj, IV Piggyback, PREOP, Routine, Start date 11/14/24 9:00:00 EST, 100 mL/hr, Infuse over 30 minute(s) enoxaparin 40 mg/0.4 mL SC Rubia: 40 mg = 0.4 mL, Injection, SubCutaneous, PREOP, Routine, Start date11/14/24 9:00:00 EST, 11/14/24 9:00:00 EST promethazine additive 25 mg + Sodium Chloride 0.9% IV Rubia 50 mL (INT) 50 mL: IV Piggyback, Once PRNNausea/Vomiting, Routine, Start date 11/14/24 9:21:00 EST, 153 mL/hr, Infuse over 20 minute(s), 11/14/24 9:21:00 EST Documented Medications Documented Liletta 52 mg intrauteral device: 1 Unknown, intrauterine, 0 Refill(s), 1 each by intrauterine route once., Refills(s) 0 Zoloft 50 mg Tab: 1 Unknown, 0 Refill(s), Refills(s) 0 hydrOXYzine pamoate 25 mg Cap: 180 EA, 0 Refill(s), TAKE 1 CAPSULE BY MOUTH TWICE A DAY NEEDED, Refills(s) 0 valacyclovir 1 g Tab: 10 EA, 0 Refill(s), TAKE 1/2 TABLET BY MOUTH IN THE MORNING AND 1/2 TABLET BEFORE BEDTIME FOR 5 DAYS, Refills(s) 0, Home Medications (4) Active hydrOXYzine pamoate 25 mg Cap Liletta 52 mg intrauteral device valacyclovir 1 g Tab Zoloft 50 mg Tab , Medications (5) Active Scheduled: (2) ceFAZolin + Sodium Chloride 0.9% Minibag 50 mL 2 gm 1 EA, IV Piggyback, PREOP enoxaparin 40 mg/0.4 mL SC Rubia [F] 40 mg 0.4 mL, SubCutaneous, PREOP Continuous: (1) Sodium Chloride 0.9% 1,000 mL 1,000 mL, IV, 150 mL/hr PRN: (2) HYDROmorphone 1 mg/mL SOLN [F] 0.4 mg 0.4 mL, IV Push, q4min promethazine 25 mg + Sodium Chloride 0.9% 50 mL 25 mg 1 mL, IV Piggyback, Once Problem list: All Problems Anal fissure / SNOMED CT 91922307 / Confirmed Mixed anxiety and depressive disorder / SNOMED CT 070523765 / Confirmed Smoker / SNOMED CT 066492220 / Confirmed Added secondary to documentation in Social History. Histories Past Medical History: No active or resolved past medical history items have been selected or recorded. Procedure history: Arthroscopy of knee with meniscus repair ([id number]) on 10/04/2024 at 29 Years. History of tonsillectomy (3863410210) in 2004 at 10 Years. Tonsillectomy (Removal of tonsils) ([id number]). Social History Social & Psychosocial Habits Alcohol 10/30/2024 Risk Assessment: Denies Alcohol Use Substance Abuse 10/30/2024 Risk Assessment: Denies Substance Abuse Tobacco 10/30/2024 Risk Assessment: High Risk 10/30/2024 Tobacco Use: vape Type: Vaping Smoking Cessation Yes . Physical Examination Vital Signs 11/14/2024 9:12 EST Heart Rate Monitored 74 bpm SpO2 98 % 11/14/2024 9:11 EST Systolic Blood Pressure 105 mmHg Diastolic Blood Pressure 70 mmHg Blood Pressure Location Left arm Mean Arterial Pressure, Monitered 82 mmHg 11/14/2024 9:10 EST Respiratory Rate 16 br/min 11/14/2024 9:10 EST Temperature Axillary 36.7 DegC Measurements from flowsheet : Measurements 11/14/2024 9:16 EST Height/Length Measured 162 cm Height/Length Dosing 162.0 cm Weight Dosing 58.2 kg BSA Measured 1.62 m2 Body Mass Index Measured 22.18 kg/m2 Weight Measured 58.2 kg Airway: Mallampati classification: II (soft palate, fauces, uvula visible). Respiratory: Lungs are clear to auscultation, Respirations are non-labored. Cardiovascular: Regular rhythm. Review / Management Results review: Interpretation: Labs unremarkable. Plan [place] [employer] (ASA) physical status classification: Class II. Anesthetic Preoperative Plan: Anesthesia General.[facility] Comment on above:Result Comment: Electronically Signed By: Panfilo Sagastume Jr., DO\Date and Time Signed: 11/14/24 09:22 [id number] History of Present illness Narrative* NISHI Cobb - 11/07/2024 1:00 PM EST Images from the original note were not included. HISTORY OF PRESENT ILLNESS: POST OP PT Kristina Narvaez is an 29 y.o. @ female. (EST PT) P/O (R) KNEE SCOPE 10/05/24 (4 WKS 5 DAYS)- NOTES IMPROVEMENT- C/O STIFFNESS IN THE AM- SWELLING AND TIGHTNESS END OF DAY- SOME WEAKNESS- INCREASE ROM/STRENGTH OFF WORK. REVIEW OF SYSTEMS: General: Denies fever, fatigue or weight loss Lungs: Denies SOB Cardio: Denies chest pain GI: Denies indigestion or abdominal pain Neuro: Denies numbness or tingling, denies new onset paralysis Musculoskeletal: ( see note) PHYSICAL EXAM: Right Knee Exam Right knee exam is normal. Tenderness Right knee tenderness location: Compartments soft. Range of Motion The patient has normal right knee ROM. Extension: 0 Flexion: 110 (tightness on terminal flexion) Tests Varus: negative Valgus: negative Other Erythema: absent Scars: present (well healing portals) Sensation: normal Pulse: present Swelling: mild Effusion: no effusion present Comments: Operative lower extremity was noted to be neurovascularly intact. Patient was able to motor feet, toes and ankles in all anatomic planes bilaterally with 5 out of 5 strength. Operative knee's patellar tracking was optimal and quad/ham strength was 5 out of 5 to operative lower extremity. There was no varus valgus, anterior-posterior, or rotatory instability noted to the operative knee. 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 Dorsalis pedis and posterior tibial pulses were present and equal bilaterally. There was no evidence of infection or ascending lymphangitis to operative lower extremity. Sensation tolight touch was intact to all dermatomes to bilateral lower extremities. Negative Homans and negative Elliot were noted bilaterally to lower extremities. Incision was healing without evidence of infection Procedures Orders Placed This Encounter Procedures Ambulatory referral to Physical Therapy Standing Status: Future Standing Expiration Date: 05/07/2025 Referral Priority: Routine Referral Type: Consultation Referral Reason: Specialty Services Required Referral Location: [place] [facility] Scheduling Requested Specialty: Physical Therapy Number of Visits Requested: 1 ASSESSMENT: ICD-10-CM 1. S/P right knee arthroscopy Z98.890 Ambulatory referral to Physical Therapy 2. Knee stiffness, right M25.661 Ambulatory referral to Physical Therapy S/p TPHMM Assessment & Plan 1. Right knee pain, status post right knee arthroscopy with a tear in the posterior horn of the medial meniscus. She had a fall postoperatively but appears to be doing much better at this time. She still notes some transient swelling with activity. She has stiffness on terminal flexion that she describes as tightness and walks with a guarded gait, which she admits is self-directed as she does not want to injure her knee again. Physical therapy is recommended to work on range of motion and gait training. We discussed timeline to return to work and she has a surgery unrelated scheduled for next Wednesday. Sheis unsure of the restrictions she will have and if it will affect her ability to do physical therapy out of abundance of caution. She is encouraged to contact physical therapy this week to set up appo intments. She verbalized understanding and is pleased with the progress. She will be seen back in 3weeks and consider to return to work at that time. Follow-up The patient will follow up in 3 weeks. PROCEDURE The patient underwent right knee arthroscopy with a tear in the posterior horn of the medial meniscus. Questions answered in laymen terms at the bedside. The diagnosis, home exercise plan and any ongoing restrictions/ recommendations reviewed. If unable to be reached in office, I recommend evaluation at nearest Emergency Room if any symptoms worsened or new symptoms develop for requiring urgent evaluation. documented in this encounterUniversity of [facility] Health [id number] History of Present illness Narrative* NISHI Cobb - 10/23/2024 11:30 AM EST Images from the original note were not included. HISTORY OF PRESENT ILLNESS: POST OP PT Kristina Narvaez is an 29 y.o. @ female. (EST PT) 1ST P/O (R) KNEE SCOPE 10/05/24 (18 DAYS). STATES SHE HAS FALLEN A FEW TIMES ; CONTINUESTO HAVE SOME DISCOMFORT ; WORSENS THROUGHOUT THE DAY - STATES IT FEELS LIKE THERE IS A WATER BALLOON IN THERE. PAIN IS MEDIAL ; NOTES FULL / PAINFUL ROM - SOME WEAKNESS / INSTABILITY - AMBULATES WITH LIMP. NO PAIN MEDS ; USING ICE - STATES SHE IS OUT NORCO. SUTURES INTACT, REMOVED. NO S/S OF INFEC TION. REVIEW OF SYSTEMS: General: Denies fever, fatigue or weight loss Lungs: Denies SOB Cardio: Denies chest pain GI: Denies indigestion or abdominal pain Neuro: Denies numbness or tingling, denies new onset paralysis Musculoskeletal: ( see note) PHYSICAL EXAM: Right Knee Exam Right knee exam is normal. Tenderness Right knee tenderness location: Compartments soft. Range of Motion The patient has normal right knee ROM. Right knee flexion: tightness on terminal flexion. Other Erythema: absent Scars: present (Portals well healing, sutures removed, no erythema, drainge or discharge, no dehisence) Sensation: normal Pulse: present Swelling: mild Effusion: effusion (consistent with surgery) present Comments: Operative lower extremity was noted to be neurovascularly intact. Patient was able to motor feet, toes and ankles in all anatomic planes bilaterally with 5 out of 5 strength. Operative knee's patellar tracking was optimal and quad/ham strength was 5 out of 5 to operative lower extremity. There was no varus valgus, anterior-posterior, or rotatory instability noted to the operative knee. 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 Dorsalis pedis and posterior tibial pulses were present and equal bilaterally. There was no evidence of infection or ascending lymphangitis to operative lower extremity. Sensation tolight touch was intact to all dermatomes to bilateral lower extremities. Negative Homans and negative Elliot were noted bilaterally to lower extremities. Incision was healing without evidence of infection Procedures No orders of the defined types were placed in this encounter. ASSESSMENT: ICD-10-CM 1. S/P right knee arthroscopy Z98.890 S/p TPHMM Assessment & Plan 1. Right knee pain and effusion, status post right knee arthroscopy with tear posterior horn medialmeniscus. Surgery was discussed at bedside. She notes pain with increased activity. She admits to having a fall a few days ago in which she slipped on some steps and ended up on the ground, hyperflexing the knee. No bony tenderness, will hold on xray. 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 An oral Medrol Dosepak is considered, and it is recommended that she be off work for 4 weeks from today given the swelling noted at bedside. Follow-up A recheck is scheduled in 2 weeks. PROCEDURE The patient underwent right knee arthroscopy with tear posterior horn medial meniscus. Questions answered in laymen terms at the bedside. The diagnosis, home exercise plan and any ongoing restrictions/ recommendations reviewed. If unable to be reached in office, I recommend evaluation at nearest Emergency Room if any symptoms worsened or new symptoms develop for requiring urgent evaluation. [facility] Instructions* Patient Instructions* NISHI Cobb - 10/23/2024 11:30 AM EST Discussed surgery for knee arthroscopy: Recommend no deep squatting, no pivoting or rotation... Recommend no running, jumping or high impact.. Avoid kneeling Cont with ice and elevation, 20 minutes on and 20 minutes off for 1 hour 2-3 times day. Be mindful of swelling pending increasing activities... consider sleeve or ameya wrap if up for more than 10 mins [facility] Telephone encounter Note* Telephone Encounter - Evens Adamson NP - 10/04/2024 5:13 PM EST Post op pain rx. PDMP reviewed [facility] [id number] Miscellaneous Notes* Telephone Encounter - Evens Adamson NP - 10/04/2024 5:13 PM EST Post op pain rx. PDMP reviewed [facility]12[facility] Hospital Discharge instructions Patient Education 09/25/2024 14:49:52 Anal Fissure, Adult, Cnvy-qb-Riil Anal Fissure, Adult An anal fissure is a small tear or crack in the tissue near the opening of the butt (anus). In mostcases, bleeding from the tear or crack stops on its own within a few minutes. You may have bleedingeach time you poop until the tear or crack heals. What are the causes? Passing a large or hard poop (stool). Having trouble pooping (constipation). Having watery poops (diarrhea). An inflammatory bowel disease, like Crohn's disease or ulcerative colitis. Childbirth. Infections. Anal sex. What are the signs or symptoms? Bleeding from the butt. Small amounts of blood on your poop. The blood coats the outside of the poop. It is not mixed with the poop. Small amounts of blood on the toilet paper or in the toilet after you poop. Pain when you poop. Itching or irritation around your butt. How is this treated? Treatment may include: Making changes to what you eat and drink. This can help if you have trouble pooping. Taking fiber supplements. These can help make your poop soft. Taking warm water baths (sitz baths). These can help heal the tear. Using creams and ointments. If other treatments do not work, you may need: A shot near the tear or crack (botulinum injection). Surgery to fix the tear or crack. Follow these instructions at home: Medicines Take nokx-eqi-cmaqwlu and prescription medicines only as told by your doctor. This includes creams and ointments that have medicine in them. Use medicines to make your poop soft as told by your doctor. Treating constipation You may need to take these actions to prevent or treat trouble pooping: Drink enough fluid to keep your pee (urine) pale yellow. Eat foods that are high in fiber. These include beans, whole grains, and fresh fruits and vegetables. Stay away from unripe bananas. Ripe bananas are a good choice. Limit foods that are high in fat and sugar. These include fried or sweet foods. Avoid dairy products. This includes milk. General instructions Keep the butt area clean and dry. Take a warm water bath as told by your doctor. Do not use soap. Contact a doctor if: You have more bleeding. You have a fever. You have watery poop that is mixed with blood. Your pain does not go away. Your problems get worse. This information is not intended to replace advice given to you by your health care provider. Make sure you discuss any questions you have with your health care provider. Document Revised: 10/21/2023 Document Reviewed: 10/21/2023 Elsevier Patient Education 2023 [employer]wise. 09/25/2024 14:49:51 Health Risks of Smoking Health Risks of Smoking Smoking tobacco is very bad for your health. Tobacco smoke contains many toxic chemicals that can damage every part of your body. Secondhand smoke can be harmful to those around you. Tobacco or nicotine use can cause many long-term (chronic) diseases. Smoking is difficult to quit because a chemical in tobacco, called nicotine, causes addiction or dependence. When you smoke and inhale, nicotine is absorbed quickly into your bloodstream through yourlungs. Both inhaled and non-inhaled nicotine may be addictive. How can quitting affect me? There are health benefits of quitting smoking. Some benefits happen right away and others take time. Benefits may include: Blood flow, blood pressure, heart rate, and lung capacity may begin to improve. However, any lung damage that has already occurred cannot be repaired. Respiratory symptoms from smoking, such as nasal congestion and cough, may improve over time. Your risk of heart disease, stroke, and cancer is reduced. The overall quality of your health may improve. You may save money, as you will not spend money on tobacco products and may spend less money on smoking-related health issues. What can increase my risk? Smoking harms nearly every organ in the body. People who smoke tobacco have a shorter life expectancy and an increased risk of many serious medical problems. These include: More respiratory infections, such as colds and pneumonia. Cancer. Heart disease. Stroke. Chronic respiratory diseases. Delayed wound healing and increased risk of complications during surgery. Problems with reproduction, , and childbirth, such as infertility, early (premature) births, stillbirths, and defects. Secondhand smoke exposure to children increases the risk of: Sudden infant syndrome (SIDS). Infections in the nose, throat, or airways (respiratory infections). Chronic respiratory symptoms. What actions can I take to quit? Smoking is an addiction that affects both your body and your mind, and long-time habits can be hardto change. Your health care provider can recommend: Nicotine replacement products, such as patches, gum, and nasal sprays. Use these products only as directed. Do not replace cigarette smoking with electronic cigarettes, which are commonly called e-cigarettes. The safety of e-cigarettes is not known, and some may contain harmful chemicals. Programs and community resources, which may include group support, education, or talk therapy. Prescription medicines to help reduce cravings. A combination of two or more quit methods, which may increase the success of quitting. Where to find support Follow the recommendations from your health care provider about support groups and other assistance. You can also visit: U.S. Department of Health and Human Services: www.smokefree.gov [place] [employer]: www.freedomfromsmoking.org [place] [employer]: www.heart.org Where to find more information Centers for Disease Control and Prevention: www.cdc.gov World Health Organization: www.who.int Summary Smoking tobacco is very bad for your health. Tobacco smoke contains many toxic chemicals that can damage every part of the body. Smoking is difficult to quit because a chemical in tobacco, called nicotine, causes addiction or dependence. There are immediate and long-term health benefits of quitting smoking. A combination of two or more quit methods may increase the success of quitting. This information is not intended to replace advice given to you by your health care provider. Make sure you discuss any questions you have with your health care provider. Document Revised: 10/06/2022 Document Reviewed: 10/06/2022 [employer] Patient Education 2023 Interwise. [facility] 12-09-2024 NotePatient Education Gastroenterology Anal Fissure, Adult An anal fissure is a small tear or crack in the tissue near the opening of the butt (anus). In mostcases, bleeding from the tear or crack stops on its own within a few minutes. You may have bleedingeach time you poop until the tear or crack heals. What are the causes? Passing a large or hard poop (stool). ??? Having trouble pooping (constipation). ??? Having watery poops (diarrhea). ??? An inflammatory bowel disease, like Crohn's disease or ulcerative colitis. ??? Childbirth. ??? Infections. ??? Anal sex. What are the signs or symptoms? Bleeding from the butt. ??? Small amounts of blood on your poop. The blood coats the outside of the poop. It is not mixed with the poop. ??? Small amounts of blood on the toilet paper or in the toilet after you poop. ??? Pain when you poop. ??? Itching or irritation around your butt. How is this treated? Treatment may include: ??? Making changes to what you eat and drink. This can help if you have trouble pooping. ??? Taking fiber supplements. These can help make your poop soft. ??? Taking warm water baths (sitz baths). These can help heal the tear. ??? Using creams and ointments. If other treatments do not work, you may need: ??? A shot near the tear or crack (botulinum injection). ??? Surgery to fix the tear or crack. Follow these instructions at home: Medicines ??? Take umam-jbx-vgvzkoa and prescription medicines only as told by your doctor. This includes creams and ointments that have medicine in them. ??? Use medicines to make your poop soft as told by your doctor. Treating constipation You may need to take these actions to prevent or treat trouble pooping: ??? Drink enough fluid to keep your pee (urine) pale yellow. ??? Eat foods that are high in fiber. These include beans, whole grains, and fresh fruits and vegetables. ??? Stay away from unripe bananas. Ripe bananas are a good choice. ??? Limit foods that are high in fat and sugar. These include fried or sweet foods. ??? Avoid dairy products. This includes milk. General instructions ??? Keep the butt area clean and dry. ??? Take a warm water bath as told by your doctor. Do not use soap. Contact a doctor if: ??? You have more bleeding. ??? You have a fever. ??? You have watery poop that is mixed with blood. ??? Your pain does not go away. ??? Your problems get worse. This information is not intended to replace advice given to you by your health care provider. Make sure you discuss any questions you have with your health care provider. Document Revised: 10/21/2023 Document Reviewed: 10/21/2023 [employer] Patient Education ? 2023 [employer] Pulmonary Medicine Health Risks of Smoking Smoking tobacco is very bad for your health. Tobacco smoke contains many toxic chemicals that can damage every part of your body. Secondhand smoke can be harmful to those around you. Tobacco or nicotine use can cause many long-term (chronic) diseases. Smoking is difficult to quit because a chemical in tobacco, called nicotine, causes addiction or dependence. When you smoke and inhale, nicotine is absorbed quickly into your bloodstream through yourlungs. Both inhaled and non-inhaled nicotine may be addictive. How can quitting affect me? There are health benefits of quitting smoking. Some benefits happen right away and others take time. Benefits may include: ??? Blood flow, blood pressure, heart rate, and lung capacity may begin to improve. However, any lung damage that has already occurred cannot be repaired. ??? Respiratory symptoms from smoking, such as nasal congestion and cough, may improve over time. ??? Your risk of heart disease, stroke, and cancer is reduced. ??? The overall quality of your health may improve. ??? You may save money, as you will not spend money on tobacco products and may spend less money onsmoking-related health issues. What can increase my risk? Smoking harms nearly every organ in the body. People who smoke tobacco have a shorter life expectancy and an increased risk of many serious medical problems. These include: ??? More respiratory infections, such as colds and pneumonia. ??? Cancer. ??? Heart disease. ??? Stroke. ??? Chronic respiratory diseases. ??? Delayed wound healing and increased risk of complications during surgery. ??? Problems with reproduction, , and childbirth, such as infertility, early (premature) births, stillbirths, and defects. Secondhand smoke exposure to children increases the risk of: ??? Sudden infant syndrome (SIDS). ??? Infections in the nose, throat, or airways (respiratory infections). ??? Chronic respiratory symptoms. What actions can I take to quit? Smoking is an uday (more content not included)...[facility] 09-19-2024 History of Present illness Narrative* NISHI Cobb - 09/19/2024 1:00 PM EST Images from the original note were not included. GENERAL HISTORY AND PHYSICAL: NAME: Kristina Narvaez : 1995 HISTORY OF PRESENT ILLNESS: Kristina Narvaez is an 29 y.o. @ female. Here for surgery instructions (R) KNEE SCOPE 10/05/24 @ [facility] YIN PAST MEDICAL HISTORY: Past Medical History: Diagnosis Date Anxiety COVID-19 08/22/2024 Depression (CMS/HCC) External hemorrhoids Herpes simplex 2016 PAST SURGICAL HISTORY: Past Surgical History: Procedure Laterality Date TONSILLECTOMY 2002 SOCIAL HISTORY: Social History Occupational History Not on file Tobacco Use Smoking status: Former Current packs/day: 1.50 Average packs/day: 1.5 packs/day for 10.0 years (15.0 ttl pk-yrs) Types: Cigarettes Smokeless tobacco: Never Tobacco comments: Quit cigarettes about 2 years ago, currently vape Vaping Use Vaping status: Every Day Substances: Nicotine Substance and Sexual Activity Alcohol use: Yes Alcohol/week: 3.0 standard drinks of alcohol Types: 3 Cans of beer per week Drug use: Yes Types: Marijuana Sexual activity: Yes Partners: Male control/protection: I.U.D. ALLERGIES: No Known Allergies MEDICATIONS: Current Outpatient Medications Medication Instructions docusate sodium (STOOL SOFTENER) 100 mg, Oral, 2 times daily Levonorgestrel (Liletta, 52 MG,) 20.1 MCG/DAY intrauterine device as directed Intrauterine Vistaril 25 MG capsule 1 capsule Zoloft 50 MG tablet Every 24 hours REVIEW OF SYSTEMS: Review of Systems Constitutional: Negative for fatigue, fever and unexpected weight change. Eyes: Negative for redness and visual disturbance. Gastrointestinal: Positive for rectal pain (hemorrhoids. treated by Surgeon.). Negative for abdominal pain. Denies Indigestion Musculoskeletal: See note: Skin: Negative for color change and rash. Neurological: Negative for light-headedness and numbness. Vitals: Body mass index is 22.68 kg/m . PHYSICAL EXAM: Physical Exam Constitutional: General: She is not in acute distress. Appearance: Normal appearance. HENT: Head: Normocephalic and atraumatic. Right Ear: External ear normal. Left Ear: External ear normal. Nose: Nose normal. No rhinorrhea. Mouth/Throat: Mouth: Mucous membranes are moist. Pharynx: No posterior oropharyngeal erythema. Eyes: Extraocular Movements: Extraocular movements intact. Conjunctiva/sclera: Conjunctivae normal. Cardiovascular: Rate and Rhythm: Normal rate and regular rhythm. Pulses: Normal pulses. Heart sounds: No murmur heard. Pulmonary: Effort: Pulmonary effort is normal. No respiratory distress. Breath sounds: Normal breath sounds. No wheezing or rhonchi. Abdominal: Palpations: Abdomen is soft. Tenderness: There is no abdominal tenderness. Musculoskeletal: Cervical back: Normal range of motion and neck supple. Lymphadenopathy: Cervical: No cervical adenopathy. Skin: General: Skin is warm and dry. Findings: No erythema or rash. Neurological: General: No focal deficit present. Mental Status: She is alert and oriented to person, place, and time. Psychiatric: Mood and Affect: Mood normal. Behavior: Behavior normal. No orders of the defined types were placed in this encounter. ASSESSMENT: ICD-10-CM 1. Pre-op examination Z01.818 PLAN: This patient presents for preadmission testing for upcoming surgery. Complete history with medical, surgery, and current allergy and medication list obtained. Consent for surgery signed and witnessed after verbal consent to perform surgery received. All questions answered and proposed surgeryscheduled. SX INSTRUCTIONS 09/19/24 @ 1:00PM NO TESTING REQ PER [facility] / CHRIS YIN PT HAS CRUTCHES NPAR - REF # [id number] Follow up for 10/20/24 @ 11:00AM - JOSUE NEWELL. documented in this encounterUniversity of Missouri Health [id number] History of Present illness Narrative* Lalitha Calderon APRN-BLURB WRITER - 09/11/2024 10:00 AM EST Images from the original note were not included. Chief Complaint: Hemorrhoids History of Present Illness Kristina Narvaez is a 29 y.o. female who presents to the office for hemorrhoids. Her symptoms started around Halloween. She denies any constipation, diarrhea or heavy lifting prior to flare up. She reports intermittent bright red blood, however, she has not seen any blood in 1 week. She also reports rectal pain. She is scared to eat because she does not want to have a bowel movement due to the pain.She is taking Sitz baths 2 to 3 times a day with mild improvement. She is drinking 80 oz of water daily. She has been seen in the urgent care, the ED and by her OBGYN for symptoms. She had been givenboth hydrocortisone and lidocaine cream, this causes burning. Review of Systems Constitutional: Negative for fever and unexpected weight change. HENT: Negative for trouble swallowing. Respiratory: Negative for shortness of breath. Cardiovascular: Negative for chest pain. Gastrointestinal: Positive for rectal pain. Negative for nausea, vomiting, abdominal pain, diarrhea, constipation, blood in stool and black tarry stool. Genitourinary: Negative for dysuria and difficulty urinating. Musculoskeletal: Negative for gait problem. Skin: Negative for rash and wound. Neurological: Negative for dizziness, weakness and light-headedness. Hematological: Does not bruise/bleed easily. Psychiatric/Behavioral: Negative for confusion. History reviewed. No pertinent past medical history. Past Surgical History: Procedure Laterality Date TONSILLECTOMY 2004 No Known Allergies Current Outpatient Medications: ALPRAZolam (XANAX) 0.25 mg tablet, Take by mouth nightly as needed., Disp: , Rfl: docusate (COLACE) 50 mg/5 mL liquid, Take 5 mL (50 mg total) by mouth in the morning., Disp: , Rfl: hydrOXYzine (VISTARIL) 25 mg capsule, Take 1 capsule (25 mg total) by mouth 2 (two) times a day as needed., Disp: , Rfl: levonorgestreL (LILETTA) 20.4 mcg/24 hr (8 yrs) 52 mg intrauterine device IUD, 1 each by intrauterine route once., Disp: , Rfl: sertraline (ZOLOFT) 50 mg tablet, Take 1 tablet (50 mg total) by mouth in the morning., Disp: , Rfl: valACYclovir (VALTREX) 1000 mg tablet, Take 1 tablet (1,000 mg total) by mouth in the morning., Disp: , Rfl: Social History Socioeconomic History Marital status: Single Spouse name: Not on file Number of children: Not on file Years of education: Not on file Highest education level: Not on file Occupational History Not on file Tobacco Use Smoking status: Former Types: Cigarettes Smokeless tobacco: Never Vaping Use Vaping status: Every Day Substances: THC Substance and Sexual Activity Alcohol use: Not on file Comment: socially Drug use: Yes Types: Marijuana Sexual activity: Defer control/protection: I.U.D. Other Topics Concern Not on file Social History Narrative Not on file Social Drivers of Health Financial Resource Strain: Not on file Food Insecurity: Not on file Transportation Needs: Not on file Physical Activity: Not on file Stress: Not on file Social Connections: Not on file Interpersonal Safety: Not on file Housing Instability: Not on file History reviewed. No pertinent family history. Objective Physical Exam Exam conducted with a biology intern present. Constitutional: General: She is not in acute distress. Appearance: Normal appearance. She is not ill-appearing. HENT: Head: Normocephalic and atraumatic. Mouth/Throat: Mouth: Mucous membranes are moist. Eyes: Pupils: Pupils are equal, round, and reactive to light. Cardiovascular: Rate and Rhythm: Normal rate. Pulmonary: Effort: Pulmonary effort is normal. No respiratory distress. Abdominal: General: There is no distension. Genitourinary: Rectum: Tenderness and external hemorrhoid present. Comments: Circumferential nonthrombosed external hemorrhoids, no gross blood, unable to complete TRENA d/t tenderness Musculoskeletal: General: Normal range of motion. Skin: General: Skin is warm and dry. Neurological: Mental Status: She is alert and oriented to person, place, and time. Mental status is at baseline. Vital Signs: Height 157.5 cm (5' 2 ), weight 57.3 kg (126 lb 6.4 oz). Respiratory Source: No data recorded Admission Weight: Weight: 57.3 kg (126 lb 6.4 oz) Labs No results found for: WBC , HGB , HCT , MCV , PLT No results found for: GLU , CALCIUM , NA , K , CO2 , CL , BUN , CREATININE No results found for: AMYLASE No results found for: LIPASE No results found for: ALT , AST , GGT , ALKPHOS , LABBILI No results found for: INR , PROTIME Assessment Kristina Narvaez is a 29 y.o.female with hemorrhoids and rectal pain ? possible anal fissure. Plan Recommended 64 oz of water daily, high-fiber diet, preventing constipation and diarrhea, avoiding heavy lifting and continuing Sitz baths 2-3 times daily. She appears uncomfortable d/t pain, but is hesitant to proceed with surgical intervention at this time. She will continue dietary and lifestyle modifications and call back if symptoms do not improve. Evaluation included: Preparing to see the patient (e.g., review of tests) Obtaining and/or reviewing separately obtained history Performing a medically appropriate examination and/or evaluation Counseling and educating the patient/family/caregiver Referring and communicating with other health intensive care anaesthetist Hemorrhoids, unspecified hemorrhoid type [K64.9] MICHAEL IRELAND [facility] [place] This note was created with the assistance of a speech recognition program. While intending to generate a timely document that accurately reflects the content of the visit, no guarantee can be provided that every grammatical or spelling mistake has been or will be identified or corrected. Thank you for your understanding. MICHAEL Ireland 09/11/24 1037 documented in this encounterProMedica [facility]11-20-[facility] History of Present illness Narrative* Tyra rTujillo, - 09/06/2024 11:30 AM EST Images from the original note were not included. Subjective Kristina Narvaez is a 29 y.o. female HPI Chief Complaint Patient presents with sick visit Patient here for problem visit. Patient reports that she has killer hemorrhoids and has been using sitz baths, hydrocortisone cream, tucks pads, suppositories without relief. Has appt with surgeon on 09/11. Patient reports of pain with sitting and movements. Patient reports of vaginal discharge as sociated with burning sensation. Admits to dysuria. Past Medical History: Diagnosis Date Anxiety Depression ([facility]/HCC) Herpes simplex 2015 Past Surgical History: Procedure Laterality Date TONSILLECTOMY 2002 No family history on file. Social History Tobacco Use Smoking status: Former Current packs/day: 1.50 Average packs/day: 1.5 packs/day for 10.0 years (15.0 ttl pk-yrs) Types: Cigarettes Smokeless tobacco: Never Tobacco comments: Quit cigarettes about 2 years ago, currently vape Vaping Use Vaping status: Every Day Substance Use Topics Alcohol use: Yes Alcohol/week: 3.0 standard drinks of alcohol Types: 3 Cans of beer per week Drug use: Yes Types: Marijuana OB History No obstetric history on file. No Known Allergies Current Outpatient Medications on File Prior to Visit Medication Sig Dispense Refill ALPRAZolam (Xanax) 0.25 MG tablet 1 tablet Orally daily prn for 7 days (Patient not taking: Reported on 08/28/2024) hydrocortisone (Anusol-HC) 2.5 % rectal cream Insert into the rectum 2 (two) times a day Apply rectally 2 times daily 28 g 0 Levonorgestrel (Liletta, 52 MG,) 20.1 MCG/DAY intrauterine device as directed Intrauterine Vistaril 25 MG capsule 1 capsule Zoloft 50 MG tablet 1 (one) time each day at the same time No current facility-administered medications on file prior to visit. Review of Systems Constitutional: Negative for chills and fever. Respiratory: Negative for shortness of breath. Cardiovascular: Negative for chest pain. Gastrointestinal: Negative for nausea and vomiting. Genitourinary: Positive for dysuria, vaginal discharge and vaginal pain. Negative for pelvic pain. Neurological: Negative for dizziness and headaches. Objective BP 118/72 Wt 124 lb BMI 22.68 kg/m Physical Exam Constitutional: Appearance: Normal appearance. Genitourinary: No lesions in the vagina. Right Labia: No lesions. Left Labia: No lesions. Vaginal discharge (thick and white without foul odor) present. Right Adnexa: not tender and no mass present. Left Adnexa: not tender and no mass present. No cervical lesion. IUD strings visualized. Uterus is not tender. Uterus is anteverted. Bladder is tender. Rectum: External hemorrhoid (tender to palpation, no bleeding noted) present. Neurological: Mental Status: She is alert. Skin: General: Skin is warm and dry. Psychiatric: Mood and Affect: Mood normal. Assessment/Plan 1. Vaginal discharge (Primary) Discussed findings. Fluconazole Rx sent to pharmacy - fluconazole (Diflucan) 150 MG tablet; Take 1 tablet (150 mg) by mouth 1 (one) time for 1 dose Repeat in 3 days if symptoms persist. Dispense: 2 tablet; Refill: 0 2. Vaginal irritation - fluconazole (Diflucan) 150 MG tablet; Take 1 tablet (150 mg) by mouth 1 (one) time for 1 dose Repeat in 3 days if symptoms persist. Dispense: 2 tablet; Refill: 0 3. Acute vaginitis - fluconazole (Diflucan) 150 MG tablet; Take 1 tablet (150 mg) by mouth 1 (one) time for 1 dose Repeat in 3 days if symptoms persist. Dispense: 2 tablet; Refill: 0 4. Dysuria Urine sent to culture, will notify patient of result and treat accordingly 5. Acute suprapubic pain 6. Surveillance for control, intrauterine device IUD strings visualized. Patient to contact the office with any concerns or questions documented in this encounterUniversity of Missouri Health [id number] Hospital Discharge instructions Patient Education 09/02/2024 13:13:37 Hemorrhoids Hemorrhoids Hemorrhoids are swollen veins in and around the rectum or the opening of the butt (anus). There aretwo types of hemorrhoids: Internal. These occur in the veins just inside the rectum. They may poke through to the outside andbecome irritated and painful. External. These occur in the veins outside the anus. They can be felt as a painful swelling or hardlump near the anus. Most hemorrhoids do not [...] the colon using a tube with a cameraon the end. How is this treated? In most cases, hemorrhoids can be treated at home with diet and lifestyle changes. If these changesdo not help, you may need to have a procedure done. These procedures can make the hemorrhoids smaller or fully remove them. Common procedures include: Rubber band ligation. Rubber bands are placed at the base of the hemorrhoids to cut off their bloodsupply. Sclerotherapy. Medicine is put into the hemorrhoids [...] Follow these instructions at home: Medicines Take bfby-rdf-dcoqocr and prescription medicines only as told by [...] to prevent skin damage. The risk of damageis higher if you cannot feel pain, heat, [...] pain. Where to find more information [place] of Diabetes and Digestive and Kidney Diseases: [...] provider. Document Revised: 06/16/2023 Document Reviewed: 06/16/2023 [employer] Patient Education 2023 Interwise. Follow Up Care 09/02/2024 12:26:08 With:Reji Dillon Address: [address] [place] [phone] Business (1) When:09/05/2024 13:01:17 [facility] 11-16-2024 Evaluation + Plan noteExtracted from: Title:ED Note Author:Hilda DAVIS, Peña Xavier te:09/02/24 Hemorrhoid (K64.9: Unspecifi ed hemorrhoids) Orders: hydrocortisone topical, 25 mg = 1 supp, Rectal, BID, X 7 day(s), # 14 supp, Refills(s) 0, Pharmacy: [facility]/pharmacy #[id number], 157.5, cm, 09/02/24 12:33:00 EST, Height/Length Dosing, 58, kg, 09/02/24 12:33:00 EST, Weight Dosing lidocaine topical, See Instructions, 20 gm, Refill(s) 0, Apply to affected area up to 6 times daily, [id number], 157.5, cm, 09/02/24 12:33:00 EST, Height/Length Dosing, 58, kg, 09/02/24 12:33:00 EST, Weight Dosing [facility] 11-16-2024 NoteED Patient Education Note Gastroenterology Hemorrhoids Hemorrhoids are swollen veins in and around the rectum or the opening of the butt (anus). There aretwo types of hemorrhoids: ??? Internal. These occur in the veins just inside the rectum. They may poke through to the outsideand become irritated and painful. ??? External. These occur in the veins outside [...] anus. This pressure may be caused by: ??? Constipation or diarrhea. ??? Straining to poop. ??? . ??? Obesity. ??? Sitting or riding a bike for a long time. ??? Heavy lifting or other things that cause you to strain. ??? Anal sex. What are the signs or symptoms? Symptoms of this condition include: ??? Pain. ??? Anal itching or irritation. ??? Bleeding from the rectum. ??? Leakage of poop (stool). ??? Swelling of the anus. ??? One or more lumps around the anus. How is this diagnosed? Hemorrhoids can often be diagnosed through a visual exam. Other exams or tests may also be done, such as: ??? A digital rectal exam. This is when your health care provider feels inside your rectum with a gloved finger. ??? Anoscope. This is an exam of the anus using a small tube. ??? A blood test, if you have lost a lot of blood. ??? A sigmoidoscopy or colonoscopy. These are tests to look inside the colon using a tube with a camera on the end. How is this treated? In most cases, hemorrhoids can be treated at home with diet and lifestyle changes. If these changesdo not help, you may need to have a procedure done. These procedures can make the hemorrhoids smaller or fully remove them. Common procedures include: ??? Rubber band ligation. Rubber bands are placed at the base of the hemorrhoids to cut off their blood supply. ??? Sclerotherapy. Medicine is put into the hemorrhoids to shrink them. ??? Infrared coagulation. A type of light energy is used to get rid of the hemorrhoids. ??? Hemorrhoidectomy surgery. The hemorrhoids are removed during surgery. Then, the veins that supply them are tied off. ??? Stapled hemorrhoidopexy surgery. The base of the hemorrhoid is stapled to the wall of the rectum. Follow these instructions at home: Medicines ??? Take gssi-vld-avflpzg and prescription medicines only as told by your provider. ??? Use medicated creams or medicines that are put in the rectum (suppositories) as told by your provider. Eating and drinking ??? Eat foods that are high in fiber, such as beans, whole grains, and fresh fruits and vegetables. ??? Ask your provider about taking products that have fiber added to them (fiber supplements). ??? Reduce the amount of fat in your diet. You can do this by eating low-fat dairy products, eatingless red meat, and avoiding processed foods. ??? Drink enough fluid to keep your pee (urine) pale yellow. Managing pain and swelling ??? Take warm sitz baths for 20 minutes, 3?4 times a day. This can help ease pain and discomfort. You may do this in a bathtub or you can use a portable sitz bath that fits over the toilet. ??? If told, put ice on the affected area. It may help to use ice packs between sitz baths. ? Put ice in a plastic bag. ? Place a towel between your skin and the bag. ? Leave the ice on for 20 minutes, 2?3 times a day. ??? If your skin turns bright red, remove the ice right away to prevent skin damage. The risk of damage is higher if you cannot feel pain, heat, or cold. General instructions ??? Exercise. Ask your provider how much and what kind of exercise is best for you. In general, youshould do moderate exercise for at least 30 minutes on most days of the week (150 minutes each week). You may want to try walking, biking, or yoga. ??? Go to the bathroom when you have the urge to poop. Do not wait. ??? Avoid straining to poop. ??? Keep the anus dry and clean. Use wet toilet paper or moist towelettes after you poop. ??? Do not sit on the toilet for a long time. This can increase blood pooling and pain. Where to find more information ??? National [place] of Diabetes and Digestive and Kidney Diseases: niddk.nih.gov Contact a health care provider if: ??? You have more pain and swelling that do not get better with treatment. ??? You have trouble pooping or you are not able to poop. ??? You have pain or inflammation outside the area of the hemorrhoids. Get help right away if: ??? You are bleeding from your rectum and you cannot get it to stop. This information is not intended to replace advice given to you by your health care provid (more content not included)...[facility]11-11-2024 History of Present illness Narrative* Maciel Manzano, ANUEL - 08/28/2024 5:05 PM EST Images from the original note were not included. HPI: Historian of HPI: patient Kristina Narvaez is a 29 y.o. female who presents today to the Urgent Care with the following complaints and denials which have been present for 1 week(s) C/O Denies Symptom Comments [] [x] Lesion [] [x] Rash [] [x] Lump [] [x] Bump [] [x] Depression [] [x] abscess [] [x] cellulitis [] [x] itching [x] [] pain [x] [] burning [] [x] Sensation of insects crawling Additional Comments: Pt c/o hemorrhoid and OTC meds are not effective. Pt reports she is in so much pain I'm scared to poop and when I wipe there is blood . Pt tried sitz baths and witch morenita wipes, not effective. ROS: A complete system ROS was performed and negative aside from the pertinent positives noted in the HPI and PE. Visit Vitals Temp 98.3 F Wt 126 lb SpO2 98% BMI 23.05 kg/m OB Status Having periods Smoking Status Former BSA 1.58 m Physical Exam Vitals reviewed. Constitutional: General: She is not in acute distress. Appearance: Normal appearance. HENT: Head: Normocephalic and atraumatic. Nose: Nose normal. Mouth/Throat: Mouth: Mucous membranes are moist. Pharynx: Oropharynx is clear. Eyes: Extraocular Movements: Extraocular movements intact. Conjunctiva/sclera: Conjunctivae normal. Pupils: Pupils are equal, round, and reactive to light. Cardiovascular: Rate and Rhythm: Normal rate and regular rhythm. Pulses: Normal pulses. Heart sounds: Normal heart sounds. Pulmonary: Effort: Pulmonary effort is normal. No respiratory distress. Breath sounds: Normal breath sounds. No wheezing, rhonchi or rales. Genitourinary: Comments: Hemorrhoid noted Musculoskeletal: General: Normal range of motion. Cervical back: Normal range of motion and neck supple. Skin: General: Skin is warm and dry. Findings: No rash. Neurological: General: No focal deficit present. Mental Status: She is alert and oriented to person, place, and time. Psychiatric: Mood and Affect: Mood normal. Behavior: Behavior normal. Thought Content: Thought content normal. Judgment: Judgment normal. 1. Grade I hemorrhoids (Primary) Patient presents today for evaluation of possible hemorrhoids. She has a history of these while and reports this feels the same. On exam, there is a grade 1 hemorrhoid that is not thrombosed. Dx and tx discussed. She expressed an understanding. - hydrocortisone (Anusol-HC) 2.5 % rectal cream; Insert into the rectum 2 (two) times a day Apply rectally 2 times daily Dispense: 28 g; Refill: 0 documented in this encounterUniversity of Missouri Health [id number] History of Present illness Narrative* Jr. Martínez Smith, - 08/14/2024 2:45 PM EDT Images from the original note were not included. HISTORY OF PRESENT ILLNESS: EST PT Kristina Narvaez is an 29 y.o. @ female. EST PT WITH REECE- RECHECK RT KNEE- HERE FOR MRI RT KNEE RESULTS 08/07/24 [facility] PT IS OFF WORK; EMPLOYER WAS UNABLE TO FOLLOW RESTRICTIONS SO PT IS CURRENTLY OFF WORK XRAY RT KNEE 05/24/24 [facility] MRI RT KNEE 08/07/24 [facility] VENOUS DOPPLER 05/24/24 [facility] CORTISONE INJ 07/05/24 PREDNISONE 05/30/24 PT IN [...] intervention. Martínez Smith D.O. documented in this encounterUniversity of Missouri Health [id number] History of Present illness Narrative* NISHI Cobb - 07/26/2024 10:30 AM EDT Images from the original note were not included. HISTORY OF PRESENT ILLNESS: EST PT Kristina Brittani Narvaez is an 29 y.o. @ female. 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 documented in this encounterUniversity of Missouri Health [id number] History of Present illness Narrative* NISHI Cobb - 07/12/2024 1:15 PM EDT Images from the original note were not included. HISTORY OF PRESENT ILLNESS: EST PT Kristina Narvaez is an 29 y.o. @ female. EST PT RECHECK RT KNEE PAIN - S/P CORTISONE INJ 07/05/24; PT NOTICED INCREASE PAIN/SWELLING X2DAYS- PT NOTES SOME IMPROVEMENT WITH PAIN- CONTINUES PT TBH (KT TAPE) 2/WK XRAY RT KNEE 05/24/24 [facility] NO MRI VENOUS DOPPLER 05/24/24 [facility] CORTISONE INJ 07/05/24 PREDNISONE 05/30/24 PT IN [place] C/O INSTABILITY- PT STATES HER KNEE HAS BUCKLED 2X SINCE LAST VISIT- PAIN MEDIAL KNEE AND BELOW KNEE CAP- +TYLENOL - PT ICES/ELEVATES ALLERGIES: No Known Allergies HOME MEDICATIONS: Current Outpatient Medications Medication Instructions ALPRAZolam (Xanax) 0.25 MG tablet 1 tablet Orally daily prn for 7 days Levonorgestrel (Liletta, 52 MG,) 20.1 MCG/DAY intrauterine device as directed Intrauterine Vistaril 25 MG capsule 1 capsule Zoloft 50 MG tablet Every 24 hours PHYSICAL EXAM: Knee Musculoskeletal Exam Gait Gait is normal. Limp: right Limp comment: with initiation of gait. Inspection Leg length disparity: no discrepancy Right Erythema: none Effusion: none Edema: none Ecchymosis: none Deformity: none Alignment: normal Palpation Right Right knee palpation is unremarkable. Increased warmth: none Masses: none Crepitus: none Tenderness: present Patella: mild Range of Motion Right Right knee range of motion is normal and full. Strength Right Right knee strength is normal. Extension: 5/5. Flexion: 5/5. Instability Right Instability signs: none - stable Varus stress grade: normal Valgus stress grade: normal Anterior drawer: normal Medial Danuta test: negative Lateral Danuta test: negative Neurovascular Right Right knee neurovascular exam is normal. Pulses - PT: normal Posterior tibial: 2+ Capillary refill: warm and well-perfused Special Signs Right Right knee special signs are normal. Straight leg raise: normal Patellar apprehension: moderate General Constitutional: appears stated age Labored breathing: no Psychiatric: normal mood and affect Neurological: alert Skin: intact Lymphadenopathy: none Vitals: There is no height or weight on file to calculate BMI. Tobacco Use: Medium Risk (07/12/2024) Patient History Smoking Tobacco Use: Former Smokeless [...] Acute pain of right knee M25.561 2. Chondromalacia, patella, right M22.41 PLAN: Pt guarding on exam, relief with injection and therapy.. + buckling sensation at times, improved with Taping. Recommend knee sleeve vs Kt tape, return to work tomorrow with hour restrictions 8hr day and 40 hr wk. For 2 wks pending recheck.. consider MRI if not improving, pt would like to avoid sx. With surgical and nonsurgical tx options discussed. Questions answered in laymen terms at the bedside. The diagnosis, home exercise plan and any ongoing restrictions/ recommendations reviewed. If unable to be reached in office, I recommend evaluation at nearest Emergency Room if any symptoms worsened or new symptoms develop for requiring urgent evaluation. documented in this encounterUniversity of Missouri Health [id number] History of Present illness Narrative* NISHI Cobb - 07/05/2024 2:00 PM EDTAssociated Order(s): L Inj/Asp: R knee Post-Procedure Diagnose(s): Chondromalacia, patella, right Images from the original note were not included. HISTORY OF PRESENT ILLNESS: EST PT Kristina Narvaez is an 29 y.o. @ female. EST PT RECHECK RT KNEE PAIN SINCE 05/20/24-S/P PT IN [place] 2/WK; NOTES SOME IMPROVEMENT XRAY RT KNEE 05/24/24 [facility] NO MRI VENOUS DOPPLER 05/24/24 [facility] NO CORTISONE INJ PREDNISONE 05/30/24 PT IN [place] PT STATES PAIN WAS LESS SEVERE- PT DID ATTEMPT TO WALK THE QUARRY AND HAD INCREASE PAIN YESTERDAY -SOME INSTABILITY WITH STAIRS- PAIN ANTERIOR KNEE- INTERMITTENT SWELLING- PT ICES/ELEVATES- NO PAIN MEDS- PT IS SCHEDULED TO GO BACK TO WORK 07/06/24; PT NOT SURE IF SHE IS READY TO RTW ALLERGIES: No Known Allergies HOME MEDICATIONS: Current [...] none Deformity: none Alignment: normal Palpation Right Right knee palpation is unremarkable. Increased warmth: none Masses: none Crepitus: patellofemoral Tenderness: present Patella: moderate Range of Motion Right Right knee range of motion is normal and full. Strength Right Right knee strength is normal. Extension: 5/5. Flexion: 5/5. Instability Right Instability signs: none - stable Varus stress grade: normal Valgus stress grade: normal Anterior drawer: normal Medial Danuta test: negative Lateral Danuta test: negative Neurovascular Right Right knee neurovascular exam is normal. Pulses - PT: normal Posterior tibial: 2+ Capillary refill: warm and well-perfused Special Signs Right Right knee special signs are normal. Straight leg raise: normal Patellar apprehension: moderate General Constitutional: appears stated age Labored breathing: no Psychiatric: normal mood and affect Neurological: alert Skin: intact Lymphadenopathy: none Vitals: There is no height or weight on file to calculate BMI. Tobacco Use: Medium Risk (07/05/2024) Patient History Smoking Tobacco Use: Former Smokeless Tobacco Use: Never Passive Exposure: Not on file Alcohol Use: Not At Risk (06/29/2024) AUDIT-C Frequency of Alcohol Consumption: 4 or more times a week Average Number of Drinks: 1 or 2 Frequency of Binge Drinking: Never IMAGING: L Inj/Asp: R knee on 07/05/2024 2:29 PM Indications: pain Details: 22 G needle, anterolateral approach Medications: 40 mg methylPREDNISolone acetate 40 MG/ML Outcome: tolerated well, no immediate complications E UTILIZING ASEPTIC TECHNIQUE PT GIVEN INJECTION IN RIGHT KNEE, NEUROVASC INTACT S/P INJ, TOLERATEDWELL Procedure, treatment alternatives, risks and benefits explained, specific risks discussed. Consent was given by the patient. Patient was prepped and draped in the usual sterile fashion. Orders Placed This Encounter Procedures L Inj/Asp: R knee This order was created via procedure documentation ASSESSMENT: ICD-10-CM 1. Acute pain of right knee M25.561 2. Chondromalacia, patella, right M22.41 L Inj/Asp: R knee PLAN: Recheck in 1 wk.. will return to work on Wednesday without restrictions. Pt agreeable to injection today,. ( Very anxious but did well with procedure.. consider KT tape in therapy. Pt noting pain with over use/ incline activity, no s/s of meniscal tear or internal derangement on today's exam, will observe. Questions answered in laymen terms at the bedside. The diagnosis, home exercise plan and any ongoing restrictions/ recommendations reviewed. If unable to be reached in office, I recommend evaluation at nearest Emergency Room if any symptoms worsened or new symptoms develop for requiring urgent evaluation. documented in this encounterUniversity of Missouri Health [id number] History of Present illness Narrative* Gina Dupree NP - 06/29/2024 1:40 PM EDT Name: Kristina Narvaez Date/Time of Service:06/29/2024 2:14 PM :1995 Age: 29 y.o. SUBJECTIVE: History of Present Illness Kristina Narvaez is a 29 y.o. here for annual exam. She is not having any problems. Last pap 03-25-22. She thinks she had abnormal pap years ago. Agreeable to STD testing including labwork. Liletta was removed and reinserted 09-23-22. No periods with this. She will be interested in tubal at some point, she is sure she is done having children. Hx genital herpes. She has not had outbreak in 7 years. Past Medical History: Diagnosis Date Anxiety Depression (CMS/HCC) Herpes simplex 2015 Review of Systems All others negative except those mentioned in HPI. Past Medical / Surgical History Past Medical History: Diagnosis Date Anxiety Depression (CMS/HCC) Herpes simplex 2015 Past Surgical History: Procedure Laterality Date TONSILLECTOMY 2002 Family History No family history on file. Social History reports that she has quit smoking. Her smoking use included cigarettes. She has a 15 pack-year smoking history. She has never used smokeless tobacco. She reports current alcohol use of about 3.0 standard drinks of alcohol per week. She reports current drug use. Drug: Marijuana. MEDICATIONS: Current Outpatient Medications on File Prior to Visit Medication Sig Dispense Refill [DISCONTINUED] valACYclovir (Valtrex) 1 g tablet 1 (one) time each day at the same time ALPRAZolam (Xanax) 0.25 MG tablet 1 tablet Orally daily prn for 7 days Levonorgestrel (Liletta, 52 MG,) 20.1 MCG/DAY intrauterine device as directed Intrauterine Vistaril 25 MG capsule 1 capsule Zoloft 50 MG tablet 1 (one) time each day at the same time No current facility-administered medications on file prior to visit. No Known Allergies Review of Systems PHYSICAL EXAM: Vitals: 06/29/24 1339 BP: 116/72 Body mass index is 23.05 kg/m . Physical Exam Constitutional: Appearance: Normal appearance. Genitourinary: Normal external female genitalia. Normal vaginal mucosa. Cervix absent of lesions. No CMT. Uterus normal size, mobile. Right and left adnexa are non-tender, no masses. Breasts: No nipple discharge, skin changes, lumps, masses. Right: Normal. Left: Normal. HENT: Head: Normocephalic. Eyes: Extraocular Movements: Extraocular movements intact. Conjunctiva/sclera: Conjunctivae normal. Pulmonary: Effort: Pulmonary effort is normal. Neurological: Mental Status: She is alert and oriented to person, place, and time. Skin: General: Skin is warm and dry. Psychiatric: Mood and Affect: Mood normal. Behavior: Behavior normal. ASSESSMENT / PLAN No pap obtained today, due next year. Recommend monthly self breast exams. IUD strings noted in cervical os. Diagnosis Plan 1. Encounter for gynecological examination without abnormal finding 2. IUD check up 3. Herpes simplex valACYclovir (Valtrex) 1 g tablet 4. Screen for STD (sexually transmitted disease) RPR Hepatitis B surface Ag HIV-1 and HIV-2 antibodies C. trachomatis / N. gonorrhoeae, DNA probe Follow up in about 1 year (around 06/29/2025) for Annual exam. documented in this encounterUniversity of Missouri Health [id number] History of Present illness Narrative* NISHI Cobb - 06/14/2024 3:00 PM EDT Images from the original note were not included. HISTORY OF PRESENT ILLNESS: EST PT Krisitna Narvaez is an 29 y.o. @ female. EST PT RECHECK RT KNEE PAIN SINCE 05/20/24-S/P PREDNISONE 05/30/24; GOOD RELIEF XRAY RT KNEE 05/24/24 EPIC NO MRI VENOUS DOPPLER 05/24/24 [facility] NO CORTISONE INJ PREDNISONE 05/30/24 NOTES LESS SWELLING- PAIN IS LESS SEVERE- SYMPTOMS ARE USUALLY WITH PROLONG STANDING- +ICES/ELEVATES- +INSTABILITY WITH PROLONG STANDING- NO PAIN MEDS ALLERGIES: No Known Allergies HOME MEDICATIONS: Current Outpatient Medications Medication Instructions ALPRAZolam (Xanax) 0.25 MG tablet 1 tablet Orally daily prn for 7 days Vistaril 25 MG capsule 1 capsule Zoloft 50 MG tablet Every 24 hours PHYSICAL EXAM: Knee Musculoskeletal Exam Gait Gait is normal. Inspection Leg length disparity: no discrepancy Right Erythema: none Effusion: mild Edema: none Ecchymosis: none Deformity: none Alignment: normal Palpation Right Right knee palpation is unremarkable. Increased warmth: none Masses: none Crepitus: patellofemoral Tenderness: present Patella: moderate Range of Motion Right Right knee range of motion is normal and full. Strength Right Right knee strength is normal. Extension: 5/5. Flexion: 5/5. Instability Right Instability signs: none - stable Varus stress grade: normal Valgus stress grade: normal Anterior drawer: normal Medial Danuta test: negative Lateral Danuta test: negative Neurovascular Right Right knee neurovascular exam is normal. Pulses - PT: normal Posterior tibial: 2+ Capillary refill: warm and well-perfused Special Signs Right Right knee special signs are normal. Straight leg raise: normal Patellar apprehension: moderate General Constitutional: appears stated age Labored breathing: no Psychiatric: normal mood and affect Neurological: alert Skin: intact Lymphadenopathy: none Vitals: There is no height or weight on file to calculate BMI. Tobacco Use: High Risk (06/14/2024) Patient History Smoking Tobacco Use: Every Day Smokeless Tobacco Use: Never Passive Exposure: Not on file Alcohol Use: Not on file IMAGING: Procedures Orders Placed This Encounter Procedures Ambulatory referral to Physical Therapy Standing Status: Future Standing Expiration Date: 12/15/2024 Referral Priority: Routine Referral Type: Consultation Referral Reason: Specialty Services Required Referral Location: [facility] Scheduling Requested Specialty: Physical Therapy Number of Visits Requested: 1 ASSESSMENT: ICD-10-CM 1. Acute pain of right knee M25.561 Ambulatory referral to Physical Therapy PLAN: Recommend off work pending re-eval. Pt without effusion and exam improved with only peripatellar symptoms. Recommend compression/ sleeve when up for more than 10 mins and will start therapy to acclimate activties to return to work.. SLR intact. Quad and pre-patellar tendon without pain. Questions answered in laymen terms at the bedside. The diagnosis, home exercise plan and any ongoing restrictions/ recommendations reviewed. If unable to be reached in office, I recommend evaluation at nearest Emergency Room if any symptoms worsened or new symptoms develop for requiring urgent evaluation. documented in this encounterDEL[facility] Healthcare[facility] + Plan note Future Appointments Appointment Date:10/30/2024 03:00:00 PM Scheduled Provider:Reji Dillon MD Location:[facility] Appointment Type: Established [facility] Evaluation + Plan note Future Appointments Appointment Date:11/10/2024 10:00:00 AM Scheduled Provider: Location:[facility] Appointment Type:Surgery CALL PAT FT Appointment Date:11/14/2024 12:00:00 PM Scheduled Provider: Location:[facility] Appointment Type:Surgery FT Appointment Date:11/24/2024 11:20:00 AM Scheduled Provider:Reji Dillon MD Location:[facility] Appointment Type: Post Op [facility] Evaluation + Plan note Future Appointments Appointment Date:12/22/2024 11:00:00 AM Scheduled Provider:Reji Dillon MD Location:[facility] Appointment Type: Established [address] [place] [address] Evaluation noteNo assessment information available [facility] Work Phone: Evaluation note* Diagnosis Acute pain of right knee- Primary Internal derangement of right knee documented in this encounter [facility] HealthcareEvaluation note* Diagnosis Internal derangement of right knee- Primary documented in this encounter [facility]* Diagnosis Grade I hemorrhoids- Primary documented in this encounter [facility] HealthcareEvaluation note* Diagnosis Vaginal discharge- Primary Leukorrhea, not specified as infective Vaginal irritation Pruritus of genital organs Acute vaginitis Unspecified vaginitis and vulvovaginitis Dysuria Acute suprapubic pain Surveillance for control, intrauterine device Surveillance of previously prescribed intrauterine contraceptive device documented in this encounter [facility] HealthcareEvaluation note* Diagnosis Pre-op examination- Primary documented in this encounter [facility] HealthcareEvaluation note* Diagnosis Encounter for gynecological examination without abnormal finding- Primary IUD check up Herpes simplex Herpes simplex without mention of complication Screen for STD (sexually transmitted disease) Screening examination for venereal disease documented in this encounter [facility] HealthcareEvaluation note* Diagnosis Acute pain of right knee- Primary Chondromalacia, patella, right documented in this encounter [facility] HealthcareEvaluation note* Diagnosis Acute pain of right knee- Primary documented in this encounter [facility] HealthcareEvaluation note* Diagnosis Acute pain of right knee- Primary Chondromalacia, patella, right documented in this encounter [facility] HealthcareEvaluation note* Diagnosis Internal derangement of right knee- Primary documented in this encounter [facility] HealthcareEvaluation note* Diagnosis S/P right knee arthroscopy- Primary documented in this encounter [facility] HealthcareEvaluation note* Diagnosis S/P right knee arthroscopy- Primary Knee stiffness, right documented in this encounter [facility] HealthcareEvaluation note* Diagnosis S/P right knee arthroscopy- Primary documented in this encounter [facility] HealthcareEvaluation note* Diagnosis Hemorrhoids, unspecified hemorrhoid type- Primary Rectal pain Anal or rectal pain documented in this encounter [facility]* Diagnosis Knee strain, right, subsequent encounter- Primary Acute pain of right knee documented in this encounter [facility] HealthcareEvaluation note* Diagnosis 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 Increase your intake of fluids and take Motrin Tylenol as needed for pain. Return to the emergency department if develop worsening right lower quadrant abdominal pain intractable nausea vomiting. Follow-up with your primary care physician for reevaluation in 3 to 5 days.[facility] Work Phone: Hospital Discharge instructions No data available for this section [facility] General Surgery Michelle InstructionsNot on filedocumented in this encounter [facility] SystemProgress note No data available for this section [facility] Reason for referral (narrative)* Consultation (Routine) - Pending Review Specialty Diagnoses / Procedures Referred By Contac t Referred To Contact Physical Therapy Diagnoses Acute pain of right knee Procedures [place] OFFICE/OUTPATIENT NEW HIGH MDM 60 MINUTES Romi Hopper PA [address] [facility] [address] [place] [address] [place] [facility] [address] [place] [address] Phone: [phone] Referral ID Status Reason Start Date Expiration Date Visits Requested Visits Authorized [id number] Pending Review Specialty Services Required 06/14/2024 12/11/2024 1 1 [facility] Summary Purpose Family History Relationship Condition Age [...] wo IV contrast Romi Hopper PA [address] [place] [address] [facility] [address] [place] [address] Referral ID Status Reason Start Date Expiration Date V isits Requested Visits Authorized [id number] Pending Review 07/26/2024 01/22/2025 1 1 Specialty Diagnoses / Procedures Referred By Contac t Referred To Contact Orthopaedic Surgery Diagnoses Chondromalacia, patella, right Procedures L Inj/Asp: R knee Romi Hopper PA [address] [facility] [address] [place] [address] Referral ID Status Reason Start Date Expiration Date V isits Requested Visits Authorized [id number] Authorized 07/05/2024 01/01/2025 1 1 Additional Source Comments INFORMATION SOURCE (unrecogn ized section and content) DATE CREATED AUTHOR 04/07/2018 [facility] DATE CREATED AUTHOR AUTHOR'S ORGANIZ ATION 04/12/2018 [facility] DATE CREATED AUTHOR AUTHOR'S ORGANIZ ATION 04/13/2018 [facility] DATE CREATED AUTHOR AUTHOR'S ORGANIZ ATION 04/14/2022 [facility] DATE CREATED AUTHOR AUTHOR'S ORGANIZ ATION 09/20/2022 [facility] DATE CREATED AUTHOR AUTHOR'S ORGANIZ ATION 09/13/2024 [facility] DATE CREATED AUTHOR AUTHOR'S ORGANIZ ATION 11/26/2024 [facility] DATE CREATED AUTHOR AUTHOR'S ORGANIZ ATION 12/24/2024 [facility] DATE CREATED AUTHOR AUTHOR'S ORGANIZ ATION 01/22/2025 [facility] EPIC Care Teams (unrecognized sec tion and content) Team Status: Inactive Member Role Status Dates PHYSICIAN NO FAMILY Primary Care Provider Active Romi Obrien DO Emergency Provider Active Team Status: Active Member Role Status Dates PHYSICIAN NO FAMILY Primary Care Provider Active [employer] Relationship Specialty Start Date End Date Karl Husain MD [address] [place] [address] PCP - General Family Medicine 05/30/24 Naty Mccarty MD [address] [place], [place] [phone] Referring Physician Family Medicine 05/30/24 [employer] Relationship Specialty Start Date End Date Karl Husain MD [address] [place] [phone] PCP - General Family Medicine 05/30/24 Naty Mccarty MD [address] [place] [address] Referring Physician Family Medicine 05/30/24 [employer]visor [employer] Relationship Specialty Start Date End Date Karl Husain MD [address] [place] [address] PCP - General Family Medicine 05/30/24 Naty Mccarty MD [address] [place] [phone] Referring Physician Family Medicine 05/30/24 [employer] Relationship Specialty Start Date End Date Karl Husain MD [address] [place] [phone] PCP - General Family Medicine 05/30/24 Naty Mccarty MD [address] [place] [phone] Referring Physician Family Medicine 05/30/24 [employer] Relationship Specialty Start Date End Date Karl Husain MD [address] [place] [phone] PCP - General Family Medicine 05/30/24 Naty Mccarty MD [address] [place] [phone] Referring Physician Family Medicine 05/30/24 [employer] Relationship Specialty Start Date End Date Karl Husain MD [facility] [place] [address] PCP - General Family Medicine 05/30/24 Naty Mccarty MD [address] [place] [phone] Referring Physician Family Medicine 05/30/24 [employer] Relationship Specialty Start Date End Date Karl Husain MD [address] [place], [place] [phone] PCP - General Family Medicine 05/30/24 Naty Mccarty MD [address] [place], [place] [phone] Referring Physician Family Medicine 05/30/24 [employer] Relationship Specialty Start Date End Date Karl Husain MD [address] [place], [place] [phone] PCP - General Family Medicine 05/30/24 Naty Mccarty MD [address] [place], [place] [phone] Referring Physician Family Medicine 05/30/24 Super[employer] Relationship Specialty Start Date End Date Karl Husain MD [address] [place], [place] [phone] PCP - General Family Medicine 05/30/24 Naty Mccarty MD [address] [place], [place] [phone] Referring Physician Family Medicine 05/30/24 [employer] Relationship Specialty Start Date End Date Karl Husain MD [address] [place], [place] [phone] PCP - General Family Medicine 05/30/24 Naty Mccarty MD [address] [place] [phone] Referring Physician Family Medicine 05/30/24 Supervisor [employer] Relationship Specialty Start Date End Date Karl Husain MD [address] [place] [phone] PCP - General Family Medicine 05/30/24 Naty Mccarty MD [address] [place] [phone] Referring Physician Family Medicine 05/30/24 [employer] Relationship Specialty Start Date End Date Karl Husain MD [address] [place], [place] [phone] PCP - General Family Medicine 05/30/24 Naty Mccarty MD [address] [place] [phone] Referring Physician Family Medicine 05/30/24 [employer] Relationship Specialty Start Date End Date Naty Mccarty S, HE[employer] [address] [place] [phone] PCP - General Family Medicine 09/04/24 [employer] Relationship Specialty Start Date End Date Karl Husain MD [address] [place] [phone] PCP - General Family Medicine 05/30/24 Naty Mccarty MD [address] [place] [phone] Referring Physician Family Medicine 05/30/24 Goals (unrecognized section and content) Goals may be documented in a n alternate section No data available for this section No data available for this section No data available for this section No data available for this section No data available for this sectionNot on filedocumented as of this encounter Reason for Visit (unrecogniz ed section and content) Reason Comments Pain Reason Comments Pain Reason Comments sick visit Patient here for pro blem visit. Patient reports that she has killer hemorrhoids and has been using sitz baths, hydrocortisone cream, tucks pads, suppositories without relief. Has appt with surgeon on 09/11. Patient reports of pain with sitting and movements. Patient reports of vaginal discharge associated with burning sensation. Admits to dysuria. Reason Comments Pre-op Exam Reason Comments Post-op Reason Comments Follow-up Reason Comments Hemorrhoids [facility]RHOIDS, [facility] , PT HAS BCBS Reason Comments Med Refill FOR RECORDS PERTAINING TO PATIENTS WHO ARE [...] BE BASED ON THE PRIMARY CLINICAL RECORDS. [employer] [facility]. provides no warranty or guarantee of the accuracy or completeness of information in this document.
[2025-05-02 09:03] LABS: Hematocrit 37.0 % (36.0-48.0); Hemoglobin 12.8 g/dL (12.0-16.0); Immature Granulocytes Abs Auto 0.05 10^3/uL (0.00-0.03); Immature Granulocytes Pct Auto 0.7 % (0.0-0.5); Lymphocytes Absolute Auto 1.3 10^3/uL (1.2-3.8); Mean Corpuscular HGB Conc 34.6 g/dL (29.9-35.2); Mean Corpuscular Hemoglobin 31.5 pg (26.7-34.0); Mean Corpuscular Volume 91.1 fL (81.0-99.0); Platelet Count 251 10^3/uL (150-450); Red Blood Count 4.06 10^6/uL (4.20-5.40); White Blood Count 7.4 10^3/uL (4.0-11.0)
[2025-05-02] MEDS: 0.9 % SODIUM CHLORIDE 1,000 ML 1000 ML IV (09:05)
[2025-05-02 09:15] LABS: Anion Gap 12.1; Blood Urea Nitrogen 11.0 mg/dL (7.0-18.0); Calcium 8.5 mg/dL (8.5-10.1); Carbon Dioxide 29.7 mmol/L (21.0-32.0); Chloride 108 mmol/L (98-107); Estimated GFR (African America >60 (>=60 mL/min/1.73m^2); Estimated GFR (Non-African Ame >60 (>=60 mL/min/1.73m^2); Glucose 114 mg/dL (74-106); Potassium 3.8 mmol/L (3.5-5.1); Sodium 146 mmol/L (136-145)
== END 2025-05-02 10:31 | disposition home or self-care (01) ==
PROVIDERS: Emergency Provider Emergency Medicine; PCP Nurse Practitioner Family
DX: R11.2 Nausea with vomiting, unspecified (principal); Z87.891 Personal history of nicotine dependence
CPT/HCPCS: 36415; 80048; 80053; 81001; 83605; 84703; 85025; 96361; 96374; 96376; 99284; J2405; J2550; Q0162

== ENCOUNTER 2025-05-02 23:21 | Emergency (ER) | payer BC, SELFPAY ==
[2025-05-02 23:32] VITALS: BP 126/81; PULSE 66; TEMP 37.4; O2SAT 98; BMI 22.9
--- OUTSIDE RECORDS SUMMARY | 2025-05-03 00:32 | XMS_ITS | CCD ---
Author Organization [facility] Care Team Providers Care Medical Health Researcher Name Role Phone HELENA-MARIA, KAMINI Unavailable Unavailable [...] Rodrigue BRANNON, Karl Peter Primary Care Provider [phone] Naty Mccarty MD Unavailable NATY MCCARTY Primary Care Physician LALITHA CALDERON Attending Unavailable NTAY MCCARTY Referring Unavailable NAYT MCCARTY Primary Care Unavailable Reji Thrasher Attending [...] sources) Opioid Agonist Start: 11-14-2024 End: 11-16-2024 [place] 325 mg-5 mg oral tablet 1 tab(s), Oral, q6hr as needed for pain, 10 tab(s), Refill(s) 0, [facility]/pharmacy #[id number], 162, cm, 11/14/24 9:20:00 EST, Height/Length Dosing, 58.2, kg, 11/14/24 9:20:00 EST, Weight Dosing Start Date: 11/14/24 Stop Date: 11/16/24 Status: Ordered Start: 10-04-2024 End: 10-07-2024 take 1 tablet by mouth every six hours for pain HYDROcodone-acetaminophen ([place]) 5-325 MG tablet Indications: Internal derangement of [...] day(s), # 14 supp, Refills(s) 0, Pharmacy: [facility]/pharmacy #[id number], 157.5, cm, 09/02/24 12:33:00 EST, Height/Length Dosing, [...] affected area up to 6 times daily, [facility]/pharmacy #[id number], 157.5, cm, 09/02/24 12:33:00 [...] 2018 10:41pm March 29, 2020 7:46pm levonorgestrel 0.487870 mg/hr intrauterine system (20 sources) Progestin, Progestin-containi [...] No acute bony process, right knee [facility] Radiology Study observation (narrative) [facility] General Surgery Office/Clini c Noteon 12-22-2024 General Surgery Office/Clinic Note General Surgery Office/Clinic Note HPI Staff Kristina is a 29 y.o. female here for 1 month follow up s/p Anal Fissure repair done 11/14/24 Today patient denies pain, fever, chills, vomiting or disharge History of Present Illness Clszf-szxf-dfw female status post left lateral internal sphincterotomy [...] follow-up visit, related to the original procedure 90434 Portions of this record may have been created with voice recognition artificial intelligence software, specifically [employer], [employer] and or [employer] Payment. Substitutions may have occurred due to the [...] Status diphtheria/pertussis, acel/tetanus adult 03/09/2017 Recorded Normal [facility] Comment on above: Result Comment: Elec [...] follow-up visit, related to the original procedure [id number] Portions of this record may have been created with voice recognition artificial intelligence software, specifically [employer], [employer] and or [employer] Payment. Substitutions may have occurred due to the [...] Status diphtheria/pertussis, acel/tetanus adult 03/09/2017 Recorded Normal [facility] Comment on above: Result Comment: Elec tronically Signed By: Reji Dillon MD\.br\Date and Time Signed: 11/24/24 11:31 EST Main OR Intraoperative Recor don 11-15-2024 Main OR Intraoperative Record Main OR Intraoperative Record IntraOp Document Type FT Summary Primary Physician: Reji Dillon MD Finalized Date/Time: 11/15/24 13:41:34 Pt. Name: KRISTINA NARVAEZ/Sex: 1995 Female Med Rec #: [id number] Physician: Reji Dillon MD Financial #: [id number] Pt. Type: A Room/Bed: [facility] Admit/Disch: 11/14/24 08:47:08 - 11/14/24 12:10:00 Institution: [...] 2 Entry 3 Case Attendee Ambrosio GREEN, Júnior Dillon MD, She Ponce Role Performed Anesthesiologist Surgeon - Primary RAILWAY SHUNTER Cyanide Pot Hardener Time In 11/14/24 10:07:00 11/14/24 10:22:00 11/14/24 10:07:00 Time Out 11/14/24 10:37:00 11/14/24 10:37:00 11/14/24 10:37:00 Procedure SPHINCTEROTOMY LATERAL SPHINCTEROTOMY LATERAL SPHINCTEROTOMY LATERAL INTERNAL(Left) INTERNAL(Left) INTERNAL(Left) Comments DR. SAGASTUME SUPERVISING Last Modified By: Shawna RN, Faiza Matos RN, Faiza Matos RN, Faiza Peraza 11/14/24 10:48:07 11/14/24 10:48:07 11/14/24 10:48:07 Entry 4 Entry 5 Case Attendee Shawna STRICKLAND, Faiza Brian CST, Lor Peraza Role Performed Straightener Gun Parts - Primary Scrub - Primary Time In 11/14/24 10:07:00 11/14/24 10:07:00 Time Out 11/14/24 10:37:00 11/14/24 10:37:00 Procedure SPHINCTEROTOMY LATERAL SPHINCTEROTOMY LATERAL INTERNAL(Left) INTERNAL(Left) Comments Last Modified By: Faiza Matos RN, RN, Leann E 11/14/24 10:48:07 11/14/24 10:48:07 General Comments: SEBASTIÁN Smith ALSO SCRUBBED IN FOR THIS CASE. 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 Normal [facility] B hCG Qualon 11-14-2024 Beta HCG ( test) Ql Negative Normal [facility] Comment on above: Performed By: #### 2 [id number] ####[facility] [address] [place] [address] Discharge Instructionson Discharge Instructions Discharge Instructions KRISTINA NARVAEZ :1995 Visit Date:11/14/2024 Inpatient Discharge Instructions Your Care Team Admitting Physician - Reji Dillon MD. Referring Physician - Reji Dillon MD Reason for Your Visit ANAL FISSURE Your Diagnosis Anal fissure This Is Your Medications List acetaminophen-hydroco done ([place] 325 mg-5 mg oral tablet) hydrOXYzine (hydrOXYzine [...] EST With: Wilma BRANNON, Reji Pickett Where: [facility] [place] [address], [address] [place] [address]- New Follow Up Appointments after Discharge Follow Up with Reji Dillon When: Comments: Appointment has already been scheduled Where: [address], [address] [facility] [address] [place] [phone] Business (1) Medications What How Much When Why Instructions Next Dose New acetaminophen-hydroco done ([place] 325 mg-5 mg oral tablet) 1 Tablets By Mouth Every 6 hours as needed for as needed for pain Anal fissure Pickup at [facility]/pharmacy #[id number] Unchanged hydrOXYzine (hydrOXYzine pamoate [...] BEFORE BEDTIME FOR [address] [facility]/pharmacy #[id number]: [address], [place] [phone] Allergies No Known Allergies Problems Ongoing - [...] not rub your skin to dry it. Fkny-axi-tmautr sitz bath To take a sitz bath with an hzfp-vjp-ocsxpf basin: 1. Follow the buttonhole maker hand's instructions. 2. Fill the basin with warm water. 3. Follow your health care provider's instructions if you were told to put medicine in the water. 4. Sit on the seat. Make sure the water covers your buttocks and karla (more content not included)... Normal [facility] Comment on above: Result Comment: Elec [...] This Is Your Medications List acetaminophen-hydroco done ([place] 325 mg-5 mg oral tablet) hydrOXYzine (hydrOXYzine [...] AM EST With: Reji Dillon MD Where: [facility] General [facility] [place] [address], [address] [place] [address]- New Follow Up Appointments after Discharge Follow Up with Reji Dillon When: Comments: Appointment has already been scheduled Where: [address], [address] [facility] [address] [place] [phone] Business (1) Medications What How Much When Why Instructions Next Dose New acetaminophen-hydroco done ([place] 325 mg-5 mg oral tablet) 1 Tablets By Mouth Every 6 hours as needed for as needed for pain Anal fissure Pickup at [facility]/pharmacy #[id number] Unchanged hydrOXYzine (hydrOXYzine pamoate 25 mg Cap) [...] BEFORE BEDTIME FOR [address] [facility]/pharmacy #[id number]: [address], [place] [phone] Allergies No Known Allergies Problems Ongoing - [...] these instructions at home: Medicines ??? Take pals-xsq-wocynvu and prescription medicines only as told by [...] and veget (more content not included)... Normal [facility] Comment on above: Result Comment: Elec tronically Signed By: Rm STRICKLAND, Karma Peter\.br\Date and Time Signed: 11/14/24 10:50 EST Inpatient Patient Summaryon 11-14-2024 Inpatient Patient Summary Inpatient Patient Summary [address] [address] [facility] Clinical Discharge Instructions PERSON INFORMATION Name: KRISTINA NARVAEZ PHYSICIANS Admitting Physician: Reji Dillon MD Attending Physician: Reji Dillon MD PCP: NATY MCCARTY CNP Discharge Diagnosis: Comment: PATIENT EDUCATION INFORMATION Instructions: Anal Fissure, Adult, Gfax-yi-Igqo Medication Leaflets: Follow up: With: Address: When: Reji Dillon [address] [place], [place] [phone] Business (1) Comments: Appointment has already been scheduled Type Location Start [facility] Post Op 15 [facility] 11/24/2024 11:20 AM 11/24/2024 11:40 AM Confirmed MEDICATION LIST New Medications [facility]/pharmacy #[id number], [address], [place] [phone], [phone] acetaminophen-hydroco done ([place] 325 mg-5 mg oral tablet) 1 Tablets [...] 5 DAYS., Responsible Provider: GINA DUPREE Comment: [facility] Main OR PACU I Recordon 10-19 Main OR PACU I Record Main OR PACU I Rec ord PACU Phase I Document Type FT Summary Primary Physician: Reji Dillon MD Finalized Date/Time: 11/14/24 11:17:09 Pt. Name: KRISTINA NARVAEZ/Sex: 1995 Female Med Rec #: [id number] Physician: Reji Dillon MD Financial #: [id number] Pt. Type: A Room/Bed: [facility]10/18 Admit/Disch: 11/14/24 08:47:08 - Institution: Case Times [...] By: Jennifer Burgess I 11/14/24 11:17 Normal [facility] Main OR Preoperative Recordo n 11-14-2024 Main OR Preoperative Record Main OR Preoperative Record PreOp Document Type FT Summary Primary Physician: Reji Dillon MD Finalized Date/Time: 11/14/24 10:48:24 Pt. Name: KRISTINA NARVAEZ/Sex: 1995 Female Med Rec #: [id number] Physician: Reji Dillon MD Financial #: [id number] Pt. Type: A Room/Bed: [facility]10/18 Admit/Disch: 11/14/24 08:47:08 - Institution: Case Times [...] By: Faiza Matos RN 11/14/24 10:48 Normal [facility] Operative Reporton 5 Operative Report Operative [...] Wilma BRANNON, Reji Pickett (Surgeon - Primary) Cyanide Pot Hardener She Anesthesia Panfilo Bryson Jr., DO (Manufacturing Supervisor 2Nd Shift) Júnior Ramsey (Anesthesiologist Cyanide Pot Hardener) Estimated Blood Loss 10 cc Urine Output [...] tolerated the procedure without difficulty. Normal [facility] Comment on above: Result Comment: Elec tronically Signed By: Wilma BRANNON, Reji Pickett\.br\Date and Time Signed: 11/14/24 10:43 EST Outpatient Surgery Discharge Instructionon 11-14-2024 Outpatient Surgery Discharge Instruction Outpatient Surgery Discharge Instruction [place] [id number] Patient Discharge Instructions PERSON INFORMATION Name: KRISTINA [...] up: With: Address: When: Reji Dillon [address], [facility] [address], [facility] [address] [place] [phone] Business (1) Comments: Appointment has already been scheduled Type Location Start [facility] Post Op 15 [facility] [place] 11/24/2024 11:20 AM 11/24/2024 11:40 AM Confirmed Pharmacy Information: You may receive a survey from [employer] asking you to rate your care experience. Your feedback is important and will help us understand what we do well and how we can improve the quality of care we provide to you, your loved ones and our community. It???s an honor to serve you. Thank you for choosing [facility] HERE ARE THE MEDICATION CHANGES THAT OCCURRED DURING YOUR HOSPITAL STAY New Medications [id number], [address], [place] [phone], [phone] acetaminophen-hydroco done ([place] 325 mg-5 mg oral tablet) 1 Tablets [...] Take over-the-c (more content not included)... Normal [facility] SEROLOGYOrdered By: Irena gold on 11-14-2024 Beta HCG ( test) Ql Negative (11/14/24 9:30 AM) Normal [facility] [place] General Surgery Office/Clini c Noteon [...] E&M of Est. Patient Moderate 30-39 Min 22516 Hospital-based Procedure 2. Smoker (F17.200: Nicotine dependence, unspecified, uncomplicated) Patient was counseled to quit smoking Ordered: E&M of Est. Patient Moderate 30-39 Min 73847 Hospital-based Procedure Portions of this record may have been created with voice recognition artificial intelligence software, specifically [employer], [employer] and or [employer] Payment. 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 female here for ER follow up Patient presented to [facility] ER on 09/02/2024 with hemorrhoids Treated at [...] E&M of New Patient Low 30-44 Min 83918 2. Smoker (F17.200: Nicotine dependence, unspecified, uncomplicated) Strongly recommend patient to quit tobacco use. Cigarette smoking harms nearly every organ of the body, causes many diseases, and reduces the health of smokers in general. Quitting smoking lowers risk for smoking-related diseases and increases life expectancy. Encouraged patient to visit helpful online resources and/or free telephone support such as 5-308-BTPANEN. Prescription medication to help smoking cessation available on request from PCP. Ordered: E&M of New Patient Low 30-44 Min 21361 Follow-up No qualifying data available Patient Education Anal Fissure, Adult, Lyjv-ls-Dkym Health Risks of Smoking Problem List/Past Medical [...] Status diphtheria/pertussis, acel/tetanus adult 03/09/2017 Recorded Normal [facility] Comment on above: Result Comment: Elec [...] 2023 ED Clinical Summary ED Clinical Summary [place] [address] ED Clinical Summary Person Information Name: KRISTINA NARVAEZ/[facility] Age: 29 Years : 1995 Sex: Female Language: German PCP: NATY MCCARTY CNP Marital Status: Single [...] 09/02/2024 13:13:37 09/02/2024 13:13:37 09/02/2024 13:13:37 ADDRESS: [address] [place] [phone] PHYS DOC NOTES: MEDICAL INFORMATION: Prescriptions Given: New Medications [id number], [address], [place] [phone], [phone] hydrocortisone topical (Anusol-HC 25 mg rectal suppository) 1 Suppositories By rectum 2 times a day for 7 Days. Refills: 0. lidocaine topical (lidocaine 5% rectal cream) Apply to affected area up to 6 times daily. Refills: 0. PATIENT EDUCATION INFORMATION: Instructions: Hemorrhoids Follow up: With: Address: When: Reji Dillon [address] [place], [place] [address], [address], [facility] [address] [place] [phone] Business (1) In 3 days 09/05/2024 DIAGNOSIS: [...] day(s), # 14 supp, Refills(s) 0, Pharmacy: [facility]/pharmacy #6177, 157.5, cm, 09/02/24 12:33:00 [...] Dillon In 3 days 09/05/2024 EST [address], [facility] [address] [phone] Business (1) Additional Instructions: Patient Education Hemorrhoids [...] made to ensure accuracy, however, inadvertently computerized alliance director mistakes may be present. Appropriate healthcare PPE [...] available. Diagnostic Results No qualifying data available. [facility] Comment on above: Result Comment: Elec tronically Signed By: Peña Stevens PA-C\.br\Date and Time Signed: 09/02/24 15:06 EST\.br\Electronically Co-Signed By: Reji Thrasher DO\.br\Date and Time Co-Signed: 09/02/24 18:15 EST ED Patient Summaryon 024 ED Patient Summary ED Patient Summary [address] [address] Patient Discharge Instructions Person Information Name: KRISTINA NARVAEZ Age: 29 Years Arrival Date: 09/02/2024 12:23:58 Discharge Diagnosis: Hemorrhoid Primary Care Physician: NATY MCCARTY CNP Provider Information Primary Provider: Reji Thrasher DO [employer] Rep:Peña Stevens PA-C The exam and treatment you received in the Emergency Department were for an urgent problem and are not intended as complete care. It is important that you follow up with a doctor, nurse practitioner, or physician???s assistant dean for ongoing care. If your symptoms become worse or you do not improve as expected and you are unable to reach your usual health care provider, you should return to the Emergency Department. We are available 24 hours a day. KRISTINA NARVAEZ has been given the following list of patient education materials, prescriptions and follow-up instructions: Follow-up Instructions: With: Address: When: Reji Dillon [address] [place], [place] [phone] Business (1) In 3 days 09/05/2024 In the event that this physician does not participate in your insurance network, please consult with your insurance company to find a nearby participating provider. Patient Education Materials: Hemorrhoids A MESSAGE TO ALL PATIENTS REGARDING OPIOIDS PRESCRIPTION OPIOIDS: WHAT YOU NEED TO KNOW Prescription opioids can be used to help relieve wqkffeti-kh-zulrcg pain and are often prescribed following a [...] be struggling with addiction, tell your health behavioral health care manager and ask for guid (more content not included)... Normal [facility] MR KNEE RIGHT WO IV CONTRAST [...] and draped in the usual sterile fashion. [facility] US LOWER EXTREMITY VENO US DUPLEX [...] AGon 09-18 INFLUBNEG SEE BELOW Normal [facility] Comment on above: Result Comment: Nega tive for Flu B protein antigen. Infection due to Flu B cannot be ruled out. Flu B antigen in the sample may be below the detection limit of the test. Performed By: #### I NFLUAB #### [facility] [address] [address] [address] Darshan Porter INFLUENZA A AG Positive Abnormal NEGATIVE SEE COMMENT [facility] Comment on above: Performed By: #### I NFLUAB #### [facility] [address] [address] [address] Darshan Porter INFLUENZA B AG Negative Normal NEGATIVE SEE COMMENT [facility] Comment on above: Performed By: #### I NFLUAB #### [facility] [address] [place] [address] Dr. Darshan Porter INFLUPOSH SEE BELOW Normal [facility] Comment on above: Result Comment: NOTE : Live attenuated influenzae vaccine viruses can cause a positive result for a rapid influenza diagnostic test if administered up to 7 days prior to rapid testing. Performed By: #### I NFLUAB #### [facility] [address] [place] [address] Dr. Darshan Porter INTERNAL CONTROLS Within Normal Limits Normal Wi thin Normal Limits [facility] Comment on above: Performed By: #### I NFLUAB #### [facility] [address] [place] [address] Dr. Darshan Porter CHLAMYDIA/GONOCOCCUS NESSA ( AB/URINE/PAPon 05-14-2022 Chlamydia trachomatis, NESSA Negative Normal Negative [facility] Comment on above: Performed By: #### C T/NGNA #### [facility] [address] [place] [address] Dr. Darshan Porter Neisseria gonorrhoeae, NESSA Negative Normal Negative [facility] Comment on above: Performed By: #### C T/NGNA #### [facility] [address] [place] [address] Dr. Darshan Porter VAGINITIS/VAGINOSIS DNA PROB Donell 05-14-2022 Patrick species Negative Normal Negative [facility] Comment on above: Performed By: #### V AGINT #### [facility] [address] [place] [address] Dr. Darshan Porter Gardnerella vaginalis Positive Abnormal Negative [facility] Comment on above: Performed By: #### V AGINT #### [facility] [address] [place] [address] Dr. Darshan Porter Trichomonas vaginalis Negative Normal Negative [facility] Comment on above: Performed By: #### V AGINT #### [facility] [address] [place] [address] Dr. Darshan Porter Basic Metabolic Panelon 06-1 Calcium [Mass/Vol] 9.4 mg/dL Normal 8.2-10.2 [facility] Comment on above: Performed By: #### C BC, BMP #### [facility] [address] Chloride [Moles/Vol] 102 mmol/L Normal 95-114 [facility] Comment on above: Performed By: #### C BC, BMP #### [facility] [address] CO2 [Moles/Vol] 22.1 mmol/L Normal 22.0-30.0 [facility] Comment on above: Performed By: #### C BC, BMP #### [facility] [address] Creatinine [Mass/Vol] 0.80 mg/dL Normal 0.44-1.03 [facility] Comment on above: Performed By: #### C BC, BMP #### [facility] [address] [place] [address] [place] Creatinine Clr Calc Pharmacy 85.83 [facility] Comment on above: Result Comment: PERF ORMED BY: [place] [address] PATHOLOGIST MINE ENGINEERING MANAGER LAKEISHA GRAY M.D. Performed By: #### C BC, BMP #### [facility] [address] Estimated GFR ( Sis > 60 [facility] Comment on above: Result Comment: GFR estimated reference range: According to KDOQI guidelines, <60 ml/min/1.73m2 is sufficient to diagnose a patient with chronic kidney disease. Performed By: #### C BC, BMP #### [facility] [address] [place] [address] [place] Estimated GFR (Non- Am > 60 [facility] Comment on above: Performed By: #### C BC, BMP #### [facility] [address] Glucose [Mass/Vol] 88 mg/dL Normal 70-100 [facility] Comment on above: Result Comment: [facility] Glucose Reference Range is dependent on time and content of last meal. Glucose of more than 200 mg/dL in a nonstressed, ambulatory subject supports the diagnosis of Diabetes Mellitus. ADA recommended reference range Performed By: #### C BC, BMP #### [facility] [address] Potassium [Moles/Vol] 3.7 mmol/L Normal 3.5-5.1 [facility] Comment on above: Performed By: #### C BC, BMP #### [facility] [address] Sodium [Moles/Vol] 136 mmol/L Normal 136-146 [facility] Comment on above: Performed By: #### C PETR, BMP #### [facility] [address] Urea nitrogen [Mass/Vol] 8 mg/dL Low 9-23 [facility] Comment on above: Performed By: #### C PETR, BMP #### [facility] [address] COVID-19 / Flu A/B / RSV [...] or Cepheid Disclaimer revoked sooner. PERFORMED BY: [place] [address] PATHOLOGIST MINE ENGINEERING MANAGER LAKEISHA GRAY M.D. Normal [facility] Comment on above: Performed By: #### C OVID19 FLU RSV, CEPHEID POS #### [facility] [address] [place] [address] Cepheid COVID PCR Positiveon 03-31-2022 SARS-CoV-2 (COVID-19) RNA NESSA+probe Ql (Unsp spec) Positive Critically abnormal Negative [facility] Comment on above: Result Comment: This is a duplicate Cepheid Xpert Xpress CoV-2/Flu/RSV Plus RNA by RT-PCR result to be used for statistical tracking purpose only. PERFORMED BY: [place] [address] PATHOLOGIST MINE ENGINEERING MANAGER LAKEISHA GRAY M.D. Performed By: #### C OVID19 FLU RSV, CEPHEID POS #### [facility] [address] [place], [place] [id number] [facility] Complete Blood Count Auto Di ffon 06-14-2022 Basophils (Bld) [#/Vol] 0.0 10*3/uL Normal 0.0-0.2 [facility] Comment on above: Result Comment: PERF ORMED BY: [place] [address] PATHOLOGIST MINE ENGINEERING MANAGER LAKEISHA GRAY M.D. Performed By: #### C BC, BMP #### [address] Basophils/100 WBC (Bld) 0.8 % Normal . [facility] Comment on above: Performed By: #### C BC, BMP #### [place] [address] [place] Eosinophils (Bld) [#/Vol] 0.0 10*3/uL Normal 0.0-0.45 [facility] Comment on above: Performed By: #### C BC, BMP #### [address] Eosinophils/100 WBC (Bld) 0.5 % Normal . [facility] Comment on above: Performed By: #### C BC, BMP #### [address] Erythrocyte distribution width (RBC) [Ratio] 13.9 % Normal 11.9-15.3 [facility] Comment on above: Performed By: #### C BC, BMP #### [address] Hematocrit (Bld) [Volume fraction] 40.8 % Normal 34.0-46.4 [facility] Comment on above: Performed By: #### C BC, BMP #### [place] [address] [place] Hemoglobin (Bld) [Mass/Vol] 13.9 g/dL Normal 11.8-15.4 [facility] Comment on above: Performed By: #### C BC, BMP #### [address] Lymphocytes (Bld) [#/Vol] 0.7 10*3/uL Low 1.00-4.8 [facility] Comment on above: Performed By: #### C BC, BMP #### [facility] [address] [place] [address] [place] Lymphocytes/100 WBC (Bld) 13.9 % Normal . [facility] Comment on above: Performed By: #### C BC, BMP #### [facility] [address] MCH (RBC) [Entitic mass] 31.2 pg Normal 24.7-34.3 [facility] Comment on above: Performed By: #### C BC, BMP #### [facility] [address] MCV (RBC) [Entitic vol] 91.3 fL Normal 80-100 [facility] Comment on above: Performed By: #### C BC, BMP #### [address] Mean Corpuscular HGB Conc 34.1 g/dL Normal 32.0-35.0 [facility] Comment on above: Performed By: #### C BC, BMP #### [place] [address] [place] Monocytes (Bld) [#/Vol] 1.0 10*3/uL High 0.0-0.8 [facility] Comment on above: Performed By: #### C BC, BMP #### [place] [address] [place] Monocytes/100 WBC (Bld) 19.6 % Normal . [facility] Comment on above: Performed By: #### C BC, BMP #### [facility] [address] [place] [address] [place] Neutrophils (Bld) [#/Vol] 3.5 10*3/uL Normal 1.8-7.7 [facility] Comment on above: Performed By: #### C BC, BMP #### [facility] [address] Neutrophils/100 WBC (Bld) 65.2 % Normal . [facility] Comment on above: Performed By: #### C BC, BMP #### [facility] [address] Nucleated RBC/100 WBC (Bld) [Ratio] 0.2 % Normal 0-0.5 [facility] Comment on above: Performed By: #### C PETR, BMP #### [facility] [address] Platelet mean volume (Bld) [Entitic vol] 8.4 fL Normal 6.3-10.7 [facility] Comment on above: Performed By: #### C PETR, BMP #### [facility] [address] Platelets (Bld) [#/Vol] 229 10*3/uL Normal 150-450 [facility] Comment on above: Performed By: #### C PETR, BMP #### [facility] [address] RBC (Bld) [#/Vol] 4.47 10*6/uL Normal 3.60-5.00 [facility] Comment on above: Performed By: #### C PETR, BMP #### [facility] [address] [place] [address] [place] WBC (Bld) [#/Vol] 5.3 10*3/uL Normal 4.5-11.0 [facility] Comment on above: Performed By: #### C PETR, BMP #### [facility] [address] [place] [address] [place] Basophils Auto (Bld) [#/Vol] Ordered By: Romi Obrien on 03-30-2022 Basophils (Bld) [#/Vol] 0.0 10*3/uL 0.0-0.2 [facility] Basophils/100 WBC Auto (Bld) Ordered By: Romi Obrien on 03-30-2022 Basophils/100 WBC (Bld) 0.8 % [facility] Blood hemoglobin measurement (mass/volume)Ordered By: Romi Obrien on 03-30-2022 Hemoglobin (Bld) [Mass/Vol] 13.9 g/dL 11.8-15.4 [facility] Blood leukocytes automated c ount (number/volume)Ordered By: Romi Obrien on 03-30-2022 WBC (Bld) [#/Vol] 5.3 10*3/uL 4.5-11.0 [facility] COVID CepheidOrdered By: Avinash nicole Camille on 03-30-2022 SARS-CoV-2 (COVID-19) Ab IA Ql Positive Negative [facility] Comment on above: This is a duplicate [employer] Xpert Xpress CoV-2/Flu/RSV Plus RNA by RT-PCR result to be used for statistical tracking purpose only. SARS-CoV-2 (COVID-19) RNA NESSA+probe Ql (Unsp spec) [facility] Creatinine and Glomerular fi ltration rate.predicted panel (S/P/Bld)Ordered By: Romi Obrien on 03-30-2022 Creatinine [Mass/Vol] 0.80 mg/dL 0.44-1.03 [facility] Eosinophils Auto (Bld) [#/Vo l]Ordered By: Romi Obrien on 03-30-2022 Eosinophils (Bld) [#/Vol] 0.0 10*3/uL 0.0-0.45 [facility] Eosinophils/100 WBC Auto (Bl d)Ordered By: Romi Obrien on 03-30-2022 Eosinophils/100 WBC (Bld) 0.5 % [facility] Erythrocyte distribution wid th Auto (RBC) [Ratio]Ordered By: Romi Obrien on 03-30-2022 Erythrocyte distribution width (RBC) [Ratio] 13.9 % 11.9-15.3 [facility] Estimated glomerular filtrat ion rate (GFR) non- AmericanOrdered By: Romi Obrien on 03-30-2022 GFR/1.73 sq M.predicted among non-blacks MDRD (S/P/Bld) [Vol rate/Area] > 60 mL/Min [facility] Hematocrit Auto (Bld) [Volum e fraction]Ordered By: Romi Obrien on 03-30-2022 Hematocrit (Bld) [Volume fraction] 40.8 % 34.0-46.4 [facility] Laboratory - Hematology and Cell countsOrdered By: Romi Obrien on 03-30-2022 Nucleated RBC/100 WBC (Bld) [Ratio] 0.2 % 0-0.5 [facility] Lymphocytes Auto (Bld) [#/Vo l]Ordered By: Romi Obrien on 03-30-2022 Lymphocytes (Bld) [#/Vol] 0.7 10*3/uL 1.00-4.8 [facility] Lymphocytes/100 WBC Auto (Bl d)Ordered By: Romi Obrien on 03-30-2022 Lymphocytes/100 WBC (Bld) 13.9 % [facility] MCH Auto (RBC) [Entitic mass ]Ordered By: Romi Obrien on 03-30-2022 MCH (RBC) [Entitic mass] 31.2 pg 24.7-34.3 [facility] MCHC Auto (RBC) [Mass/Vol]Or dered By: Romi Obrien on 03-30-2022 MCHC (RBC) [Mass/Vol] 34.1 g/dL 32.0-35.0 [facility] MCV Auto (RBC) [Entitic vol] Ordered By: Romi Obrien on 03-30-2022 MCV (RBC) [Entitic vol] 91.3 fL 80-100 [facility] Monocytes Auto (Bld) [#/Vol] Ordered By: Romi Obrien on 03-30-2022 Monocytes (Bld) [#/Vol] 1.0 10*3/uL 0.0-0.8 [facility] Monocytes/100 WBC Auto (Bld) Ordered By: Romi Obrien on 03-30-2022 Monocytes/100 WBC (Bld) 19.6 % [facility] Neutrophils Auto (Bld) [#/Vo l]Ordered By: Romi Obrien on 03-30-2022 Neutrophils (Bld) [#/Vol] 3.5 10*3/uL 1.8-7.7 [facility] Neutrophils/100 WBC Auto (Bl d)Ordered By: Romi Obrien on 03-30-2022 Neutrophils/100 WBC (Bld) 65.2 % [facility] No Panel InformationOrdered By: Romi Obrien on 03-30-2022 Estimated GFR () > 60 mL/Min [facility] Comment on above: GFR estimated refere nce range: According to KDOQI guidelines, <60 ml/min/1.73m2 is sufficient to diagnose a patient with chronic kidney disease. Pharmacy Creatinine Clearance (Chem 85.83 [facility] PAP ACOG PANEL 2: 21 to 29on 03-30-2022 . . Normal [facility] Comment on above: Performed By: #### [id number] #### [facility] [address] [address] [address] Darshan Porter Age Gdln ACOG Testing 19- [facility] Comment on above: Performed By: #### [id number] #### [facility] [address] [place] [address] Dr. Darshan Porter DIAGNOSIS: Comment [facility] Comment on above: Result Comment: NEGA TIVE FOR INTRAEPITHELIAL LESION OR MALIGNANCY. Performed By: #### [id number] #### [facility] [address] [place] [address] Dr. Darshan Porter Methodology: Comment [facility] Comment on above: Result Comment: This liquid based ThinPrep(R) pap test was screened with the use of an image guided system. Performed By: #### [id number] #### [facility] [address] [place] [address] Dr. Darshan Porter Note: Comment [facility] Comment on above: Result Comment: The Pap smear is a screening test designed to aid in the detection of premalignant and malignant conditions of the uterine cervix. It is not a diagnostic procedure and should not be used as the sole means of detecting cervical cancer. Both false-positive and false-negative reports do occur. . Performed By: #### [id number] #### [facility] [address] [place] [address] Dr. Darshan Porter Performed by: Comment Normal [facility] Comment on above: Result Comment: Dewayne Middleton, Energy Risk Management Analyst (ASCP) Performed By: #### [id number] #### [facility] [address] [place] [address] Dr. Darshan Porter Reflex Criteria: Comment Normal [facility] Comment on above: Result Comment: The HPV DNA reflex criteria were not met with this specimen result therefore, no HPV testing was performed. . Performed By: #### [id number] #### [facility] [address] [address] [address] Darshan Porter Specimen adequacy: Comment Normal [facility] Comment on above: Result Comment: Sati sfactory for evaluation. Endocervical and/or squamous metaplastic cells (endocervical component) are present. Performed By: #### [id number] #### [facility] [address] [address] [address] Darshan Porter Platelet mean volume Auto (B ld) [Entitic vol]Ordered By: Romi Obrien on 03-30-2022 Platelet mean volume (Bld) [Entitic vol] 8.4 fL 6.3-10.7 [facility] Platelets Auto (Bld) [#/Vol] Ordered By: Romi Obrien on 03-30-2022 Platelets (Bld) [#/Vol] 229 10*3/uL 150-450 [facility] RBC Auto (Bld) [#/Vol]Ordere d By: Romi Obrien on 03-30-2022 RBC (Bld) [#/Vol] 4.47 10*6/uL 3.60-5.00 [facility] Serum or plasma calcium spencer urement (mass/volume)Ordered By: Romi Obrien on 03-30-2022 Calcium [Mass/Vol] 9.4 mg/dL 8.2-10.2 [facility] Serum or plasma chloride aurora surement (moles/volume)Ordered By: Romi Obrien on 03-30-2022 Chloride [Moles/Vol] 102 mmol/L 95-114 [facility] Serum or plasma glucose spencer urement (mass/volume)Ordered By: Romi Obrien on 03-30-2022 Glucose [Mass/Vol] 88 mg/dL 70-100 [facility] Comment on above: ADA recommended refe rence range Random Glucose Reference Range is dependent on time and content of last meal. Glucose of more than 200 mg/dL in a nonstressed, ambulatory subject supports the diagnosis of Diabetes Mellitus. Serum or plasma potassium me asurement (moles/volume)Ordered By: Romi Obrien on 03-30-2022 Potassium [Moles/Vol] 3.7 mmol/L 3.5-5.1 [facility] Serum or plasma sodium measu rement (moles/volume)Ordered By: Romi Obrien on 03-30-2022 Sodium [Moles/Vol] 136 mmol/L 136-146 [facility] Serum or plasma total carbon dioxide measurement (moles/volume)Ordered By: Romi Obrien on 03-30-2022 CO2 [Moles/Vol] 22.1 mmol/L 22.0-30.0 [facility] Serum or plasma urea nitroge n measurement (mass/volume)Ordered By: Romi Obrien on 03-30-2022 Urea nitrogen [Mass/Vol] 8 mg/dL 9- [facility] COVID-19 Lab Corpon 10-20-19 22 SARS-CoV-2 (COVID-19) RNA NESSA+probe Ql (Unsp spec) Detected Critically abnormal Not Detected [facility] Comment on above: Order Comment: Healt hcare Worker?: N Result Comment: Sara ents who have a positive COVID-19 test result may now have treatment options. Treatment options are available for patients with mild to moderate symptoms and for hospitalized patients. Visit our website at [email or web address] for resources and information. This nucleic acid amplification test was developed and its performance characteristics determined by [employer]. Nucleic acid amplification tests include RT- PCR [...] detected) result in this assay. PERFORMED BY: [facility] [address] [place] [address] PATHOLOGIST MINE ENGINEERING MANAGER LAKEISHA GRAY M.D. Performed By: #### C ORONAVIRUS #### [facility] , HIV-1,-2 w/Reflex to HIV-1 W estern [place] 02-07-2018 HIV-1 and HIV-2 Abs Negative Normal Negative [facility] Comment on above: Result Comment: Base d on the non-reactive anti-HIV (DEIRDRE) screen, the HIV Western blotis notindicated and therefore not performed.INTERPRETIVE INFORMATION: HIV-1,-2 w/Reflex to HIV-1 Western BlotThis assay should not be used for blood donor screening, associatedre-entryprotocols, or for screening Human Cells, Tissues and Cellular andTissue-Based Products (HCT/P).Performed by [id number],[address] [place] [id number] [employer], Krishan Sánchez MD - Lab. Director RPRon 02-06-2018 Reagin antibody presence Non-reactive Normal Non-reacti [facility] Hepatitis B Surface Agon Hepatitis B Surface Ag Interp Non-reactive Normal [facility] Hepatitis C Antibodyon 02-04 Hepatitis C Antibody Interp Non-reactive Normal [facility] Culture, Strep A Screenon Culture, Strep A Screen ORDERED BY: TAMMY HUFF: Throat COLLECTED: 05/30/17 11:38ANTIBIOTICS AT JESSICA.: RECEIVED : 05/30/17 15:25Culture, Strep A Screen FINAL 06/02/17 08:54 Usual fátima isolated including Beta Strep, not group A. Normal [facility] Rapid A Strep Antigenon 05-18 Rapid strep test Negative Normal Negative [facility] Comment on above: Result Comment: A cu lture confirmation plate has been set up and a separatereport will follow. See micro report. Vital Signs Date Time Vital Sign Value Performing Clinician Jhon malin 01-11-2025 12:35-0400 Body mass index (BMI) [Ratio] 22.86 kg/m2 Bouchraluis angel Olivier ELEVATOR REPAIRER HELPER Work Phone: [facility] 01-11-2025 12:35-0400 Body temperature 98.71 [degF] Bouchra Olivier ELEVATOR REPAIRER HELPER Work Phone: [facility] 01-11-2025 12:35-0400 Body weight 56.7 kg Bouchra Charline ELEVATOR REPAIRER HELPER Work Phone: [facility] 01-11-2025 12:35-0400 Diastolic blood pressure 66 mm[Hg] Bouchraluis angel Olivier ELEVATOR REPAIRER HELPER Work Phone: [facility] 01-11-2025 12:35-0400 Heart rate 89 /min Bouchraluis angel Olivier ELEVATOR REPAIRER HELPER Work Phone: [facility] 01-11-2025 12:35-0400 SaO2% (BldA) [Mass fraction] 98 % Bouchra Charline ELEVATOR REPAIRER HELPER Work Phone: [facility] 01-11-2025 12:35-0400 Systolic blood pressure 118 mm[Hg] Bouchra Charline ELEVATOR REPAIRER HELPER Work Phone: [facility] 11-14-2024 11:11-0500 Heart rate 58 /min Reji Dillon [facility] 11-14-2024 11:11-0500 SaO2% (BldA) [Mass fraction] 100 % Reji Dillon [facility] 11-14-2024 11:09-0500 Respiratory rate 16 /min Reji Dillon [facility] 11-14-2024 11:09-0500 Diastolic blood pressure 69 mm[Hg] Reji Dillon [facility] 11-14-2024 11:09-0500 Mean blood pressure 84 mm[Hg] Reji Mourany [facility] 11-14-2024 11:09-0500 Systolic blood pressure 112 mm[Hg] Reji Mourany [facility] 11-14-2024 11:03-0500 Body temperature 97.16 [degF] Reji Mourany [facility] 11-14-2024 11:03-0500 Diastolic blood pressure 58 mm[Hg] Reji Mourany [facility] 11-14-2024 11:03-0500 Heart rate 61 /min Reji Mourany [facility] 11-14-2024 11:03-0500 Mean blood pressure 75 mm[Hg] Reji Mourany [facility] 11-14-2024 11:03-0500 Respiratory rate 10 /min Reji Mourany [facility] 11-14-2024 11:03-0500 SaO2% (BldA) [Mass fraction] 100 % Reji Mourany [facility] 11-14-2024 11:03-0500 Systolic blood pressure 110 mm[Hg] Reji Mourany [facility] 11-14-2024 10:50-0500 Diastolic blood pressure 69 mm[Hg] Reji Mourany [facility] 11-14-2024 10:50-0500 Heart rate 78 /min Reji Mourany [facility] 11-14-2024 10:50-0500 Mean blood pressure 87 mm[Hg] Reji Mourany [facility] 11-14-2024 10:50-0500 Respiratory rate 16 /min Reji Mourany [facility] 11-14-2024 10:50-0500 SaO2% (BldA) [Mass fraction] 100 % Reji Mourany [facility] 11-14-2024 10:50-0500 Systolic blood pressure 124 mm[Hg] Reji Mourany [facility] 11-14-2024 10:45-0500 Mean blood pressure 69 mm[Hg] Reji Mourany [facility] 11-14-2024 10:45-0500 Respiratory rate 15 /min Reji Mourany [facility] 11-14-2024 10:38-0500 Body temperature 97.34 [degF] Reji Mourany [facility] 11-14-2024 10:35-0500 Respiratory rate 14 /min Reji Mourany [facility] 11-14-2024 10:30-0500 Respiratory rate 18 /min Reji Mourany [facility] 11-14-2024 09:11-0500 Blood Pressure Location Reji Mourany [facility] 11-14-2024 09:11-0500 Mean blood pressure 82 mm[Hg] Reji Mourany [facility] 11-14-2024 09:10-0500 Body temperature 98.06 [degF] Reji Mourany [facility] 10-30-2024 14:51-0500 Diastolic blood pressure 66 mm[Hg] Reji Mourany [facility] [place] 10-30-2024 14:51-0500 Heart rate 72 /min Reji Mourany [facility] 10-30-2024 14:51-0500 Systolic blood pressure 106 mm[Hg] Reji Garrettrandirebeca [facility] 09-25-2024 14:31-0500 Diastolic blood pressure 64 mm[Hg] Reji Garrettrandiy [facility] 09-25-2024 14:31-0500 Heart rate 71 /min Reji Dillon [facility] 09-25-2024 14:31-0500 Systolic blood pressure 103 mm[Hg] Reji Madisonrebeca [facility] 09-19-2024 13:04-0500 Body height 157.5 cm Romi ALMODOVAR Work Phone: [facility] 09-19-2024 13:04-0500 Body mass index (BMI) [Ratio] 22.68 kg/m2 Romi ALMODOVAR Work Phone: [facility] 09-19-2024 13:04-0500 Body weight 56.25 kg Romi ALMODOVAR Work Phone: [facility] 09-11-2024 09:58-0500 Body height 157.5 cm Lalitha Calderon SERVICES MANAGER-SPIRAL [employer]ER Work Phone: [facility] 09-11-2024 09:58-0500 Body mass index (BMI) [Ratio] 23.12 kg/m2 Lalitha Calderon SERVICES MANAGER-SPIRAL [employer]ER Work Phone: [facility] 09-11-2024 09:58-0500 Body weight 57.34 kg Lalitha Calderon SERVICES MANAGER-SPIRAL [employer]ING [employer] Work Phone: [facility] 09-06-2024 11:42-0500 Body mass index (BMI) [Ratio] 22.68 kg/m2 Tyra Trujillo DO Work Phone: [facility] 09-06-2024 11:42-0500 Body weight 56.25 kg Tyra Nataprawira DO Work Phone: [facility] 09-06-2024 11:42-0500 Diastolic blood pressure 72 mm[Hg] Tyra Nataprawira DO Work Phone: [facility] 09-06-2024 11:42-0500 Systolic blood pressure 118 mm[Hg] Tyra Nataprawira DO Work Phone: [facility] 09-02-2024 12:28-0500 Body temperature 97.88 [degF] Reji Thrasher [facility] 09-02-2024 12:28-0500 Diastolic blood pressure 79 mm[Hg] Reji Thrasher [facility] 09-02-2024 12:28-0500 Heart rate 86 /min Reji Thrasher [facility] 09-02-2024 12:28-0500 Respiratory rate 16 /min Reji Thrasher [facility] 09-02-2024 12:28-0500 SaO2% (BldA) [Mass fraction] 98 % Reji Thrasher [facility] 09-02-2024 12:28-0500 Systolic blood pressure 123 mm[Hg] Reji Thrasher [facility] 08-28-2024 17:27-0500 Body mass index (BMI) [Ratio] 23.05 kg/m2 Macielamalia Manzano ELEVATOR REPAIRER HELPER Work Phone: [facility] 08-28-2024 17:27-0500 Body temperature 98.29 [degF] Maciel Manzano ELEVATOR REPAIRER HELPER Work Phone: [facility] 08-28-2024 17:27-0500 Body weight 57.15 kg Macielamalia Manzano ELEVATOR REPAIRER HELPER Work Phone: [facility] 08-28-2024 17:27-0500 SaO2% (BldA) [Mass fraction] 98 % Maciel Manzano ELEVATOR REPAIRER HELPER Work Phone: [facility] 06-29-2024 13:39-0400 Body height 157.5 cm Gina Sterlingman ELEVATOR REPAIRER HELPER Work Phone: [facility] 06-29-2024 13:39-0400 Body mass index (BMI) [Ratio] 23.05 kg/m2 Gina Geoffrey ELEVATOR REPAIRER HELPER Work Phone: [facility] 06-29-2024 13:39-0400 Body weight 57.15 kg Gina Sterlingman ELEVATOR REPAIRER HELPER Work Phone: [facility] 06-29-2024 13:39-0400 Diastolic blood pressure 72 mm[Hg] Gina Geoffrey ELEVATOR REPAIRER HELPER Work Phone: [facility] 06-29-2024 13:39-0400 Systolic blood pressure 116 mm[Hg] Gina Geoffrey ELEVATOR REPAIRER HELPER Work Phone: [facility] 03-30-2022 21:11-0400 Body height 160.02 cm PHYSICIAN NO [facility] 03-30-2022 21:11-0400 Body mass index (BMI) [Ratio] 22.8 kg/m2 PHYSICIAN NO [facility] 03-30-2022 21:11-0400 Body temperature 99.8 [degF] PHYSICIAN NO [facility] 03-30-2022 21:11-0400 Body weight 58.5 kg PHYSICIAN NO [facility] 03-30-2022 21:11-0400 Diastolic blood pressure 56 mm[Hg] PHYSICIAN NO [facility] 03-30-2022 21:11-0400 Heart rate 69 /min PHYSICIAN NO [facility] 03-30-2022 21:11-0400 SaO2% (BldA) [Mass fraction] 97 % PHYSICIAN NO [facility] 03-30-2022 21:11-0400 Systolic blood pressure 112 mm[Hg] PHYSICIAN NO [facility] Encounters Encounter Date Encounter Type Care Provider Facility Start: 02-13-2025 End: 02-13-2025 Lala Smith DO Work Phone: [facility] Comment on above: Acute pain of right knee Start: 01-17-2025 End: 01-17-2025 Bamboo flowsheet Jr. Martínez Jimenez Stepanic DO Work Phone: [facility] Start: 01-17-2025 End: 01-17-2025 Bamboo flowsheet Jr. Martínez Jimenez Stepanic DO Work Phone: [facility] Start: 01-17-2025 End: 01-17-2025 Office outpatient visit 15 minutes Jr. 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); Acute pain of right knee Start: 01-17-2025 End: 01-17-2025 ambulatory MARTÍNEZ CERVANTES STEPCARMEN Not Available Start: 01-11-2025 End: 01-11-2025 ambulatory BOUCHRA OLIVIER Not Available Start: 01-11-2025 End: 01-11-2025 Office outpatient visit 25 minutes Bouchra Olivier ELEVATOR REPAIRER HELPER Work Phone: [facility] Comment on above: Knee strain, right, subsequent encounter (Primary Dx); Acute pain of right knee Start: 12-26-2024 End: 12-26-2024 ambulatory ROMI HOPPER Not Available Start: 12-22-2024 End: 12-22-2024 ambulatory Reji Dillon Facility:[facility] Start: 11-28-2024 End: 11-28-2024 Bamboo flowsheet Romi Hopper PA Work Phone: [facility] Start: 11-28-2024 End: 11-28-2024 Bamboo flowsheet Romi Hopper PA Work Phone: [facility] Start: 11-28-2024 End: 11-28-2024 Postop follow up visit related to original px Romi Hopper PA Work Phone: [facility] Comment on above: S/P right knee arthr oscopy (Primary Dx) Start: 11-28-2024 End: 11-28-2024 ambulatory ROMI HOPPER Not Available Start: 11-24-2024 End: 11-24-2024 ambulatory Reij Dillon Facility:[facility] Start: 11-24-2024 End: 11-24-2024 Patient encounter procedure Reji Dillon [facility] Start: 11-14-2024 End: 11-14-2024 Admission to same day surgery center Reji Dillon [facility] Start: 11-14-2024 End: 11-14-2024 ambulatory Reji Dillon Facility:[facility] Start: 11-07-2024 End: 11-07-2024 Bamboo flowsheet Romi ALMODOVAR Work Phone: [facility] Start: 11-07-2024 End: 11-07-2024 Bamboo flowsheet Romi Hopper PA Work Phone: [facility] Start: 11-07-2024 End: 11-07-2024 ambulatory ROMI HOPPER Not Available Start: 11-07-2024 End: 11-07-2024 Postop follow up visit related to original px Romi ALMODOVAR Work Phone: [facility] Comment on above: S/P right knee arthr oscopy (Primary Dx); Knee stiffness, right Start: 10-30-2024 End: 10-30-2024 ambulatory Reji Dillon Facility:[facility] Start: 10-30-2024 End: 10-30-2024 Patient encounter procedure Reji Dillon [facility] Start: 10-23-2024 End: 10-23-2024 Bamboo flowsheet Romi Hopper PA Work Phone: [facility] Start: 10-23-2024 End: 10-23-2024 Bamboo flowsheet Romi Hopper PA Work Phone: [facility] Start: 10-23-2024 End: 10-23-2024 Postop follow up visit related to original px Romi ALMODOVAR Work Phone: [facility] Comment on above: S/P right knee arthr oscopy (Primary Dx) Start: 10-23-2024 End: 10-23-2024 ambulatory ROMI HOPPER Not Available Start: 10-04-2024 End: 10-04-2024 Refill Evens Adamson ELEVATOR REPAIRER HELPER Work Phone: [facility] Comment on above: Internal derangement of right knee (Primary Dx) Start: 09-25-2024 End: 09-25-2024 ambulatory Reji Dillon Facility:[facility] Start: 09-25-2024 End: 09-25-2024 Patient encounter procedure Reji Dillon [facility] [place] Start: 09-19-2024 End: 09-19-2024 Bamboo flowsheet Romi Hopper PA Work Phone: [facility] Start: 09-19-2024 End: 09-19-2024 Bamboo flowsheet Romi Hopper PA Work Phone: [facility] Start: 09-19-2024 End: 09-19-2024 ambulatory ROMI HOPPER Not Available Start: 09-19-2024 End: 09-19-2024 Patient encounter procedure Romi ALMODOVAR Work Phone: [facility] Comment on above: Pre-op examination ( Primary Dx) Start: 09-19-2024 End: 09-19-2024 Preprocedural examination done Romi ALMODOVAR Work Phone: [facility] Work Phone: Start: 09-11-2024 End: 09-11-2024 Office outpatient new 30 minutes Lalitha Calderon SERVICES MANAGER-SPIRAL SPRING W[employer]ER Work Phone: [facility] Comment on above: Hemorrhoids, unspeci fied hemorrhoid type (Primary Dx); Rectal pain Start: 09-11-2024 End: 09-11-2024 ambulatory [facility] Junito CALDERON [facility] Start: 09-06-2024 End: 09-21-2024 External [...] for control, intrauterine device Start: 09-04-2024 ambulatory [facility] Facility:Amy Martinez Start: 09-02-2024 End: 09-02-2024 Emergency department patient visit Reji Burnhame [facility] Start: 08-28-2024 End: 08-28-2024 ambulatory MACIEL MANZANO Not Available Start: 08-28-2024 End: 08-28-2024 Office outpatient visit 15 minutes Maciel Manzano ELEVATOR REPAIRER HELPER Work Phone: [facility] Comment on [...] 15 minutes Romi Hopper PA Work Phone: [facility] Comment on above: Acute pain of right knee (Primary Dx); Internal derangement of right knee Start: 07-26-2024 End: 07-26-2024 ambulatory ROMI HOPPER Not Available Start: 07-12-2024 End: 07-12-2024 Bamboo flowsheet Romi Hopper PA Work Phone: [facility] Start: 07-12-2024 End: 07-12-2024 Bamboo flowsheet Romi Hopper PA Work Phone: [facility] Start: 07-12-2024 End: 07-12-2024 ambulatory ROMI HOPPER Not Available Start: 07-12-2024 End: 07-12-2024 Office outpatient visit 15 minutes Romi Hopper PA Work Phone: [facility] Comment on above: Acute pain of right knee (Primary Dx); Chondromalacia, patella, right Start: 07-05-2024 End: 07-05-2024 ambulatory ROMI HOPPER Not Available Start: 07-05-2024 End: 07-05-2024 Bamboo flowsheet Romi Hopper PA Work Phone: [facility] Start: 07-05-2024 End: 07-05-2024 Bamboo flowsheet Romi Shelby Ward PA Work Phone: [facility] Start: 07-05-2024 End: 07-05-2024 Office outpatient visit 25 minutes Romi oHpper PA Work Phone: [facility] Comment on above: Acute pain of right knee (Primary Dx); Chondromalacia, patella, right Start: 06-29-2024 End: 06-29-2024 Bamboo flowsheet Gina Dupree NP Work Phone: [facility] Start: 06-29-2024 End: 06-29-2024 Bamboo flowsheet Gina Arvind Geoffrey ELEVATOR REPAIRER HELPER Work Phone: [facility] Start: 06-29-2024 End: 06-29-2024 Initial preventive medicine new pt age 18-39yrs Gina Dupree ELEVATOR REPAIRER HELPER Work Phone: [facility] Comment on above: Encounter for gyneco logical examination without abnormal finding (Primary Dx); IUD check up; Herpes simplex; Screen for STD (sexually transmitted disease) Start: 06-29-2024 End: 06-29-2024 Patient encounter status Gina Dupree ELEVATOR REPAIRER HELPER Work Phone: [facility] Work Phone: Start: 06-29-2024 End: 06-29-2024 ambulatory GINA DUPREE Not Available Start: 06-14-2024 End: 06-14-2024 Office outpatient visit 15 minutes Romi Hopper PA Work Phone: [facility] Comment on above: Acute pain of right knee (Primary Dx) Start: 06-14-2024 End: 06-14-2024 ambulatory ROMI HOPPER Not Available Start: 06-14-2024 End: 06-14-2024 Bamboo flowsheet Romi Hpoper PA Work Phone: [facility] Start: 06-14-2024 End: 06-14-2024 Bamboo flowsheet Romi Hopper PA Work Phone: [facility] Start: 05-30-2024 End: 05-30-2024 ambulatory ROMI HOPPER Not Available Start: 05-24-2024 End: 05-24-2024 ambulatory BOUCHRA OLIVIER Not Available Start: 09-18-2022 End: 09-18-[address] AUGUSTO NICHOLS Facility:[facility] Start: 05-12-2022 End: 05-12-[address] ROSS TORRES Facility:[facility] Start: 03-30-2022 End: 03-31-2022 Emergency department patient visit PHYSICIAN NO FAMILY [facility] Start: 03-25-2022 End: 03-25-[address] ROSS TORRES Facility:[facility] Start: 10-20-2021 End: 10-20-2021 ambulatory RONAK CAPUTO Facility:[facility] Start: 08-31-2017 Ambulatory KAMINI Rivas ty:[facility] Start: 08-03-2017 Ambulatory KAMINI Rivas ty:[facility] Start: 06-29-2017 Ambulatory KAMINI Rivas ty:RBC Start: 05-30-2017 End: 05-30-2017 Emergency department patient visit MAL HARMON [facility] Start: 05-25-2017 Ambulatory KAMINI Rivas ty:RBC Start: 05-04-2017 Ambulatory Joel Piper Elizabet Facility:[facility] Shimon Colon Start: 04-27-2017 Ambulatory KAMINI [...] Adult BMI Screening Adult BMI Screen ing [facility] Start: 09-11-2025 Tobacco Screening Tobacco Screening [facility] Start: 07-03-2025 End: 07-03-2025 Patient encounter procedure 07/03/2025 10:20 AM EDT Office Visit [facility] [address] [phone] Gina Dupree NP [address] [place] [address] [facility] Start: 02-14-2025 End: 02-14-2025 Patient encounter procedure 02/14/2025 9:45 AM EDT Office Visit [facility] [address] [place] [phone] Jr. Martínez Smith DO [address] [place] [address] [facility] Start: 01-17-2025 End: 01-17-2025 Patient encounter procedure [facility] Comment on above: Acute pain of right knee Start: 12-26-2024 End: 12-26-2024 Patient encounter procedure 12/26/2024 11:15 AM EDT Office Visit [facility] [address] [place] [address] Romi Hopper PA [address] [place] [address] [facility] Start: 11-28-2024 End: 11-28-2024 Patient encounter procedure [facility] Comment on above: S/P right knee arthr oscopy (Primary Dx) Start: 11-07-2024 End: 11-07-2024 Patient encounter procedure 11/07/2024 1:00 PM EST Office Visit [facility] [address] [place] [address] Hopper, Romi J, PA [address] [place] [address] [facility] Start: 10-23-2024 End: 10-23-2024 Patient encounter procedure 10/23/2024 11:30 AM EST [facility] [address] [place] [address] Romi Hopper, PA [address] [place] [address] S/P right knee arthroscopy (Primary Dx) [facility] Comment on above: S/P right knee arthr oscopy (Primary Dx) Start: 10-20-2024 End: 10-20-2024 Patient encounter procedure 10/20/2024 11:00 AM EST [facility] [address] [place] [phone] Romi Hopper, PA [address] [facility] [address] [place] [address] [facility] Start: 09-19-2024 End: 09-19-2024 Patient encounter procedure 09/19/2024 1:00 PM EST [facility] [address] [place] [phone] Romi Hopper, PA [address] [facility] [address] [place] [address] [facility] Start: 08-14-2024 End: 08-14-2024 Patient encounter procedure 08/14/2024 2:45 PM EDT [facility] [address] [place] [phone] Jr. Martínez Smith DO [address] [facility] [address] [place] [address] [facility] Start: 07-26-2024 End: 07-26-2025 MR Knee - right WO contrast MR knee right wo IV contrast Imaging Routine Internal derangement of right knee Expected: 07/26/2024 (Approximate), Expires: 07/26/2025 [facility] Work Phone: Comment on above: Expected: 07/26/2024 (Approximate), Expires: 07/26/2025 Start: 07-26-2024 End: 07-26-2024 Patient encounter procedure 07/26/2024 10:30 AM EDT [facility] [address] [place] [address] Romi Hopper, PA [address] [facility] [address] [place] [address] [facility] Start: 07-12-2024 End: 07-12-2024 Patient encounter procedure 07/12/2024 1:15 PM EDT [facility] [address] [place] [address] Romi Hopper PA [address] [facility] [address] [place] [address] [facility] Start: 07-05-2024 End: 07-05-2024 Patient encounter procedure 07/05/2024 2:00 PM EDT [facility] [address] [place] [address] Romi Hopper, PA [address] [facility] [address] [place] [address] [facility] Start: 06-29-2024 End: 06-29-2025 Hepatitis B virus surface Ag [Presence] in Serum or Plasma by Immunoassay Hepatitis B surface Ag Lab Routine Screen for STD (sexually transmitted disease) Expected: 06/29/2024 (Approximate), Expires: 06/29/2025 [facility] Comment on above: Expected: 06/29/2024 (Approximate), Expires: 06/29/2025 Start: 06-29-2024 End: 06-29-2025 HIV-1/HIV-2 antigen/antibody combination immunoassay HIV-1 and HIV-2 antibodies Lab Routine Screen for STD (sexually transmitted disease) Expected: 06/29/2024 (Approximate), Expires: 06/29/2025 [facility] Comment on above: Expected: 06/29/2024 (Approximate), Expires: 06/29/2025 Start: 06-29-2024 End: 06-29-2025 Reagin Ab [Presence] in Serum by RPR RPR Lab Routine Screen for STD (sexually transmitted disease) Expected: 06/29/2024 (Approximate), Expires: 06/29/2025 [facility] Work Phone: Comment on above: Expected: 06/29/2024 (Approximate), Expires: 06/29/2025 Start: 06-29-2024 End: 06-29-2024 Patient encounter procedure 06/29/2024 1:40 PM EDT Office Visit [facility] [address] [address] Gina Dupree ELEVATOR REPAIRER HELPER [address] [place] [address] Encounter for gynecological examination without abnormal finding (Primary Dx); IUD check up [facility] Comment on above: Encounter for gyneco logical examination without abnormal finding (Primary Dx); IUD check up Start: 06-18-2024 Influenza vaccination Influenza Vacc ine [facility] Start: 06-14-2024 End: 06-14-2024 Patient encounter procedure 06/14/2024 3:00 PM EDT Office Visit [facility] [address] [place] [address] Romi Hopper PA [address] [address] Acute pain of right knee (Primary Dx) [facility] Comment on above: Acute pain of right knee (Primary Dx) Start: 2014 Screening for malign ant neoplasm of cervix Pap Smear [facility] Start: 2012 DTaP,Tdap and Td Vaccines (1 - Tdap) DTaP,Tdap and Td Vaccines (1 - Tdap) [facility] Start: 2005 [facility] gon[facility] DNA [Presence] in Cervical mucus by NESSA with probe detection C. trachomatis / N. gonorrhoeae, DNA probe Lab Routine Screen for STD (sexually transmitted disease) Ordered: 06/29/2024 [facility] Comment on above: Ordered: 06/29/2024 Patient Education Nausea and Vom iting, Adult (DC) Abdominal Pain, Adult ED [facility] ED/OP COVID-19 Discharge Instructions [facility] Work Phone: Patient referral [facility] Work Phone: URINARY TRACT INFECT ION (HTRX) URINARY TRACT INFECTION (HTRX) Lab Routine Dysuria Acute suprapubic pain Ordered: 09/06/2024 [facility] Work Phone: Comment on above: Ordered: 09/06/2024 Immunizations Immunization Date Immunization Notes Care Provider Clive macedo 03-09-2017 tetanus toxoid, redu lor diphtheria toxoid, and acellular pertussis vaccine, adsorbed Reji Dillon [facility] [place] 10-09-2016 influenza virus vaccine, unspecified formulation Lalitha Calderon SERVICES MANAGER-SPIRAL SPRING WINDER Work Phone: [facility] Payers Date Payer Category Payer [facility] Managed [facility] - Other [place] [id number] 2023 [facility] [id number]. [id number] 2023 Unknown [id number] 2023 Unknown [id number] 2015 Medicaid [id number] 1993 Unknown [id number] 2.16840.1.578966.3.579. 2.593 1993 Unknown [id number] 2.16840.1.118257.3.579. 2.593 1993 Unknown [id number] 2.16.840.1.851598.3.579. 2.593 1993 Unknown [id number] 2.16840.1.999185.3.579. 2.593 1993 Unknown [id number] 2.16840.1.839411.3.579. 2.1286 1993 Unknown [id number] 2.16.840.1.708185.3.579. 2.727 1993 Unknown [id number] 2.16.840.1.675705.3.579. 2.727 1993 Unknown [id number] 2.16.840.1.216594.3.579. 2.727 1993 Unknown [id number] 2.16.840.1.097088.3.579. 2.727 1993 Unknown [id number] 2.16.840.1.020373.3.579. 2.72 1993 Unknown [id number] 2.16.840.1.433169.3.579. 2. 1993 Unknown [id number] 2.16.840.1.709645.3.579. 2. 1993 Unknown [id number] 2.16840.1.387739.3.579. 2. 1993 Unknown [id number] 2.840.1.241643.3.579. 2.1258 1993 Unknown [id number] 2.840.1.776436.3.579. 2.1258 1993 Unknown [id number] 2.840.1.475264.3.579. 2.1258 1993 Unknown [id number] 20.1.862812.3.579. 2.1258 1993 Unknown [id number] 2.840.1.617734.3.579. 2.1258 1993 Unknown [id number] 2.840.1.425494.3.579. 2.1258 1993 Unknown [id number] 2.840.1.555821.3.579. 2.1258 1993 Unknown [id number] 2840.1.770575.3.579. 2.1258 1993 Unknown [id number] 2.840.1.449400.3.579. 2.1258 1993 Unknown [id number] 2.840.1.212652.3.579. 2.1258 1993 Unknown [id number] 2.840.1.720966.3.579. 2.1258 1993 Unknown [id number] 2.840.1.078363.3.579. 2.1258 1993 Unknown [id number] 2.16.840.1.693566.3.579. 2.9 1993 Unknown [id number] 2.16.840.1.482465.3.579. 2.1258 1993 Unknown [id number] 2.16.840.1.844167.3.579. 2.1258 1993 Unknown [id number] 2.16.840.1.735415.3.579. 2.1258 1993 Unknown [id number] 2.16.840.1.611642.3.579. 2.1258 1993 Unknown [id number] 2.16.840.1.625982.3.579. 2.1258 1993 Unknown [id number] 2.16.840.1.473781.3.579. 2.1258 1993 Unknown [id number] 2.16.840.1.036624.3.579. 2.1258 1993 Unknown [id number] 2.16.840.1.547601.3.579. 2.9 1959 Self-pay [id number] 1959 Unknown [id number] Medicaid [place] Advantage [id number] 801 [id number] Unknown [facility] [id number] Unknown [facility] [id number] Social History Date Type Detail Facility Start: 03-30-2022 Tobacco smoking status MNIS Current some day smoker [facility] Start: 1995 Sex Assigned At Female [facility] Start: 06-29-2024 End: 09-11-2024 Tobacco smoking status MNIS Ex-smoker [facility] History of tobacco use [...] or more drinks on 1 occasion? Never [facility] Start: 06-29-2024 Tobacco Comment Quit cigarettes about 2 years ago, currently vape [facility] Start: 1995 Sex assigned at Not on file [facility] Tobacco smoking status No Smokin g Status Entered [facility] Start: 05-30-2024 Tobacco smoking status NHIS Smokes tobacco daily [facility] Start: 05-30-2024 End: 06-14-2024 Alcoholic beverage intake Ex-drinker (finding) [facility] re Tobacco vape Tobacco Use:. [facility] [place] Start: 09-11-2024 Alcoholic beverage intake Not Asked [facility] Start: 09-11-2024 Alcohol Comment socially [facility] Start: 09-04-2024 Sex Female (finding) [facility] Functional Status Date Assessment Result Facility 11-07-2024 Functional Status No [facility] 09-02-2024 Functional Status N/A [facility] Clinical Notes 06-14-2024 to 01-17-2025 Jr. [...] 01/07/25 (1 WK, 3 DAYS) NKI TX @[facility] WITH MDP 01/11/25 XRAY TODAY, 01/17/25 IN [facility] MDP 01/11/25 ([facility] ) - NO RELIEF [...] requiring urgent evaluation. documented in this encounter [facility] 01-11-2025 History of Present illness Narrative HPI: [...] tablet; Refill: 0 documented in this encounter [facility] 11-28-2024 History of Present illness Narrative Images from the original note were not included. HISTORY OF PRESENT ILLNESS: POST OP PT Kristina Narvaez is an 29 y.o. @ female. (EST PT) P/O (R) KNEE SCOPE 10/05/24 (7 WKS 5 DAYS). S/P PT PHYSICAL THERAPY @ [facility] CONTINUES PT. DOING HEP. THEY ARE [...] will tell if this will effect her assisted healing as it is her second major [...] requiring urgent evaluation. documented in this encounter [facility] 11-14-2024 Note Progress Note-Physic rayray Patient: KRISTINA NARVAEZ Age: 29 years Sex: Female : 1995 Associated Diagnoses: None Author: Panfilo Sagastume Jr., DO Postoperative Information Postoperative disposition: Postoperative disposition: Home. Optimetrix number: Optimetrix number [id number]. Anesthetic utilized: General. Physical Examination Vital Signs [...] Ambulatory Surgery Unit, and To home ). [facility] Comment on above: Result Comment: Elec [...] Adult Author:Panfilo Kumar Jr., DO Date:11/14/24 Plan Stateless Society of Anesthesiologists (ASA) physical status classification: Class II. Anesthetic Preoperative Plan: Anesthesia General. Future Appointments Appointment Date:11/24/2024 11:20:00 AM Scheduled Provider:Reji Dillon MD Location:[facility] Appointment Type:GS Post Op 15 [facility] 01-28-2025 Hospital Discharge instructions Patient Education 11/14/2024 [...] not rub your skin to dry it. Wkyt-kbw-endfin sitz bath To take a sitz bath with an krce-qbq-gtrout basin: 1.Follow the buttonhole maker hand's instructions. 2.Fill the basin with warm [...] if it cracks, or according to the buttonhole maker hand's instructions. Contact a health care provider [...] provider. Document Revised: 01/05/2023 Document Reviewed: 01/05/2023 [employer] Patient Education 2023 [employer]. 11/14/2024 10:55:12 Post Op Patient Instructions - FT (Custom) (CUSTOM) 11/14/2024 10:40:34 Anal Fissure, Adult, Biln-hc-Jpjt Anal Fissure, Adult An anal fissure is [...] Follow these instructions at home: Medicines Take mlml-ewx-pvlevxv and prescription medicines only as told by [...] provider. Document Revised: 10/21/2023 Document Reviewed: 10/21/2023 [employer] Patient Education 2023 [employer]. Follow Up Care 10/30/2024 15:22:37 With:Reji Dillon Address: [address] [place] [phone] Business (1) When: Unknown Comments:Appointment has already been scheduled [facility] 01-28-2025 NotePatient Education - Text Gastroenterology Anal [...] these instructions at home: Medicines ??? Take knht-fkn-vriwwdx and prescription medicines only as told by [...] provider. Document Revised: 10/21/2023 Document Reviewed: 10/21/2023 [employer] Patient Education ? 2023 [employer] Obstetrics and Gynecology How to Take [...] not rub your skin to dry it. Bkiw-one-ktalxo sitz bath To take a sitz bath with an dflj-vpz-ujtumk basin: 1. Follow the buttonhole maker hand's instructions. 2. Fill the basin with [...] Risk, 09/02/2024 vape Tobacco Use:. Vaping, Yes, [facility]:Other Comment: Clerical [id number] NoteProgress Note-Physician Patient: KRISTINA NARVAEZ Age: 29 [...] All Problems Anal fissure / SNOMED CT 67472091 / Confirmed Mixed anxiety and depressive disorder / SNOMED CT 715356845 / Confirmed Smoker / SNOMED CT 856843304 / Confirmed Added secondary to documentation in Social History. Histories Past Medical History: No active or resolved past medical history items have been selected or recorded. Procedure history: Arthroscopy of knee with meniscus repair (356582453) on 10/04/2024 at 29 Years. History of tonsillectomy (7233906240) in 2004 at 10 Years. Tonsillectomy (Removal of tonsils) (823852845). Social History Social & Psychosocial Habits Alcohol [...] Management Results review: Interpretation: Labs unremarkable. Plan Stateless Society of Anesthesiologists (ASA) physical status classification: Class II. Anesthetic Preoperative Plan: Anesthesia General.[facility] Comment on above:Result Comment: Electronically Signed By: Panfilo Sagastume Jr., DO\Date and Time Signed: 11/14/24 09:22 [id number] History of Present illness Narrative* NISHI Cobb [...] Referral Reason: Specialty Services Required Referral Location: [place] [facility] Scheduling Requested Specialty: Physical Therapy Number [...] for requiring urgent evaluation. 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 [...] for requiring urgent evaluation. documented in this [facility]01-06-2025 Instructions* Patient Instructions* NISHI Cobb - 10/23/2024 [...] more than 10 mins documented in this [facility]12-18-2024 Telephone encounter Note* Telephone Encounter - Evens Adamson NP - 10/04/2024 5:13 PM EST Post op pain rx. PDMP reviewed [facility] [id number] Miscellaneous Notes* Telephone Encounter - Evens Adamson NP - 10/04/2024 5:13 PM EST Post op pain rx. PDMP reviewed documented in this [facility]12-09-2024 Hospital Discharge instructions Patient Education 09/25/2024 14:49:52 Anal Fissure, Adult, Oolf-qi-Gkyt Anal Fissure, Adult An anal fissure is [...] Follow these instructions at home: Medicines Take ubym-ssn-jhcovtw and prescription medicines only as told by [...] Document Reviewed: 10/21/2023 Elsevier Patient Education 2023 [employer]. 09/25/2024 14:49:51 Health Risks of Smoking Health [...] Department of Health and Human Services: www.smokefree.gov [employer]: www.freedomfromsmoking.org Stat[employer] Heart Association: www.heart.org Where to find more [...] provider. Document Revised: 10/06/2022 Document Reviewed: 10/06/2022 Socrative Patient Education 2023 [employer]. [facility] General Surgery [place] 12-09-2024 NotePatient Education Gastroenterology Anal Fissure, Adult [...] these instructions at home: Medicines ??? Take zdux-iak-pscxpbc and prescription medicines only as told by [...] provider. Document Revised: 10/21/2023 Document Reviewed: 10/21/2023 ElseSparkfly Patient Education ? 2023 [employer] Pulmonary Medicine Health Risks of Smoking [...] Smoking is an uday (more content not included)...[facility] 09-19-2024 History of Present illness Narrative* [...] PT HAS CRUTCHES NPAR - REF # [id number] Follow up for 10/20/24 @ 11:00AM - JOSUE NEWELL. documented in this encounterLakeland Regional [id number] History of Present illness Narrative* Lalitha Calderon APRN-[employer] - 09/11/2024 10:00 AM EST Images from [...] Objective Physical Exam Exam conducted with a program specialist present. Constitutional: General: She is not in [...] patient/family/caregiver Referring and communicating with other health career consultant Hemorrhoids, unspecified hemorrhoid type [K64.9] MICHAEL IRELAND [facility] General Surgery [place] This note was created with the assistance of a speech recognition program. While intending to generate a timely document that accurately reflects the content of the visit, no guarantee can be provided that every grammatical or spelling mistake has been or will be identified or corrected. Thank you for your understanding. MICHAEL Ireland 09/11/24 1037 documented in [facility] History of Present illness Narrative* Tyra Trujillo, - 09/06/2024 11:30 AM EST Images from [...] Past Medical History: Diagnosis Date Anxiety Depression ([facility]) Herpes simplex 2015 Past Surgical History: Procedure [...] any concerns or questions documented in this encounterLakeland Regional [id number] Hospital Discharge instructions Patient Education 09/02/2024 13:13:37 [...] Follow these instructions at home: Medicines Take bgoe-mgl-zgabasy and prescription medicines only as told by [...] pain. Where to find more information National Sherman of Diabetes and Digestive and Kidney Diseases: [...] provider. Document Revised: 06/16/2023 Document Reviewed: 06/16/2023 Socrative Patient Education 2023 [employer]. Follow Up Care 09/02/2024 12:26:08 With:Reji Dillon Address: [address] [place] [phone] Business (1) When:09/05/2024 13:01:17 [facility] 11-16-2024 Evaluation + Plan noteExtracted from: Title:ED Note Author:Hilda DAVIS, Peña Xavier te:09/02/24 Hemorrhoid (K64.9: Unspecifi ed hemorrhoids) Orders: hydrocortisone topical, 25 mg = 1 supp, Rectal, BID, X 7 day(s), # 14 supp, Refills(s) 0, Pharmacy: [facility]/pharmacy #[id number], 157.5, cm, 09/02/24 12:33:00 EST, Height/Length Dosing, 58, kg, 09/02/24 12:33:00 EST, Weight Dosing lidocaine topical, See Instructions, 20 gm, Refill(s) 0, Apply to affected area up to 6 times daily, [id number], 157.5, cm, 09/02/24 12:33:00 EST, Height/Length Dosing, 58, kg, 09/02/24 12:33:00 EST, Weight Dosing [facility] 11-16-2024 NoteED Patient Education Note Gastroenterology Hemorrhoids [...] these instructions at home: Medicines ??? Take fiwo-vil-nqtbsno and prescription medicines only as told by [...] Where to find more information ??? National Sherman of Diabetes and Digestive and Kidney Diseases: [...] your health care provid (more content not included)...[facility]11-11-2024 History of Present illness Narrative* Maciel [...] 28 g; Refill: 0 documented in this encounterLakeland Regional [id number] History of Present illness Narrative* Jr. Martínez [...] CURRENTLY OFF WORK XRAY RT KNEE 05/24/24 [facility] MRI RT KNEE 08/07/24 [facility] VENOUS DOPPLER 05/24/24 [facility] CORTISONE INJ 07/05/24 PREDNISONE 05/30/24 PT IN [...] intervention. Martínez Smith D.O. documented in this encounterLakeland Regional [id number] History of Present illness Narrative* NISHI Cobb [...] CORTISONE INJ 07/05/24 PREDNISONE 05/30/24 PT IN [place] PT HAS BEEN TRYING TO GO ON [...] for requiring urgent evaluation. documented in this encounterLakeland Regional [id number] History of Present illness Narrative* NISHI Cobb [...] CORTISONE INJ 07/05/24 PREDNISONE 05/30/24 PT IN [place] C/O INSTABILITY- PT STATES HER KNEE HAS [...] for requiring urgent evaluation. documented in this encounterLakeland Regional [id number] History of Present illness Narrative* NISHI Cobb - 07/05/2024 2:00 PM EDTAssociated Order(s): L Inj/Asp: R knee Post-Procedure Diagnose(s): Chondromalacia, patella, right Images from the original note were not included. HISTORY OF PRESENT ILLNESS: EST PT Kristina Narvaez is an 29 y.o. @ female. EST PT RECHECK RT KNEE PAIN SINCE 05/20/24-S/P PT IN [place] 2/WK; NOTES SOME IMPROVEMENT XRAY RT KNEE 05/24/24 [facility] NO MRI VENOUS DOPPLER 05/24/24 [facility] NO CORTISONE INJ PREDNISONE 05/30/24 PT IN [place] PT STATES PAIN WAS LESS SEVERE- PT [...] for requiring urgent evaluation. documented in this encounterLakeland Regional [id number] History of Present illness Narrative* Gina Dupree [...] 06/29/2025) for Annual exam. documented in this encounterLakeland Regional [id number] History of Present illness Narrative* NISHI Cobb - 06/14/2024 3:00 PM EDT Images from the original note were not included. HISTORY OF PRESENT ILLNESS: EST PT Kristina Narvaez is an 29 y.o. @ female. EST PT RECHECK RT KNEE PAIN SINCE 05/20/24-S/P PREDNISONE 05/30/24; [facility] RELIEF XRAY RT KNEE 05/24/24 [facility] NO MRI VENOUS DOPPLER 05/24/24 [facility] NO CORTISONE INJ PREDNISONE 05/30/24 NOTES LESS [...] Referral Reason: Specialty Services Required Referral Location: [facility] Scheduling Requested Specialty: Physical Therapy Number of [...] for requiring urgent evaluation. [facility] Healthcare[facility] + Plan note Future Appointments Appointment Date:10/30/2024 03:00:00 PM Scheduled Provider:Reji Dillon MD Location:[facility] Appointment Type: Established [facility] Evaluation + Plan note Future Appointments Appointment Date:11/10/2024 10:00:00 AM Scheduled Provider: Location:[facility] Surgical Services Appointment Type:Surgery CALL PAT FT Appointment Date:11/14/2024 12:00:00 PM Scheduled Provider: Location:[facility] Appointment Type:Surgery FT Appointment Date:11/24/2024 11:20:00 AM Scheduled Provider:Reji Dillon MD Location:[facility] Appointment Type: Post Op [facility] Evaluation + Plan note Future Appointments Appointment Date:12/22/2024 11:00:00 AM Scheduled Provider:Reji Dillon MD Location:[facility] Appointment Type: Established [address] [place] [address] Evaluation noteNo assessment information available [facility] Work Phone: Evaluation note* Diagnosis Acute pain of right knee- Primary Internal derangement of right knee documented in this encounter [facility] HealthcareEvaluation note* Diagnosis Internal derangement of right knee- Primary documented in this encounter [facility]Evaluation [facility]* Diagnosis Grade I hemorrhoids- Primary documented in this encounter [facility] HealthcareEvaluation [facility]* Diagnosis Vaginal discharge- Primary Leukorrhea, not specified as infective Vaginal irritation Pruritus of genital organs Acute vaginitis Unspecified vaginitis and vulvovaginitis Dysuria Acute suprapubic pain Surveillance for control, intrauterine device Surveillance of previously prescribed intrauterine contraceptive device documented in this encounter [facility] HealthcareEvaluation note* Diagnosis Pre-op examination- Primary documented in this encounter [facility] HealthcareEvaluation note* Diagnosis Encounter for gynecological examination without abnormal finding- Primary IUD check up Herpes simplex Herpes simplex without mention of complication Screen for STD (sexually transmitted disease) Screening examination for venereal disease documented in this encounter [facility] HealthcareEvaluation note* Diagnosis Acute pain of right knee- Primary Chondromalacia, patella, right documented in this encounter [facility] HealthcareEvaluation note* Diagnosis Acute pain of right knee- Primary documented in this encounter [facility] HealthcareEvaluation note* Diagnosis Acute pain of right knee- Primary Chondromalacia, patella, right documented in this encounter [facility] HealthcareEvaluation note* Diagnosis Internal derangement of right knee- Primary documented in this encounter [facility] HealthcareEvaluation note* Diagnosis S/P right knee arthroscopy- Primary documented in this encounter [facility] HealthcareEvaluation note* Diagnosis S/P right knee arthroscopy- Primary Knee stiffness, right documented in this encounter [facility] HealthcareEvaluation note* Diagnosis S/P right knee arthroscopy- Primary documented in this encounter [facility] HealthcareEvaluation note* Diagnosis Hemorrhoids, unspecified hemorrhoid type- Primary Rectal pain Anal or rectal pain [facility]* Diagnosis Knee strain, right, subsequent encounter- Primary Acute pain of right knee documented in this encounter [facility] HealthcareEvaluation note* Diagnosis Neuroma of left lower extremity after surgery- Primary Acute pain of right knee documented in this encounter [facility] HealthcareEvaluation note* Diagnosis Acute pain of right knee documented in this encounter [facility] HealthcareHospital course Narrative No data available for this section [facility] Hospital Discharge instructions Additional Instructions Take Zofran as prescribed for nausea and vomiting. Increase your intake of fluids and take Motrin Tylenol as needed for pain. Return to the emergency department if develop worsening right lower quadrant abdominal pain intractable nausea vomiting. Follow-up with your primary care physician for reevaluation in 3 to 5 days.[facility] Work Phone: Hospital Discharge instructions No data available for this section [facility] General Surgery Michelle InstructionsNot on filedocumented in this encounter [facility]Progress note No data available for this section [facility] Reason for referral (narrative)* Consultation (Routine) - Pending Review Specialty Diagnoses / Procedures Referred By Contac t Referred To Contact Physical Therapy Diagnoses Acute pain of right knee Procedures [place] OFFICE/OUTPATIENT NEW HIGH MDM 60 MINUTES Romi Hopper PA [address] [facility] [address] [place] [address] [facility] [address] [place] [address] Phone: [phone] Referral ID Status Reason Start Date Expiration Date Visits Requested Visits Authorized [id number] Pending Review Specialty Services Required 06/14/2024 12/11/2024 [...] IV contrast Romi Hopper PA [address] [place] [address] [facility] [address] [place] [address] Referral ID Status Reason Start Date Expiration Date V isits Requested Visits Authorized [id number] Pending Review 07/26/2024 01/22/2025 1 1 Specialty Diagnoses / Procedures Referred By Contac t Referred To Contact Orthopaedic Surgery Diagnoses Chondromalacia, patella, right Procedures L Inj/Asp: R knee Romi Hopper PA [address] [facility] [address] [place] [address] Referral ID Status Reason Start Date Expiration Date V isits Requested Visits Authorized [id number] Authorized 07/05/2024 01/01/2025 1 1 Additional Source Comments INFORMATION SOURCE (unrecogn ized section and content) DATE CREATED AUTHOR 04/07/2018 [facility] DATE CREATED AUTHOR AUTHOR'S ORGANIZ ATION 04/12/2018 [facility] ical [facility] DATE CREATED AUTHOR AUTHOR'S ORGANIZ ATION 04/13/2018 [facility] DATE CREATED AUTHOR AUTHOR'S ORGANIZ ATION 04/14/2022 [facility] DATE CREATED AUTHOR AUTHOR'S ORGANIZ ATION 09/20/2022 [facility] DATE CREATED AUTHOR AUTHOR'S ORGANIZ ATION 09/13/2024 [facility] DATE CREATED AUTHOR AUTHOR'S ORGANIZ ATION 11/26/2024 [facility] DATE CREATED AUTHOR AUTHOR'S ORGANIZ ATION 12/24/2024 [facility] DATE CREATED AUTHOR AUTHOR'S ORGANIZ ATION 01/22/2025 [facility] EPIC Care Teams (unrecognized sec tion and content) Team Status: Inactive Member Role Status Dates PHYSICIAN NO FAMILY Primary Care Provider Active Romi Obrien DO Emergency Provider Active Team Status: Active Member Role Status Dates PHYSICIAN NO FAMILY Primary Care Provider Active Medical Health Researcher Relationship Specialty Start Date End Date Karl Hsuain MD [address] [place] [address] PCP - General Family Medicine 05/30/24 Naty Mccarty MD [address] [place], [place] [phone] Referring Physician Family Medicine 05/30/24 Medical Health Researcher Relationship Specialty Start Date End Date Karl Husain MD [address] [place] [phone] PCP - General Family Medicine 05/30/24 Naty Mccarty MD [address] [place] [address] Referring Physician Family Medicine 05/30/24 Medical Health Researcher Relationship Specialty Start Date End Date Karl Husain MD [address] [place] [phone] PCP - General Family Medicine 05/30/24 Naty Mccarty MD [address] [place] [address] Referring Physician Family Medicine 05/30/24 Medical Health Researcher Relationship Specialty Start Date End Date Karl Husain MD [address] [place] [phone] PCP - General Family Medicine 05/30/24 Naty Mccarty MD [address] [place] [phone] Referring Physician Family Medicine 05/30/24 Medical Health Researcher Relationship Specialty Start Date End Date Karl Husain MD [address] [place] [phone] PCP - General Family Medicine 05/30/24 Naty Mccarty MD [address] [place] [phone] Referring Physician Family Medicine 05/30/24 Medical Health Researcher Relationship Specialty Start Date End Date Karl Husain MD [facility] [place] [address] PCP - General Family Medicine 05/30/24 Naty Mccarty MD [address] [place] [address] Referring Physician Family Medicine 05/30/24 Medical Health Researcher Relationship Specialty Start Date End Date Karl Husain MD [address] [place], [place] [phone] PCP - General Family Medicine 05/30/24 Naty Mccarty MD [address] [place], [place] [phone] Referring Physician Family Medicine 05/30/24 Medical Health Researcher Relationship Specialty Start Date End Date Karl Husain MD [address] [place], [place] [phone] PCP - General Family Medicine 05/30/24 Naty Mccarty MD [address] [place], [place] [phone] Referring Physician Family Medicine 05/30/24 Medical Health Researcher Relationship Specialty Start Date End Date Karl Husain MD [address] [place], [place] [phone] PCP - General Family Medicine 05/30/24 Naty Mccarty MD [address] [place], [place] [phone] Referring Physician Family Medicine 05/30/24 Medical Health Researcher Relationship Specialty Start Date End Date Karl Husain MD [address] [place], [place] [phone] PCP - General Family Medicine 05/30/24 Naty Mccarty MD [address] [place] [phone] Referring Physician Family Medicine 05/30/24 Medical Health Researcher Relationship Specialty Start Date End Date Karl Husain MD [address] [place] [phone] PCP - General Family Medicine 05/30/24 Naty Mccarty MD [address] [place] [address] Referring Physician Family Medicine 05/30/24 Medical Health Researcher Relationship Specialty Start Date End Date Karl Husain MD [address] [place], [place] [phone] PCP - General Family Medicine 05/30/24 Naty Mccarty MD [address] [place] [phone] Referring Physician Family Medicine 05/30/24 Medical Health Researcher Relationship Specialty Start Date End Date Naty Mccarty S, SERVICES MANAGER-[employer] [address] [place] [phone] PCP - General Family Medicine 09/04/24 Medical Health Researcher Relationship Specialty Start Date End Date Karl Husain MD [address] [place] [phone] PCP - General Family Medicine 05/30/24 Naty Mccarty MD [address] [place] [phone] Referring Physician Family Medicine 05/30/24 Goals (unrecognized [...] Reason Comments Follow-up Reason Comments Hemorrhoids HEMORRHOIDS, [facility] , PT HAS BCBS Reason Comments [...] BE BASED ON THE PRIMARY CLINICAL RECORDS. [employer] [facility]. provides no warranty or guarantee of the accuracy or completeness of information in this document.
[2025-05-03 00:36] LABS: Hematocrit 34.4 % (36.0-48.0); Hemoglobin 11.9 g/dL (12.0-16.0); Immature Granulocytes Abs Auto 0.03 10^3/uL (0.00-0.03); Immature Granulocytes Pct Auto 0.4 % (0.0-0.5); Lymphocytes Absolute Auto 1.6 10^3/uL (1.2-3.8); Mean Corpuscular HGB Conc 34.6 g/dL (29.9-35.2); Mean Corpuscular Hemoglobin 31.6 pg (26.7-34.0); Mean Corpuscular Volume 91.5 fL (81.0-99.0); Platelet Count 221 10^3/uL (150-450); Red Blood Count 3.76 10^6/uL (4.20-5.40); White Blood Count 7.5 10^3/uL (4.0-11.0)
[2025-05-03 00:38] LABS: Glucose Urine UA NEGATIVE (NEGATIVE)
[2025-05-03] MEDS: 0.9 % SODIUM CHLORIDE 1,000 ML 999 ML IV ×2 (00:45→02:07)
[2025-05-03 00:46] LABS: Cast Seen? NONE SEEN #/LPF (NONE SEEN); Crystals Seen? None Seen #/HPF (None Seen); Urine Culture Indicated NO
[2025-05-03] MEDS: PROMETHAZINE HCL 25 MG in 0.9 % SODIUM CHLORIDE 50 ML 204 MG IV (00:46)
[2025-05-03 00:55] LABS: Alanine Aminotransferase 164 U/L (14-59); Albumin Globulin Ratio 1.2; Albumin Level 3.6 g/dL (3.4-5.0); Alkaline Phosphatase 53 U/L (46-116); Anion Gap 12.2; Aspartate Amino Transferase 135 U/L (15-37); Blood Urea Nitrogen 8.0 mg/dL (7.0-18.0); Calcium 8.5 mg/dL (8.5-10.1); Carbon Dioxide 24.4 mmol/L (21.0-32.0); Chloride 106 mmol/L (98-107); Estimated GFR (African America >60 (>=60 mL/min/1.73m^2); Estimated GFR (Non-African Ame >60 (>=60 mL/min/1.73m^2); Globulin 3.0 g/dL; Glucose 99 mg/dL (74-106); Potassium 3.6 mmol/L (3.5-5.1); Sodium 139 mmol/L (136-145); Total Protein 6.6 g/dL (6.4-8.2)
[2025-05-03 00:57] LABS: Lactate/Lactic Acid 0.9 mmol/L (0.4-2.0)
[2025-05-03 01:30] VITALS: BP 105/73
[2025-05-03 01:37] VITALS: O2SAT 99
--- NOTE | 2025-05-03 03:24 | ED.GENADUL1 ---
HPI HPI - General Adult General Chief complaint: Fever Stated complaint: FEVER, HEADACHE, FOLLOW UP FROM EARLIER ER VISIT Time Seen by Provider: 05/02/25 23:53 Source: patient Mode of arrival: walk-in Limitations: no limitations History of Present Illness HPI narrative: patient was seen earlier today for nausea and vomiting. also one episode of diarrhea. Treated and discharged home with prescription for zofran that was not picked up. Now returns because she started vomiting again. throat sore from vomiting and has mild headache. No abdominal pain or fever. No hematemesis. Related Data Home Medications ?Medication ?Instructions ?Recorded ?Confirmed alprazolam 0.25 mg tablet mg 09/03/24 escitalopram oxalate 10 mg tablet mg 09/03/24 sertraline 50 mg tablet mg 09/03/24 valacyclovir 1 gram tablet mg 09/03/24 Previous Rx's ?Medication ?Instructions ?Recorded hydrocortisone-pramoxine 1 %-1 % 1 applic NJ BID #30 grams 09/03/24 rectal cream ondansetron 4 mg disintegrating 4 mg PO Q6H PRN nausea and 05/02/25 tablet vomiting #20 tabs Allergies Allergy/AdvReac Type Severity Reaction Status Date / Time No Known Drug Allergies Allergy Verified 05/02/25 23:32 Opioid HPI Opioid Management Most Recent Opioid Data: Last Pain Scale 5 05/02/25, 08:38 Review of Systems ROS Status of ROS 10 or more systems reviewed and unremarkable except as noted in history and below PFSH PFS Social History Smoking status: Former smoker Little interest or pleasure in doing things: not at all Feeling down, depressed, or hopeless: not at all Exam Constitutional Vital Signs, click to edit/add: Last Vital Signs Temp 99.3 F 05/02/25 23:32 Pulse 66 05/02/25 23:32 Resp 18 05/02/25 23:32 BP 105/73 05/03/25 01:30 Pulse Ox 99 05/03/25 01:37 O2 Del Method Room Air 05/02/25 23:32 Common normals: no apparent distress, average body habitus, oriented x3, no limitations, healthy appearing, alert and well nourished [facility] Common normals: normocephalic and head/scalp atraumatic Other: limited view of oral pharynx. Mallampati 4 no obvious erythema or exudate Eye Common normals: PERRL and EOMs intact bilaterally Respiratory Common normals: normal respiratory effort, no retractions, no use of accessory muscles and clear to auscultation bilaterally Cardio Common normals: regular rate, regular rhythm, S1 normal heart sound and S2 normal heart sound GI Common normals: Normal to inspection, nondistended, normoactive bowel sounds present, soft to palpation and non-tender Extremity Common normals: normal to inspection and full ROM Neuro Common normals: oriented x3, CN's II-XII intact bilaterally, moves all extremities and no focal motor deficits Psych Appearance: grossly normal Course Vital Signs Vital signs: Vital Signs Temperature 99.3 F 05/02/25 23:32 Pulse Rate 66 05/02/25 23:32 Respiratory Rate 18 05/02/25 23:32 Blood Pressure 126/81 05/02/25 23:32 Pulse Oximetry 98 05/02/25 23:32 Oxygen Delivery Method Room Air 05/02/25 23:32 Temperature 99.3 F 05/02/25 23:32 Pulse Rate 66 05/02/25 23:32 Respiratory Rate 18 05/02/25 23:32 Blood Pressure 105/73 05/03/25 01:30 Pulse Oximetry 99 05/03/25 01:37 Oxygen Delivery Method Room Air 05/02/25 23:32 Medical Decision Making MDM Narrative Medical decision making narrative: presents with gastroenteritis and dehydration from recurrent vomiting. labs unremarkable except bump in AST, ALT. felt most likely elevated as part of her viral gastroenteritis. Medicated with Phenergan and hydrated with normal saline. Resting and feeling better. Discharged home and advised to have her doctor repeat her LFTs to monitor liver test. Discharged home in improved condition Lab Data Labs: Lab Results 05/03/25 05/03/25 Range/Units 00:20 00:32 WBC 7.5 (4.0-11.0) 10^3/uL RBC 3.76 L (4.20-5.40) 10^6/uL Hgb 11.9 L (12.0-16.0) g/dL Hct 34.4 L (36.0-48.0) % MCV 91.5 (81.0-99.0) fL MCH 31.6 (26.7-34.0) pg MCHC 34.6 (29.9-35.2) g/dL RDW 14.3 (11.0-15.0) % Plt Count 221 (150-450) 10^3/uL MPV 9.6 (9.5-13.5) fL Neut % (Auto) 62.4 (43.0-75.0) % Lymph % (Auto) 21.0 (20.5-60.0) % [place] % (Auto) 14.4 H (1.7-12.0) % Eos % (Auto) 1.3 (0.9-7.0) % Baso % (Auto) 0.5 (0.2-2.0) % Neut # (Auto) 4.7 (1.4-6.5) 10^3/uL Lymph # (Auto) 1.6 (1.2-3.8) 10^3/uL [place] # (Auto) 1.1 H (0.3-0.8) 10^3/uL Eos # (Auto) 0.1 (0.0-0.7) 10^3/uL Baso # (Auto) 0.0 (0.0-0.1) 10^3/uL Abs Immat Gran (auto) 0.03 (0.00-0.03) 10^3/uL Imm/Tot Granulo (auto) 0.4 (0.0-0.5) % Sodium 139 (136-145) mmol/L Potassium 3.6 (3.5-5.1) mmol/L Chloride 106 (98-107) mmol/L Carbon Dioxide 24.4 (21.0-32.0) mmol/L Anion Gap 12.2 BUN 8.0 (7.0-18.0) mg/dL Creatinine 0.69 (0.55-1.02) mg/dL Est GFR ( Amer) >60 (>=60 mL/min/1.73m^2) Est GFR (Non-Af Amer) >60 (>=60 mL/min/1.73m^2) BUN/Creatinine Ratio 11.6 Glucose 99 (74-106) mg/dL Lactate 0.9 (0.4-2.0) mmol/L Calcium 8.5 (8.5-10.1) mg/dL Total Bilirubin 0.5 (0.2-1.0) mg/dL AST 135 H (15-37) U/L ALT 164 H (14-59) U/L Alkaline Phosphatase 53 (46-116) U/L Total Protein 6.6 (6.4-8.2) g/dL Albumin 3.6 (3.4-5.0) g/dL Globulin 3.0 g/dL Albumin/Globulin Ratio 1.2 Urine Color Yellow (YELLOW) Urine Clarity Clear (CLEAR) Urine pH 6.5 (5.0-9.0) Ur Specific [place] 1.020 (1.005-1.025) Urine Protein Negative (NEG/TRACE) mg/dL Urine Glucose (UA) Negative (NEGATIVE) mg/dL Urine Ketones Negative (NEGATIVE) mg/dL Urine Occult Blood Negative (NEGATIVE) Urine Nitrite Negative (NEGATIVE) Urine Bilirubin Negative (NEGATIVE) Urine Urobilinogen 1.0 (0.2-1.0) EU/dL Ur Leukocyte Esterase Negative (NEGATIVE) Urine RBC None seen (0-2) #/HPF Urine WBC None seen (NONE SEEN) #/HPF Ur Squamous Epith Cells Few A (NONE/RARE) #/LPF Urine Crystals None seen (None Seen) #/HPF Urine Bacteria Trace A (NONE SEEN) #/HPF Urine Casts None seen (NONE SEEN) #/LPF Urine Mucus Trace A (NONE SEEN) Ur Culture Indicated? No Discharge Plan Discharge Chief Complaint: Fever Clinical Impression: Nausea & vomiting Patient Disposition: Home, Self-Care Prescriptions / Home Meds: No Action valacyclovir 1 gram tablet alprazolam 0.25 mg tablet sertraline 50 mg tablet escitalopram oxalate 10 mg tablet hydrocortisone-pramoxine 1-1 % cream 1 applic NJ BID Qty: 30 0RF ondansetron 4 mg tablet,disintegrating 4 mg PO Q6H PRN (Reason: nausea and vomiting) Qty: 20 0RF Print Language: Polish Instructions: Acute Nausea and Vomiting (ED) Referrals: EDITH MCCARTY [Primary Care Provider, Family Practice] - 1 week
[2025-05-03] MEDS: ONDANSETRON 4 MG RAPDIS TABLET SL (03:49)
--- NOTE | 2025-05-03 03:51 | PC.NURSE ---
i gave this patient verbal and written discharge orders and 1 take home medication, and this patient voices yes to understanding these. at time of discharge this patient voices no concerns, needs and shows no signs of distress
== END 2025-05-03 03:53 | disposition home or self-care (01) ==
PROVIDERS: Emergency Provider Internal Medicine; PCP Nurse Practitioner Family
DX: R11.2 Nausea with vomiting, unspecified (principal); Z87.891 Personal history of nicotine dependence; R51.9 Headache, unspecified
CPT/HCPCS: 36415; 80048; 80053; 81001; 83605; 84703; 85025; 96361; 96365; 96374; 96376; 99284; 99285; J2405; J2550; Q0162

== ENCOUNTER 2025-05-09 14:35 | Emergency (ER) | payer BC, SELFPAY ==
--- OUTSIDE RECORDS SUMMARY | 2024-09-01 05:53 | XMS_ITS ---
Author Organization [facility] [place] Address [address] [place] [address] Care Team Providers Care Controls Operator Molded Goods Name Role Phone Naty Benavidez Primary Care Provider REASON FOR VISIT hemorrhoid Medications Medication SIG (Take, Route, Frequency, Duration) Notes Start Date End Date Status Hydrocortisone Acetate 30 MG 1 supposito ry Rectal Once a day for 7 days 09/01/2024 Active Encounters Encounter Location Date Provider Diagnosis [facility] [address] [place] [address] 09/01/2024 Naty Benavidez Plan Of Treatment Medication Medication Name Sig Start Date Stop Date Notes Hydrocortisone Acetate 30 MG 1 supposito ry Rectal Once a day for 7 days 09/01/2024 Next Appt Details Provider Name:Naty olivas, 06/14/2025 10:00:00 AM, [address] [place], [address], Progress Notes * SOLANGE KristinaDOB:1995 ( 29 yo F)Acc No.[id number]:09/01/2024 Patient: Kristina DURBIN :1995 A ge:29 Y S ex:Female Address:[address] [place] [address], [address] * Refills Start Hydrocortisone Acetate Suppository, 30 MG, Rectal, 7, 1 suppository, Once a day, 7 days, Refills=0 Subjective: * Chief Complaints: * H emorrhoid * Medical History: * Surgical History: * Hospitalization/Major Diagno stic Procedure: * Medications: Objective: * Vitals: * Physical Examination: Assessment: Plan: * Treatment: * Procedure Codes: * true * Date: Generated for Jag perez/Elpidio/Zeferino on: 0 05/09/2025 02:40 PM EDT
--- OUTSIDE RECORDS SUMMARY | 2024-09-06 07:00 | XMS_ITS ---
Author Organization [facility] in [place] Address [address] [place] [address] Care Team Providers Care Cream Beater Name Role Phone Naty Benavidez Primary Care Provider REASON FOR VISIT 6MON CHECK Encounters Encounter Location Date Provider Diagnosis [facility] [address] [place] [phone] 09/06/2024 Naty Benavidez Plan Of Treatment Next Appt Details Provider Name:Naty olivas, 06/14/2025 10:00:00 AM, [address] [place], [address], Progress Notes * Kristina ALVARADODOB:1995 ( 30 yo F)Acc No.[id number]:09/06/2024 UNLOCKED PROGRESS NOTE Progress Note Patient: Kristina DURBIN Provider: Caridad Benavidez CNP (TTC) :1995 A ge:29 Y S ex:Female Date:09/06/2024 Address:[address] [place], [place] [id number] Subjective: * Chief Complaints: * 1 . 6MON CHECK. * Medical History: Objective: * Vitals: Assessment: Plan: * Treatment: * * Electronic signature of Akanksha Hoyt NP, CAPITAL MARKETS SPECIALIST.COLOR MAKING SUPERVISOR.[id number] on 05/09/2025 at 02:40 PM EDT Sign off status: Pending Visit Status: C ANC (Cancelled) * Provider: Caridad GIBBS) COLOR MAKING SUPERVISOR Date: 11/06/2023 Generated for Jag perez/Elpidio/eTransmitting on: 0 05/09/2025 02:40 PM EDT
--- OUTSIDE RECORDS SUMMARY | 2024-12-15 07:00 | XMS_ITS ---
Author Organization [facility] in [place] Address [address] [place] [address] Care Team Providers Care Etymology Professor Name Role Phone Naty Benavidez Primary Care Provider [phone] Allergies No Known Allergies REASON FOR VISIT [...] 12/15/2024 Encounters Encounter Location Date Provider Diagnosis [facility] [address] [facility] [place] [address] 12/15/2024 Naty Benavidez Anxiety and depression F41.9 [...] Name:Naty olivas, 06/14/2025 10:00:00 AM, [address] [facility], [facility], [place], [address], Progress Notes * Kristina ALVARDAODOB:1995 ( 29 yo F)Acc No.[id number]:12/15/2024 Progress Note Patient: Kristina DURBIN Provider: Caridad Benavidez ([facility]), FLOOR POLISHER :1995 A ge:29 Y S ex:Female Date:12/15/2024 Address:[address] [place] [address], [facility] Check In:11:03 AM ESTCheck O ut:11:25 AM [...] * Electronically signed by Ginna Benavidez NP, CHAINSTITCH SEWING MACHINE OPERATOR.FLOOR [id number] on 12/18/2024 at 04:59 PM EST Sign off status: Completed Visit Status: C HK (Check Out) true * Provider: Caridad Benavidez ([facility]), FLOOR POLISHER Date: 0 12/15/2024 Generated for Jag perez/Elpidio/eTransmitting on: 0 05/09/2025 02:41 PM EDT History and Physical Notes * HPI [...]
[2025-05-09] VITALS (11 sets, daily range): BP systolic 109–118; BP diastolic 67–85; PULSE 52–84; TEMP 37.2; O2SAT 98–99; BMI 22.9
--- OUTSIDE RECORDS SUMMARY | 2025-05-09 14:40 | XMS_ITS | Encounter Summary ---
Author Organization [facility] Address [address] [place] [address] Care Team Providers Care Sandblast Operator Name Role Phone Karl Husain MD Primary Care Provider Naty Benavidez MD Unavailable [phone] Encounter Details Date Type Department Care Team (Late Contact Info) Description 07/31/2024 Orders Only [facility] [address] [phone] Gina Hale, SCADA ENGINEER [address] [place] [address] Social History Tobacco Use Types Packs/Day Years [...] Office Visit [facility] [address] [id number] Gina Hale NP [address] [place] [address] documented as of this encounter Procedures Procedure Name Priority Date/Time Associated Diagnosis Comments SCANNED LABS Routine 06/29/2024 8:28 AM EDT documented in this encounter Results * SCANNED LABS (06/29/2024 8:28 AM EDT) us Gina Hale SCADA ENGINEER LAB CHG PERFORMABLES Jelly l Result documented in this encounter Visit Diagnoses Not on filedocumented in this encounter Care Teams Sandblast Operator Relationship Specialty Start Date End Date Karl Husain MD PCP - General Family Medicine 05/30/24 Naty Benavidez MD [address] [place] [id number] Referring Physician Family Medicine 05/30/24 documented as of this encounter
--- OUTSIDE RECORDS SUMMARY | 2025-05-09 14:40 | XMS_ITS | Patient Health Record ---
Author Organization [facility] Address [address] [place] [address] Care Team Providers Care Belt Maker Name Role Phone Karma Stafford Primary Care [...] [employer] [address] [place] [address] [id number] IVORY NARVAEZ Self - patient is the insured [address] [facility] after [employer] [place] [address] [id number] IVORY NARVAEZ Self - patient is the insured 1 Medical (General) History Medical History History ICD Code UTI Surgical History Surgery Date(Month/Year) TONSILLECTOMY- AGE 7 CHILDBIRTH 09[birth year]2011 CHILDBIRTH 03/2019 Hospitalization History Reason Date(Month/Year) SEE ABOVE
--- OUTSIDE RECORDS SUMMARY | 2025-05-09 14:40 | XMS_ITS | Clinical Summary ---
Author Organization [facility] Address [id number] [address] [place] [address] Care Team Providers Care Circulation Crew Leader Name Role Phone Naty Benavidez [employer]ITOR [employer] CLEANER Primary Care Provider Allergies No known active [...] 09/11/2024 Medical Devices Not on file Insurance [facility] Care Teams Circulation Crew Leader Relationship Specialty Start Date End Date Naty Benavidez, BRICKMASON-JANITOR AND CLEANER [address] [facility], [place] [address] PCP - General Family Medicine 09/04/24
--- OUTSIDE RECORDS SUMMARY | 2025-05-09 14:41 | XMS_ITS | Clinical Summary ---
Author Organization [facility] Address [address] [place] [address] Care Team Providers Care Pie Crimping Machine Operator Name Role Phone Karl Husain MD Primary Care Provider [phone] Naty Benavidez MD Unavailable [phone] Allergies No known active allergies Medications [...] 02/13/2025 Refill [facility] [address] [place] [id number] Jr. Ishaan Smith DO Acute pain of [...] EDT Office Visit [facility] [address] [phone] Gina Hale NP [address] [place] [address] Insurance BCBS Care Teams Pie Crimping Machine Operator Relationship Specialty Start Date End Date Karl Husain MD PCP - General Family Medicine 05/30/24 Naty Benavidez MD [address] [place] [address] Referring Physician Family Medicine 05/30/24
--- NOTE | 2025-05-09 15:07 | ECG_ITS ---
The [facility] Test Date: 2025-05-09 Pat Name: IVORY NARVAEZ Department: Room: - Gender: Female Cell Room Operator: : 1995 Requested By: [id number] Order Number: [id number] Reading MD: MARTÍNEZ NAJERA M.D. Measurements Intervals [place] Rate: 57 P: 77 VT: 146 QRS: 75 QRSD: 88 T: 66 QT: 454 QTc: 449 Interpretive Statements 1100 Sinus rhythm 1102 Sinus arrhythmia 9110 normal ECG Compared to ECG 08/23/2024 18:00:22 No significant changes Electronically Signed On 05-11-2025 6:42:06 EDT by MARTÍNEZ NAJERA M.D.
--- NOTE | 2025-05-09 15:14 | CT_ITS ---
The [address] [address] Patient Name: IVORY NARVAEZ MRN: [id number] date: 1995 Sex: F Assigned Patient Location: ER Current Patient Location: ER Accession/Order Number: [id number] Exam Date: 05/09/2025 16:42 Report Date: 05/09/2025 16:44 At the request of: RAQUEL MARINO MD Procedure: CT head/brain wo con CT BRAIN WITHOUT CONTRAST: CLINICAL HISTORY: fall, syncopal episode, weakness COMPARISON: None TECHNIQUE: Contiguous axial unenhanced images were obtained through the brain. This CT exam was performed using one or more following dose reduction techniques: Automated exposure control, adjustment of the mA and/or kV according to patient size, or use of iterative reconstruction technique. FINDINGS: There is no evidence of midline shift, intra or extra-axial fluid collection, hemorrhage or CT evidence of acute large vascular distribution stroke Visualized intraorbital contents appear unremarkable. Visualized paranasal sinuses are clear. The surrounding soft tissues are normal. CT/CT head/brain wo con IMPRESSION: NO ACUTE INTRACRANIAL ABNORMALITY. Impression dictated by: Glen Arciniega M.D. 05/09/2025 4:44 PM Dictation Location: [place] [address] Electronically authenticated by: [id number] Y Date: 05/09/2025 16:44
--- NOTE | 2025-05-09 15:14 | CT_ITS ---
The [address] [address] Patient Name: IVORY NARVAEZ MRN: [id number] date: 1995 Sex: F Assigned Patient Location: ER Current Patient Location: ER Accession/Order Number: [id number] Exam Date: 05/09/2025 16:47 Report Date: 05/09/2025 16:48 At the request of: RAQUEL MARINO MD Procedure: CT cervical spine wo con CT CERVICAL SPINE WITHOUT CONTRAST: CLINICAL HISTORY: Fall COMPARISON: None TECHNIQUE: Contiguous axial unenhanced images were obtained through the cervical spine. This CT exam was performed using one or more following dose reduction techniques: Automated exposure control, adjustment of the mA and/or kV according to patient size, or use of iterative reconstruction technique. FINDINGS: Straightening normal lordosis. No evidence acute fracture or mild left. Vertebral heights and intervertebral space heights preserved. No prevertebral soft tissue swelling. Lung apices are clear. CT/CT cervical spine wo con IMPRESSION: Negative acute fracture malalignment Impression dictated by: Glen Arciniega M.D. 05/09/2025 4:48 PM Dictation Location: [place] [address] Electronically authenticated by: [id number] Y Date: 05/09/2025 16:48
--- NOTE | 2025-05-09 15:14 | XR_ITS ---
The [address] [address] Patient Name: IVORY NARVAEZ MRN: [id number] date: 1995 Sex: F Assigned Patient Location: ER Current Patient Location: ER Accession/Order Number: [id number] Exam Date: 05/09/2025 16:56 Report Date: 05/09/2025 16:58 At the request of: RAQUEL MARINO MD Procedure: XR knee RT 3V RIGHT KNEE - 3 views CLINICAL HISTORY: fall COMPARISON: None FINDINGS: No knee joint effusion. No acute bony process. Joint spaces appear maintained. XR/XR knee RT 3V IMPRESSION: NO ACUTE BONY PROCESS. Impression dictated by: Krissy Toussaint Jr.OChristopher 05/09/2025 4:58 PM Dictation Location: [place] [address] Electronically authenticated by: [id number] Y Date: 05/09/2025 16:58
[2025-05-09 15:29] LABS: Hematocrit 39.1 % (36.0-48.0); Hemoglobin 13.6 g/dL (12.0-16.0); Immature Granulocytes Abs Auto 0.05 10^3/uL (0.00-0.03); Immature Granulocytes Pct Auto 0.6 % (0.0-0.5); Lymphocytes Absolute Auto 3.2 10^3/uL (1.2-3.8); Mean Corpuscular HGB Conc 34.8 g/dL (29.9-35.2); Mean Corpuscular Hemoglobin 31.2 pg (26.7-34.0); Mean Corpuscular Volume 89.7 fL (81.0-99.0); Platelet Count 303 10^3/uL (150-450); Red Blood Count 4.36 10^6/uL (4.20-5.40); White Blood Count 8.7 10^3/uL (4.0-11.0)
[2025-05-09] MEDS: 0.9 % SODIUM CHLORIDE 1,000 ML 1000 ML IV (15:34)
[2025-05-09 15:40] LABS: INR 1.03; Prothrombin Time 10.9 sec (9.0-11.6)
[2025-05-09 15:47] LABS: Alanine Aminotransferase 43 U/L (14-59); Albumin Globulin Ratio 1.1; Albumin Level 3.9 g/dL (3.4-5.0); Alkaline Phosphatase 62 U/L (46-116); Anion Gap 12.8; Aspartate Amino Transferase 17 U/L (15-37); Blood Urea Nitrogen 14.0 mg/dL (7.0-18.0); Calcium 9.3 mg/dL (8.5-10.1); Carbon Dioxide 27.1 mmol/L (21.0-32.0); Chloride 104 mmol/L (98-107); Estimated GFR (African America >60 (>=60 mL/min/1.73m^2); Estimated GFR (Non-African Ame >60 (>=60 mL/min/1.73m^2); Globulin 3.7 g/dL; Glucose 98 mg/dL (74-106); Potassium 3.9 mmol/L (3.5-5.1); Sodium 140 mmol/L (136-145); Total Protein 7.6 g/dL (6.4-8.2)
[2025-05-09 16:09] LABS: Glucose Urine UA NEGATIVE (NEGATIVE)
--- NOTE | 2025-05-09 17:03 | ED.GENADUL1 ---
HPI HPI - General Adult General Chief complaint: Syncope Stated complaint: FAINTED WEAKNESS Time Seen by Provider: 05/09/25 15:00 Source: patient Mode of arrival: walk-in History of Present Illness HPI narrative: The patient 30-year-old female who was just evaluated almost within the last 5 days for nausea vomiting and diarrhea, is coming to us after she had an episode of syncope that happened yesterday according to her she does not remember exactly what happened but she felt flushed and she went out to her car that when she found herself on the floor and apparently she hit her head after falling, her niece apparently was above her when she woke up after few minutes, today she is feeling weak and tired There is no chest pain no nausea vomiting that the patient is prescribing today there is no abdominal pain or any leg swelling Patient mentioned that when she woke up she had the swelling in the left side of the head in addition to right knee pain and she have a history of surgery she was worried about that pain Related Data Home Medications ?Medication ?Instructions ?Recorded ?Confirmed sertraline 50 mg tablet 50 mg PO Q24H 09/03/24 05/09/25 valacyclovir 1 gram tablet 1,000 mg PO Q12H PRN herpes 09/03/24 05/09/25 Previous Rx's ?Medication ?Instructions ?Recorded hydrocortisone-pramoxine 1 %-1 % 1 applic NM BID #30 grams 09/03/24 rectal cream ondansetron 4 mg disintegrating 4 mg PO Q6H PRN nausea and 05/02/25 tablet vomiting #20 tabs Allergies Allergy/AdvReac Type Severity Reaction Status Date / Time No Known Drug Allergies Allergy Verified 05/09/25 14:47 Opioid HPI Opioid Management Most Recent Opioid Data: Last Pain Scale 5 05/02/25, 08:38 Review of Systems ROS Status of ROS 10 or more systems reviewed and unremarkable except as noted in history and below PFSH PFSH Social History Smoking status: Former smoker Little interest or pleasure in doing things: not at all Feeling down, depressed, or hopeless: several days Exam Narrative Exam Narrative: Nurses notes and vital signs reviewed and patient is not hypoxic. General: Well-appearing and in no apparent distress. Skin: Warm, dry, no pallor noted. Some abrasion to the left outer aspect of the arm and forearm in the left side Head: Normocephalic, small abrasion to the left side of the forehead Neck: Supple, non-tender. Eye: Pupils are equal, round and EOMI. No scleral icterus. Ears, Nose, Mouth, and Throat: TM are clear, no nasal mucosal hypertrophy. Oral mucosa is moist, no posterior oropharynx erythema, uvula is mid-line Cardiovascular: Regular Rate and Rhythm with some extra beats sometimes ,without murmur, gallop or rub. Respiratory: No accessory muscle use or respiratory distress. Lungs are clear to auscultation, no wheezing, rales or rhonchi Chest Wall: no tenderness Back: No midline thoracic or lumbar vertebral tenderness. No CVA tenderness Musculoskeletal: normal ROM, no calf or popliteal tenderness, no lower extremity edema/swelling, patient have a full range of movement of the left shoulder as well as the right knee but she was complaining of tenderness on palpation of the anterior aspect of the right knee with no deformity or any effusion noted GI: Abdomen is soft, non-distended. Normal bowel sounds. No masses appreciated. No tenderness to palpation. No rebound, guarding, or rigidity noted. Neurological: A&O x4. No cranial nerve dysfunction observed. No truncal ataxia. Moves all extremities. Sensation intact. Constitutional Vital Signs, click to edit/add: Last Vital Signs Temp 99 F 05/09/25 14:50 Pulse 64 05/09/25 15:28 Resp 17 05/09/25 15:28 BP 118/79 05/09/25 17:05 Pulse Ox 99 05/09/25 15:20 O2 Del Method Room Air 05/09/25 14:50 Course Vital Signs Vital signs: Vital Signs Temperature 99 F 05/09/25 14:50 Pulse Rate 62 05/09/25 14:50 Respiratory Rate 16 05/09/25 14:50 Blood Pressure 114/83 05/09/25 14:50 Pulse Oximetry 98 05/09/25 14:50 Oxygen Delivery Method Room Air 05/09/25 14:50 Temperature 99 F 05/09/25 14:50 Pulse Rate 64 05/09/25 15:28 Respiratory Rate 17 05/09/25 15:28 Blood Pressure 118/79 05/09/25 17:05 Pulse Oximetry 99 05/09/25 15:20 Oxygen Delivery Method Room Air 05/09/25 14:50 Medical Decision Making [facility] Narrative Medical decision making narrative: The patient EKG upon arrival was showing sinus rate with a heart rate of [address] elevation or depression there was some sinus arrhythmia that is mild The patient heart rate did get elevated when the patient was laying down and it was around 50 sitting up it was around 67 The patient CBC and chemistry showed no acute pathology and the CAT scan of her head neck as well as x-ray of the right knee showed no acute pathology It was noted that the patient was already evaluated almost few days ago for nausea vomiting and with her history of possible syncope the main reason could be dehydration That why the patient was started on IV fluid in addition to obtaining the blood workup and the x-ray and the CAT scan CT of the head showed no acute pathology The patient when I presented to the bedside after she was provided with IV fluid to explain to her that there was no acute findings on the imaging and the presentation could be secondary to dehydration This is when the patient started being angry and got up started cursing and stood up angrily said that she will rip her own IV and that we keep sending her home I did explain to her that right now there was no acute finding and she definitely need to follow-up with cardiology if she keeps getting episode of dizziness although the patient had no presentation before for the same current complaint But even then the patient started cursing and saying that she does not have insurance and we all are the same and nobody is helping, I did explain to her that I am sorry that she is feeling this way but if she had emergency room evaluation and there was no finding she need to go to the specialty but again she started saying that she does not have insurance This is when I disengaged and I got out of the room to prepare the patient discharge but she did not wait for that and she left before the nurse came to give her the discharge papers Lab Data Labs: Lab Results 05/09/25 05/09/25 Range/Units 15:20 15:30 WBC 8.7 (4.0-11.0) 10^3/uL RBC 4.36 (4.20-5.40) 10^6/uL Hgb 13.6 (12.0-16.0) g/dL Hct 39.1 (36.0-48.0) % MCV 89.7 (81.0-99.0) fL MCH 31.2 (26.7-34.0) pg MCHC 34.8 (29.9-35.2) g/dL RDW 13.7 (11.0-15.0) % Plt Count 303 (150-450) 10^3/uL MPV 9.8 (9.5-13.5) fL Neut % (Auto) 51.9 (43.0-75.0) % Lymph % (Auto) 36.8 (20.5-60.0) % [place] % (Auto) 8.0 (1.7-12.0) % Eos % (Auto) 2.2 (0.9-7.0) % Baso % (Auto) 0.5 (0.2-2.0) % Neut # (Auto) 4.5 (1.4-6.5) 10^3/uL Lymph # (Auto) 3.2 (1.2-3.8) 10^3/uL [place] # (Auto) 0.7 (0.3-0.8) 10^3/uL Eos # (Auto) 0.2 (0.0-0.7) 10^3/uL Baso # (Auto) 0.0 (0.0-0.1) 10^3/uL Abs Immat Gran (auto) 0.05 H (0.00-0.03) 10^3/uL Imm/Tot Granulo (auto) 0.6 H (0.0-0.5) % PT 10.9 (9.0-11.6) sec INR 1.03 Sodium 140 (136-145) mmol/L Potassium 3.9 (3.5-5.1) mmol/L Chloride 104 (98-107) mmol/L Carbon Dioxide 27.1 (21.0-32.0) mmol/L Anion Gap 12.8 BUN 14.0 (7.0-18.0) mg/dL Creatinine 0.68 (0.55-1.02) mg/dL Est GFR ( Amer) >60 (>=60 mL/min/1.73m^2) Est GFR (Non-Af Amer) >60 (>=60 mL/min/1.73m^2) BUN/Creatinine Ratio 20.6 Glucose 98 (74-106) mg/dL Calcium 9.3 (8.5-10.1) mg/dL Total Bilirubin 0.3 (0.2-1.0) mg/dL AST 17 (15-37) U/L ALT 43 (14-59) U/L Alkaline Phosphatase 62 (46-116) U/L Troponin I High Sens 4.0 (4.0-51.3) pg/mL Total Protein 7.6 (6.4-8.2) g/dL Albumin 3.9 (3.4-5.0) g/dL Globulin 3.7 g/dL Albumin/Globulin Ratio 1.1 Serum HCG, Qual Negative (NEGATIVE) Urine Color Yellow (YELLOW) Urine Clarity Clear (CLEAR) Urine pH 6.0 (5.0-9.0) Ur Specific [place] 1.025 (1.005-1.025) Urine Protein Negative (NEG/TRACE) mg/dL Urine Glucose (UA) Negative (NEGATIVE) mg/dL Urine Ketones Negative (NEGATIVE) mg/dL Urine Occult Blood Negative (NEGATIVE) Urine Nitrite Negative (NEGATIVE) Urine Bilirubin Negative (NEGATIVE) Urine Urobilinogen 0.2 (0.2-1.0) EU/dL Ur Leukocyte Esterase Negative (NEGATIVE) Discharge Plan Discharge Chief Complaint: Syncope Clinical Impression: Dizziness, Syncope, Dehydration Patient Disposition: Home, Self-Care Time of Disposition Decision: 17:10 Condition: Good Prescriptions / Home Meds: No Action valacyclovir 1 gram tablet 1,000 mg PO Q12H PRN (Reason: herpes) sertraline 50 mg tablet 50 mg PO Q24H hydrocortisone-pramoxine 1-1 % cream 1 applic NM BID Qty: 30 0RF ondansetron 4 mg tablet,disintegrating 4 mg PO Q6H PRN (Reason: nausea and vomiting) Qty: 20 0RF Print Language: Chinese Instructions: Dehydration (DC), Syncope (DC) Referrals: EDITH MCCARTY [Primary Care Provider, Family Practice] - 1 week
== END 2025-05-09 17:10 | disposition home or self-care (01) ==
PROVIDERS: Emergency Provider Emergency Medicine; PCP Nurse Practitioner Family
DX: E86.0 Dehydration (principal); R55 Syncope and collapse; R42 Dizziness and giddiness; Z87.891 Personal history of nicotine dependence
CPT/HCPCS: 36415; 70450; 72125; 73562; 80053; 81003; 84484; 84703; 85025; 85610; 93005; 99285